=== PATIENT | male | born 1985 | race Caucasian/White ===

== ENCOUNTER 2019-01-04 14:30 | Inpatient (IN) | payer SELFPAY ==
[2019-01-04 14:39] VITALS: BMI 25.9
--- NOTE | 2019-01-04 14:43 | PDOC ---
History of Present Illness - General Chief Complaint: Lightheaded Stated Complaint: DIZZINESS Time Seen by Provider: 01/04/19 14:42 History Source: Patient Exam Limitations: No Limitations - History of Present Illness Initial Comments: 01/04/19 15:01 33 year old male with PMH ETOH abuse, ETOH withdrawal seizure (x4 years ago) presented to ED for tremors and left sided numbness starting last night. Pt stated he stopped drinking x20 days ago, started again x3 days ago drinking 11 beers a day, then yesterday only drank 1 beer and today has been tremulous with left sided numbness/tingling and dizziness. Pt denied chest pain, shortness of breath, nausea, vomiting, diarrhea, abdominal pain, visual changes, weakness, changes with articulation of speech. ETOH use: 11 beers daily, last used yesterday Drug use: cocaine, last used x20 days ago NIH Stroke Scale - Last Known Well Date/Time & Onset Date Last Known Well: 01/04/19 - Initial Evaluation Level of consciousness: Alert Ask patient the month and their age: Answers both correctly Ask patient to open & close eyes; make fist and let go: Obeys both correctly Best gaze (horizontal eye movement): Normal Visual field testing: No visual field loss Facial paresis (Show teeth/raise eyebrows/close eyes tight): Normal symmetrical movement Motor Function: Left Arm: Normal Motor Function: Right Arm: Normal (extends arm 90 (or 45) degrees for 10 seconds without drift Motor Function: Left Leg: Normal (extends leg 30 degrees for 5 seconds without drift) Motor Function: Right Leg: Normal (extends leg 30 degrees for 5 seconds without drift) Limb Ataxia: No ataxia Sensory(Use pinprick test arms,legs,trunk,face/side to side): Normal Best language (Describe picture, name items, read sentences): No Aphasia Dysarthria (read several words): Normal articulation Extinction and Inattention: No abnormality - Total Score NIH Stroke Scale Score: 0 Past History - Past Medical History Allergies/Adverse Reactions: Allergies Allergy/AdvReac Type Severity Reaction Status Date / Time No Known Allergies Allergy Verified 01/04/19 14:35 Home Medications: Ambulatory Orders NK [No Known Home Medication] 01/04/19 COPD: No - Suicide/Smoking/Psychosocial Hx Smoking History: Never smoked Review of Systems - Review of Systems Able to Perform ROS?: Yes Comments:: 01/04/19 15:21 General: denied fever, chills, night sweats, generalized weakness. HEENT: denied sore throat, rhinorrhea, ear pain. Heart: denied chest pain, palpitations, syncope, diaphoresis. Respiratory: denied shortness of breath, cough, sputum production, hemoptysis. Abdomen: denied abdominal pain, nausea, vomiting, diarrhea, constipation, blood in stool. : denied dysuria, increased urinary frequency, hematuria, urinary incontinence , flank pain. Back: denied back pain. Musculoskeletal: denied joint pain, muscle pain, joint swelling. Neurological: admitted to dizziness, numbness, tingling, tremors. denied headache, weakness. Skin: denied rash, laceration, abrasion. *Physical Exam - Vital Signs Last Vital Signs Temp Pulse Resp BP Pulse Ox 98.2 F 87 18 142/94 97 01/04/19 14:32 01/04/19 14:32 01/04/19 14:32 01/04/19 14:32 01/04/19 14:32 - Physical Exam Comments: 01/04/19 15:21 Constitutional: Well-nourished, Well-developed, appearing stated age. HEENT: head is normocephalic, atraumatic. EOMI. PERRLA. Neck: supple. Full ROM. Heart: regular rhythm. no murmurs, rubs or gallops. Lungs: clear to auscultation bilaterally. no crackles, rhonchi or wheezing. no stridor. Abdomen: soft, nontender. normal bowel sounds. no rebound, guarding, masses. Extremities: Peripheral pulses intact. No lower extremity edema. Neurological: Alert. Oriented x3. CN2-12 intact. 5/5 strength all extremities. Full sensation all extremities and bilateral face, but less on left. Romberg negative. Finger to nose normal. Gait normal. tremulous. Psych: anxious. awake, alert, oriented x3. Follows commands. Answers questions appropriately. Moderate Sedation - Procedure Monitoring Vital Signs: Procedure Monitoring Vital Signs Temperature 98.2 F 01/04/19 14:32 Pulse Rate 87 01/04/19 14:32 Respiratory Rate 18 01/04/19 14:32 Blood Pressure 142/94 01/04/19 14:32 O2 Sat by Pulse Oximetry (%) 97 01/04/19 14:32 ED Treatment Course - LABORATORY CBC & Chemistry Diagram: 01/05/19 06:20 01/05/19 06:20 Medical Decision Making - Medical Decision Making 01/04/19 15:22 33 year old male with PMH etoh abuse, etoh withdrawal seizure presented to ED after stopping ETOH use abruptly. Pt c/o left sided numbness/tingling, tremulousness, dizziness. Initial Vital Signs Temp Pulse Resp BP Pulse Ox 98.2 F 87 18 142/94 97 01/04/19 14:32 01/04/19 14:32 01/04/19 14:32 01/04/19 14:32 01/04/19 14:32 Afebrile. No tachycardia. No tachypnea. Mild hypertension. No hypoxia on room air. Labs ordered: CBC, CMP, etoh level, salicyclate level, tylenol level Imaging ordered: none Medications ordered: normal saline bolus 1000 cc, librium 50 mg PO 01/04/19 15:38 EKG performed at 1451: rate 86, regular rhythm, normal axis, normal intervals, nonspecific ST changes. CBC WBC 4.4 K/mm3 (4.0-10.0) 01/04/19 14:58 RBC 4.43 M/mm3 (4.00-5.60) 01/04/19 14:58 Hgb 14.7 GM/dL (11.7-16.9) 01/04/19 14:58 Hct 42.2 % (35.4-49) 01/04/19 14:58 MCV 95.2 fl (80-96) 01/04/19 14:58 MCH 33.2 pg (25.7-33.7) 01/04/19 14:58 MCHC 34.8 g/dl (32.0-35.9) 01/04/19 14:58 RDW 12.8 % (11.9-15.9) 01/04/19 14:58 Plt Count 233 K/MM3 (134-434) 01/04/19 14:58 MPV 7.5 fl (7.5-11.1) 01/04/19 14:58 Absolute Neuts (auto) 2.0 K/mm3 (1.5-8.0) 01/04/19 14:58 Neutrophils % 45.0 % (42.8-82.8) 01/04/19 14:58 Lymphocytes % 49.3 % (8-40) H 01/04/19 14:58 Monocytes % 4.5 % (3.8-10.2) 01/04/19 14:58 Eosinophils % 0.7 % (0-4.5) 01/04/19 14:58 Basophils % 0.5 % (0-2.0) 01/04/19 14:58 Nucleated RBC % 0 % (0-0) 01/04/19 14:58 No leukocytosis. No anemia. 01/04/19 15:47 CMP Sodium 138 mmol/L (136-145) 01/04/19 14:58 Potassium 3.9 mmol/L (3.5-5.1) 01/04/19 14:58 Chloride 102 mmol/L (98-107) 01/04/19 14:58 Carbon Dioxide 30 mmol/L (21-32) 01/04/19 14:58 Anion Gap 7 MMOL/L (8-16) L 01/04/19 14:58 BUN 6 mg/dL (7-18) L 01/04/19 14:58 Creatinine 0.7 mg/dL (0.55-1.3) 01/04/19 14:58 Creat Clearance w eGFR > 60 (>60) 01/04/19 14:58 Random Glucose 157 mg/dL (74-106) H 01/04/19 14:58 Calcium 8.7 mg/dL (8.5-10.1) 01/04/19 14:58 Phosphorus 2.8 mg/dL (2.5-4.9) 01/04/19 14:58 Magnesium 2.1 mg/dL (1.8-2.4) 01/04/19 14:58 Total Bilirubin 0.2 mg/dL (0.2-1) 01/04/19 14:58 AST 47 U/L (15-37) H 01/04/19 14:58 ALT 76 U/L (13-61) H 01/04/19 14:58 Alkaline Phosphatase 106 U/L (45-117) 01/04/19 14:58 Total Protein 8.0 g/dl (6.4-8.2) 01/04/19 14:58 Albumin 4.0 g/dl (3.4-5.0) 01/04/19 14:58 No electrolyte abnormalities. No YAMILE. Mild transaminitis. 01/04/19 16:20 Alcohol level 144 Acetaminophen and salicyclate level negative. 01/04/19 16:24 Pt reassessed, still tremulous. Medications: Ativan [address] head report: no evidence of any intracerebral hemorrhage, mass lesion, or midline shift. There is no evidence of an acute subdural hematoma. No CT evidence of acute infarct. No fractures are identified. Pt has no PCP. To be admitted to hospitalist for alcohol withdrawal, left sided numbness/ tingling. 01/04/19 16:[address] Le about the case, who recommends admission for further workup of unilateral numbness/tingling. Pending admission. UDS positive for benzos. - Pt received ativan in ED prior to giving urine sample. *DC/Admit/Observation/Transfer Diagnosis at time of Disposition: Numbness and tingling of left arm and leg Alcohol withdrawal Qualifiers: Complication of substance-induced condition: uncomplicated Qualified Code(s): F10.230 - Alcohol dependence with withdrawal, uncomplicated - Discharge Dispostion Condition at time of disposition: Stable Decision to Admit order: Yes - Referrals - Patient Instructions - Post Discharge Activity
[2019-01-04] MEDS ORDERED: SODIUM CHLORIDE 1,000 ML IV STA (14:44)
[2019-01-04 15:28] LABS: BASO % 0.5 % (0-2.0); EOS % 0.7 % (0-4.5); HEMATOCRIT 42.2 % (35.4-49); HEMOGLOBIN 14.7 GM/dL (11.7-16.9); LYMPH % 49.3 % (8-40); MCH 33.2 pg (25.7-33.7); MCHC 34.8 g/dl (32.0-35.9); MEAN CELL VOLUME 95.2 fl (80-96); MEAN PLT VOLUME 7.5 fl (7.5-11.1); MONO % 4.5 % (3.8-10.2); PLATELET COUNT 233 K/MM3 (134-434); RBC 4.43 M/mm3 (4.00-5.60); RDW 12.8 % (11.9-15.9); WHITE BLOOD COUNT 4.4 K/mm3 (4.0-10.0)
[2019-01-04] MEDS ORDERED: chlordiazePOXIDE HCL 25 MG CAPSULE PO ONE (15:28)
[2019-01-04] MEDS ORDERED: chlordiazePOXIDE HCL 25 MG CAPSULE ONE ×2 (15:35→23:06)
[2019-01-04] MEDS ORDERED: FOLIC ACID INJECTION - 1 MG, THIAMINE HCL 100 MG, MULTIVIT INJECTION ADULT 10 ML in SOD... IVPB ONE (15:36)
[2019-01-04 15:42] LABS: ALK PHOS 106 U/L (45-117); ANION GAP 7 MMOL/L (8-16); BILIRUBIN,TOTAL 0.2 mg/dL (0.2-1); BLOOD UREA NITROGEN 6 mg/dL (7-18); CALCIUM 8.7 mg/dL (8.5-10.1); CHLORIDE 102 mmol/L (98-107); CO2 30 mmol/L (21-32); CREATININE 0.7 mg/dL (0.55-1.3); GLUCOSE,RANDOM 157 mg/dL (74-106); MAGNESIUM 2.1 mg/dL (1.8-2.4); PHOSPHOROUS 2.8 mg/dL (2.5-4.9); POTASSIUM 3.9 mmol/L (3.5-5.1); SGOT/AST 47 U/L (15-37); SGPT/ALT 76 U/L (13-61); SODIUM 138 mmol/L (136-145)
--- NOTE | 2019-01-04 15:45 | PDOC ---
Attending Attestation - Resident Resident Name: Olga Coffey - ED Attending Attestation I have performed the following: I have examined & evaluated the patient, The case was reviewed & discussed with the resident, I agree w/resident's findings & plan, Exceptions are as noted - HPI HPI: 01/04/19 16:55 The patient is a 33 year old male with a significant past medical history of etoh withdrawal seizure (about 4 years ago) who presents to the emergency department with some lightheadedness since last night. The patient reports some associated left sided numbness to his hands and legs, tingling, and tremors with his complaint. The patient reports that he had a beer yesterday. The patient reports that he recently began to drink 3 days ago after a period of not drinking for about 20 days. The patient reports that when he began to drink again he has had about 11 beers a day. He denies any recent drug use (in the past he has used cocaine). He denies any other symptoms. He denies any fever, chills, nausea, vomiting, diarrhea, constipation or urinary symptoms. He denies any chest pain, shortness or breath or headache. The patient denies any other complaints. - Physicial Exam PE: 01/04/19 17:02 agree with resident exam - Medical Decision Making 01/04/19 17:02 33yo M hx etoh abuse complicated by etoh withdrawal seizures in the past presents to the ED with lightheadedness, L side numbness, tremors. Initially, pt states decreased sensation to L side of body, but on my exam, sensation and strength equal b/l. Concern for etoh withdrawal. Pt status post librium, now ativan given lack of response. Pt admitted to Dr. Le for further mgmt. Case discussed in detail with admitting physician including history, physical exam and ancillary studies. Admitting physician has assumed care for the patient, will follow all pending diagnostics and will complete the evaluation and treatment.
[2019-01-04] MEDS ORDERED: LORazepam 2 MG/ML SDV VIAL ONE (16:24)
[2019-01-04] MEDS ORDERED: ACETAMINOPHEN 325 MG TABLET (FP) PO PRN (17:14)
[2019-01-04] MEDS ORDERED: ONDANSETRON 4 MG/2 ML VIAL IVPUSH PRN (17:14)
[2019-01-04] MEDS ORDERED: chlordiazePOXIDE HCL 25 MG CAPSULE PO PRN (17:17)
--- NOTE | 2019-01-04 17:24 | HP ---
Admitting History and Physical - Primary Care Physician PCP: none - Admission Chief Complaint: I feel drunk History of Present Illness: Mr Iqbal is a 33 year old male who comes in with feelings of dizziness and tremulousness. He says that he stopped drinking 20 days ago, however 3 days ago he began drinking again. He says he was drinking about 11 beers a day but wanted to cut back so his last drink was yesterday at 2pm. He says he did not drink after that but he began to feel like the room was spinning around him. He also says he was unable to sleep and this morning he felt dizzy. He also says he felt tingling on his right side. He says he still feels like he is drunk. He denies fevers, chills, chest pain, shortness of breath, nausea, vomiting, diarrhea, constipation, difficulty or pain on urination, or swelling. Of note he told the ER doctors that he had decreased sensation on his left side and that he was not feeling drunk but was shaking all over. He did receive librium and ativan in the ED for tremors which could account for his current "drunk" feeling. History Source: Patient Limitations to Obtaining History: No Limitations - Past Medical History Endocrine: Yes: Diabetes Mellitus - Past Surgical History Past Surgical History: Yes: None - Smoking History Smoking history: Never smoked - Alcohol/Substance Use Hx Alcohol Use: Yes History of Substance Use: reports: Cocaine (states last smoked 20 days ago) - Social History ADL: Independent History of Recent Travel: No Home Medications - Allergies Allergies/Adverse Reactions: Allergies Allergy/AdvReac Type Severity Reaction Status Date / Time No Known Allergies Allergy Verified 01/04/19 14:35 Family Disease History - Family Disease History Other Family History: 5 uncles with diabetes Review of Systems Findings/Remarks: Full review of systems obtained, as per HPI and otherwise negative. Physical Examination Vital Signs: Vital Signs Temperature 36.6 C 01/04/19 16:30 Pulse Rate 85 01/04/19 16:30 Respiratory Rate 18 01/04/19 16:30 Blood Pressure 130/76 01/04/19 16:30 O2 Sat by Pulse Oximetry (%) 96 01/04/19 16:30 Constitutional: Yes: Well Nourished, No Distress, Calm Eyes: Yes: Conjunctiva Clear, EOM Intact, PERRL HENT: Yes: Atraumatic, Normocephalic Cardiovascular: Yes: Regular Rate and Rhythm. No: Gallop, Murmur, Rub Respiratory: Yes: Regular, CTA Bilaterally. No: Rales, Rhonchi, Wheezes Gastrointestinal: Yes: Normal Bowel Sounds, Soft. No: Distention, Tenderness Extremities: Yes: WNL Edema: No Neurological: Yes: Other (normal sensation throughout) Labs: CBC, BMP 01/04/19 14:58 01/04/19 14:58 Imaging - Results Cat Scan: Report Reviewed Problem List - Problems (1) Alcohol withdrawal Assessment/Plan: -patient presents with elevated alcohol level and recent alcohol use -suspect patient was drinking more than stated considering his level is still 155 -if only had 1 drink yesterday at 2pm, it would be much lower -admit to telemetry observation -aggressive hydration -thiamine/folate -librium withdrawal protocol Code(s): F10.239 - ALCOHOL DEPENDENCE WITH WITHDRAWAL, UNSPECIFIED Qualifiers: Complication of substance-induced condition: uncomplicated Qualified Code(s ): F10.230 - Alcohol dependence with withdrawal, uncomplicated (2) Cocaine use Assessment/Plan: -patient states last use 20 days ago -will check urine tox screen as well as may be contributing Code(s): F14.90 - COCAINE USE, UNSPECIFIED, UNCOMPLICATED (3) Diabetes Assessment/Plan: -patient says he was diagnosed by a doctor with diabetes -diabetic diet -FSBS -will check Hgb A1c Code(s): E11.9 - TYPE 2 DIABETES MELLITUS WITHOUT COMPLICATIONS
[2019-01-04] MEDS: SODIUM CHLORIDE 1,000 ML IV SCH (17:27)
[2019-01-04 18:22] LABS: URINE APPEARANCE CLEAR; URINE BILIRUBIN NEGATIVE (<2.0 mg/dL); URINE COLOR LTYELLOW; URINE GLUCOSE (UA) NEGATIVE (NEGATIVE); URINE KETONE NEGATIVE (NEGATIVE); URINE LEUK ESTERASE NEGATIVE (NEGATIVE); URINE NITRITE NEGATIVE (NEGATIVE); URINE PROTEIN 1+ (NEGATIVE); URINE UROBILINOGEN NEGATIVE mg/dL (0.2-1.0)
[2019-01-04 19:00] LABS: COCAINE, UR NEGATIVE ng/ml (CUTOFF=300); METHADONE, UR NEGATIVE ng/ml (CUTOFF=300); OPIATES, URI NEGATIVE ng/ml (CUTOFF=300); PHENCYCLIDINE,URINE NEGATIVE ng/ml (CUTOFF=25); URINE AMPHETAMINES NEGATIVE ng/ml (CUTOFF=500); URINE BARBITURATES NEGATIVE ng/ml (CUTOFF=200)
[2019-01-04 19:03] LABS: URINE BENZODIAZEPINES POSITIVE ng/ml (CUTOFF=200)
[2019-01-04] MEDS ORDERED: ACETAMINOPHEN 325 MG TABLET (FP) ONE (20:26)
--- NOTE | 2019-01-04 21:57 | EKG ---
Test Reason : Blood Pressure : / mmHG Vent. Rate : 086 BPM Atrial Rate : 086 BPM P-R Int : 148 ms QRS Dur : 078 ms QT Int : 376 ms P-R-T Axes : 046 041 020 degrees QTc Int : 449 ms NORMAL SINUS RHYTHM NORMAL ECG NO PREVIOUS ECGS AVAILABLE Confirmed by PANKAJ YOU MD ([id number]) on 01/04/2019 9:57:08 PM Referred By: Confirmed By:PANKAJ YOU MD
[2019-01-04] MEDS: chlordiazePOXIDE HCL 25 MG CAPSULE PO SCH (23:19)
[2019-01-05] MEDS ORDERED: chlordiazePOXIDE HCL 25 MG CAPSULE ONE ×4 (06:07→22:25)
[2019-01-05] MEDS: chlordiazePOXIDE HCL 25 MG CAPSULE PO SCH ×4 (06:09→22:26)
[2019-01-05 06:56] LABS: BASO % 0.5 % (0-2.0); EOS % 2.1 % (0-4.5); HEMATOCRIT 40.1 % (35.4-49); HEMOGLOBIN 14.2 GM/dL (11.7-16.9); LYMPH % 38.4 % (8-40); MCH 33.6 pg (25.7-33.7); MCHC 35.4 g/dl (32.0-35.9); MEAN PLT VOLUME 7.5 fl (7.5-11.1); MONO % 6.6 % (3.8-10.2); NEUT % 52.4 % (42.8-82.8); PLATELET COUNT 194 K/MM3 (134-434); RBC 4.22 M/mm3 (4.00-5.60); RDW 12.8 % (11.9-15.9)
[2019-01-05 07:23] LABS: ANION GAP 5 MMOL/L (8-16); BLOOD UREA NITROGEN 9 mg/dL (7-18); CALCIUM 8.2 mg/dL (8.5-10.1); CHLORIDE 104 mmol/L (98-107); CO2 29 mmol/L (21-32); CREATININE 0.6 mg/dL (0.55-1.3); GLUCOSE,RANDOM 112 mg/dL (74-106); MAGNESIUM 1.9 mg/dL (1.8-2.4); PHOSPHOROUS 3.1 mg/dL (2.5-4.9); POTASSIUM 3.6 mmol/L (3.5-5.1); SODIUM 139 mmol/L (136-145)
--- NOTE | 2019-01-05 08:59 | PN ---
Progress Note, Physician Chief Complaint: Mr Iqbal says he is still feeling tremulous and having a headache. No cp, sob , n/v. - Current Medication List Current Medications: Active Medications Acetaminophen (Tylenol -) 650 mg PO Q4H PRN PRN Reason: HEADACHE Last Admin: 01/04/19 20:28 Dose: 650 mg Chlordiazepoxide HCl (Librium -) 50 mg PO [id number] DAHLIA Stop: 01/05/19 17:01 Last Admin: 01/05/19 06:09 Dose: 50 mg Chlordiazepoxide HCl (Librium -) 25 mg PO [id number] DAHLIA Stop: 01/06/19 17:01 Chlordiazepoxide HCl (Librium -) 15 mg PO [id number] DAHLIA Stop: 01/07/19 17:01 Chlordiazepoxide HCl (Librium -) 25 mg PO Q4H PRN PRN Reason: WITHDRAWAL(CONT SUBST) Stop: 01/07/19 17:16 Chlordiazepoxide HCl (Librium -) 10 mg PO [id number] [facility] Stop: 01/08/19 17:01 Folic Acid (Folic Acid -) 1 mg PO DAILY [facility] Sodium Chloride (Normal Saline -) 1,000 mls @ 125 mls/hr IV ASDIR DAHLIA Last Admin: 01/04/19 17:27 Dose: Not Given Ondansetron HCl (Zofran Injection) 4 mg IVPUSH Q6H PRN PRN Reason: NAUSEA Thiamine HCl (Vitamin B1 -) 100 mg PO DAILY [facility] - Objective Vital Signs: Vital Signs Temperature 36.7 C 01/05/19 08:13 Pulse Rate 69 01/05/19 08:13 Respiratory Rate 17 01/05/19 08:13 Blood Pressure 123/83 01/05/19 08:13 O2 Sat by Pulse Oximetry (%) 99 01/05/19 08:14 Constitutional: Yes: Well Nourished, No Distress, Calm Cardiovascular: Yes: Regular Rate and Rhythm. No: Gallop, Murmur, Rub Respiratory: Yes: Regular, CTA Bilaterally. No: Rales, Rhonchi, Wheezes Gastrointestinal: Yes: Normal Bowel Sounds, Soft. No: Distention, Tenderness Extremities: Yes: WNL Edema: No Labs: CBC, BMP 01/05/19 06:20 02/24/19 06:20 Problem List - Problems (1) Alcohol withdrawal Code(s): F10.239 - ALCOHOL DEPENDENCE WITH WITHDRAWAL, UNSPECIFIED Qualifiers: Complication of substance-induced condition: uncomplicated Qualified Code(s ): F10.230 - Alcohol dependence with withdrawal, uncomplicated (2) Cocaine use Code(s): F14.90 - COCAINE USE, UNSPECIFIED, UNCOMPLICATED (3) Diabetes Code(s): E11.9 - TYPE 2 DIABETES MELLITUS WITHOUT COMPLICATIONS Assessment/Plan (1) Alcohol withdrawal Assessment/Plan: -patient improving but still with tremors -continue librium protocol -can transfer to med/surg -possible discharge tomorrow Code(s): F10.239 - ALCOHOL DEPENDENCE WITH WITHDRAWAL, UNSPECIFIED Qualifiers: Complication of substance-induced condition: uncomplicated Qualified Code(s ): F10.230 - Alcohol dependence with withdrawal, uncomplicated (2) Cocaine use Assessment/Plan: -urine tox negative Code(s): F14.90 - COCAINE USE, UNSPECIFIED, UNCOMPLICATED (3) Diabetes Assessment/Plan: -can cancel FSBS, controlled -follow up Hgb A1c Code(s): E11.9 - TYPE 2 DIABETES MELLITUS WITHOUT COMPLICATIONS
[2019-01-05] MEDS: FOLIC ACID 1 MG TABLET (FP) PO SCH (09:14)
[2019-01-05] MEDS: THIAMINE HCL 100 MG TABLET (FP) PO SCH (09:14)
[2019-01-05] MEDS: SODIUM CHLORIDE 1,000 ML IV SCH ×3 (11:12→17:16)
[2019-01-06] MEDS ORDERED: chlordiazePOXIDE HCL 25 MG CAPSULE ONE ×2 (04:57→11:16)
[2019-01-06] MEDS: chlordiazePOXIDE HCL 25 MG CAPSULE PO SCH ×2 (05:01→11:15)
[2019-01-06] MEDS ORDERED: FOLIC ACID 1 MG TABLET (FP) ONE (09:36)
[2019-01-06] MEDS ORDERED: THIAMINE HCL 100 MG TABLET (FP) ONE (09:36)
[2019-01-06] MEDS: FOLIC ACID 1 MG TABLET (FP) PO SCH (09:40)
[2019-01-06] MEDS: THIAMINE HCL 100 MG TABLET (FP) PO SCH (09:40)
--- NOTE | 2019-01-06 10:11 | DS ---
Physical Examination Vital Signs: Vital Signs Temperature 36.7 C 01/05/19 21:30 Pulse Rate 58 L 01/05/19 21:30 Respiratory Rate 17 01/05/19 21:30 Blood Pressure 149/95 01/05/19 21:30 O2 Sat by Pulse Oximetry (%) 99 01/05/19 21:30 Constitutional: Yes: Well Nourished, No Distress, Calm Cardiovascular: Yes: Regular Rate and Rhythm. No: Gallop, Murmur, Rub Respiratory: Yes: Regular, CTA Bilaterally. No: Rales, Rhonchi, Wheezes Gastrointestinal: Yes: Normal Bowel Sounds, Soft. No: Distention, Tenderness Extremities: Yes: WNL Edema: No Labs: CBC, BMP 01/05/19 06:20 01/05/19 06:20 Discharge Summary Reason For Visit: ALCOHOL WITHDRAWAL SYNDROME NUMBNESS AND TINGLING Current Active Problems Alcohol withdrawal (Acute) Cocaine use (Acute) Diabetes (Acute) Numbness and tingling of left arm and leg (Acute) Hospital Course: Mr Iqbal is a 33 year old gentleman who presented to the ER with tremulousness and was found to be in uncomplicated alcohol withdrawal. He was given librium and IV ativan in the ED, he was started on the librium protocol and admitted to telemetry under observation. He improved, however expressed interest in rehabilitation. He is currently tolerating the librium taper without complications, he is hemodynamically stable and tolerating oral intake. He should be on a diabetic diet and establish primary care to follow and manage his diabetes. I will start metformin 500mg qam and this can be adjusted as needed. He is safe for discharge to rehab today. 32 minutes spent in preparation of this discharge Condition: Stable - Instructions Diet, Activity, Other Instructions: Diabetic diet. No restriction on activity. Patient being transferred to [facility] to finish detox and undergo rehab for alcohol abuse. Continue librium taper , currently receiving 25mg q6h, on dose /. Disposition: TRANSFER ACUTE CARE/OTHER HOSP - Home Medications Comprehensive Discharge Medication List: Ambulatory Orders Chlordiazepoxide [Librium -] 10 mg PO [id number] capsule MDD 200mg 01/06/19 Chlordiazepoxide [Librium -] 15 mg PO [id number] capsule MDD 200mg 01/06/19 Chlordiazepoxide [Librium -] 25 mg PO Q4H PRN capsule MDD 200mg 01/06/19 Chlordiazepoxide [Librium -] 25 mg PO [id number] capsule MDD 200mg 01/06/19 Folic Acid - 1 mg PO DAILY tablet 01/06/19 Thiamine HCl [Vitamin B1 -] 100 mg PO DAILY tablet 01/06/19
[2019-01-06 11:24] VITALS: BP 124/73; PULSE 68; TEMP 97.7
[2019-01-06] MEDS ORDERED: chlordiazePOXIDE 5 MG CAPSULE PO SCH (23:00)
[2019-01-07] MEDS ORDERED: chlordiazePOXIDE HCL 10 MG CAPSULE PO SCH (23:00)
== END 2019-01-06 11:45 | disposition other institution (70) | DRG 774 ==
LOC: JER 14:30 → JERBED 16:25
PROVIDERS: ADMIT Internal Medicine; ATTEND Internal Medicine
PROC: HZ2ZZZZ Detoxification Services for Substance Abuse Treatment (ICD-10-PCS; principal; 2019-01-04)
DX: F10.230 Alcohol dependence with withdrawal, uncomplicated (principal); F14.90 Cocaine use, unspecified, uncomplicated; E11.9 Type 2 diabetes mellitus without complications; R20.0 Anesthesia of skin
CPT/HCPCS: 36415; 70450-TC; 71046-TC-FY; 80048; 80053; 80307; 81003; 81015; 82962; 83036; 83735; 84100; 85025; 93005; 93010; 99285-25; J7030

== ENCOUNTER 2019-05-20 14:19 | Inpatient (IN) | payer SELFPAY ==
[2019-05-20] MEDS ORDERED: FOLIC ACID INJECTION - 1 MG, THIAMINE HCL 100 MG, MULTIVIT INJECTION ADULT 10 ML in SOD... IVPB ONE (15:21)
--- NOTE | 2019-05-20 15:21 | PDOC ---
History of Present Illness - General Chief Complaint: Alcohol intoxication Stated Complaint: revisit Time Seen by Provider: 05/20/19 15:07 History Source: Patient Exam Limitations: Language Barrier ([facility] used) Past History - Travel Traveled outside of the country in the last 30 days: No Close contact w/someone who was outside of country & ill: No - Past Medical History Allergies/Adverse Reactions: Allergies Allergy/AdvReac Type Severity Reaction Status Date / Time No Known Allergies Allergy Verified 05/20/19 14:38 Home Medications: Ambulatory Orders Chlordiazepoxide [Librium -] 10 mg PO [id number] capsule MDD 200mg 01/06/19 Chlordiazepoxide [Librium -] 15 mg PO [id number] capsule MDD 200mg 01/06/19 Chlordiazepoxide [Librium -] 25 mg PO Q4H PRN capsule MDD 200mg 01/06/19 Chlordiazepoxide [Librium -] 25 mg PO [id number] capsule MDD 200mg 01/06/19 Folic Acid - 1 mg PO DAILY tablet 01/06/19 Metformin HCl [Glucophage] 500 mg PO AM #1 tablet 01/06/19 Thiamine HCl [Vitamin B1 -] 100 mg PO DAILY tablet 01/06/19 COPD: No - Immunization History Immunization Up to Date: Yes - Suicide/Smoking/Psychosocial Hx Smoking History: Never smoked Information on smoking cessation initiated: No Hx Alcohol Use: No Drug/Substance Use Hx: No Review of Systems - Review of Systems Able to Perform ROS?: Yes Comments:: 05/20/19 19:19 CONSTITUTIONAL: Present: chills Absent: fever, diaphoresis, generalized weakness, malaise, loss of appetite HEENT: Absent: rhinorrhea, nasal congestion, throat pain, throat swelling, difficulty swallowing, mouth swelling, ear pain, eye pain, visual Changes CARDIOVASCULAR: Absent: chest pain, loss of consciousness, palpitations, irregular heart rate, peripheral edema RESPIRATORY: Absent: cough, shortness of breath, dyspnea with exertion, orthopnea, wheezing, stridor, hemoptysis GASTROINTESTINAL: Present: abdominal pain Absent: abdominal distension, nausea, vomiting, diarrhea , constipation, melena, hematochezia GENITOURINARY: Absent: dysuria, frequency, urgency, hesitancy, hematuria, flank pain, genital pain MUSCULOSKELETAL: Absent: myalgia, arthralgia, joint swelling SKIN: Absent: rash, itching, pallor HEMATOLOGIC/IMMUNOLOGIC: Absent: easy bleeding, easy bruising, lymphadenopathy, frequent infections ENDOCRINE: Absent: unexplained weight gain, unexplained weight loss, heat intolerance, cold intolerance NEUROLOGIC: Present: "shaking" Absent: headache, focal weakness or paresthesias, dizziness, unsteady gait, seizure, mental status changes, bladder or bowel incontinence PSYCHIATRIC: Absent: anxiety, depression, suicidal or homicidal ideation, hallucinations. Is the patient limited [place] proficient: No *Physical Exam - Vital Signs Last Vital Signs Temp Pulse Resp BP Pulse Ox 98.5 F 92 H 16 153/72 99 05/20/19 14:39 05/20/19 14:39 05/20/19 14:39 05/20/19 14:39 05/20/19 14:39 - Physical Exam Comments: 05/20/19 19:20 GENERAL: Well developed, well nourished. Awake and alert. No acute distress. HEENT: Normocephalic, atraumatic. PERRLA, EOMI. No conjunctival pallor. Sclera are non- icteric. Moist mucous membranes. Oropharynx is clear. NECK: Supple. Full ROM. No JVD. Carotid pulses 2+ and symmetric, without bruits. No thyromegaly. No lymphadenopathy. CARDIOVASCULAR: Regular rate and rhythm. No murmurs, rubs, or gallops. Distal pulses are 2+ and symmetric. PULMONARY: No evidence of respiratory distress. Lungs clear to auscultation bilaterally. No wheezing, rales or rhonchi. ABDOMINAL: TTP of the epigastic region. Soft. Non-distended. No rebound or guarding. No organomegaly. Normoactive bowel sounds. MUSCULOSKELETAL Normal range of motion at all joints. No bony deformities or tenderness. No CVA tenderness. EXTREMITIES: No cyanosis. No clubbing. No edema. No calf tenderness. SKIN: Warm and dry. Normal capillary refill. No rashes. No jaundice. NEUROLOGICAL: Facial fasiculations noted. Alert, awake, appropriate. Cranial nerves 2-12 intact. No deficits to light touch and temperature in face, upper extremities and lower extremities. No motor deficits in the in face, upper extremities and lower extremities. Normoreflexic in the upper and lower extremities. Normal speech. Toes are down-going bilaterally. Gait is normal without ataxia. PSYCHIATRIC: Cooperative. Good eye contact. Appropriate mood and affect. ED Treatment Course - LABORATORY CBC & Chemistry Diagram: 05/20/19 17:56 05/20/19 17:56 Medical Decision Making - Medical Decision Making 05/20/19 19:21 The patient is a 33-year-old male past medical history of alcohol dependence, who presents to the ER today for withdrawal symptoms. He states his last drink was Sunday. He had 6 beers at that time. He states that currently he is very anxious and shaking. He states that he feels cold. Admits to mild nausea. He also states his abdominal pain and he feels like it is moving up his chest. He is open to rehabilitation. Denies fevers, short of breath, difficulty breathing , chest pain, constipation, diarrhea, , urgency hematuria. A/P: Alcohol withdrawal On exam patient with facial fasciculations including the tongue, cheeks. Reports history of alcoholic withdrawal seizures. Epigastric pain noted on exam. No right upper quadrant pain. Basic labs, urine, EKG ordered Librium, banana bag and GI cocktail ordered Sign out given to FRENCH Jade, pending lab results and reevaluation. *DC/Admit/Observation/Transfer Diagnosis at time of Disposition: Alcohol withdrawal Qualifiers: Complication of substance-induced condition: uncomplicated Qualified Code(s): F10.230 - Alcohol dependence with withdrawal, uncomplicated - Referrals - Patient Instructions - Post Discharge Activity CIWA Score Nausea/Vomitin-Mild Nausea/No Vomiting Muscle Tremors: 6 Anxiety: 5 Agitation: 6 Paroxysmal Sweats: 3 Orientation: 0-Oriented Tacttile Disturbances: 1-Very Mild Itch/Numbness Auditory Disturbances: 0-None Visual Disturbances: 0-None Headache: 0-None Present CIWA-Ar Total Score: 22 - Admission Criteria [facility] Guidelines: Admission for Medically Managed Detox: Requires at least one of the followin. CIWA greater than 12 2. Seizures within the past 24 hours 3. Delirium tremens within the past 24 hours 4. Hallucinations within the past 24 hours 5. Acute intervention needed for co occurring medical disorder 6. Acute intervention needed for co occurring psychiatric disorder 7. Severe withdrawal that cannot be handled at a lower level of care (continued vomiting, continued diarrhea, abnormal vital signs) requiring intravenous medication and/or fluids 8. Patient presents the following: Seizures, delirium tremens or hallucinations in the past 12 hours (per patient via translation line) Admission Criteria Met: Admission criteria met
[2019-05-20] MEDS ORDERED: MAG HYDROX/AL HYDROX/SIMETH -MYLANTA- ORAL SUSPENSION PO ONE (15:39)
[2019-05-20] MEDS ORDERED: FAMOTIDINE 20 MG/50 ML IVPB 20 MG/50 ML MG IVPB ONE ×2 (15:39→18:03)
[2019-05-20] MEDS ORDERED: LIDOCAINE VISCOUS 2% ORAL/TOP 20 ML UNIT-DOSE CUP MM ONE (15:39)
[2019-05-20] MEDS ORDERED: chlordiazePOXIDE HCL 25 MG CAPSULE PO ONE (15:39)
[2019-05-20] MEDS ORDERED: ONDANSETRON 4 MG/2 ML VIAL IVPUSH ONE (15:40)
[2019-05-20] MEDS ORDERED: chlordiazePOXIDE HCL 25 MG CAPSULE ONE ×2 (18:02→21:32)
[2019-05-20] MEDS ORDERED: LIDOCAINE VISCOUS 2% ORAL/TOP 20 ML UNIT-DOSE CUP ONE (18:02)
[2019-05-20] MEDS ORDERED: ONDANSETRON 4 MG/2 ML VIAL ONE (18:03)
[2019-05-20] MEDS ORDERED: MAG HYDROX/AL HYDROX/SIMETH 30 ML UNIT-DOSE CUP ONE (18:03)
[2019-05-20 18:27] LABS: BASO % 0.2 % (0-2.0); HEMATOCRIT 41.9 % (35.4-49); HEMOGLOBIN 14.4 GM/dL (11.7-16.9); LYMPH % 14.1 % (8-40); MCH 32.5 pg (25.7-33.7); MCHC 34.5 g/dl (32.0-35.9); MEAN CELL VOLUME 94.4 fl (80-96); MEAN PLT VOLUME 7.8 fl (7.5-11.1); NEUT % 81.7 % (42.8-82.8); PLATELET COUNT 150 K/MM3 (134-434); RBC 4.44 M/mm3 (4.00-5.60); RDW 14.2 % (11.9-15.9); WHITE BLOOD COUNT 7.3 K/mm3 (4.0-10.0)
[2019-05-20 18:39] LABS: ALBUMIN 4.2 g/dl (3.4-5.0); BILIRUBIN,TOTAL 0.4 mg/dL (0.2-1); BLOOD UREA NITROGEN 10.3 mg/dL (7-18); CALCIUM 9.7 mg/dL (8.5-10.1); CREATININE 0.8 mg/dL (0.55-1.3); POTASSIUM 3.2 mmol/L (3.5-5.1); PROTHROMBIN TIME (PATIENT) 11.8 SEC (9.7-13.0); TOT PROT 8.3 g/dl (6.4-8.2)
[2019-05-20] MEDS ORDERED: LORazepam 2 MG/ML SDV VIAL ONE (19:34)
--- NOTE | 2019-05-20 19:38 | PDOC ---
*Physical Exam - Vital Signs Last Vital Signs Temp Pulse Resp BP Pulse Ox 98.5 F 92 H 16 153/72 99 05/20/19 14:39 05/20/19 14:39 05/20/19 14:39 05/20/19 14:39 05/20/19 14:39 - Physical Exam General Appearance: Yes: Appropriately Dressed Respiratory/Chest: positive: Lungs Clear, Normal Breath Sounds Cardiovascular: positive: Tachycardia Gastrointestinal/Abdominal: positive: Normal Bowel Sounds, Soft. negative: Tender Extremity: positive: Normal Capillary Refill Integumentary: positive: Normal Color, Dry, Warm Neurologic: positive: Fully Oriented, Alert, Normal Mood/Affect ED Treatment Course - LABORATORY CBC & Chemistry Diagram: 05/20/19 17:56 05/20/19 17:56 - ADDITIONAL ORDERS Additional order review: Laboratory Results 05/20/19 05/20/19 17:56 17:56 PT with INR 11.80 INR 1.00 Sodium 140 Potassium 3.2 L Chloride 100 Carbon Dioxide 27 Anion Gap 13 BUN 10.3 Creatinine 0.8 Est GFR (CKD-EPI)AfAm 136.99 Est GFR (CKD-EPI)NonAf 118.20 Random Glucose 126 H Calcium 9.7 Total Bilirubin 0.4 AST 31 ALT 30 Alkaline Phosphatase 81 Total Protein 8.3 H Albumin 4.2 Lipase 508 H 05/20/19 17:56 RBC 4.44 MCV 94.4 MCHC 34.5 RDW 14.2 D MPV 7.8 Neutrophils % 81.7 D Lymphocytes % 14.1 D Monocytes % 4.0 Eosinophils % 0.0 D Basophils % 0.2 - Medications Given in the ED: ED Medications Discontinued Medications Generic Name Dose Route Start Last Admin Trade Name Freq PRN Reason Stop Dose Admin Al Hydroxide/Mg Hydroxide 30 ml 05/20/19 15:39 05/20/19 18:17 Mylanta Suspension - PO 05/20/19 15:40 30 ml ONCE ONE Administration Chlordiazepoxide HCl 100 mg 05/20/19 15:39 05/20/19 18:17 Librium - PO 05/20/19 15:40 100 mg ONCE ONE Administration Famotidine/Sodium Chloride 20 mg in 50 mls @ 100 mls/hr 05/20/19 15:39 18:17 Pepcid 20 Mg Premixed Ivpb - IVPB 05/20/19 16:08 100 mls/hr ONCE ONE Administration Lidocaine HCl 20 ml 05/20/19 15:39 05/20/19 18:17 Xylocaine 2% Viscous Oral - MM 05/20/19 15:40 20 ml ONCE ONE Administration Ondansetron HCl 4 mg 05/20/19 15:40 05/20/19 18:17 Zofran Injection IVPUSH 05/20/19 15:41 4 mg ONCE ONE Administration Medical Decision Making - Medical Decision Making 05/20/19 19:37 patient severely shaky. Ativan ordered. patient received Librium earlier in the day. 05/20/19 20:23 patient is to be admitted to hospitalist service. pending sign out 05/21/19 05:12 *DC/Admit/Observation/Transfer Diagnosis at time of Disposition: Alcohol withdrawal Qualifiers: Complication of substance-induced condition: uncomplicated Qualified Code(s): F10.230 - Alcohol dependence with withdrawal, uncomplicated - Referrals - Patient Instructions - Post Discharge Activity
[2019-05-20] MEDS ORDERED: SODIUM CHLORIDE 1,000 ML IV STA (19:41)
--- NOTE | 2019-05-20 19:56 | PN ---
Teaching Attending Note Name of Resident: Mihai Bowman ATTENDING PHYSICIAN STATEMENT I saw and evaluated the patient. I reviewed the resident's note and discussed the case with the resident. I agree with the resident's findings and plan as documented. SUBJECTIVE: Patient is a 33-year-old man with a PMH of Alcohol abuse, Cocaine use, NIDDM and Alcohol withdrawal seizures who presents to the ER today for withdrawal symptoms. He states his last drink was Sunday when he had 6 beers. He states that currently he is very anxious and shaking. He states that he feels cold. Admits to mild nausea. He also states he has epigastric abdominal pain and he feels like it is moving up his chest. He is open to rehabilitation. Denies fevers, short of breath, difficulty breathing, chest pain, constipation, diarrhea, , urgency or hematuria. On arrival in the ER he had facial fasciculations including the tongue and cheeks. OBJECTIVE: Alert Vital Signs Period Temp Pulse Resp BP Sys/Acevedo Pulse Ox Last 24 Hr 98.5 F 92 16 153/72 99 HEENT: No Jaundice, eye redness or discharge, PERRLA, EOMI. Normocephalic, atraumatic. External ears are normal and hearing is grossly intact. No nasal discharge. Neck: Supple, nontender. No palpable adenopathy or thyromegaly. No JVD Chest: Good effort. Clear to auscultation and percussion. Heart: Regular. No S3, rub or murmur Abdomen: Not distended, soft, upper abdominal tenderness and no HSM. No rebound or guarding. Normal bowel sounds. Ext: Peripheral pulses intact. No leg edema. Skin: Warm and dry. No petechiae, rash or ecchymosis. Neuro: Alert. Oriented x3. CN 2-12 grossly intact. Fine tremors. Sensation grossly intact in all four extremities and DTR are symmetric. Psych: Appropriate mood and affect. Good insight. Current Medications Generic Name Dose Route Start Last Admin Trade Name Freq PRN Reason Stop Dose Admin Folic Acid 1 mg/ Thiamine HCl 1,000 mls @ 125 mls/hr 05/20/19 15:21 05/20/19 18:17 100 mg/ Multivitamins/Minerals IVPB 05/20/19 23:20 125 mls/hr 10 ml/ Sodium Chloride ONCE ONE Administration Sodium Chloride 1,000 mls @ 1,000 mls/hr 05/20/19 19:41 05/20/19 19:46 Normal Saline - IV 05/20/19 20:40 1,000 mls/hr ASDIR STA Administration Home Medications Medication Instructions Recorded Chlordiazepoxide [Librium -] 10 mg PO [id number] capsule MDD 200mg 01/06/19 Chlordiazepoxide [Librium -] 15 mg PO [id number] capsule MDD 200mg 01/06/19 Chlordiazepoxide [Librium -] 25 mg PO Q4H PRN capsule MDD 200mg 01/06/19 Chlordiazepoxide [Librium -] 25 mg PO [id number] capsule MDD 200mg 01/06/19 Folic Acid - 1 mg PO DAILY tablet 01/06/19 Metformin HCl [Glucophage] 500 mg PO AM #1 tablet 01/06/19 Thiamine HCl [Vitamin B1 -] 100 mg PO DAILY tablet 01/06/19 Abnormal Lab Results 05/20/19 17:56 Potassium 3.2 L Random Glucose 126 H Total Protein 8.3 H Lipase 508 H ASSESSMENT AND PLAN: 1. Alcohol withdrawal syndrome - Will implement [facility] librium alcohol withdrawal protocol and do neurochecks. Implement seizure, fall and aspiration precautions. Treat with thiamine and folic acid and monitor electrolytes (Ca,Mg, K,P). Counseled patient about abstaining from alcohol. Will consult learning technologies specialist and refer to alcohol detox upon discharge. Will get a sonogram of his abdomen and treat with protonix for now. Hypokalemia likely due to renal wasting associated with alcoholism as well as poor intake. Will give IV KCL and check Mg level. Consult manager social responsibility to help with his health insurance problem. Says he is not taking any medication for DM and HTN because he does not have health insurance. Will start him on Lisinopril 10 mg bid and HCTZ 12.5 mg qd. Nonpharmacologic measures for BP control discussed. 2. DM For now, we will implement sliding scale insulin regimen. Provide comprehensive diabetes care with patient teaching and counseling about the importance of adherence to prescribed diabetes regimen, euglycemia, eye care and foot care. 3. DVT prophylaxis - Lovenox 40 mg SQ q 24 hours. 4. Advance directives - Full code
[2019-05-20] MEDS ORDERED: ONDANSETRON 4 MG/2 ML VIAL IVPUSH PRN (20:43)
[2019-05-20] MEDS ORDERED: chlordiazePOXIDE HCL 10 MG CAPSULE PO PRN (20:45)
[2019-05-20] MEDS ORDERED: KCL 10 MEQ IVPB 20 MEQ/200 ML INFUS.BAG IVPB ONE (21:32)
[2019-05-20] MEDS: chlordiazePOXIDE HCL 25 MG CAPSULE PO SCH (21:40)
[2019-05-20] MEDS: KCL 10 MEQ IVPB 10 MEQ/100 ML INFUS.BAG IVPB SCH (22:42)
--- NOTE | 2019-05-20 22:54 | HP ---
CHIEF COMPLAINT: generalized tremors PCP: HISTORY OF PRESENT ILLNESS: 33M with pmh of HTN, DM, chronic EtOH usage presents to [facility]ED with complaint of severe constant generalized tremors x2d, has associated diffuse burning abdominal pain x1wk; bilious emesis x3 episodes, melenotic diarrhea x1. Denies history of hematemesis, BRBPR. Endorses drinking 20 beers/daily; last drink was Sunday. Has tried quitting in the past but would relapse. Has had one prior hospital visit for alcohol withdrawal in Dec 2018. Has been drinking for 11years. States that he drinks with friends on weekends which progressed to near -daily drinking. Endorses occasionally feeling the presence of , denies visual/audio/tactile hallucinations. Feels somewhat nervous. ER course was notable for: (1) ativan x1, librium x1 (2) famotidine, viscous lidocaine, zofran (3) lipase 508 Recent Travel: PAST MEDICAL HISTORY: HTN, DM, chronic EtOH PAST SURGICAL HISTORY: none Social History: Smoking: none Alcohol: chronic EtOH(11ys) Drugs: occasional cocaine Family History: diabetes Allergies No Known Allergies Allergy (Verified 05/20/19 14:38) HOME MEDICATIONS: Home Medications Medication Instructions Recorded Chlordiazepoxide [Librium -] 10 mg PO [id number] capsule MDD 200mg 01/06/19 Chlordiazepoxide [Librium -] 15 mg PO [id number] capsule MDD 200mg 01/06/19 Chlordiazepoxide [Librium -] 25 mg PO Q4H PRN capsule MDD 200mg 01/06/19 Chlordiazepoxide [Librium -] 25 mg PO [id number] capsule MDD 200mg 01/06/19 Folic Acid - 1 mg PO DAILY tablet 01/06/19 Metformin HCl [Glucophage] 500 mg PO AM #1 tablet 01/06/19 Thiamine HCl [Vitamin B1 -] 100 mg PO DAILY tablet 01/06/19 REVIEW OF SYSTEMS CONSTITUTIONAL: Absent: fever, chills, diaphoresis, generalized weakness, malaise, loss of appetite, weight change HEENT: Absent: rhinorrhea, nasal congestion, throat pain, throat swelling, visual changes CARDIOVASCULAR: Absent: chest pain, syncope, palpitations, irregular heart rate, lightheadedness , peripheral edema RESPIRATORY: Absent: cough, shortness of breath, dyspnea with exertion, wheezing, stridor, hemoptysis GASTROINTESTINAL: NV, burning diffuse abdominal pain, loose black stool Absent: constipation, hematochezia GENITOURINARY: Absent: dysuria, frequency, urgency, hesitancy, hematuria, flank pain, genital pain MUSCULOSKELETAL: Absent: myalgia, arthralgia, joint swelling, back pain, neck pain SKIN: Absent: rash, itching, pallor HEMATOLOGIC/IMMUNOLOGIC: Absent: easy bleeding, easy bruising, lymphadenopathy, frequent infections ENDOCRINE: Absent: unexplained weight gain, unexplained weight loss NEUROLOGIC: Absent: headache, focal weakness or paresthesias, dizziness, unsteady gait, seizure, mental status changes, bladder or bowel incontinence PSYCHIATRIC: anxiety Absent: depression PHYSICAL EXAMINATION Vital Signs - 24 hr 05/20/19 14:39 Temperature 98.5 F Pulse Rate 92 H Respiratory 16 Rate Blood Pressure 153/72 O2 Sat by Pulse 99 Oximetry (%) GENERAL: Awake, alert, and fully oriented, in no acute distress. Mild generalized tremors HEAD: Normal with no signs of trauma. EYES: Pupils equal, round and reactive to light, extraocular movements intact, sclera anicteric, conjunctiva clear. EARS, NOSE, THROAT: Ears normal, nares patent, oropharynx clear without exudates. Moist mucous membranes. NECK: Normal range of motion, supple without lymphadenopathy, JVD, or masses. LUNGS: Breath sounds equal, clear to auscultation bilaterally. No wheezes, and no crackles. No accessory muscle use. HEART: Regular rate and rhythm, normal S1 and S2 without murmur, rub or gallop. ABDOMEN: Soft, not distended, no guarding, no rebound, no masses. Mild diffuse tenderness to Left hemiabdomen MUSCULOSKELETAL: Normal range of motion at all joints. No bony deformities or tenderness. No CVA tenderness. UPPER EXTREMITIES: 2+ pulses, warm, well-perfused. No cyanosis. No peripheral edema. LOWER EXTREMITIES: 2+ pulses, warm, well-perfused. No calf tenderness. No peripheral edema. NEUROLOGICAL: Normal speech. Mild asterixis PSYCHIATRIC: Cooperative. Good eye contact. Appropriate mood and affect. SKIN: Warm, dry, normal turgor, no rashes or lesions noted, normal capillary refill. Laboratory Results - last 24 hr 05/20/19 05/20/19 05/20/19 17:56 17:56 17:56 WBC 7.3 RBC 4.44 Hgb 14.4 Hct 41.9 MCV 94.4 MCH 32.5 MCHC 34.5 RDW 14.2 D Plt Count 150 D MPV 7.8 Absolute Neuts (auto) 5.9 Neutrophils % 81.7 D Lymphocytes % 14.1 D Monocytes % 4.0 Eosinophils % 0.0 D Basophils % 0.2 Nucleated RBC % 0 PT with INR 11.80 INR 1.00 Sodium 140 Potassium 3.2 L Chloride 100 Carbon Dioxide 27 Anion Gap 13 BUN 10.3 Creatinine 0.8 Est GFR (CKD-EPI)AfAm 136.99 Est GFR (CKD-EPI)NonAf 118.20 Random Glucose 126 H Calcium 9.7 Total Bilirubin 0.4 AST 31 ALT 30 Alkaline Phosphatase 81 Total Protein 8.3 H Albumin 4.2 Lipase 508 H ASSESSMENT/PLAN: 33M with pmh of HTN, DM, chronic EtOH usage presenting to [facility]ED with generalized tremors likely 2/2 alcohol withdrawal; abdominal pain possibly 2/2 alcohol-induced gastritis. # Tremors 2/2 alcohol withdrawal - initiate CIWA w/ librium - fall precautions - banana bag # abdominal pain > lipase 508 -- unlikely, pancreatits - U/S RUQ to r/o GB pathologies NEURO # at-risk for seizures - CIWA RESPIR # no active issues - monitor for altered sensorium as pt at-risk for aspiration PNA CARDIO # chronic HTN -- no home meds - consider home meds dose - keep SBPs 140-160s GI - symptomatic treatment with famotidine, viscous lido RENAL - I/Os FEN - thiamine bag - possible NPO to reduce aspiration risk DISPO - SW: insurance, chronic EtOH usage Mihailinda Bowman, DO PGY-1 Medicine, PM-Float [id number] 05/20/19 Visit type - Emergency Visit Emergency Visit: Yes ED Registration Date: 05/20/19 Care time: The patient presented to the Emergency Department on the above date and was hospitalized for further evaluation of their emergent condition. - New Patient This patient is new to me today: Yes Date on this admission: 05/20/19 - Critical Care Critical Care patient: No ATTENDING PHYSICIAN STATEMENT I saw and evaluated the patient. I reviewed the resident's note and discussed the case with the resident. I agree with the resident's findings and plan as documented. SUBJECTIVE: OBJECTIVE: ASSESSMENT AND PLAN:
[2019-05-20] MEDS ORDERED: LIDOCAINE VISCOUS 2% ORAL/TOP 20 ML UNIT-DOSE CUP MM PRN (23:03)
[2019-05-20] MEDS: INSULIN SLIDING SCALE (NOVOLOG) 1 VIAL SQ SCH (23:13)
[2019-05-21] MEDS: KCL 10 MEQ IVPB 10 MEQ/100 ML INFUS.BAG IVPB SCH (00:04)
[2019-05-21 01:15] VITALS: BMI 25.4
[2019-05-21 02:07] LABS: PH,URINE 8.5 (5.0-8.0); URINE APPEARANCE CLEAR; URINE BILIRUBIN NEGATIVE (NEGATIVE); URINE COLOR YELLOW; URINE GLUCOSE (UA) NEGATIVE (NEGATIVE); URINE KETONE 2+ (NEGATIVE); URINE LEUK ESTERASE NEGATIVE (NEGATIVE); URINE NITRITE NEGATIVE (NEGATIVE); URINE PROTEIN NEGATIVE (NEGATIVE); URINE UROBILINOGEN 0.2 mg/dL (0.2-1.0)
[2019-05-21] MEDS: chlordiazePOXIDE HCL 25 MG CAPSULE PO SCH ×3 (05:33→22:01)
[2019-05-21] MEDS ORDERED: PNEUMOC 13-VAL CONJ-DIP CRM/PF 0.5 ML DISP.SYRIN IM ONE (05:48)
[2019-05-21] MEDS: INSULIN SLIDING SCALE (NOVOLOG) 1 VIAL SQ SCH ×4 (06:30→22:06)
--- NOTE | 2019-05-21 07:41 | PN ---
Physical Exam: SUBJECTIVE: Patient seen and examined at the bedside OBJECTIVE: Vital Signs Period Temp Pulse Resp BP Sys/Acevedo Pulse Ox Last 24 Hr 98.5 F-99.3 F 75-92 16-20 146-153/72-93 99-99 GENERAL: The patient is awake, alert, and fully oriented, in no acute distress, aware of the date, his location, and was able to identify examiner HEAD: Normal with no signs of trauma. EYES: PERRL No ptosis, no nystagmus ENT: Ears normal, nares patent, oropharynx clear without exudates, moist mucous , no tongue fasiculations observed NECK: Trachea midline, full range of motion, supple. LUNGS: Breath sounds equal, clear to auscultation bilaterally, no wheezes, no crackles, no accessory muscle use HEART: Regular rate and rhythm, S1, S2 without murmur, rub or gallop. ABDOMEN: Soft, non distended, mildly tender to palpation in epigastrium, normoactive bowel sounds, no guarding, no rebound, no hepatosplenomegaly, no masses. EXTREMITIES: well-perfused, no edema, tremors observed NEUROLOGICAL: Normal speech, gait not observed. PSYCH: Normal mood, normal affect. SKIN: Warm, mild sweating, normal turgor, no rashes or lesions noted CIWA score 3 Laboratory Results - last 24 hr 05/20/19 05/20/19 05/20/19 17:56 17:56 17:56 WBC 7.3 RBC 4.44 Hgb 14.4 Hct 41.9 MCV 94.4 MCH 32.5 MCHC 34.5 RDW 14.2 D Plt Count 150 D MPV 7.8 Absolute Neuts (auto) 5.9 Neutrophils % 81.7 D Lymphocytes % 14.1 D Monocytes % 4.0 Eosinophils % 0.0 D Basophils % 0.2 Nucleated RBC % 0 PT with INR 11.80 INR 1.00 Sodium 140 Potassium 3.2 L Chloride 100 Carbon Dioxide 27 Anion Gap 13 BUN 10.3 Creatinine 0.8 Est GFR (CKD-EPI)AfAm 136.99 Est GFR (CKD-EPI)NonAf 118.20 POC Glucometer Random Glucose 126 H Calcium 9.7 Total Bilirubin 0.4 AST 31 ALT 30 Alkaline Phosphatase 81 Total Protein 8.3 H Albumin 4.2 Lipase 508 H Urine Color Urine Appearance Urine pH Ur Specific [place] Urine Protein Urine Glucose (UA) Urine Ketones Urine Blood Urine Nitrite Urine Bilirubin Urine Urobilinogen Ur Leukocyte Esterase 05/20/19 05/21/19 05/21/19 23:12 01:30 05:31 WBC RBC Hgb Hct MCV MCH MCHC RDW Plt Count MPV Absolute Neuts (auto) Neutrophils % Lymphocytes % Monocytes % Eosinophils % Basophils % Nucleated RBC % PT with INR INR Sodium Potassium Chloride Carbon Dioxide Anion Gap BUN Creatinine Est GFR (CKD-EPI)AfAm Est GFR (CKD-EPI)NonAf POC Glucometer 71 74 Random Glucose Calcium Total Bilirubin AST ALT Alkaline Phosphatase Total Protein Albumin Lipase Urine Color Yellow Urine Appearance Clear Urine pH 8.5 H Ur Specific [place] 1.016 Urine Protein Negative Urine Glucose (UA) Negative Urine Ketones 2+ H Urine Blood Negative Urine Nitrite Negative Urine Bilirubin Negative Urine Urobilinogen 0.2 Ur Leukocyte Esterase Negative Active Medications Generic Name Dose Route Start Last Admin Trade Name Freq PRN Reason Stop Dose Admin Chlordiazepoxide HCl 10 mg 05/23/19 00:00 Librium - PO 05/23/19 23:59 Q12H PRN Signs/symptoms of Withdrawal Chlordiazepoxide HCl 10 mg 05/20/19 20:45 Librium - PO 05/22/19 23:59 Q8H PRN Signs/symptoms of Withdrawal Chlordiazepoxide HCl 25 mg 05/20/19 21:00 05/21/19 05:33 Librium - PO 05/21/19 21:01 25 mg Q8H DAHLIA Administration Chlordiazepoxide HCl 15 mg 05/22/19 05:00 Librium - PO 05/22/19 21:01 Q8H DAHLIA Chlordiazepoxide HCl 10 mg 05/23/19 05:00 Librium - PO 05/23/19 21:01 Q8H DAHLIA Chlordiazepoxide HCl 10 mg 05/24/19 05:00 Librium - PO 05/24/19 05:01 ONCE ONE Hydrochlorothiazide 12.5 mg 05/21/19 10:00 Hctz - PO DAILY [facility] Famotidine/Sodium Chloride 20 mg in 50 mls @ 100 mls/hr 05/21/19 10:00 Pepcid 20 Mg Premixed Ivpb - IVPB BID [facility] Insulin Aspart 1 vial 05/20/19 22:00 05/21/19 06:30 Novolog Vial Sliding Scale - SQ Not Given ACHS DAHLIA Protocol Lidocaine HCl 20 ml 05/20/19 23:03 Xylocaine 2% Viscous Oral - MM Q6HPO PRN ORAL PAIN/MOUTH SORES Lisinopril 10 mg 05/21/19 10:00 Prinivil PO BID [facility] Ondansetron HCl 4 mg 05/20/19 20:43 Zofran Injection IVPUSH Q6H PRN NAUSEA Pneumococcal 13-Valent Conj Vacc 0.5 ml 05/21/19 05:48 Prevnar 13 Syringe - IM 05/21/19 05:49 .ONCE ONE /[facility] The patient is a 33-year-old male with PMH of alcohol dependence and associated withdrawal seizures, cocaine abuse, and NIDDM. He presented to the ER yesterday with withdrawal symptoms (anxiety and shaking) , with his last drink on Sunday, when he had 6 beers. Symptoms included anxiety, shaking, nausea, feeling cold, and epigastric pain radiating to chest. Patient is a 33-year-old man with a PMH of Alcohol abuse, Cocaine use, NIDDM and Alcohol withdrawal seizures who presents to the ER today for withdrawal symptoms. He states his last drink was Sunday when he had 6 beers. He states that currently he is very anxious and shaking. He states that he feels cold. Admits to mild nausea. He also states he has epigastric abdominal pain and he feels like it is moving up his chest. He is open to rehabilitation. Denies fevers, short of breath, difficulty breathing, chest pain, constipation, diarrhea, , urgency or hematuria. On arrival in the ER he had facial fasciculations including the tongue and cheek CIWA in ER 22 ASSESSMENT/PLAN: Current Medications Chlordiazepoxide HCl (Librium -) 10 mg PO Q12H PRN PRN Reason: Signs/symptoms of Withdrawal Stop: 05/23/19 23:59 Chlordiazepoxide HCl (Librium -) 10 mg PO Q8H PRN PRN Reason: Signs/symptoms of Withdrawal Stop: 05/22/19 23:59 Chlordiazepoxide HCl (Librium -) 25 mg PO Q8H [facility] Stop: 05/21/19 21:01 Last Admin: 05/21/19 05:33 Dose: 25 mg Chlordiazepoxide HCl (Librium -) 15 mg PO Q8H [facility] Stop: 05/22/19 21:01 Chlordiazepoxide HCl (Librium -) 10 mg PO Q8H DAHLIA Stop: 05/23/19 21:01 Chlordiazepoxide HCl (Librium -) 10 mg PO ONCE ONE Stop: 05/24/19 05:01 Hydrochlorothiazide (Hctz -) 12.5 mg PO DAILY [facility] Famotidine/Sodium Chloride (Pepcid 20 Mg Premixed Ivpb -) 20 mg in 50 mls @ 100 mls/hr IVPB BID [facility] Insulin Aspart (Novolog Vial Sliding Scale -) 1 vial SQ ACHS [facility]; Protocol Last Admin: 05/21/19 06:30 Dose: Not Given Lidocaine HCl (Xylocaine 2% Viscous Oral -) 20 ml MM Q6HPO PRN PRN Reason: ORAL PAIN/MOUTH SORES Lisinopril (Prinivil) 10 mg PO BID [facility] Ondansetron HCl (Zofran Injection) 4 mg IVPUSH Q6H PRN PRN Reason: NAUSEA Pneumococcal 13-Valent Conj Vacc (Prevnar 13 Syringe -) 0.5 ml IM .ONCE ONE Stop: 05/21/19 05:49 Assessment/Plan: #Alcohol Withdrawal Syndrome: -CIWA score 22, 3 -Librium withdrawal protocol started 05/21 -Thiamine, Folic Acid -Abdominal USG: mild fatty infiltration, no gallstones, no visualization of pancreas -Monitor electrolytes 05/21 normal (Ca 8.5, Mg 2.3, Phophate 4.2) -Lipase raised 508, K low 3.2, 3.3 ; Protein raised 8.3, normal 6.8 Ca 9.7, 8.5 normal -Urine RA pH raised 8.5, Ketones 2+ #DM -Monitor BG 05/21 (2AM 74, 12PM 111, 4PM 109) -HbA1c 5.8 -Sliding scale -not on home meds due to insurance issues, connect with social media senior associate -Will start on metformin on D/C #HTN -Start Lisinopril 10mg PO BID #DVT -Lovenox 40mg Visit type - Emergency Visit Emergency Visit: Yes ED Registration Date: 05/20/19 Care time: The patient presented to the Emergency Department on the above date and was hospitalized for further evaluation of their emergent condition. - New Patient This patient is new to me today: Yes Date on this admission: 05/21/19 - Critical Care Critical Care patient: No - Discharge Referral Referred to [facility] Med [facility].C[facility] No ATTENDING PHYSICIAN STATEMENT I saw and evaluated the patient. I reviewed the resident's note and discussed the case with the resident. I agree with the resident's findings and plan as documented. SUBJECTIVE: OBJECTIVE: ASSESSMENT AND PLAN:
[2019-05-21 08:02] LABS: ALBUMIN 3.5 g/dl (3.4-5.0); BILIRUBIN,TOTAL 0.7 mg/dL (0.2-1); BLOOD UREA NITROGEN 11.8 mg/dL (7-18); CALCIUM 8.5 mg/dL (8.5-10.1); CREATININE 0.7 mg/dL (0.55-1.3); MAGNESIUM 2.3 mg/dL (1.8-2.4); PHOSPHOROUS 4.2 mg/dL (2.5-4.9); POTASSIUM 3.3 mmol/L (3.5-5.1); TOT PROT 6.8 g/dl (6.4-8.2)
[2019-05-21 08:05] LABS: BASO % 0.3 % (0-2.0); EOS % 0.8 % (0-4.5); HEMATOCRIT 38.9 % (35.4-49); HEMOGLOBIN 13.3 GM/dL (11.7-16.9); LYMPH % 36.8 % (8-40); MCH 32.9 pg (25.7-33.7); MCHC 34.1 g/dl (32.0-35.9); MEAN CELL VOLUME 96.5 fl (80-96); MEAN PLT VOLUME 8.1 fl (7.5-11.1); MONO % 6.7 % (3.8-10.2); NEUT % 55.4 % (42.8-82.8); PLATELET COUNT 102 K/MM3 (134-434); RBC 4.03 M/mm3 (4.00-5.60); RDW 14.2 % (11.9-15.9); WHITE BLOOD COUNT 5.3 K/mm3 (4.0-10.0)
--- NOTE | 2019-05-21 08:32 | EKG ---
Test Reason : Blood Pressure : / mmHG Vent. Rate : 092 BPM Atrial Rate : 092 BPM P-R Int : 150 ms QRS Dur : 088 ms QT Int : 384 ms P-R-T Axes : 056 055 034 degrees QTc Int : 474 ms NORMAL SINUS RHYTHM NORMAL ECG WHEN COMPARED WITH ECG OF 04-JAN-2019 14:51, NO SIGNIFICANT CHANGE WAS FOUND Confirmed by CARLEEN CONTI MD ([id number]) on 05/21/2019 8:32:25 AM Referred By: Confirmed By:CARLEEN CONTI MD
[2019-05-21] MEDS ORDERED: POTASSIUM CHLORIDE TABS 20 MEQ TABLET.ER (FP) PO ONE ×2 (09:21→09:45)
[2019-05-21] MEDS: FOLIC ACID 1 MG TABLET (FP) PO SCH (09:46)
[2019-05-21] MEDS: LISINOPRIL 10 MG TABLET (FP) PO SCH ×2 (09:46→22:01)
[2019-05-21] MEDS: HYDROCHLOROTHIAZIDE 12.5 MG CAPSULE (FP) PO SCH (09:46)
[2019-05-21] MEDS: THIAMINE HCL 100 MG TABLET (FP) PO SCH (09:46)
[2019-05-21] MEDS ORDERED: PNEUMOCOCCAL 23 VACCINE 0.5 ML VIAL IM ONE (10:00)
[2019-05-21] MEDS ORDERED: FAMOTIDINE 20 MG/50 ML IVPB 20 MG/50 ML MG IVPB SCH (10:00)
--- NOTE | 2019-05-21 18:21 | PN ---
Teaching Attending Note Name of Resident: Matt Ott ATTENDING PHYSICIAN STATEMENT I saw and evaluated the patient. I reviewed the resident's note and discussed the case with the resident. I agree with the resident's findings and plan as documented. SUBJECTIVE:seen around 11 am No fever or chills. No pain at time of encounter but had abd pain earlier OBJECTIVE: NAd , mildly dry MM, no nystagmus Cv : RRR Lungs: CTAB Ext : no edema , has tremor . Abd: soft, NT, ND , NL BS. ASSESSMENT AND PLAN: 33 y/o man with h/o cocaine, alcohol abuse, DM, HTN, and withdrawal seizures [facility] 1- Alcohol withdrawal: no signs of Wernicke's - cont librium - cont thiamine and folic - start IVF 2- HTN: cont lisinopril which was started here 3- h/o Dm : - cont SSI - start metformin at dc. A1c 5.8 4- Abd pain, no tenderness. no sins of acute pancreatitis , despite slightly elevated lipase. cont diet and monitor mighthave some degree of gastritis form alcohol . start PPI Dispo: HLOC. [facility] was contacted but no beds are available dVT ox
[2019-05-21] MEDS ORDERED: SODIUM CHLORIDE 1,000 ML IV SCH (18:30)
[2019-05-22] MEDS: chlordiazePOXIDE 5 MG CAPSULE PO SCH ×2 (05:49→13:11)
--- NOTE | 2019-05-22 07:13 | PN ---
Physical Exam: SUBJECTIVE: Patient seen and examined by the bedside. OBJECTIVE: Vital Signs Period Temp Pulse Resp BP Sys/Acevedo Pulse Ox Last 24 Hr 98.2 F-98.9 F 64-74 18-20 131-142/79-90 99-99 GENERAL: The patient is awake, alert, and fully oriented, in no acute distress, aware of the date, his location, and was able to identify examiner HEAD: Normal with no signs of trauma. EYES: PERRL No ptosis, no nystagmus ENT: Ears normal, nares patent, oropharynx clear without exudates, moist mucous , no tongue fasiculations observed NECK: Trachea midline, full range of motion, supple. LUNGS: Breath sounds equal, clear to auscultation bilaterally, no wheezes, no crackles, no accessory muscle use HEART: Regular rate and rhythm, S1, S2 without murmur, rub or gallop. ABDOMEN: Soft, non distended, normoactive bowel sounds, no guarding, no rebound , no hepatosplenomegaly, no masses. EXTREMITIES: well-perfused, no edema, no tremors NEUROLOGICAL: Normal speech, gait normal no staggering PSYCH: Normal mood, normal affect. SKIN: Warm, mild sweating, normal turgor, no rashes or lesions noted CIWA score 1 Wernicke: No evidence of encephalopathy, no nystagmus, gait does not seem ataxic (no staggering) Laboratory Results - last 24 hr 05/21/19 05/21/19 05/21/19 06:34 06:34 06:34 WBC 5.3 RBC 4.03 Hgb 13.3 Hct 38.9 MCV 96.5 H MCH 32.9 MCHC 34.1 RDW 14.2 Plt Count 102 L D MPV 8.1 Absolute Neuts (auto) 3.0 Neutrophils % 55.4 D Lymphocytes % 36.8 D Monocytes % 6.7 Eosinophils % 0.8 D Basophils % 0.3 Nucleated RBC % 0 Sodium 139 Potassium 3.3 L Chloride 102 Carbon Dioxide 30 Anion Gap 7 L BUN 11.8 Creatinine 0.7 Est GFR (CKD-EPI)AfAm 144.72 Est GFR (CKD-EPI)NonAf 124.87 POC Glucometer Random Glucose 123 H Hemoglobin A1c % 5.8 Calcium 8.5 Phosphorus 4.2 Magnesium 2.3 Total Bilirubin 0.7 AST 26 ALT 24 Alkaline Phosphatase 65 Total Protein 6.8 Albumin 3.5 05/21/19 05/21/19 05/21/19 12:09 17:17 22:04 WBC RBC Hgb Hct MCV MCH MCHC RDW Plt Count MPV Absolute Neuts (auto) Neutrophils % Lymphocytes % Monocytes % Eosinophils % Basophils % Nucleated RBC % Sodium Potassium Chloride Carbon Dioxide Anion Gap BUN Creatinine Est GFR (CKD-EPI)AfAm Est GFR (CKD-EPI)NonAf POC Glucometer 111 109 96 Random Glucose Hemoglobin A1c % Calcium Phosphorus Magnesium Total Bilirubin AST ALT Alkaline Phosphatase Total Protein Albumin Active Medications Generic Name Dose Route Start Last Admin Trade Name Freq PRN Reason Stop Dose Admin Chlordiazepoxide HCl 10 mg 05/23/19 00:00 Librium - PO 05/23/19 23:59 Q12H PRN Signs/symptoms of Withdrawal Chlordiazepoxide HCl 10 mg 05/20/19 20:45 Librium - PO 05/22/19 23:59 Q8H PRN Signs/symptoms of Withdrawal Chlordiazepoxide HCl 15 mg 05/22/19 05:00 05/22/19 05:49 Librium - PO 05/22/19 21:01 15 mg Q8H DAHLIA Administration Chlordiazepoxide HCl 10 mg 05/23/19 05:00 Librium - PO 05/23/19 21:01 Q8H DAHLIA Chlordiazepoxide HCl 10 mg 05/24/19 05:00 Librium - PO 05/24/19 05:01 ONCE ONE Folic Acid 1 mg 05/21/19 10:00 05/21/19 09:46 Folic Acid - PO 1 mg DAILY DAHLIA Administration Hydrochlorothiazide 12.5 mg 05/21/19 10:00 05/21/19 09:46 Hctz - PO 12.5 mg DAILY DAHLIA Administration Sodium Chloride 1,000 mls @ 75 mls/hr 05/21/19 18:30 Normal Saline - IV ASDIR DAHLIA Insulin Aspart 1 vial 05/20/19 22:00 05/21/19 22:06 Novolog Vial Sliding Scale - SQ Not Given ACHS DAHLIA Protocol Lidocaine HCl 20 ml 05/20/19 23:03 Xylocaine 2% Viscous Oral - MM Q6HPO PRN ORAL PAIN/MOUTH SORES Lisinopril 10 mg 05/21/19 10:00 05/21/19 22:01 Prinivil PO 10 mg BID DAHLIA Administration Ondansetron HCl 4 mg 05/20/19 20:43 Zofran Injection IVPUSH Q6H PRN NAUSEA Pantoprazole Sodium 20 mg 05/22/19 10:00 Protonix - PO DAILY DAHLIA Thiamine HCl 100 mg 05/21/19 10:00 05/21/19 09:46 Vitamin B1 - PO 100 mg DAILY DAHLIA Administration /[facility] The patient is a 33-year-old male with PMH of alcohol dependence and associated withdrawal seizures, cocaine abuse, and NIDDM. He presented to the ER yesterday with withdrawal symptoms (anxiety and shaking) , with his last drink on Sunday, when he had 6 beers. Symptoms included anxiety, shaking, nausea, feeling cold, and epigastric pain radiating to chest. LESLIE in ER 22 CBC, BMP 05/22/19 06:45 05/22/19 06:45 Current Medications Chlordiazepoxide HCl (Librium -) 10 mg PO Q12H PRN PRN Reason: Signs/symptoms of Withdrawal Stop: 05/23/19 23:59 Chlordiazepoxide HCl (Librium -) 10 mg PO Q8H PRN PRN Reason: Signs/symptoms of Withdrawal Stop: 05/22/19 23:59 Chlordiazepoxide HCl (Librium -) 15 mg PO Q8H [facility] Stop: 05/22/19 21:01 Last Admin: 05/22/19 13:11 Dose: 15 mg Chlordiazepoxide HCl (Librium -) 10 mg PO Q8H DAHLIA Stop: 05/23/19 21:01 Chlordiazepoxide HCl (Librium -) 10 mg PO ONCE ONE Stop: 05/24/19 05:01 Folic Acid (Folic Acid -) 1 mg PO DAILY [facility] Last Admin: 05/22/19 09:15 Dose: 1 mg Hydrochlorothiazide (Hctz -) 12.5 mg PO DAILY [facility] Last Admin: 05/22/19 09:15 Dose: 12.5 mg Sodium Chloride (Normal Saline -) 1,000 mls @ 75 mls/hr IV ASDIR [facility] Last Admin: 05/22/19 09:15 Dose: 75 mls/hr Insulin Aspart (Novolog Vial Sliding Scale -) 1 vial SQ ACHS [facility]; Protocol Last Admin: 05/22/19 11:30 Dose: Not Given Lidocaine HCl (Xylocaine 2% Viscous Oral -) 20 ml MM Q6HPO PRN PRN Reason: ORAL PAIN/MOUTH SORES Lisinopril (Prinivil) 10 mg PO BID [facility] Last Admin: 05/22/19 09:15 Dose: 10 mg Ondansetron HCl (Zofran Injection) 4 mg IVPUSH Q6H PRN PRN Reason: NAUSEA Pantoprazole Sodium (Protonix -) 40 mg PO DAILY [facility] Potassium Chloride (K-Dur -) 40 meq PO ONCE ONE Stop: 05/22/19 15:01 Thiamine HCl (Vitamin B1 -) 100 mg PO DAILY [facility] Last Admin: 05/22/19 09:15 Dose: 100 mg ASSESSMENT/PLAN: #Alcohol Withdrawal Syndrome: -CIWA score 22, 3, 1 -Librium withdrawal protocol started 05/21 -Thiamine, Folic Acid -Abdominal USG: mild fatty infiltration, no gallstones, no visualization of pancreas -Monitor electrolytes 05/21 normal (Ca 8.5, Mg 2.3, Phophate 4.2) -Lipase raised 508, K low 3.2, 3.3 ; Protein raised 8.3, normal 6.8 Ca 9.7, 8.5 normal -Urine RA pH raised 8.5, Ketones 2+ #Abdominal pain: -Complaining of acidity, points towards sternum, GERD likely -Protonix upped to 40mg from 20mg PO BID(05/22) #DM -Monitor BG 05/21 (2AM 74, 12PM 111, 5PM 109 10PM 96) 05/22( 7AM 94) -HbA1c 5.8 -Sliding scale -not on home meds due to insurance issues, connect with healthcare social worker -Will start on metformin on D/C #HTN -Started Lisinopril 10mg PO BID (05/21) #FEN -K 3.2 (05/22), 40meq administered #DVT -Lovenox 40mg ATTENDING PHYSICIAN STATEMENT I saw and evaluated the patient. I reviewed the resident's note and discussed the case with the resident. I agree with the resident's findings and plan as documented. SUBJECTIVE: OBJECTIVE: ASSESSMENT AND PLAN:
[2019-05-22 07:29] LABS: HEMATOCRIT 42.2 % (35.4-49); HEMOGLOBIN 14.2 GM/dL (11.7-16.9); MCH 32.5 pg (25.7-33.7); MCHC 33.6 g/dl (32.0-35.9); MEAN CELL VOLUME 96.7 fl (80-96); MEAN PLT VOLUME 8.5 fl (7.5-11.1); PLATELET COUNT 104 K/MM3 (134-434); RBC 4.36 M/mm3 (4.00-5.60); RDW 14.2 % (11.9-15.9)
[2019-05-22 08:27] LABS: ALBUMIN 3.8 g/dl (3.4-5.0); BILIRUBIN,TOTAL 0.6 mg/dL (0.2-1); CALCIUM 8.9 mg/dL (8.5-10.1); CREATININE 0.8 mg/dL (0.55-1.3); POTASSIUM 3.2 mmol/L (3.5-5.1); TOT PROT 7.5 g/dl (6.4-8.2)
[2019-05-22] MEDS: LISINOPRIL 10 MG TABLET (FP) PO SCH (09:15)
[2019-05-22] MEDS: HYDROCHLOROTHIAZIDE 12.5 MG CAPSULE (FP) PO SCH (09:15)
[2019-05-22] MEDS: THIAMINE HCL 100 MG TABLET (FP) PO SCH (09:15)
[2019-05-22] MEDS: FOLIC ACID 1 MG TABLET (FP) PO SCH (09:15)
[2019-05-22] MEDS ORDERED: PANTOPRAZOLE 20 MG TABLET (FP) PO SCH (10:00)
[2019-05-22] MEDS: INSULIN SLIDING SCALE (NOVOLOG) 1 VIAL SQ SCH ×2 (11:30→16:46)
--- NOTE | 2019-05-22 14:18 | PN ---
Teaching Attending Note Name of Resident: Matt Ott ATTENDING PHYSICIAN STATEMENT I saw and evaluated the patient. I reviewed the resident's note and discussed the case with the resident. I agree with the resident's findings and plan as documented. SUBJECTIVE: No fever or chills. No MARTI , no abd pain, but has reflux with burning sensation going up form epigastrum to throat. OBJECTIVE: NAd , MMM Cv : RRR Lungs: CTAB Ext : no edema , no tremor Abd: soft, NT, ND, NL BS. ASSESSMENT AND PLAN: 33 y/o man with h/o cocaine, alcohol abuse, DM, HTN, and withdrawal seizures [facility] 1- Alcohol withdrawal: improved - cont librium - cont thiamine and folic - can stop IVF 2- HTN: cont lisinopril which was started here 3- h/o DM: - cont SSI here. hypoglycemia resolved. need repeat Ac in2-3 months to decide if metformin is needed . will not start due to hypoglycemia on admission 4- GERD: increase PPI Dispo: transfer to [facility] to complete detox if a bed is available. santos Perry
[2019-05-22] MEDS ORDERED: POTASSIUM CHLORIDE TABS 20 MEQ TABLET.ER (FP) PO ONE (15:00)
[2019-05-22 16:02] VITALS: BP 119/80; PULSE 68; TEMP 98.2
--- NOTE | 2019-05-22 16:28 | DS ---
Physical Exam: SUBJECTIVE: Patient seen and examined by the bedside. OBJECTIVE: Vital Signs Period Temp Pulse Resp BP Sys/Acevedo Pulse Ox Last 24 Hr 97.7 F-98.9 F 63-70 18-18 119-133/65-90 96-99 PHYSICAL EXAM GENERAL: The patient is awake, alert, and fully oriented, in no acute distress, aware of the date, his location, and was able to identify examiner HEAD: Normal with no signs of trauma. EYES: PERRL No ptosis, no nystagmus ENT: Ears normal, nares patent, oropharynx clear without exudates, moist mucous , no tongue fasiculations observed NECK: Trachea midline, full range of motion, supple. LUNGS: Breath sounds equal, clear to auscultation bilaterally, no wheezes, no crackles, no accessory muscle use HEART: Regular rate and rhythm, S1, S2 without murmur, rub or gallop. ABDOMEN: Soft, non distended, normoactive bowel sounds, no guarding, no rebound , no hepatosplenomegaly, no masses. EXTREMITIES: well-perfused, no edema, no tremors NEUROLOGICAL: Normal speech, gait normal no staggering PSYCH: Normal mood, normal affect. SKIN: Warm, mild sweating, normal turgor, no rashes or lesions noted LABS Laboratory Results - last 24 hr 05/21/19 05/21/19 05/22/19 17:17 22:04 06:45 WBC 6.0 RBC 4.36 Hgb 14.2 Hct 42.2 MCV 96.7 H MCH 32.5 MCHC 33.6 RDW 14.2 Plt Count 104 L MPV 8.5 Sodium Potassium Chloride Carbon Dioxide Anion Gap BUN Creatinine Est GFR (CKD-EPI)AfAm Est GFR (CKD-EPI)NonAf POC Glucometer 109 96 Random Glucose Calcium Total Bilirubin AST ALT Alkaline Phosphatase Total Protein Albumin 05/22/19 05/22/19 05/22/19 06:45 07:06 11:02 WBC RBC Hgb Hct MCV MCH MCHC RDW Plt Count MPV Sodium 140 Potassium 3.2 L Chloride 102 Carbon Dioxide 30 Anion Gap 8 BUN 12.0 Creatinine 0.8 Est GFR (CKD-EPI)AfAm 136.99 Est GFR (CKD-EPI)NonAf 118.20 POC Glucometer 102 97 Random Glucose 94 Calcium 8.9 Total Bilirubin 0.6 AST 33 ALT 32 Alkaline Phosphatase 72 Total Protein 7.5 Albumin 3.8 CBC, BMP 05/22/19 06:45 05/22/19 06:45 HOSPITAL COURSE: Date of Admission:05/20/19 The patient is a 33-year-old male with PMH of alcohol dependence and associated withdrawal seizures, cocaine abuse, and NIDDM. He presented to the ER yesterday with withdrawal symptoms (anxiety and shaking) , with his last drink on Sunday, when he had 6 beers. Symptoms included anxiety, shaking, nausea, feeling cold, and epigastric pain radiating to chest. Date of Discharge: 05/22/19 The patient was admitted for alcohol withdrawal, CIWA was measured at 22 in the ER. He was started on Librium protocol, Thiamine, and Folate. Abdominal USG showed mild fatty infiltration, no gallstones, no visualization of pancreas. CIWA went down to prior to discharge. Acute abdomen was ruled out due to lack of severity of symptoms, normal WBC, no fever, and and lack of evidence on radiology. On secondday of admission, the patient complained of acidity and symptoms that resembled GERD. Patient was placed on 20mg Pantoprazole, later upped to 40mg Pantoprazole. Patient was found to have a random blood glucose level of 126 on admission, and was started on sliding scale due to history of DM. Patient presented with BP of 153/72. For his history of HTN, patient was started on Lisinopril. Patient discharged to [facility] for completion of detox. Minutes to complete discharge: 30 Discharge Summary Reason For Visit: ALCOHOL WITHDRAWAL SYNDROME Current Active Problems Alcohol withdrawal (Acute) Condition: Improved - Instructions Diet, Activity, Other Instructions: You were admitted to the hospital because you had pain in your abdomen and were feeling nauseated. These symptoms are associated with your over consumption of alcohol. While you were here, we gave you medicine to help with the shaking, nausea, and pain. You will now be transferred to [facility], a detox facility, to finish the rest of your treatment for alcohol detoxification. While you were here, we also found out that you have high blood pressure ( hypertension) . This disease that can be managed by regular medications, but it is very important that you take the medicine. If you do not take medication for these illnesses, you may suffer from stroke, heart attack. blindness, kidney failure, infections requiring amputation, and much more. These drugs are not very expensive, and you should make an effort to purchase them even if you do not have insurance. for your diabetes. your sugar was low here initially. please follow with your doctor , we will prescribe you a glucometer to check your sugar daily before breakfast. take log to your doctor to decide on treatment . also , blood level for A1c need to be repeated . Please take the following medication for your high blood pressure: Lisinopril 10 mg by mouth twice a day Please take the following medication for your acidity: Pantoprazole 40mg by mouth once a day fro 2 weks . if symptoms persist , then you might want to see a GI doctor , your primary doctor can refer you Please make the following appointments within the one week after leaving [facility]: 1. With your PCP. if you don't have one , you can follow up with Dr. Costa Please return to the Emergency Department if you have any of the following: Nausea, vomiting, diarrhea, hallucinations, difficulty breathing, bleeding that will not stop, or persistent headache Referrals: [facility] [place] [Provider Group] Disposition: SNF FACILITY - Home Medications Comprehensive Discharge Medication List: Ambulatory Orders Folic Acid - 1 mg PO DAILY #30 tablet 05/22/19 Lisinopril [Prinivil] 10 mg PO BID #60 tablet 05/22/19 Miscellaneous Medical Supply [Glucometer Device] 1 each SQ ASDIR #1 kit [employer] [Glucometer Test Strips #100] 1 each SQ ASDIR #1 box 05/22/19 Pantoprazole Sodium [Protonix -] 40 mg PO DAILY #14 tablet.ec 05/22/19 Pen Needle, Diabetic [[place]] 1 each MC DAILY #60 dis.needle 05/22/19 Thiamine HCl [Vitamin B1 -] 100 mg PO DAILY #30 tablet 05/22/19 This patient is new to me today: No Emergency Visit: Yes ED Registration Date: 05/20/19 Care time: The patient presented to the Emergency Department on the above date and was hospitalized for further evaluation of their emergent condition. Critical Care patient: No - Discharge Referral Referred to [facility] No ATTENDING PHYSICIAN STATEMENT I saw and evaluated the patient. I reviewed the resident's note and discussed the case with the resident. I agree with the resident's findings and plan as documented. SUBJECTIVE: OBJECTIVE: ASSESSMENT AND PLAN:
[2019-05-23] MEDS ORDERED: chlordiazePOXIDE HCL 10 MG CAPSULE PO PRN
[2019-05-23] MEDS ORDERED: chlordiazePOXIDE HCL 10 MG CAPSULE PO SCH (05:00)
[2019-05-23] MEDS ORDERED: PANTOPRAZOLE 40 MG TABLET (FP) PO SCH (10:00)
[2019-05-24] MEDS ORDERED: chlordiazePOXIDE HCL 10 MG CAPSULE PO ONE (05:00)
== END 2019-05-22 06:15 | disposition other institution (70) | DRG 774 ==
LOC: JER 14:19 → JERBED 20:18 → J5S 05-21 01:51
PROVIDERS: ADMIT Internal Medicine; ATTEND Internal Medicine
PROC: HZ2ZZZZ Detoxification Services for Substance Abuse Treatment (ICD-10-PCS; principal; 2019-05-20)
DX: F10.230 Alcohol dependence with withdrawal, uncomplicated (principal); F14.10 Cocaine abuse, uncomplicated; E11.649 Type 2 diabetes mellitus with hypoglycemia without coma; K76.0 Fatty (change of) liver, not elsewhere classified; E87.6 Hypokalemia; K21.9 Gastro-esophageal reflux disease without esophagitis
CPT/HCPCS: 36415; 76700-TC; 80053; 81003; 82962; 83036; 83690; 83735; 84100; 85025; 85027; 85610; 90732; 93005; 93010; 99284-25; G0009; J7030

== ENCOUNTER 2019-05-22 18:37 | Inpatient (IN) | payer SELFPAY ==
[2019-05-22 19:34] VITALS: BMI 27.3
--- NOTE | 2019-05-22 20:22 | HP ---
CIWA Score Nausea/Vomitin-Mild Nausea/No Vomiting Muscle Tremors: 3 Anxiety: 3 Agitation: 0-Normal Activity Paroxysmal Sweats: 2 Orientation: 0-Oriented Tacttile Disturbances: 0-None Auditory Disturbances: 0-None Visual Disturbances: 0-None Headache: 0-None Present CIWA-Ar Total Score: 9 - Admission Criteria OASAS Guidelines: Admission for Medically Managed Detox: Requires at least one of the followin. CIWA greater than 12 2. Seizures within the past 24 hours 3. Delirium tremens within the past 24 hours 4. Hallucinations within the past 24 hours 5. Acute intervention needed for co occurring medical disorder 6. Acute intervention needed for co occurring psychiatric disorder 7. Severe withdrawal that cannot be handled at a lower level of care (continued vomiting, continued diarrhea, abnormal vital signs) requiring intravenous medication and/or fluids 8. Admission ROS [facility] Chief Complaint: Alcohol withdrawal symptoms Allergies/Adverse Reactions: Allergies Allergy/AdvReac Type Severity Reaction Status Date / Time No Known Allergies Allergy Verified 05/22/19 19:21 History of Present Illness: 33 years old male with eleven years of alcohol dependence was transferred from [facility] to complete detox. This is his first admission to [facility]. Patient has medical history of GERD, hypertension and DM Type 2. He denies suicidal ideation at this time. Exam Limitations: No Limitations - Ebola screening Have you traveled outside of the country in the last 21 days: No Have you had contact with anyone from an Ebola affected area: No Do you have a fever: No - Review of Systems Constitutional: Loss of Appetite, Malaise, Night Sweats EENT: reports: No Symptoms Reported Respiratory: reports: No Symptoms reported Cardiac: reports: No Symptoms Reported GI: reports: Poor Appetite, Poor Fluid Intake, Abdominal cramping : reports: No Symptoms Reported Musculoskeletal: reports: No Symptoms Reported Integumentary: reports: Dryness, Flushing Endocrine: reports: No Symptoms Reported Hematology: reports: No Symptoms Reported Psychiatric: reports: Mood/Affect Appropiate, Orientated x3 Other Systems: Reviewed and Negative Patient History - Patient Medical History Hx Anemia: No Hx Asthma: No Hx Chronic Obstructive Pulmonary Disease (COPD): No Hx Cancer: No Hx Cardiac Disorders: No Hx Congestive Heart Failure: No Hx Hypertension: Yes (LISINOPRIL) Hx Hypercholesterolemia: No Hx Pacemaker: No HX Cerebrovascular Accident: No Hx Seizures: No Hx Dementia: No Hx Diabetes: Yes (METFORMIN) Hx Gastrointestinal Disorders: Yes (GERD - PANTOPRAZOLE) Hx Liver Disease: No Hx Genitourinary Disorders: No Hx Sexually Transmitted Disorders: No Hx Renal Disease (ESRD): No Hx Thyroid Disease: No Hx Human Immunodeficiency Virus (HIV): No (NEGATIVE 2016) Hx Hepatitis C: No Hx Depression: No Hx Suicide Attempt: No (DENIES SUICIDAL IDEATION AT THIS TIME) Hx Bipolar Disorder: No Hx Schizophrenia: No - Patient Surgical History Past Surgical History: No Hx Neurologic Surgery: No Hx Cataract Extraction: No Hx Cardiac Surgery: No Hx Lung Surgery: No Hx Abdominal Surgery: No Hx Appendectomy: No Hx Cholecystectomy: No Hx Genitourinary Surgery: No Hx Orthopedic Surgery: No Anesthesia Reaction: No - PPD History Previous Implant?: Yes Documented Results: Negative w/o proof Implanted On Prior [facility] Admission?: No PPD to be Administered?: Yes - Reproductive History Patient is a Female of Child Bearing Age (11 -55 yrs old): No (MALE) - Smoking Cessation Smoking history: Never smoked Have you smoked in the past 12 months: No Hx Chewing Tobacco Use: No - Substance & Tx. History Hx Alcohol Use: Yes Hx Substance Use: No Substance Use Type: Alcohol Hx Substance Use Treatment: Yes ([facility]) - Substances abused Alcohol Substance route: Oral Frequency: Daily Amount used: 24 beers/ cerveza Age of first use: 21 Date of last use: 05/19/19 Family Disease History - Family Disease History Family History: Denies Admission Physical Exam [facility] - Vital Signs Vital Signs: Vital Signs - 24 hr 05/22/19 19:20 Temperature 97.9 F Pulse Rate 67 Respiratory 16 Rate Blood Pressure 142/99 - Physical General Appearance: Yes: Mild Distress, Anxious HEENTM: Yes: Within Normal Limits Respiratory: Yes: Lungs Clear, Normal Breath Sounds, No Respiratory Distress Neck: Yes: Supple Breast: Yes: Breast Exam Deferred Cardiology: Yes: Regular Rhythm, Tachycardia Abdominal: Yes: Normal Bowel Sounds Genitourinary: Yes: Within Normal Limits Back: Yes: Normal Inspection Musculoskeletal: Yes: Within Normal Limits Neurological: Yes: Alert, Motor Strength 5/5, Normal Mood/Affect Integumentary: Yes: Warm Lymphatic: Yes: Within Normal Limits - Diagnostic (1) Alcohol dependence with uncomplicated withdrawal Current Visit: Yes Status: Acute (2) HTN (hypertension) Current Visit: Yes Status: Acute (3) GERD (gastroesophageal reflux disease) Current Visit: Yes Status: Acute (4) DM type 2 (diabetes mellitus, type 2) Current Visit: Yes Status: Acute Cleared for Admission [facility] - Detox or Rehab [facility] Level of Care: Medically Supervised 2Day Detox Regimen/Protocol: Librium Breathalyzer - Breathalyzer Breathalyzer: 0 Urine Drug Screen - Test Device Lot number: [id number] Expiration date: 03/11/21 - Control Is test valid?: Yes - Results Drug screen NEGATIVE: No Urine drug screen results: BAR-Barbiturates, BZO-Benzodiazepines Inpatient Rehab Admission - Rehab Decision to Admit Inpatient rehab admission?: No
[2019-05-22] MEDS ORDERED: MENTHOL/PHENOL 1 EACH UD MM PRN (20:33)
[2019-05-22] MEDS ORDERED: MAGNESIUM CITRATE 300 ML BOTTLE PO PRN (20:33)
[2019-05-22] MEDS ORDERED: MAGNESIUM HYDROX 2400MG/30ML ORAL SUSPENSION 30 ML CUP PO PRN (20:33)
[2019-05-22] MEDS ORDERED: BISMUTH SUBSALICYLATE 524 MG/30 ML UD PO PRN (20:33)
[2019-05-22] MEDS ORDERED: ACETAMINOPHEN 325 MG TABLET (FP) PO PRN ×2 (20:33)
[2019-05-22] MEDS ORDERED: MAG HYDROX/AL HYDROX/SIMETH 30 ML UNIT-DOSE CUP PO PRN (20:33)
[2019-05-22] MEDS ORDERED: IBUPROFEN 400 MG TABLET (FP) PO PRN (20:33)
[2019-05-22] MEDS ORDERED: hydrOXYzine PAMOATE 25 MG CAPSULE (FP) PO PRN (20:33)
[2019-05-22] MEDS ORDERED: chlordiazePOXIDE HCL 10 MG CAPSULE PO PRN (20:39)
[2019-05-22] MEDS ORDERED: TUBERCULIN PPD 5 TU/0.1ML VIAL ID ONE (22:52)
[2019-05-22] MEDS: chlordiazePOXIDE HCL 10 MG CAPSULE PO PRN (22:53)
[2019-05-22] MEDS: LISINOPRIL 10 MG TABLET (FP) PO SCH (22:53)
[2019-05-22] MEDS: THIAMINE HCL 100 MG TABLET (FP) PO SCH (22:54)
[2019-05-22] MEDS: MELATONIN 5 MG TABLETS PO PRN (22:55)
[2019-05-23] MEDS ORDERED: chlordiazePOXIDE 5 MG CAPSULE PO SCH (05:00)
[2019-05-23] MEDS: chlordiazePOXIDE 5 MG CAPSULE PO SCH ×3 (05:37→22:27)
[2019-05-23] MEDS: metFORMIN HCL 500 MG TABLET (FP) PO SCH ×2 (07:08→17:23)
[2019-05-23] MEDS: PANTOPRAZOLE 40 MG TABLET (FP) PO SCH (10:12)
[2019-05-23] MEDS: PRENATAL VITAMINS W/ FOLIC ACID TABLET (FP) PO SCH (10:12)
[2019-05-23] MEDS: LISINOPRIL 10 MG TABLET (FP) PO SCH ×2 (10:13→22:28)
[2019-05-23] MEDS: METHOCARBAMOL 500 MG TABLET PO PRN (10:13)
[2019-05-23] MEDS: FOLIC ACID 1 MG TABLET (FP) PO SCH (10:13)
[2019-05-23] MEDS: chlordiazePOXIDE HCL 10 MG CAPSULE PO PRN (10:16)
[2019-05-23 10:30] LABS: WHITE BLOOD COUNT 5.7 K/mm3 (4.0-10.0)
--- NOTE | 2019-05-23 10:30 | PN ---
[facility] CIWA - CIWA Score Nausea/Vomitin Muscle Tremors: 2 Anxiety: 2 Agitation: 2 Paroxysmal Sweats: 1-Minimal Palms Moist Orientation: 0-Oriented Tacttile Disturbances: 1-Very Mild Itch/Numbness Auditory Disturbances: 1-Very Mild Visual Disturbances: 0-None Headache: 1-Very Mild CIWA-Ar Total Score: 12 BHS Progress Note (SOAP) Subjective: alert,irritable,anxious,interrupted sleep,tremor Objective: 05/23/19 10:28 Vital Signs Temperature 97.7 F 05/23/19 09:38 Pulse Rate 80 05/23/19 09:38 Respiratory Rate 18 05/23/19 09:38 Blood Pressure 125/74 05/23/19 09:38 O2 Sat by Pulse Oximetry (%) 05/23/19 10:28 Laboratory Last Values POC Glucometer 129 UNITS (80-120) 05/23/19 06:45 labs pending Assessment: 05/23/19 10:29 withdrawal symptom Plan: continue detox librium regime,bgm monitoring
[2019-05-23 10:45] LABS: ALBUMIN 3.7 g/dl (3.4-5.0); BILIRUBIN,TOTAL 0.4 mg/dL (0.2-1); BLOOD UREA NITROGEN 13.9 mg/dL (7-18); CALCIUM 8.8 mg/dL (8.5-10.1); CREATININE 0.7 mg/dL (0.55-1.3); POTASSIUM 3.5 mmol/L (3.5-5.1); TOT PROT 7.1 g/dl (6.4-8.2)
[2019-05-23 10:46] LABS: MCH 32.9 pg (25.7-33.7); MCHC 34.1 g/dl (32.0-35.9); MEAN CELL VOLUME 96.4 fl (80-96); MEAN PLT VOLUME 8.7 fl (7.5-11.1); PLATELET COUNT 100 K/MM3 (134-434); RBC 4.25 M/mm3 (4.00-5.60)
[2019-05-23] MEDS: THIAMINE HCL 100 MG TABLET (FP) PO SCH (22:28)
[2019-05-23] MEDS: MELATONIN 5 MG TABLETS PO PRN (22:28)
[2019-05-24] MEDS ORDERED: chlordiazePOXIDE HCL 10 MG CAPSULE PO SCH (05:00)
[2019-05-24] MEDS: chlordiazePOXIDE HCL 10 MG CAPSULE PO SCH ×3 (05:54→23:32)
[2019-05-24] MEDS: metFORMIN HCL 500 MG TABLET (FP) PO SCH ×2 (07:11→23:31)
--- NOTE | 2019-05-24 10:27 | PN ---
S CIWA - CIWA Score Nausea/Vomitin-No Nausea/No Vomiting Muscle Tremors: 2 Anxiety: 2 Agitation: 2 Paroxysmal Sweats: 3 Orientation: 0-Oriented Tacttile Disturbances: 0-None Auditory Disturbances: 0-None Visual Disturbances: 0-None Headache: 1-Very Mild CIWA-Ar Total Score: 10 S Progress Note (SOAP) Subjective: c/o sweats, anxiety, shakes, and headache. Objective: 05/24/19 10:26 Vital Signs 05/24/19 05/24/19 05/24/19 03:30 06:00 09:14 Temperature 97.7 F 97.2 F L Pulse Rate 70 72 Respiratory 18 18 18 Rate Blood Pressure 120/70 124/78 Lab Results WBC 5.7 K/mm3 (4.0-10.0) 05/23/19 07:00 RBC 4.25 M/mm3 (4.00-5.60) 05/23/19 07:00 Hgb 14.0 GM/dL (11.7-16.9) 05/23/19 07:00 Hct 41.0 % (35.4-49) 05/23/19 07:00 MCV 96.4 fl (80-96) H 05/23/19 07:00 MCHC 34.1 g/dl (32.0-35.9) 05/23/19 07:00 RDW 14.0 % (11.9-15.9) 05/23/19 07:00 Plt Count 100 K/MM3 (134-434) L 05/23/19 07:00 Sodium 140 mmol/L (136-145) 05/23/19 07:00 Potassium 3.5 mmol/L (3.5-5.1) 05/23/19 07:00 Chloride 107 mmol/L (98-107) 05/23/19 07:00 Carbon Dioxide 27 mmol/L (21-32) 05/23/19 07:00 Anion Gap 7 MMOL/L (8-16) L 05/23/19 07:00 BUN 13.9 mg/dL (7-18) 05/23/19 07:00 Creatinine 0.7 mg/dL (0.55-1.3) 05/23/19 07:00 Random Glucose 101 mg/dL (74-106) 05/23/19 07:00 Calcium 8.8 mg/dL (8.5-10.1) 05/23/19 07:00 Labs noted. Assessment: 05/24/19 10:26 AOX3, in no acute respiratory distress. Full ROM, ambulating in the unit. Withdrawal symptoms. Plan: continue detox.
[2019-05-24] MEDS: PANTOPRAZOLE 40 MG TABLET (FP) PO SCH (10:29)
[2019-05-24] MEDS: PRENATAL VITAMINS W/ FOLIC ACID TABLET (FP) PO SCH (10:29)
[2019-05-24] MEDS: FOLIC ACID 1 MG TABLET (FP) PO SCH (10:30)
[2019-05-24] MEDS: LISINOPRIL 10 MG TABLET (FP) PO SCH ×2 (10:30→23:33)
[2019-05-24 21:02] VITALS: TEMP 97.7
[2019-05-24] MEDS: MELATONIN 5 MG TABLETS PO PRN (23:32)
[2019-05-24] MEDS: THIAMINE HCL 100 MG TABLET (FP) PO SCH (23:32)
[2019-05-24] MEDS: METHOCARBAMOL 500 MG TABLET PO PRN (23:33)
[2019-05-25] MEDS ORDERED: chlordiazePOXIDE HCL 10 MG CAPSULE PO PRN ×2
[2019-05-25] MEDS ORDERED: chlordiazePOXIDE HCL 10 MG CAPSULE PO ONE ×2 (05:00)
[2019-05-25] MEDS: chlordiazePOXIDE HCL 10 MG CAPSULE PO ONE ×2 (05:58→06:01)
[2019-05-25 06:36] VITALS: BP 120/68; PULSE 62
[2019-05-25] MEDS: metFORMIN HCL 500 MG TABLET (FP) PO SCH (07:20)
[2019-05-25] MEDS: PRENATAL VITAMINS W/ FOLIC ACID TABLET (FP) PO SCH (09:38)
[2019-05-25] MEDS: LISINOPRIL 10 MG TABLET (FP) PO SCH (09:38)
[2019-05-25] MEDS: PANTOPRAZOLE 40 MG TABLET (FP) PO SCH (09:38)
--- NOTE | 2019-05-25 18:28 | DS ---
[facility] Detox Discharge Summary Admission Date: 05/22/19 Discharge Date: 05/25/19 - History Present History: Alcohol Dependence Additional Comments: Patient requested to be discharged today. Patient completed detox successfully and discharged safely. Instructed to follow up with PCP within 1 week for management of all medical problems. Pertinent Past History: Alcohol dependence DMT2 GERD HTN - Physical Exam Results Vital Signs: Vital Signs Temperature 97.7 F 05/25/19 06:00 Pulse Rate 62 05/25/19 06:00 Respiratory Rate 18 05/25/19 06:00 Blood Pressure 120/68 05/25/19 06:00 O2 Sat by Pulse Oximetry (%) Pertinent Admission Physical Exam Findings: Withdrawal symptoms Laboratory Tests 05/23/19 05/23/19 05/23/19 06:45 07:00 07:00 WBC 5.7 RBC 4.25 Hgb 14.0 Hct 41.0 MCV 96.4 H MCH 32.9 MCHC 34.1 RDW 14.0 Plt Count 100 L MPV 8.7 Sodium 140 Potassium 3.5 Chloride 107 Carbon Dioxide 27 Anion Gap 7 L BUN 13.9 Creatinine 0.7 Est GFR (CKD-EPI)AfAm 144.72 Est GFR (CKD-EPI)NonAf 124.87 POC Glucometer 129 Random Glucose 101 Calcium 8.8 Total Bilirubin 0.4 AST 31 ALT 40 Alkaline Phosphatase 73 Total Protein 7.1 Albumin 3.7 RPR Titer 05/23/19 07:00 WBC RBC Hgb Hct MCV MCH MCHC RDW Plt Count MPV Sodium Potassium Chloride Carbon Dioxide Anion Gap BUN Creatinine Est GFR (CKD-EPI)AfAm Est GFR (CKD-EPI)NonAf POC Glucometer Random Glucose Calcium Total Bilirubin AST ALT Alkaline Phosphatase Total Protein Albumin RPR Titer Nonreactive Labs reviewed: hyperglycemia due to DM (on medication) - Treatment Hospital Course: Detox Protocol Followed, Detoxed Safely, Responded well, Discharged Condition Good - Medication Discharge Medications: Ambulatory Orders Folic Acid - 1 mg PO DAILY #30 tablet 05/22/19 Lisinopril [Prinivil] 10 mg PO BID #60 tablet 05/22/19 Miscellaneous Medical Supply [Glucometer Device] 1 each SQ ASDIR #1 kit Miscellaneous Medical Supply [Glucometer Test Strips #100] 1 each SQ ASDIR #1 box 05/22/19 Pantoprazole Sodium [Protonix -] 40 mg PO DAILY #14 tablet.ec 07/11/19 Pen Needle, Diabetic [[place]] 1 each MC DAILY #60 dis.needle 05/22/19 Thiamine HCl [Vitamin B1 -] 100 mg PO DAILY #30 tablet 05/22/19 - Diagnosis (1) Alcohol dependence with uncomplicated withdrawal Status: Acute (2) DM type 2 (diabetes mellitus, type 2) Status: Chronic (3) GERD (gastroesophageal reflux disease) Status: Chronic (4) HTN (hypertension) Status: Chronic - AMA Did Patient Leave Against Medical Advice: No (F/U with PCP within 1 week)
== END 2019-05-25 09:42 | disposition home or self-care (01) | DRG 775 ==
LOC: YASAS 18:37 → Y6N 20:28
PROVIDERS: ADMIT Surgery; ATTEND Surgery
PROC: HZ2ZZZZ Detoxification Services for Substance Abuse Treatment (ICD-10-PCS; principal; 2019-05-22)
DX: F10.230 Alcohol dependence with withdrawal, uncomplicated (principal); I10 Essential (primary) hypertension; E11.9 Type 2 diabetes mellitus without complications; K21.9 Gastro-esophageal reflux disease without esophagitis; Z79.84 Long term (current) use of oral hypoglycemic drugs
CPT/HCPCS: 36415; 80053; 82962; 85027; 86593

== ENCOUNTER 2019-07-09 13:44 | Inpatient (IN) | payer MEDICARE ==
--- NOTE | 2019-07-09 13:50 | PDOC ---
Rapid Medical Evaluation Time Seen by Provider: 07/09/19 13:47 Medical Evaluation: Allergies Allergy/AdvReac Type Severity Reaction Status Date / Time No Known Allergies Allergy Verified 05/22/19 19:21 07/09/19 13:48 I have performed a brief in-person evaluation of this patient. The patient presents with a chief complaint of:tremors, last ETOH use was yesterday. H/o ETOH abuse, s/p detox at [facility] 05/30, GERD, NIDDM, HTN Pertinent physical exam findings: HR 130 and tremulous in triage I have ordered the following:nothing and pt taken into main ED immediately The patient will proceed to the ED for further evaluation. Discharge Disposition - Diagnosis Alcohol withdrawal Qualifiers: Complication of substance-induced condition: uncomplicated Qualified Code(s): F10.230 - Alcohol dependence with withdrawal, uncomplicated - Referrals - Patient Instructions - Post Discharge Activity
[2019-07-09] MEDS ORDERED: FOLIC ACID INJECTION - 1 MG, THIAMINE HCL 200 MG, MULTIVIT INJECTION ADULT 10 ML in SOD... IVPB ONE (14:24)
[2019-07-09 14:30] LABS: BASO % 0.4 % (0-2.0); EOS % 0.2 % (0-4.5); LYMPH % 38.4 % (8-40); MCHC 34.2 g/dl (32.0-35.9); MEAN CELL VOLUME 93.7 fl (80-96); MEAN PLT VOLUME 8.2 fl (7.5-11.1); MONO % 6.6 % (3.8-10.2); NEUT % 54.4 % (42.8-82.8); PLATELET COUNT 107 K/MM3 (134-434); RDW 14.2 % (11.9-15.9); WHITE BLOOD COUNT 6.8 K/mm3 (4.0-10.0)
[2019-07-09] MEDS ORDERED: LORazepam 2 MG/ML SDV VIAL ONE ×3 (14:31→17:50)
--- NOTE | 2019-07-09 14:42 | PDOC ---
History of Present Illness - General Chief Complaint: Alcohol intoxication Stated Complaint: ALCOHOL WITHDRAWAL Time Seen by Provider: 07/09/19 13:47 - History of Present Illness Initial Comments: 07/09/19 15:23 HPI: 33 y/o M with hx of alcohol abuse (recently DCd from [facility] 05/25/19 following successful detox), HTN, NIDDM presenting after a weeklong alcohol binge now with chest pain and tremulousness. He reports drinking 10-15cans of beer/day for the past 1 week. Last night he started feeling epigastric and chest pain associated with headache. He also reports increased shortness of breath. This morning he woke with severe tremors of BL upper and lower extremities prompting ED arrival. He also reports 4-5 episodes of emesis this morning and continues to have nausea; denies hematemesis. His last meal was early yesterday. Patient denies fever, cough, urinary complaints, hematuria, sensory changes, auditory/visual hallucinations. PMHx: as noted above ROS: as noted SHx: Denies tobacco use; hx of alcohol abuse; reports cocaine nasal use 15 days ago Allergies: NKDA Past History - Past Medical History Allergies/Adverse Reactions: Allergies Allergy/AdvReac Type Severity Reaction Status Date / Time No Known Allergies Allergy Verified 07/09/19 13:49 Home Medications: Ambulatory Orders Folic Acid - 1 mg PO DAILY #30 tablet 05/22/19 Lisinopril [Prinivil] 10 mg PO BID #60 tablet 05/22/19 Miscellaneous Medical Supply [Glucometer Device] 1 each SQ ASDIR #1 kit Miscellaneous Medical Supply [Glucometer Test Strips #100] 1 each SQ ASDIR #1 box 05/22/19 Pantoprazole Sodium [Protonix -] 40 mg PO DAILY #14 tablet.ec 05/22/19 Pen Needle, Diabetic [[place]] 1 each MC DAILY #60 dis.needle 05/22/19 Thiamine HCl [Vitamin B1 -] 100 mg PO DAILY #30 tablet 05/22/19 Anemia: No Asthma: No Cancer: No Cardiac Disorders: No CVA: No COPD: No CHF: No Dementia: No Diabetes: Yes (METFORMIN) GI Disorders: Yes (GERD - PANTOPRAZOLE) Disorders: No HTN: Yes (LISINOPRIL) Hypercholesterolemia: No Kidney Stones: No Liver Disease: No Seizures: No Thyroid Disease: No - Surgical History Abdominal Surgery: No Appendectomy: No Cardiac Surgery: No Cholecystectomy: No Lung Surgery: No Neurologic Surgery: No Orthopedic Surgery: No - Reproductive History Testicular Surgery: No - Immunization History Immunization Up to Date: Yes - Suicide/Smoking/Psychosocial Hx Smoking History: Never smoked Have you smoked in the past 12 months: No Hx Alcohol Use: Yes Drug/Substance Use Hx: No Substance Use Type: Alcohol Hx Substance Use Treatment: Yes ([facility] [place]) Review of Systems - Review of Systems Comments:: 07/09/19 15:31 GENERAL/CONSTITUTIONAL: No weakness. HEAD, EYES, EARS, NOSE AND THROAT: No change in vision. No ear pain or discharge. No sore throat. CARDIOVASCULAR: +cp and SOB RESPIRATORY: No cough, wheezing, or hemoptysis. GASTROINTESTINAL: +nausea, vomiting GENITOURINARY: No dysuria, frequency, or change in urination. MUSCULOSKELETAL: No neck or back pain. SKIN: No rash NEUROLOGIC: No headache, vertigo, loss of consciousness, or change in strength/ sensation. ENDOCRINE: No increased thirst. No abnormal weight change HEMATOLOGIC/LYMPHATIC: No anemia, easy bleeding, or history of blood clots. ALLERGIC/IMMUNOLOGIC: No hives or skin allergy. *Physical Exam - Vital Signs Last Vital Signs Temp Pulse Resp BP Pulse Ox 98 F 131 H 24 H 147/99 96 07/09/19 13:49 07/09/19 13:49 07/09/19 13:49 07/09/19 13:49 07/09/19 13:49 - Physical Exam Comments: 07/09/19 15:35 GENERAL: Awake, alert, and fully oriented, in moderate acute distress HEAD: No signs of trauma, normocephalic, atraumatic EYES: PERRLA, EOMI, no nystagmus, sclera anicteric, conjunctiva clear ENT: Auricles normal inspection, hearing grossly normal, nares patent, oropharynx clear without exudates. dry mucosa NECK: Normal ROM, supple, no lymphadenopathy, JVD, or masses LUNGS: Clear to auscultation bilaterally HEART: tachycardic and regular rhythm, normal S1 and S2, no murmurs, rubs or gallops, peripheral pulses normal and equal bilaterally. ABDOMEN: Soft, diffuse mild tenderness, normoactive bowel sounds. No guarding, no rebound. No masses EXTREMITIES : Normal inspection, Normal range of motion, no edema. No clubbing or cyanosis. NEUROLOGICAL: Cranial nerves II through XII grossly intact. Ataxic FTN, tremulous extremities, no focal sensorimotor deficits SKIN: Warm, Dry, normal turgor, no rashes or lesions noted ED Treatment Course - LABORATORY CBC & Chemistry Diagram: 07/09/19 14:20 07/09/19 14:20 - ADDITIONAL ORDERS Additional order review: 07/09/19 14:20 RBC 4.70 MCV 93.7 MCHC 34.2 RDW 14.2 MPV 8.2 Neutrophils % 54.4 Lymphocytes % 38.4 Monocytes % 6.6 Eosinophils % 0.2 Basophils % 0.4 - RADIOLOGY Radiology Studies Ordered: Category Date Time Status CXRPORT [CHEST X-RAY PORTABLE*] [RAD] Stat Radiology 07/09/19 14:24 Ordered - Medications Given in the ED: ED Medications Discontinued Medications Generic Name Dose Route Start Last Admin Trade Name Freq PRN Reason Stop Dose Admin Lorazepam 2 mg 07/09/19 14:24 07/09/19 14:35 Ativan Injection - IVPUSH 07/09/19 14:25 2 mg ONCE ONE Administration Medical Decision Making - Medical Decision Making 07/09/19 15:55 33 y/o M with hx of alcohol abuse (recently DCd from [facility] 05/25/19 following successful detox), HTN, NIDDM presenting after a weeklong alcohol binge now with chest pain and tremulousness, abdominal pain and emesis. Vitals on arrival were BP 147/99, HR 147, RR 24, temp 100.4. PE notable for abd tenderness and ataxia -CBC, cMP, lipase, lactic acid, BCx x2, UA, UCx, Utox, EKG, CXR, Mg, -banana bag, 2mg ativan x2, pepcid, zofran, D50 amp x2 07/09/19 17:15 HR improved to hih 90s low 100s; patient tremor improved; chest pain and abdominal pain improved 07/09/19 18:16 patient woke up retching and HR increased to 150-160s with diaphoresis; received additional 2mg ativan with improvement of symptoms and HR high 90s Symphony MBMD; awaiting reply *DC/Admit/Observation/Transfer Diagnosis at time of Disposition: Alcohol withdrawal Qualifiers: Complication of substance-induced condition: uncomplicated Qualified Code(s): F10.230 - Alcohol dependence with withdrawal, uncomplicated - Discharge Dispostion Condition at time of disposition: Stable Decision to Admit order: Yes - Referrals - Patient Instructions - Post Discharge Activity
[2019-07-09] MEDS ORDERED: ONDANSETRON 4 MG/2 ML VIAL IVPUSH ONE (14:45)
[2019-07-09] MEDS ORDERED: FAMOTIDINE 20 MG/50 ML IVPB 20 MG/50 ML MG IVPB ONE ×2 (14:45→15:22)
--- NOTE | 2019-07-09 14:49 | EKG ---
Test Reason : Blood Pressure : / mmHG Vent. Rate : 115 BPM Atrial Rate : 115 BPM P-R Int : 126 ms QRS Dur : 070 ms QT Int : 328 ms P-R-T Axes : 059 047 032 degrees QTc Int : 453 ms SINUS TACHYCARDIA OTHERWISE NORMAL ECG WHEN COMPARED WITH ECG OF 20-MAY-2019 16:39, NO SIGNIFICANT CHANGE WAS FOUND Confirmed by CARLEEN CONTI MD ([id number]) on 07/09/2019 2:49:13 PM Referred By: Confirmed By:CARLEEN CONTI MD
[2019-07-09 15:00] LABS: ALBUMIN 4.6 g/dl (3.4-5.0); BILIRUBIN,TOTAL 0.7 mg/dL (0.2-1); CALCIUM 9.9 mg/dL (8.5-10.1); CREATININE 0.8 mg/dL (0.55-1.3); POTASSIUM 3.8 mmol/L (3.5-5.1); TOT PROT 8.8 g/dl (6.4-8.2)
[2019-07-09] MEDS ORDERED: ONDANSETRON 4 MG/2 ML VIAL ONE (15:22)
[2019-07-09 15:29] LABS: MAGNESIUM 2.1 mg/dL (1.8-2.4)
[2019-07-09 15:48] LABS: EPI CELLS 3.8 /HPF (0-5/HPF); HYALINE CASTS 26 /lpf (0-8); PH,URINE 7.5 (5.0-8.0); URINE APPEARANCE CLEAR; URINE BACTERIA 4.1 /hpf (NEGATIVE); URINE BILIRUBIN NEGATIVE (NEGATIVE); URINE COLOR DK YELLOW; URINE GLUCOSE (UA) NEGATIVE (NEGATIVE); URINE KETONE 3+ (NEGATIVE); URINE LEUK ESTERASE NEGATIVE (NEGATIVE); URINE NITRITE NEGATIVE (NEGATIVE); URINE PROTEIN 3+ (NEGATIVE); URINE RBC 3 /hpf (0-4); URINE WBC 1 /hpf (0-5)
[2019-07-09] MEDS ORDERED: DEXTROSE 50%-WATER - 25 GM/50 ML VIAL IVPUSH ONE (15:53)
--- NOTE | 2019-07-09 15:58 | PDOC ---
Documentation entered by Agata Osborn SCRIBE, acting as scribe for Salty Dodson MD. Salty Dodson MD: This documentation has been prepared by the Irena mcgraw Adrianna, SCRIBE, under my direction and personally reviewed by me in its entirety. I confirm that the documentation accurately reflects all work, treatment, procedures, and medical decision making performed by me. Attending Attestation - Resident Resident Name: Chad Renteria - HPI HPI: 33 Y M, with PMH of EtOH abuse, EtOh withdrawal seizure, GERD, HTN, and NIDDM, presents with two days of chest pain, and one day of tremors and vomit. Patient admits to a one week EtOH binge (~15 cans of beer a day). He notes chest pain that began last night, with associated epigastric pain, headache and SOB. Patient reports tremors of the bilateral upper and lower extremities this morning, with 5 episodes of NBNB vomit. Allergies: NKA, NKDA Surgical History: None reported Social History: EtOH abuse. Cocaine use (last was 15 days ago). - Physicial Exam PE: 07/09/19 15:54 Patient is awake and alert, tremulous and anxious appearing, Patient's tachycardic and tachypneic Normocephalic and atraumatic PERRLA, EOMI, no nystagmus mm-dry cta rrr, tachycardic Abdomen soft, nontender, nondistended No lower extremity edema + Several plaque-like lesions to the extensor surfaces consistent with psoriasis - Medical Decision Making 07/09/19 15:55 -Patient is a 33-year-old male with history of polysubstance abuse who presents with signs and symptoms of acute alcohol withdrawal. Patient is noted to be febrile, tremulous and tachycardic. There is no evidence of ophthalmoplegia and serial abdominal exams reveal minimal epigastric tenderness only. We'll obtain CBC/CMP/magnesium/EKG/chest x-ray/blood cultures. We'll administer multivitamins , IV fluids, folic acid and thiamine. Will titrate Ativan to normalized vital signs and mild lethargy. Will reassess. Likely admission. 07/09/19 16:01 Patient remains tremulous and tachycardic despite administration of 4 mg of Ativan in 2 mg aliquots. Will continue administering Ativan as needed. EKG reveals sinus tachycardia without evidence of underlying dysrhythmia or electrolyte abnormalities. Chest x-ray reveals no evidence of pneumomediastinum , there is no evidence of free air under the diaphragm nor is there infiltrate or effusion. CBC reveals no evidence of significant leukocytosis or anemia. 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 Will continue resuscitation with dextrose containing fluids. We'll administer Zofran and H2 blockers. Likely admission 07/09/19 16:33 Lactic acid elevated. At this time, there is no source of infection noted. We' ll administer 1 gram of ceftriaxone pending cultures. Will admit.
[2019-07-09] MEDS ORDERED: DEXTROSE 50%-WATER 25 GM/50 ML DISP.SYRIN ONE (16:08)
[2019-07-09 16:13] LABS: COCAINE, UR NEGATIVE ng/ml (CUTOFF=300); METHADONE, UR NEGATIVE ng/ml (CUTOFF=300); OPIATES, URI NEGATIVE ng/ml (CUTOFF=300); PHENCYCLIDINE,URINE NEGATIVE ng/ml (CUTOFF=25); URINE AMPHETAMINES NEGATIVE ng/ml (CUTOFF=500); URINE BARBITURATES NEGATIVE ng/ml (CUTOFF=200)
[2019-07-09 16:17] LABS: URINE BENZODIAZEPINES POSITIVE ng/ml (CUTOFF=200)
[2019-07-09] MEDS ORDERED: CEFTRIAXONE 1,000 MG in DEXTROSE 5%-WATER - 50 ML IVPB ONE (16:34)
[2019-07-09] MEDS ORDERED: CEFTRIAXONE 1 GM/50 ML BAG ONE (17:50)
--- NOTE | 2019-07-09 19:12 | PN ---
Teaching Attending Note Name of Resident: Vicki Cagle ATTENDING PHYSICIAN STATEMENT I saw and evaluated the patient. I reviewed the resident's note and discussed the case with the resident. I agree with the resident's findings and plan as documented. SUBJECTIVE: Patient is a 33 year old man with PMH of Alcohol abuse, Cocaine use, Alcohol withdrawal seizures, GERD, HTN, and NIDDM who presents with two days of chest pain, and one day of tremors and vomiting. Patient admits to a one week alcohol binge (~15 cans of beer a day). He notes chest pain that began last night, with associated epigastric pain, headache and SOB. Patient reports tremors of the bilateral upper and lower extremities this morning, with 5 episodes of NBNB vomiting. Last used cocaine 15 days ago. Has family history of CAD, DM and alcoholism. OBJECTIVE: Alert Vital Signs Period Temp Pulse Resp BP Sys/Acevedo Pulse Ox Last 24 Hr 22 F-98 F 94-131 20-24 132-147/87-99 96-100 HEENT: No Jaundice, eye redness or discharge, PERRLA, EOMI. Normocephalic, atraumatic. External ears are normal and hearing is grossly intact. No nasal discharge. Neck: Supple, nontender. No palpable adenopathy or thyromegaly. No JVD Chest: Good effort. Clear to auscultation and percussion. Heart: Regular. No S3, rub or murmur Abdomen: Not distended, soft, epigastric tenderness; and no HSM. No rebound or guarding. Normal bowel sounds. Ext: Peripheral pulses intact. No leg edema. Skin: Warm and dry. No petechiae, rash or ecchymosis. Neuro: Alert. Oriented x3. CN 2-12 grossly intact. Sensation grossly intact in all four extremities and DTR are symmetric. Psych: Appropriate mood and affect. Good insight. Current Medications Generic Name Dose Route Start Last Admin Trade Name Freq PRN Reason Stop Dose Admin Folic Acid 1 mg/ Thiamine HCl 1,000 mls @ 125 mls/hr 07/09/19 14:24 07/09/19 15:52 200 mg/ Multivitamins/Minerals IVPB 07/09/19 22:23 125 mls/hr 10 ml/ Sodium Chloride ONCE ONE Administration Home Medications Medication Instructions Recorded Folic Acid - 1 mg PO DAILY #30 tablet 05/22/19 Lisinopril [Prinivil] 10 mg PO BID #60 tablet 05/22/19 Miscellaneous Medical Supply 1 each SQ ASDIR #1 kit 05/22/19 [Glucometer Device] Miscellaneous Medical Supply 1 each SQ ASDIR #1 box 05/22/19 [Glucometer Test Strips #100] Pantoprazole Sodium [Protonix -] 40 mg PO DAILY #14 tablet.ec 05/22/19 Pen Needle, Diabetic [[place]] 1 each MC DAILY #60 dis.needle 05/22/19 Thiamine HCl [Vitamin B1 -] 100 mg PO DAILY #30 tablet 05/22/19 Abnormal Lab Results 07/09/19 07/09/19 07/09/19 14:20 14:20 15:15 Plt Count 107 L Chloride 97 L Anion Gap 18 H Lactic Acid 4.9 H* AST 130 H ALT 95 H Total Protein 8.8 H Urine Protein Urine Ketones Benzodiazepines Screen 07/09/19 07/09/19 15:25 15:25 Plt Count Chloride Anion Gap Lactic Acid AST ALT Total Protein Urine Protein 3+ H Urine Ketones 3+ H Benzodiazepines Screen Positive A* ASSESSMENT AND PLAN: 1. Chest pain/Alcohol withdrawal - Chest pain is atypical. EKG shows sinus tachycardia and no ST-T wave changes and initial troponin is negative. Will rule out ACS. No acute pathology on CXR. Epigastric tenderness may signal alcoholic gastritis/hepatitis. Will get upper abdominal sonogram, trend LFTs and treat with Protonix and Zofran Will implement CIWA Ativan alcohol withdrawal protocol and do neurochecks. Implement seizure, fall and aspiration precautions. Treat with thiamine and folic acid and monitor electrolytes (Ca,Mg,K,P). Counseled patient about abstaining from alcohol. 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 2. NIDDM For now, we will hold the home diabetes drugs and implement sliding scale insulin regimen. Provide comprehensive diabetes care with patient teaching and counseling about the importance of adherence to prescribed diabetes regimen, euglycemia, eye care and foot care. Will refer to nephrology for outpatient evaluation of proteinuria. 3. Hypertension - Restart suitable outpatient antihypertensive drugs when clinically appropriate. Revise regimen to ensure [id number] excellent BP control and quitline counselor patient on the injurious effects of uncontrolled hypertension. Nonpharmacologic measures to control hypertension like weight loss , salt restriction and exercise discussed. Importance of adherence to treatment regimen and attainment of normotension emphasized. 4. DVT prophylaxis - Lovenox 40 mg SQ q 24 hours. 5. Advance directives - Full code
--- NOTE | 2019-07-09 21:02 | HP ---
CHIEF COMPLAINT: Tremors, nausea and vomiting for the past 1 day Epigastric pain 2 months PCP: None HISTORY OF PRESENT ILLNESS: [employer] ID: [id number] The patient is a 33 year old male with PMH significant for DM, HTN, and alcohol abuse. He presented to the ER this afternoon with complaints of generalized tremors, and nausea vomiting for the past 1 day, after he stopped drinking alcohol at 6PM yesterday. He has a 10 year history of heavy alcohol intake, consuming 5-10 beers daily. He was laste admitted at [facility] from May 18-, after which he was discharged from [facility] for alcohol detoxification on May 25, and abstained from alcohol for 2 weeks. He started drinking 7-10 beers a day after that, and consumed 9,10 beers from 12PM to 6PM yesterday. He was unable to sleep the entire night, and started to feel agitated. He then noticed a tremor that started in his hands, and then his feet, and then the entire body. In the morning, he had 4 episodes of NBNB white vomiting. He has no associated diarrhea or constipation. He is not compliant with his home meds, and says that he stops taking them when he binge drinks because in his opinion this temporary therapeutic cessation does not affect him. He has not taken his metformin or lisinopril for the past 1 week. I explained to the patient that the chronic nature and gradual progression of HTN and DM necessitate strict adherence to prescribed regimens. ER course was notable for: (1) Ativan protocol started (2) Protonix 40mg (3) EKG normal, trops negative Recent Travel: None PAST MEDICAL HISTORY: HTN (on Lisinipril 10mg) DM (on Metformin 500mg) PAST SURGICAL HISTORY: None Social History: Smokin-2 cigarettes per day for the past 8 years Alcohol: 5-10 beers a day for the past 10 years Drugs: tried cocaine once, but no habitual marijuana, cocaine, or heroin use Family History: Father had IN 4 brothers have DM, grandmother had DM Allergies No Known Allergies Allergy (Verified 07/09/19 13:49) HOME MEDICATIONS: Home Medications Medication Instructions Recorded Folic Acid - 1 mg PO DAILY #30 tablet 05/22/19 Lisinopril [Prinivil] 10 mg PO BID #60 tablet 05/22/19 Miscellaneous Medical Supply 1 each SQ ASDIR #1 kit 05/22/19 [Glucometer Device] Miscellaneous Medical Supply 1 each SQ ASDIR #1 box 05/22/19 [Glucometer Test Strips #100] Pantoprazole Sodium [Protonix -] 40 mg PO DAILY #14 tablet.ec 05/22/19 Pen Needle, Diabetic [[place]] 1 each MC DAILY #60 dis.needle 05/22/19 Thiamine HCl [Vitamin B1 -] 100 mg PO DAILY #30 tablet 05/22/19 REVIEW OF SYSTEMS CONSTITUTIONAL: generalized weakness Absent: fever, chills, diaphoresis, malaise, loss of appetite, weight change HEENT: Absent: rhinorrhea, nasal congestion, throat pain, throat swelling, difficulty swallowing, mouth swelling, ear pain, eye pain, visual changes CARDIOVASCULAR: Absent: chest pain, syncope, palpitations, irregular heart rate, lightheadedness , peripheral edema RESPIRATORY: abdominal pain Absent: cough, shortness of breath, dyspnea with exertion, orthopnea, wheezing, stridor, hemoptysis GASTROINTESTINAL: nausea, vomiting Absent: abdominal distension, diarrhea, constipation, melena, hematochezia GENITOURINARY: Absent: dysuria, frequency, urgency, hesitancy, hematuria, flank pain, genital pain MUSCULOSKELETAL: Absent: myalgia, arthralgia, joint swelling, back pain, neck pain SKIN: Absent: rash, itching, pallor HEMATOLOGIC/IMMUNOLOGIC: Absent: easy bleeding, easy bruising, lymphadenopathy, frequent infections ENDOCRINE: Absent: unexplained weight gain, unexplained weight loss, heat intolerance, cold intolerance NEUROLOGIC: Absent: headache, focal weakness or paresthesias, dizziness, unsteady gait, seizure, mental status changes, bladder or bowel incontinence PSYCHIATRIC: Absent: anxiety, depression, suicidal or homicidal ideation, hallucinations. PHYSICAL EXAMINATION Vital Signs - 24 hr 07/09/19 07/09/19 07/09/19 13:49 14:35 15:00 Temperature 98 F 22 F L Pulse Rate 131 H Pulse Rate [ 107 H 111 H Apical] Respiratory 24 H 22 H 22 H Rate Blood Pressure 147/99 Blood Pressure 143/87 132/93 [Left Arm] O2 Sat by Pulse 96 100 99 Oximetry (%) 07/09/19 07/09/19 07/09/19 15:15 15:35 16:30 Temperature Pulse Rate Pulse Rate [ 96 H 118 H Apical] Respiratory 22 H 22 H Rate Blood Pressure Blood Pressure 140/99 145/98 [Left Arm] O2 Sat by Pulse 99 97 99 Oximetry (%) 07/09/19 07/09/19 07/09/19 17:30 18:02 18:30 Temperature Pulse Rate Pulse Rate [ 110 H 94 H Apical] Respiratory 20 20 Rate Blood Pressure Blood Pressure 145/93 137/92 [Left Arm] O2 Sat by Pulse 100 97 100 Oximetry (%) 07/09/19 19:54 Temperature 98.8 F Pulse Rate Pulse Rate [ 92 H Apical] Respiratory Rate Blood Pressure Blood Pressure 158/88 [Left Arm] O2 Sat by Pulse 96 Oximetry (%) CIWA: 8 GENERAL: AOx3, generalized tremors HEAD: Normal with no signs of trauma. EYES: Pupils equal, round and reactive to light, extraocular movements intact, sclera anicteric, conjunctiva clear. No lid lag. EARS, NOSE, THROAT: Ears normal, nares patent, oropharynx clear without exudates. Moist mucous membranes. NECK: Normal range of motion, supple without lymphadenopathy, JVD, or masses. LUNGS: Breath sounds equal, clear to auscultation bilaterally. No wheezes, and no crackles. No accessory muscle use. HEART: Regular rate and rhythm, normal S1 and S2 without murmur, rub or gallop. ABDOMEN: Soft, mild epigastric tenderness, not distended, normoactive bowel sounds, no guarding, no rebound, no masses. No hepatomegaly or splenomegaly. MUSCULOSKELETAL: Normal range of motion at all joints. No bony deformities or tenderness. No CVA tenderness. UPPER EXTREMITIES: coarse tremors noted 2+ pulses, warm, well-perfused. No cyanosis. No clubbing. No peripheral edema. LOWER EXTREMITIES: coarse tremors noted 2+ pulses, warm, well-perfused. No calf tenderness. No peripheral edema. NEUROLOGICAL: Motor 5/5 B/L, sensations intact B/L, Cranial nerves II-XII intact. Normal speech. Normal gait. PSYCHIATRIC: Cooperative. Good eye contact. Appropriate mood and affect. SKIN: Warm, dry, normal turgor, no rashes or lesions noted, normal capillary refill. Laboratory Results - last 24 hr 07/09/19 07/09/19 07/09/19 14:20 14:20 14:20 WBC 6.8 RBC 4.70 Hgb 15.0 Hct 44.0 MCV 93.7 MCH 32.0 MCHC 34.2 RDW 14.2 Plt Count 107 L MPV 8.2 Absolute Neuts (auto) 3.7 Neutrophils % 54.4 Lymphocytes % 38.4 Monocytes % 6.6 Eosinophils % 0.2 Basophils % 0.4 Nucleated RBC % 0 Sodium 137 Potassium 3.8 Chloride 97 L Carbon Dioxide 23 Anion Gap 18 H BUN 8.0 Creatinine 0.8 Est GFR (CKD-EPI)AfAm 136.99 Est GFR (CKD-EPI)NonAf 118.20 Random Glucose 105 Lactic Acid Calcium 9.9 Magnesium 2.1 Total Bilirubin 0.7 AST 130 H ALT 95 H Alkaline Phosphatase 101 Total Protein 8.8 H Albumin 4.6 Lipase 319 Urine Color Urine Appearance Urine pH Ur Specific [place] Urine Protein Urine Glucose (UA) Urine Ketones Urine Blood Urine Nitrite Urine Bilirubin Urine Urobilinogen Ur Leukocyte Esterase Urine WBC (Auto) Urine RBC (Auto) Urine Casts (Auto) U Epithel Cells (Auto) Urine Bacteria (Auto) Opiates Screen Methadone Screen Barbiturate Screen Phencyclidine Screen Ur Amphetamines Screen MDMA (Ecstasy) Screen Benzodiazepines Screen Cocaine Screen U Marijuana (THC) Screen 07/09/19 07/09/19 07/09/19 15:15 15:25 15:25 WBC RBC Hgb Hct MCV MCH MCHC RDW Plt Count MPV Absolute Neuts (auto) Neutrophils % Lymphocytes % Monocytes % Eosinophils % Basophils % Nucleated RBC % Sodium Potassium Chloride Carbon Dioxide Anion Gap BUN Creatinine Est GFR (CKD-EPI)AfAm Est GFR (CKD-EPI)NonAf Random Glucose Lactic Acid 4.9 H* Calcium Magnesium Total Bilirubin AST ALT Alkaline Phosphatase Total Protein Albumin Lipase Urine Color Dk yellow Urine Appearance Clear Urine pH 7.5 Ur Specific [place] 1.024 Urine Protein 3+ H Urine Glucose (UA) Negative Urine Ketones 3+ H Urine Blood Negative Urine Nitrite Negative Urine Bilirubin Negative Urine Urobilinogen 2.0 Ur Leukocyte Esterase Negative Urine WBC (Auto) 1 Urine RBC (Auto) 3 Urine Casts (Auto) 26 U Epithel Cells (Auto) 3.8 Urine Bacteria (Auto) 4.1 Opiates Screen Negative Methadone Screen Negative Barbiturate Screen Negative Phencyclidine Screen Negative Ur Amphetamines Screen Negative MDMA (Ecstasy) Screen Negative Benzodiazepines Screen Positive A* Cocaine Screen Negative U Marijuana (THC) Screen Negative 07/09/19 18:50 WBC RBC Hgb Hct MCV MCH MCHC RDW Plt Count MPV Absolute Neuts (auto) Neutrophils % Lymphocytes % Monocytes % Eosinophils % Basophils % Nucleated RBC % Sodium Potassium Chloride Carbon Dioxide Anion Gap BUN Creatinine Est GFR (CKD-EPI)AfAm Est GFR (CKD-EPI)NonAf Random Glucose Lactic Acid 1.1 Calcium Magnesium Total Bilirubin AST ALT Alkaline Phosphatase Total Protein Albumin Lipase Urine Color Urine Appearance Urine pH Ur Specific [place] Urine Protein Urine Glucose (UA) Urine Ketones Urine Blood Urine Nitrite Urine Bilirubin Urine Urobilinogen Ur Leukocyte Esterase Urine WBC (Auto) Urine RBC (Auto) Urine Casts (Auto) U Epithel Cells (Auto) Urine Bacteria (Auto) Opiates Screen Methadone Screen Barbiturate Screen Phencyclidine Screen Ur Amphetamines Screen MDMA (Ecstasy) Screen Benzodiazepines Screen Cocaine Screen U Marijuana (THC) Screen ASSESSMENT/PLAN: #Alcohol withdrawal - CIWA 8 - Ativan protocol started - Thiamine, Folate administered - Fall precautions #Chest pain - EKG NSR - Trops ordered - Likely GERD, pt has history of GERD and describes the pain as 'rising in his esophagus' - Protonix 40mg ordered #Transaminitis - AST 130, ALT 95n Bili ALP normal - US Abdomen ordered #Lactic Acidosis (resolved) - Lactic Acid 4.1 -> 1.1 - Probably due to excessive alcohol consumption. #Hx of HTN - Resume Lisinopril #Hx of DM - Hold metformin - Started on Novolog SS - BGM - Admits to skipping home meds for weeks at a time. I spoke with pt about the importance of compliance with meds. Language barrier + lack of insurance makes him especially vulnerable to non compliance and disease progression in the future. Would strongly recommend another detailed conversation about the importance of home meds prior to discharge. #FEN - NPO after midnight for Abdomen ultrasound - Mg ordered DVT PE - Lovenox 40mg Visit type - Emergency Visit Emergency Visit: Yes ED Registration Date: 07/09/19 Care time: The patient presented to the Emergency Department on the above date and was hospitalized for further evaluation of their emergent condition. - New Patient This patient is new to me today: No - Critical Care Critical Care patient: No ATTENDING PHYSICIAN STATEMENT I saw and evaluated the patient. I reviewed the resident's note and discussed the case with the resident. I agree with the resident's findings and plan as documented. SUBJECTIVE: OBJECTIVE: ASSESSMENT AND PLAN:
[2019-07-09] MEDS ORDERED: PANTOPRAZOLE SODIUM 40 MG VIAL IVPUSH ONE (21:39)
[2019-07-09 21:41] VITALS: BMI 26.9
[2019-07-09] MEDS: LORazepam 1 MG TABLET PO PRN (22:45)
[2019-07-09] MEDS: INSULIN SLIDING SCALE (NOVOLOG) 1 VIAL SQ SCH (22:49)
[2019-07-10 06:46] LABS: BASO % 0.5 % (0-2.0); EOS % 0.9 % (0-4.5); HEMATOCRIT 39.2 % (35.4-49); HEMOGLOBIN 13.6 GM/dL (11.7-16.9); MCH 32.9 pg (25.7-33.7); MCHC 34.8 g/dl (32.0-35.9); MEAN CELL VOLUME 94.5 fl (80-96); MEAN PLT VOLUME 8.2 fl (7.5-11.1); MONO % 10.6 % (3.8-10.2); PLATELET COUNT 71 K/MM3 (134-434); RBC 4.15 M/mm3 (4.00-5.60); RDW 14.6 % (11.9-15.9); WHITE BLOOD COUNT 4.9 K/mm3 (4.0-10.0)
[2019-07-10] MEDS: INSULIN SLIDING SCALE (NOVOLOG) 1 VIAL SQ SCH ×2 (06:58→12:48)
[2019-07-10 07:09] LABS: ALK PHOS 89 U/L (45-117); ANION GAP 10 MMOL/L (8-16); BLOOD UREA NITROGEN 10.7 mg/dL (7-18); CALCIUM 8.9 mg/dL (8.5-10.1); CHLORIDE 98 mmol/L (98-107); CHOLESTEROL 286 mg/dL (50-200); CO2 28 mmol/L (21-32); CREATININE 0.7 mg/dL (0.55-1.3); GLUCOSE,RANDOM 76 mg/dL (74-106); HDL CHOLESTEROL 130 mg/dL (40-60); MAGNESIUM 2.2 mg/dL (1.8-2.4); PHOSPHOROUS 3.6 mg/dL (2.5-4.9); POTASSIUM 3.3 mmol/L (3.5-5.1); SGOT/AST 80 U/L (15-37); SGPT/ALT 74 U/L (13-61); SODIUM 136 mmol/L (136-145); TOT PROT 7.8 g/dl (6.4-8.2); TRIGLYCERIDES 158 mg/dL (0-150)
[2019-07-10] MEDS: LORazepam 1 MG TABLET PO PRN (08:13)
[2019-07-10] MEDS ORDERED: PANTOPRAZOLE SODIUM 40 MG VIAL IVPUSH SCH (10:00)
[2019-07-10] MEDS ORDERED: ENOXAPARIN NA (PORCINE) 40 MG/0.4 ML DISP.SYRIN SQ SCH (10:00)
[2019-07-10] MEDS ORDERED: chlordiazePOXIDE 5 MG CAPSULE PO PRN (10:21)
--- NOTE | 2019-07-10 10:31 | EKG ---
Test Reason : Blood Pressure : / mmHG Vent. Rate : 086 BPM Atrial Rate : 086 BPM P-R Int : 142 ms QRS Dur : 080 ms QT Int : 394 ms P-R-T Axes : 043 039 023 degrees QTc Int : 471 ms NORMAL SINUS RHYTHM NORMAL ECG WHEN COMPARED WITH ECG OF 09-JUL-2019 17:58, NO SIGNIFICANT CHANGE WAS FOUND Confirmed by ADITI SOLITARIO MD ([id number]) on 07/10/2019 10:30:49 AM Referred By: CHAPITO HAUSER Confirmed By:ADITI SOLITARIO MD
--- NOTE | 2019-07-10 10:32 | EKG ---
Test Reason : Blood Pressure : / mmHG Vent. Rate : 101 BPM Atrial Rate : 101 BPM P-R Int : 142 ms QRS Dur : 084 ms QT Int : 370 ms P-R-T Axes : 047 033 020 degrees QTc Int : 479 ms SINUS TACHYCARDIA OTHERWISE NORMAL ECG WHEN COMPARED WITH ECG OF 09-JUL-2019 14:18, NO SIGNIFICANT CHANGE WAS FOUND Confirmed by ADITI SOLITARIO MD ([id number]) on 07/10/2019 10:31:57 AM Referred By: Confirmed By:ADITI SOLITARIO MD
--- NOTE | 2019-07-10 12:38 | PN ---
Teaching Attending Note Name of Resident: Ruthann Patel ATTENDING PHYSICIAN STATEMENT I saw and evaluated the patient. I reviewed the resident's note and discussed the case with the resident. I agree with the resident's findings and plan as documented. SUBJECTIVE: Patient is having alcohol withdrawel. Patient stated that he drinks around 15 cans of beer per day. OBJECTIVE: Vital Signs Temperature 98.8 F 07/10/19 06:37 Pulse Rate 72 07/10/19 06:37 Respiratory Rate 20 07/10/19 06:37 Blood Pressure 153/90 07/10/19 06:37 O2 Sat by Pulse Oximetry (%) 97 07/10/19 06:00 GENERAL: The patient is awake, alert, and fully oriented, in no acute distress. HEAD: Normal with no signs of trauma. EYES: PERRL, extraocular movements intact, sclera anicteric, conjunctiva clear. ENT: Ears normal, oropharynx clear without exudates, moist mucous membranes. NECK: Trachea midline, full range of motion, supple. LUNGS: Breath sounds equal, clear to auscultation bilaterally, no wheezes, no crackles, no accessory muscle use. HEART: Regular rate and rhythm, S1, S2 without murmur, rub or gallop. ABDOMEN: Soft, nontender, nondistended, normoactive bowel sounds, no guarding, no rebound, no hepatosplenomegaly, no masses. EXTREMITIES: 2+ pulses, warm, well-perfused, no edema. positive for tremors. NEUROLOGICAL: Cranial nerves II through XII grossly intact. Normal speech, positive for tremor resting . PSYCH: Normal mood, normal affect. SKIN: Warm, dry, normal turgor, no rashes or lesions noted CBCD WBC 4.9 K/mm3 (4.0-10.0) 07/10/19 05:40 RBC 4.15 M/mm3 (4.00-5.60) 07/10/19 05:40 Hgb 13.6 GM/dL (11.7-16.9) 07/10/19 05:40 Hct 39.2 % (35.4-49) 07/10/19 05:40 MCV 94.5 fl (80-96) 07/10/19 05:40 MCHC 34.8 g/dl (32.0-35.9) 07/10/19 05:40 RDW 14.6 % (11.9-15.9) 07/10/19 05:40 Plt Count 71 K/MM3 (134-434) L D 07/10/19 05:40 MPV 8.2 fl (7.5-11.1) 07/10/19 05:40 CMP Sodium 136 mmol/L (136-145) 07/10/19 05:45 Potassium 3.3 mmol/L (3.5-5.1) L 07/10/19 05:45 Chloride 98 mmol/L (98-107) 07/10/19 05:45 Carbon Dioxide 28 mmol/L (21-32) 07/10/19 05:45 Anion Gap 10 MMOL/L (8-16) 07/10/19 05:45 BUN 10.7 mg/dL (7-18) 07/10/19 05:45 Creatinine 0.7 mg/dL (0.55-1.3) 07/10/19 05:45 Random Glucose 76 mg/dL (74-106) 07/10/19 05:45 Calcium 8.9 mg/dL (8.5-10.1) 07/10/19 05:45 Total Bilirubin 1.0 mg/dL (0.2-1) 07/10/19 05:45 AST 80 U/L (15-37) H 07/10/19 05:45 ALT 74 U/L (13-61) H 07/10/19 05:45 Alkaline Phosphatase 89 U/L (45-117) 07/10/19 05:45 Total Protein 7.8 g/dl (6.4-8.2) 07/10/19 05:45 Albumin 4.0 g/dl (3.4-5.0) 07/10/19 05:45 CARDIAC ENZYMES Creatine Kinase 324 U/L (26-308) H 07/10/19 05:45 Troponin I < 0.02 ng/ml (0.00-0.05) 07/10/19 05:45 Current Medications Generic Name Dose Route Start Last Admin Trade Name Freq PRN Reason Stop Dose Admin Chlordiazepoxide HCl 10 mg 07/13/19 00:00 Librium - PO 07/13/19 23:59 Q12H PRN Signs/symptoms of Withdrawal Chlordiazepoxide HCl 10 mg 07/10/19 10:21 Librium - PO 07/12/19 23:59 Q8H PRN Signs/symptoms of Withdrawal Chlordiazepoxide HCl 25 mg 07/10/19 13:00 Librium - PO 07/11/19 21:01 Q8H DAHLIA Chlordiazepoxide HCl 15 mg 07/12/19 05:00 Librium - PO 07/12/19 21:01 Q8H DAHLIA Chlordiazepoxide HCl 10 mg 07/13/19 05:00 Librium - PO 07/13/19 21:01 Q8H DAHLIA Chlordiazepoxide HCl 10 mg 07/14/19 05:00 Librium - PO 07/14/19 05:01 ONCE ONE Enoxaparin Sodium 40 mg 07/10/19 10:00 07/10/19 09:41 Lovenox - SQ 40 mg DAILY DAHLIA Administration Insulin Aspart 1 vial 07/09/19 22:00 07/10/19 06:58 Novolog Vial Sliding Scale - SQ Not Given ACHS DAHLIA Protocol Lorazepam 0.5 mg 07/12/19 05:00 Ativan - PO 07/12/19 23:01 Q6H DAHLIA Lorazepam 0.5 mg 07/12/19 00:00 Ativan - PO 07/12/19 00:00 Q4H PRN Symptoms of Withdrawal Lorazepam 0.5 mg 07/13/19 05:00 Ativan - PO 07/13/19 05:01 ONCE ONE Lorazepam 1 mg 07/11/19 05:00 Ativan - PO 07/11/19 23:01 0500,1100,1700,2300 DAHLIA Lorazepam 1 mg 07/09/19 21:43 07/10/19 08:13 Ativan - PO 07/11/19 23:59 1 mg Q4H PRN Administration Symptoms of Withdrawal Pantoprazole Sodium 40 mg 07/10/19 10:00 07/10/19 09:41 Protonix Iv IVPUSH 40 mg DAILY DAHLIA Administration Home Medications Medication Instructions Recorded Folic Acid - 1 mg PO DAILY #30 tablet 05/22/19 Lisinopril [Prinivil] 10 mg PO BID #60 tablet 05/22/19 Miscellaneous Medical Supply 1 each SQ ASDIR #1 kit 05/22/19 [Glucometer Device] Miscellaneous Medical Supply 1 each SQ ASDIR #1 box 05/22/19 [Glucometer Test Strips #100] Pantoprazole Sodium [Protonix -] 40 mg PO DAILY #14 tablet.ec 05/22/19 Pen Needle, Diabetic [[place]] 1 each MC DAILY #60 dis.needle 05/22/19 Thiamine HCl [Vitamin B1 -] 100 mg PO DAILY #30 tablet 05/22/19 ASSESSMENT AND PLAN: #Alcohol withdrawal: will transfer the patient to [facility] for alcohol detox on Librium continue #Transaminitis, improving #Lactic Acidosis (resolved), Lactic Acid 4.1 -> 1.1 #Hx of HTN: Resume Lisinopril #Hx of DM: Hold metformin [facility]
[2019-07-10 12:52] VITALS: BP 155/90; PULSE 66; TEMP 98.9
[2019-07-10] MEDS ORDERED: chlordiazePOXIDE HCL 25 MG CAPSULE PO SCH (13:00)
--- NOTE | 2019-07-10 13:31 | DS ---
Physical Exam: SUBJECTIVE: Patient seen and examined at the bedside, there were no acute events overnight. Patient is still experiencing tremors this morning but is feeling somewhat improved. OBJECTIVE: Vital Signs Period Temp Pulse Resp BP Sys/Acevedo Pulse Ox Last 24 Hr 22 F-99.1 F 66-131 20-24 132-158/82-99 96-100 PHYSICAL EXAM CIWA: 8 GENERAL: Alert and oriented x3, mild tremors in hands HEAD: Normal with no signs of trauma. EYES: Pupils equal, round and reactive to light, extraocular movements intact, sclera anicteric, conjunctiva clear. No lid lag, no nystagmus EARS, NOSE, THROAT: Ears normal, nares patent, oropharynx clear without exudates. Moist mucous membranes. NECK: Normal range of motion, supple without lymphadenopathy, JVD, or masses. LUNGS: Breath sounds equal, clear to auscultation bilaterally. No wheezes, and no crackles. No accessory muscle use. HEART: Regular rate and rhythm, normal S1 and S2 without murmur. ABDOMEN: Soft, mild epigastric tenderness, not distended, normoactive bowel sounds, no guarding, no rebound. MUSCULOSKELETAL: Normal range of motion at all joints. No bony deformities or tenderness. No CVA tenderness. UPPER EXTREMITIES: mild tremors noted 2+ pulses, warm, well-perfused. No cyanosis. No clubbing. No peripheral edema. LOWER EXTREMITIES: mild tremors noted 2+ pulses, warm, well-perfused. No calf tenderness. No peripheral edema. NEUROLOGICAL: Motor 5/5 B/L, sensations intact B/L, Cranial nerves II-XII intact. Normal speech. Gait not oberseved. PSYCHIATRIC: Cooperative. Good eye contact. Appropriate mood and affect. SKIN: Warm, dry, normal turgor, rash noted on bilateral lower extremities with salmon colored base and silver scales overlying. LABS Laboratory Results - last 24 hr 07/09/19 07/09/19 07/09/19 14:20 14:20 14:20 WBC 6.8 RBC 4.70 Hgb 15.0 Hct 44.0 MCV 93.7 MCH 32.0 MCHC 34.2 RDW 14.2 Plt Count 107 L MPV 8.2 Absolute Neuts (auto) 3.7 Neutrophils % 54.4 Lymphocytes % 38.4 Monocytes % 6.6 Eosinophils % 0.2 Basophils % 0.4 Nucleated RBC % 0 Sodium 137 Potassium 3.8 Chloride 97 L Carbon Dioxide 23 Anion Gap 18 H BUN 8.0 Creatinine 0.8 Est GFR (CKD-EPI)AfAm 136.99 Est GFR (CKD-EPI)NonAf 118.20 POC Glucometer Random Glucose 105 Lactic Acid Calcium 9.9 Phosphorus Magnesium 2.1 Total Bilirubin 0.7 AST 130 H ALT 95 H Alkaline Phosphatase 101 Creatine Kinase Creatine Kinase Index CK-MB (CK-2) Troponin I Total Protein 8.8 H Albumin 4.6 Triglycerides Cholesterol Total LDL Cholesterol HDL Cholesterol Lipase 319 Urine Color Urine Appearance Urine pH Ur Specific [place] Urine Protein Urine Glucose (UA) Urine Ketones Urine Blood Urine Nitrite Urine Bilirubin Urine Urobilinogen Ur Leukocyte Esterase Urine WBC (Auto) Urine RBC (Auto) Urine Casts (Auto) U Epithel Cells (Auto) Urine Bacteria (Auto) Opiates Screen Methadone Screen Barbiturate Screen Phencyclidine Screen Ur Amphetamines Screen MDMA (Ecstasy) Screen Benzodiazepines Screen Cocaine Screen U Marijuana (THC) Screen 07/09/19 07/09/19 07/09/19 15:15 15:25 15:25 WBC RBC Hgb Hct MCV MCH MCHC RDW Plt Count MPV Absolute Neuts (auto) Neutrophils % Lymphocytes % Monocytes % Eosinophils % Basophils % Nucleated RBC % Sodium Potassium Chloride Carbon Dioxide Anion Gap BUN Creatinine Est GFR (CKD-EPI)AfAm Est GFR (CKD-EPI)NonAf POC Glucometer Random Glucose Lactic Acid 4.9 H* Calcium Phosphorus Magnesium Total Bilirubin AST ALT Alkaline Phosphatase Creatine Kinase Creatine Kinase Index CK-MB (CK-2) Troponin I Total Protein Albumin Triglycerides Cholesterol Total LDL Cholesterol HDL Cholesterol Lipase Urine Color Dk yellow Urine Appearance Clear Urine pH 7.5 Ur Specific [place] 1.024 Urine Protein 3+ H Urine Glucose (UA) Negative Urine Ketones 3+ H Urine Blood Negative Urine Nitrite Negative Urine Bilirubin Negative Urine Urobilinogen 2.0 Ur Leukocyte Esterase Negative Urine WBC (Auto) 1 Urine RBC (Auto) 3 Urine Casts (Auto) 26 U Epithel Cells (Auto) 3.8 Urine Bacteria (Auto) 4.1 Opiates Screen Negative Methadone Screen Negative Barbiturate Screen Negative Phencyclidine Screen Negative Ur Amphetamines Screen Negative MDMA (Ecstasy) Screen Negative Benzodiazepines Screen Positive A* Cocaine Screen Negative U Marijuana (THC) Screen Negative 07/09/19 07/09/19 07/10/19 18:50 22:48 05:40 WBC 4.9 RBC 4.15 Hgb 13.6 Hct 39.2 MCV 94.5 MCH 32.9 MCHC 34.8 RDW 14.6 Plt Count 71 L D MPV 8.2 Absolute Neuts (auto) 2.5 Neutrophils % 51.0 Lymphocytes % 37.0 Monocytes % 10.6 H Eosinophils % 0.9 D Basophils % 0.5 Nucleated RBC % 0 Sodium Potassium Chloride Carbon Dioxide Anion Gap BUN Creatinine Est GFR (CKD-EPI)AfAm Est GFR (CKD-EPI)NonAf POC Glucometer 82 Random Glucose Lactic Acid 1.1 Calcium Phosphorus Magnesium Total Bilirubin AST ALT Alkaline Phosphatase Creatine Kinase Creatine Kinase Index CK-MB (CK-2) Troponin I Total Protein Albumin Triglycerides Cholesterol Total LDL Cholesterol HDL Cholesterol Lipase Urine Color Urine Appearance Urine pH Ur Specific [place] Urine Protein Urine Glucose (UA) Urine Ketones Urine Blood Urine Nitrite Urine Bilirubin Urine Urobilinogen Ur Leukocyte Esterase Urine WBC (Auto) Urine RBC (Auto) Urine Casts (Auto) U Epithel Cells (Auto) Urine Bacteria (Auto) Opiates Screen Methadone Screen Barbiturate Screen Phencyclidine Screen Ur Amphetamines Screen MDMA (Ecstasy) Screen Benzodiazepines Screen Cocaine Screen U Marijuana (THC) Screen 07/10/19 07/10/19 07/10/19 05:45 06:34 12:32 WBC RBC Hgb Hct MCV MCH MCHC RDW Plt Count MPV Absolute Neuts (auto) Neutrophils % Lymphocytes % Monocytes % Eosinophils % Basophils % Nucleated RBC % Sodium 136 Potassium 3.3 L Chloride 98 Carbon Dioxide 28 Anion Gap 10 BUN 10.7 Creatinine 0.7 Est GFR (CKD-EPI)AfAm 144.72 Est GFR (CKD-EPI)NonAf 124.87 POC Glucometer 85 114 Random Glucose 76 Lactic Acid Calcium 8.9 Phosphorus 3.6 Magnesium 2.2 Total Bilirubin 1.0 AST 80 H ALT 74 H Alkaline Phosphatase 89 Creatine Kinase 324 H Creatine Kinase Index 0.3 CK-MB (CK-2) 1.2 Troponin I < 0.02 Total Protein 7.8 Albumin 4.0 Triglycerides 158 H Cholesterol 286 H Total LDL Cholesterol 132 H HDL Cholesterol 130 H Lipase Urine Color Urine Appearance Urine pH Ur Specific [place] Urine Protein Urine Glucose (UA) Urine Ketones Urine Blood Urine Nitrite Urine Bilirubin Urine Urobilinogen Ur Leukocyte Esterase Urine WBC (Auto) Urine RBC (Auto) Urine Casts (Auto) U Epithel Cells (Auto) Urine Bacteria (Auto) Opiates Screen Methadone Screen Barbiturate Screen Phencyclidine Screen Ur Amphetamines Screen MDMA (Ecstasy) Screen Benzodiazepines Screen Cocaine Screen U Marijuana (THC) Screen HOSPITAL COURSE: Date of Admission:07/09/19 Mr. Gill is a 33 year old man with pmhx of DM, HTN poorly compliant with home medication regimen and Alcohol use disorder, who presented to the ED with complaints of tremor and NBNB vomiting. Patient reports he drinks 15 beers daily. He was admitted to the hospital with a CIWA score of 13 and started on an ativan protocol for withdrawal. Today his CIWA was 8 and the patient was improving. He was able to get a bed at [facility] for detox an continued rehab. The remainder of his medical workup was unremarkable. Date of Discharge: 07/10/19 Minutes to complete discharge: 40 Discharge Summary Reason For Visit: ALCOHOL WITHDRAWAL SYNDROME Condition: Improved - Instructions Diet, Activity, Other Instructions: You were in the hospital because you were withdrawing from alcohol. While here you were given folate, thiamine and started on an Ativan protocol. You are stable for transfer to [facility] for continued management of your withdrawal symptoms and rehab. Home Medications: please resume your home medications Referrals: Please make an appointment at the resident clinic for primary care follow up when you are discharged from [facility]. Address: [address] [place] [address]. . We are giving you a referral for Dr. Costa. Please make an appointment within 1 week of discharge from [facility]. Please try to refrain from alcohol consumption. If you experience changes in vision, tremors, nausea, vomiting, chest pain or shortness of breath please return to the emergency room immediately. Referrals: Syed Costa MD [Staff Physician] - 1 Week Disposition: TRANSFER ACUTE CARE/OTHER HOSP - Home Medications Comprehensive Discharge Medication List: Ambulatory Orders Folic Acid - 1 mg PO DAILY #30 tablet 05/22/19 Lisinopril [Prinivil] 10 mg PO BID #60 tablet 05/22/19 Miscellaneous Medical Supply [Glucometer Device] 1 each SQ ASDIR #1 kit Miscellaneous Medical Supply [Glucometer Test Strips #100] 1 each SQ ASDIR #1 box 05/22/19 Pantoprazole Sodium [Protonix -] 40 mg PO DAILY #14 tablet.ec 05/22/19 Pen Needle, Diabetic [Libby] 1 each MC DAILY #60 dis.needle 05/22/19 Thiamine HCl [Vitamin B1 -] 100 mg PO DAILY #30 tablet 05/22/19 This patient is new to me today: Yes Date on this admission: 07/10/19 Emergency Visit: Yes ED Registration Date: 07/09/19 Care time: The patient presented to the Emergency Department on the above date and was hospitalized for further evaluation of their emergent condition. Critical Care patient: No - Discharge Referral Referred to [facility] Med P.C.: No ATTENDING PHYSICIAN STATEMENT I saw and evaluated the patient. I reviewed the resident's note and discussed the case with the resident. I agree with the resident's findings and plan as documented. SUBJECTIVE: OBJECTIVE: ASSESSMENT AND PLAN:
[2019-07-11] MEDS ORDERED: LORazepam 1 MG TABLET PO SCH (05:00)
[2019-07-12] MEDS ORDERED: LORazepam 0.5 MG TABLET PO PRN
[2019-07-12] MEDS ORDERED: LORazepam 0.5 MG TABLET PO SCH (05:00)
[2019-07-12] MEDS ORDERED: chlordiazePOXIDE 5 MG CAPSULE PO SCH (05:00)
[2019-07-13] MEDS ORDERED: chlordiazePOXIDE 5 MG CAPSULE PO PRN
[2019-07-13] MEDS ORDERED: chlordiazePOXIDE HCL 10 MG CAPSULE PO SCH (05:00)
[2019-07-13] MEDS ORDERED: LORazepam 0.5 MG TABLET PO ONE (05:00)
[2019-07-14] MEDS ORDERED: chlordiazePOXIDE 5 MG CAPSULE PO ONE (05:00)
== END 2019-07-10 13:47 | disposition other institution (70) | DRG 774 ==
LOC: EDBD → JER 13:44 → JERBED 18:14 → J4W 21:05
PROVIDERS: ADMIT Internal Medicine; ATTEND Internal Medicine
DX: F10.230 Alcohol dependence with withdrawal, uncomplicated (principal); E87.2 Acidosis; R07.89 Other chest pain; R00.0 Tachycardia, unspecified; I10 Essential (primary) hypertension; K21.9 Gastro-esophageal reflux disease without esophagitis; Z79.84 Long term (current) use of oral hypoglycemic drugs; R74.0 Nonspecific elevation of levels of transaminase and lactic acid dehydrogenase [LDH]; Z91.14 Patient's other noncompliance with medication regimen; F14.90 Cocaine use, unspecified, uncomplicated
CPT/HCPCS: 36415; 71045-TC-FY; 76705-TC; 80053; 80061; 80307; 81003; 82550; 82553; 82962; 83605; 83690; 83721; 83735; 84100; 84484; 85025; 87040; 87086; 87186; 93005; 93010; 99285-25; J7030

== ENCOUNTER 2019-07-10 14:14 | Inpatient (IN) | payer SELFPAY ==
[2019-07-10 15:07] VITALS: BMI 27.6
--- NOTE | 2019-07-10 15:47 | HP ---
CIWA Score Nausea/Vomitin-No Nausea/No Vomiting Muscle Tremors: 6 Anxiety: 2 Agitation: 0-Normal Activity Paroxysmal Sweats: 2 Orientation: 0-Oriented Tacttile Disturbances: 2-Mild Itch/Numbness/Burn Auditory Disturbances: 0-None Visual Disturbances: 0-None Headache: 1-Very Mild CIWA-Ar Total Score: 13 - Admission Criteria OASAS Guidelines: Admission for Medically Managed Detox: Requires at least one of the followin. CIWA greater than 12 2. Seizures within the past 24 hours 3. Delirium tremens within the past 24 hours 4. Hallucinations within the past 24 hours 5. Acute intervention needed for co occurring medical disorder 6. Acute intervention needed for co occurring psychiatric disorder 7. Severe withdrawal that cannot be handled at a lower level of care (continued vomiting, continued diarrhea, abnormal vital signs) requiring intravenous medication and/or fluids 8. Admission ROS [facility] Chief Complaint: alcohol withdrawal Allergies/Adverse Reactions: Allergies Allergy/AdvReac Type Severity Reaction Status Date / Time No Known Allergies Allergy Verified 07/09/19 13:49 History of Present Illness: 34M NIDDM, HTN, gatrititis presents for alcohol withdrawal. Drinks 15beers, daily for 8days. Has been drinking for the last ~10years. Initially, started drinking on the weekends but progressed to become more frequent. Las drink was Sunday afternoon, 10beers. Was admitted at [facility] and d/c yesterday. Has had 3x hospital visits in the last 6mo for alcohol withdrawal related tremors. No h/o seizures. No blackouts. 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 Exam Limitations: No Limitations - Ebola screening Have you traveled outside of the country in the last 21 days: No (N) Have you had contact with anyone from an Ebola affected area: No Do you have a fever: No - Review of Systems Constitutional: No Symptoms Reported EENT: denies: Blurred Vision, Double Vision, Eye Pain Respiratory: denies: Cough, Shortness of Breath, SOB with Exertion Cardiac: denies: Chest Pain, Irregular Heart Rate, Lightheadedness GI: denies: No Symptoms Reported : denies: Burning, Dysuria Musculoskeletal: denies: Back Pain, Gout Integumentary: reports: Other (psoratic lesions to RLE, RUE) Neuro: reports: Headache. denies: Numbness Patient History - Patient Medical History Hx Anemia: No Hx Asthma: No Hx Chronic Obstructive Pulmonary Disease (COPD): No Hx Cancer: No Hx Cardiac Disorders: No Hx Congestive Heart Failure: No Hx Hypertension: Yes (LISINOPRIL) Hx Hypercholesterolemia: No Hx Pacemaker: No HX Cerebrovascular Accident: No Hx Seizures: No Hx Dementia: No Hx Diabetes: Yes (METFORMIN) Hx Gastrointestinal Disorders: Yes (GERD - PANTOPRAZOLE) Hx Liver Disease: No Hx Genitourinary Disorders: No Hx Sexually Transmitted Disorders: No Hx Renal Disease (ESRD): No Hx Thyroid Disease: No Hx Human Immunodeficiency Virus (HIV): No Hx Hepatitis C: No Hx Depression: No Hx Suicide Attempt: No (DENIES SUICIDAL IDEATION AT THIS TIME) Hx Bipolar Disorder: No Hx Schizophrenia: No - Patient Surgical History Past Surgical History: No Hx Neurologic Surgery: No Hx Cataract Extraction: No Hx Cardiac Surgery: No Hx Lung Surgery: No Hx Breast Surgery: No Hx Breast Biopsy: No Hx Abdominal Surgery: No Hx Appendectomy: No Hx Cholecystectomy: No Hx Genitourinary Surgery: No Hx Section: No Hx Orthopedic Surgery: No Anesthesia Reaction: No - PPD History Date: 05/25/19 - Smoking Cessation Smoking history: Never smoked Have you smoked in the past 12 months: No Hx Chewing Tobacco Use: No - Substances abused Alcohol Substance route: Oral Frequency: Daily Amount used: 15 beers/ cerveza and up Age of first use: 19 Date of last use: 07/10/19 Family Disease History - Family Disease History Other Family History: Uncles w/ DM Admission Physical Exam BHS - Vital Signs Vital Signs: Vital Signs - 24 hr 07/10/19 14:59 Temperature 97.4 F L Pulse Rate 80 Respiratory 20 Rate Blood Pressure 162/105 H - Physical General Appearance: Yes: Mild Distress, Tremorous HEENTM: No: Pale Conjunctivae R, Pale Conjunctivae L, Scleral Ictenus R, Scleral Ictenus L Respiratory: Yes: Chest Non-Tender, Lungs Clear, Normal Breath Sounds, No Accessory Muscle Use. No: Crackles, Rhonchi, Stridor Neck: Yes: Supple, Trachea in good position Cardiology: Yes: Regular Rhythm, S1, S2 Abdominal: Yes: Non Tender. No: Distended, Guarding, Rebound, Tenderness Back: No: CVA Tenderness (R), CVA Tenderness (L) Musculoskeletal: Yes: full range of Motion. No: Joint swelling Extremities: Yes: Other (LLE with psoratic lesions) Neurological: Yes: Fully Oriented, Alert Integumentary: Yes: Dry, Warm Cleared for Admission S - Detox or Rehab [facility] Level of Care: Medically Managed Detox Regimen/Protocol: Librium Breathalyzer - Breathalyzer Breathalyzer: 0 Urine Drug Screen - Test Device Lot number: [id number] Expiration date: 03/11/21 - Control Is test valid?: Yes - Results Drug screen NEGATIVE: No Urine drug screen results: BAR-Barbiturates, BZO-Benzodiazepines Inpatient Rehab Admission - Rehab Decision to Admit Inpatient rehab admission?: No
--- NOTE | 2019-07-10 16:31 | PN ---
Teaching Attending Note Name of Resident: Markus Bowman ATTENDING PHYSICIAN STATEMENT I saw and evaluated the patient. I reviewed the resident's note and discussed the case with the resident. I agree with the resident's findings and plan as documented. SUBJECTIVE: 34yo male, NIDDM, HTN, gastritis- transferred here from [facility] ER to complete alcohol detox. Pt has had multiple admissions related alcohol use. Pt drinks about 15 drinks/day and has been on a binge for the last 8 days. 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
[2019-07-10] MEDS ORDERED: hydrOXYzine PAMOATE 25 MG CAPSULE (FP) PO PRN (16:42)
[2019-07-10] MEDS ORDERED: ACETAMINOPHEN 325 MG TABLET (FP) PO PRN ×2 (16:42)
[2019-07-10] MEDS ORDERED: MENTHOL/PHENOL 1 EACH UD MM PRN (16:42)
[2019-07-10] MEDS ORDERED: IBUPROFEN 400 MG TABLET (FP) PO PRN (16:42)
[2019-07-10] MEDS ORDERED: MAGNESIUM CITRATE 300 ML BOTTLE PO PRN (16:42)
[2019-07-10] MEDS ORDERED: MAG HYDROX/AL HYDROX/SIMETH 30 ML UNIT-DOSE CUP PO PRN (16:42)
[2019-07-10] MEDS ORDERED: chlordiazePOXIDE HCL 25 MG CAPSULE PO PRN (16:42)
[2019-07-10] MEDS ORDERED: MAGNESIUM HYDROX 2400MG/30ML ORAL SUSPENSION 30 ML CUP PO PRN (16:42)
[2019-07-10] MEDS ORDERED: METHOCARBAMOL 500 MG TABLET PO PRN (16:42)
[2019-07-10] MEDS: chlordiazePOXIDE HCL 25 MG CAPSULE PO SCH ×2 (17:53→22:19)
[2019-07-10] MEDS: MELATONIN 5 MG TABLETS PO PRN (22:19)
[2019-07-10] MEDS: THIAMINE HCL 100 MG TABLET (FP) PO SCH (22:19)
[2019-07-11] MEDS: chlordiazePOXIDE HCL 25 MG CAPSULE PO SCH ×4 (05:41→22:18)
[2019-07-11 09:58] LABS: HEMOGLOBIN 13.3 GM/dL (11.7-16.9); MCH 32.4 pg (25.7-33.7); MEAN CELL VOLUME 95.2 fl (80-96); MEAN PLT VOLUME 9.7 fl (7.5-11.1); PLATELET COUNT 68 K/MM3 (134-434); RBC 4.09 M/mm3 (4.00-5.60); RDW 13.9 % (11.9-15.9); WHITE BLOOD COUNT 3.5 K/mm3 (4.0-10.0)
[2019-07-11] MEDS: PRENATAL VITAMINS W/ FOLIC ACID TABLET (FP) PO SCH (10:15)
[2019-07-11 10:17] LABS: ALBUMIN 3.7 g/dl (3.4-5.0); BILIRUBIN,TOTAL 0.7 mg/dL (0.2-1); BLOOD UREA NITROGEN 9.8 mg/dL (7-18); CALCIUM 9.2 mg/dL (8.5-10.1); CREATININE 0.7 mg/dL (0.55-1.3); POTASSIUM 3.4 mmol/L (3.5-5.1); TOT PROT 7.4 g/dl (6.4-8.2)
[2019-07-11] MEDS ORDERED: POTASSIUM CHLORIDE TABS 20 MEQ TABLET.ER (FP) PO ONE ×2 (12:28→17:00)
--- NOTE | 2019-07-11 12:40 | PN ---
[facility] CIWA - CIWA Score Nausea/Vomitin-No Nausea/No Vomiting Muscle Tremors: 3 Anxiety: 2 Agitation: 2 Paroxysmal Sweats: 2 Orientation: 0-Oriented Tacttile Disturbances: 0-None Auditory Disturbances: 0-None Visual Disturbances: 0-None Headache: 0-None Present CIWA-Ar Total Score: 9 [facility] Progress Note (SOAP) Subjective: sweats shakes interrupted sleep body aches anxiety Objective: 07/11/19 12:40 Vital Signs Temperature 98.1 F 07/11/19 12:37 Pulse Rate 66 07/11/19 12:37 Respiratory Rate 17 07/11/19 12:37 Blood Pressure 131/73 07/11/19 12:37 O2 Sat by Pulse Oximetry (%) Laboratory Tests 07/11/19 07/11/19 07/11/19 06:08 07:30 07:30 WBC 3.5 L RBC 4.09 Hgb 13.3 Hct 39.0 MCV 95.2 MCH 32.4 MCHC 34.0 RDW 13.9 Plt Count 68 L MPV 9.7 D Sodium 138 Potassium 3.4 L Chloride 102 Carbon Dioxide 29 Anion Gap 7 L BUN 9.8 Creatinine 0.7 Est GFR (CKD-EPI)AfAm 143.71 Est GFR (CKD-EPI)NonAf 123.99 POC Glucometer 115 Random Glucose 93 Calcium 9.2 Total Bilirubin 0.7 AST 61 H ALT 68 H Alkaline Phosphatase 86 Total Protein 7.4 Albumin 3.7 RPR Titer 07/11/19 07:30 WBC RBC Hgb Hct MCV MCH MCHC RDW Plt Count MPV Sodium Potassium Chloride Carbon Dioxide Anion Gap BUN Creatinine Est GFR (CKD-EPI)AfAm Est GFR (CKD-EPI)NonAf POC Glucometer Random Glucose Calcium Total Bilirubin AST ALT Alkaline Phosphatase Total Protein Albumin RPR Titer Nonreactive labs noted mild hypokalemia aaox3 ambulating no acute distress Assessment: 07/11/19 12:40 withdrawal sx Plan: continue detox increase fluids kdur 20mcq x one
[2019-07-11] MEDS: PANTOPRAZOLE 40 MG TABLET (FP) PO SCH (17:54)
[2019-07-11] MEDS: LISINOPRIL 10 MG TABLET (FP) PO SCH (22:18)
[2019-07-11] MEDS: MELATONIN 5 MG TABLETS PO PRN (22:18)
[2019-07-11] MEDS: THIAMINE HCL 100 MG TABLET (FP) PO SCH (22:18)
[2019-07-12] MEDS: chlordiazePOXIDE HCL 25 MG CAPSULE PO SCH ×4 (06:04→22:04)
[2019-07-12] MEDS: PRENATAL VITAMINS W/ FOLIC ACID TABLET (FP) PO SCH (10:32)
[2019-07-12] MEDS: LISINOPRIL 10 MG TABLET (FP) PO SCH ×2 (10:33→22:04)
[2019-07-12] MEDS: PANTOPRAZOLE 40 MG TABLET (FP) PO SCH (10:33)
--- NOTE | 2019-07-12 10:49 | PN ---
S CIWA - CIWA Score Nausea/Vomitin-No Nausea/No Vomiting Muscle Tremors: None Anxiety: 2 Agitation: 1-Slight > Activity Paroxysmal Sweats: 3 Orientation: 0-Oriented Tacttile Disturbances: 0-None Auditory Disturbances: 0-None Visual Disturbances: 0-None Headache: 2-Mild CIWA-Ar Total Score: 8 S Progress Note (SOAP) Subjective: c/o interrupted sleep, anxiety, headache, and sweats. Objective: 07/12/19 10:50 Vital Signs 07/12/19 07/12/19 07/12/19 03:30 07:09 09:39 Temperature 97.7 F 97.5 F L Pulse Rate 72 71 Respiratory 18 18 18 Rate Blood Pressure 128/62 122/72 Lab Results WBC 3.5 K/mm3 (4.0-10.0) L 07/11/19 07:30 RBC 4.09 M/mm3 (4.00-5.60) 07/11/19 07:30 Hgb 13.3 GM/dL (11.7-16.9) 07/11/19 07:30 Hct 39.0 % (35.4-49) 07/11/19 07:30 MCV 95.2 fl (80-96) 07/11/19 07:30 MCHC 34.0 g/dl (32.0-35.9) 07/11/19 07:30 RDW 13.9 % (11.9-15.9) 07/11/19 07:30 Plt Count 68 K/MM3 (134-434) L 07/11/19 07:30 Sodium 138 mmol/L (136-145) 07/11/19 07:30 Potassium 3.4 mmol/L (3.5-5.1) L 07/11/19 07:30 Chloride 102 mmol/L (98-107) 07/11/19 07:30 Carbon Dioxide 29 mmol/L (21-32) 07/11/19 07:30 Anion Gap 7 MMOL/L (8-16) L 07/11/19 07:30 BUN 9.8 mg/dL (7-18) 07/11/19 07:30 Creatinine 0.7 mg/dL (0.55-1.3) 07/11/19 07:30 Random Glucose 93 mg/dL (74-106) 07/11/19 07:30 Calcium 9.2 mg/dL (8.5-10.1) 07/11/19 07:30 Labs noted. Assessment: 07/12/19 10:50 AOX3, in no acute respiratory distress. Full ROM, ambulating in the unit. Mild withdrawal symptoms. Plan: continue detox.
--- NOTE | 2019-07-12 16:57 | PN ---
[facility] Progress Note Note: history of type 2 dm,bgm 111 this am,on no concentrated sweet,seem to be controlled without metformin,close monitoring bgm
[2019-07-12] MEDS: BISMUTH SUBSALICYLATE 524 MG/30 ML UD PO PRN (19:38)
[2019-07-12] MEDS: MELATONIN 5 MG TABLETS PO PRN (22:04)
[2019-07-12] MEDS: THIAMINE HCL 100 MG TABLET (FP) PO SCH (22:05)
[2019-07-13] MEDS ORDERED: chlordiazePOXIDE HCL 10 MG CAPSULE PO PRN
[2019-07-13] MEDS: chlordiazePOXIDE HCL 10 MG CAPSULE PO SCH ×4 (05:32→22:03)
[2019-07-13] MEDS: PANTOPRAZOLE 40 MG TABLET (FP) PO SCH (10:12)
[2019-07-13] MEDS: PRENATAL VITAMINS W/ FOLIC ACID TABLET (FP) PO SCH (10:13)
[2019-07-13] MEDS: LISINOPRIL 10 MG TABLET (FP) PO SCH ×2 (10:13→22:03)
--- NOTE | 2019-07-13 15:44 | PN ---
[facility] CIWA - CIWA Score Nausea/Vomitin-No Nausea/No Vomiting Muscle Tremors: None Anxiety: 3 Agitation: 3 Paroxysmal Sweats: 2 Orientation: 0-Oriented Tacttile Disturbances: 0-None Auditory Disturbances: 0-None Visual Disturbances: 0-None Headache: 0-None Present CIWA-Ar Total Score: 8 S COWS - Scale Resting Pulse: 0= NC 80 or Below Sweatin= Chills/Flushing Restless Observation: 3= Extraneous Movement Pupil Size: 0= Normal to Room Light Bone or Joint Aches: 1= Mild Discomfort Runny Nose/ Eye Tearin= None GI Upset > 30mins: 2= Nausea/Diarrhea Tremor Observation of Outstretched Hands: 0= None Yawning Observation: 0= None Anxiety or Irritability: 1=Feels Anxious/Irritable Goose Flesh Skin: 0=Smooth Skin COWS Score: 8 [facility] Progress Note (SOAP) Subjective: Tremor, interrupted sleep Objective: 07/13/19 15:41 Last Vital Signs Temp Pulse Resp BP Pulse Ox 98.1 F 64 16 121/75 07/13/19 13:46 07/13/19 13:46 07/13/19 13:46 07/13/19 13:46 Laboratory Tests 07/11/19 07/11/19 07/11/19 06:08 07:30 07:30 WBC 3.5 L RBC 4.09 Hgb 13.3 Hct 39.0 MCV 95.2 MCH 32.4 MCHC 34.0 RDW 13.9 Plt Count 68 L MPV 9.7 D Sodium 138 Potassium 3.4 L Chloride 102 Carbon Dioxide 29 Anion Gap 7 L BUN 9.8 Creatinine 0.7 Est GFR (CKD-EPI)AfAm 143.71 Est GFR (CKD-EPI)NonAf 123.99 POC Glucometer 115 Random Glucose 93 Calcium 9.2 Total Bilirubin 0.7 AST 61 H ALT 68 H Alkaline Phosphatase 86 Total Protein 7.4 Albumin 3.7 RPR Titer 07/11/19 07/12/19 07/13/19 07:30 06:05 05:32 WBC RBC Hgb Hct MCV MCH MCHC RDW Plt Count MPV Sodium Potassium Chloride Carbon Dioxide Anion Gap BUN Creatinine Est GFR (CKD-EPI)AfAm Est GFR (CKD-EPI)NonAf POC Glucometer 111 152 Random Glucose Calcium Total Bilirubin AST ALT Alkaline Phosphatase Total Protein Albumin RPR Titer Nonreactive Labs reviewed: elevated glucose due to DM, K 3.4 Assessment: 07/13/19 15:43 Withdrawal sxs Noted with mild hypokalemia Plan: Continue detox Encouraged PO water intake Hypokalemia: supplemented, repeat serum K level in AM
[2019-07-13] MEDS: BISMUTH SUBSALICYLATE 524 MG/30 ML UD PO PRN (16:25)
[2019-07-13 21:34] VITALS: TEMP 98.1
[2019-07-13] MEDS: MELATONIN 5 MG TABLETS PO PRN (22:03)
[2019-07-13] MEDS: THIAMINE HCL 100 MG TABLET (FP) PO SCH (22:03)
[2019-07-14] MEDS ORDERED: chlordiazePOXIDE HCL 10 MG CAPSULE PO SCH (05:00)
[2019-07-14 07:58] VITALS: BP 128/69; PULSE 64
--- NOTE | 2019-07-14 09:47 | DS ---
[facility] Detox Discharge Summary Admission Date: 07/10/19 Discharge Date: 07/14/19 - History Present History: Alcohol Dependence, Cocaine Dependence - Physical Exam Results Vital Signs: Vital Signs Temperature 98.1 F 07/14/19 07:57 Pulse Rate 64 07/14/19 07:57 Respiratory Rate 17 07/14/19 07:57 Blood Pressure 128/69 07/14/19 07:57 O2 Sat by Pulse Oximetry (%) Pertinent Admission Physical Exam Findings: pt arrived in withdrawals Laboratory Tests 07/11/19 07/11/19 07/11/19 06:08 07:30 07:30 WBC 3.5 L RBC 4.09 Hgb 13.3 Hct 39.0 MCV 95.2 MCH 32.4 MCHC 34.0 RDW 13.9 Plt Count 68 L MPV 9.7 D Sodium 138 Potassium 3.4 L Chloride 102 Carbon Dioxide 29 Anion Gap 7 L BUN 9.8 Creatinine 0.7 Est GFR (CKD-EPI)AfAm 143.71 Est GFR (CKD-EPI)NonAf 123.99 POC Glucometer 115 Random Glucose 93 Calcium 9.2 Total Bilirubin 0.7 AST 61 H ALT 68 H Alkaline Phosphatase 86 Total Protein 7.4 Albumin 3.7 RPR Titer 07/11/19 07/12/19 07/13/19 07:30 06:05 05:32 WBC RBC Hgb Hct MCV MCH MCHC RDW Plt Count MPV Sodium Potassium Chloride Carbon Dioxide Anion Gap BUN Creatinine Est GFR (CKD-EPI)AfAm Est GFR (CKD-EPI)NonAf POC Glucometer 111 152 Random Glucose Calcium Total Bilirubin AST ALT Alkaline Phosphatase Total Protein Albumin RPR Titer Nonreactive 07/14/19 07/14/19 06:22 07:30 WBC RBC Hgb Hct MCV MCH MCHC RDW Plt Count MPV Sodium Potassium 3.7 Chloride Carbon Dioxide Anion Gap BUN Creatinine Est GFR (CKD-EPI)AfAm Est GFR (CKD-EPI)NonAf POC Glucometer 162 Random Glucose Calcium Total Bilirubin AST ALT Alkaline Phosphatase Total Protein Albumin RPR Titer today he is aaox3 ambulating no acute distress no s/s of withdrawal sx - Treatment Hospital Course: Detox Protocol Followed, Detoxed Safely, Responded well, Discharged Condition Good, Rehab Referral Accepted Patient has Accepted a Rehab Referral to: pt declined rehab; referral provided - Medication Discharge Medications: Ambulatory Orders Lisinopril 10 mg PO BID 07/10/19 Pantoprazole Sodium [Protonix] 40 mg PO DAILY 07/10/19 Thiamine HCl [B-1] 100 mg PO DAILY 07/10/19 metFORMIN HCL [Metformin HCl] 500 mg PO DAILY 07/10/19 - Diagnosis (1) DM type 2 (diabetes mellitus, type 2) Current Visit: Yes Status: Chronic Qualifiers: Diabetes mellitus residential insulin use: unspecified watermaster insulin use status Diabetes mellitus complication status: without complication Qualified Code(s): E11.9 - Type 2 diabetes mellitus without complications (2) GERD (gastroesophageal reflux disease) Current Visit: No Status: Chronic (3) HTN (hypertension) Current Visit: Yes Status: Chronic Qualifiers: Hypertension type: essential hypertension Qualified Code(s): I10 - Essential (primary) hypertension (4) Alcohol dependence with uncomplicated withdrawal Current Visit: Yes Status: Chronic (5) Cocaine use Current Visit: Yes Status: Chronic - AMA Did Patient Leave Against Medical Advice: No
[2019-07-14] MEDS: LISINOPRIL 10 MG TABLET (FP) PO SCH (09:55)
[2019-07-14] MEDS: PRENATAL VITAMINS W/ FOLIC ACID TABLET (FP) PO SCH (09:55)
[2019-07-14] MEDS: PANTOPRAZOLE 40 MG TABLET (FP) PO SCH (09:55)
[2019-07-15] MEDS ORDERED: chlordiazePOXIDE HCL 10 MG CAPSULE PO ONE (05:00)
== END 2019-07-14 09:58 | disposition home or self-care (01) | DRG 774 ==
LOC: YASAS 14:14 → Y6N 16:56
PROVIDERS: ADMIT Surgery; ATTEND Surgery
PROC: HZ2ZZZZ Detoxification Services for Substance Abuse Treatment (ICD-10-PCS; principal; 2019-07-10)
DX: F10.230 Alcohol dependence with withdrawal, uncomplicated (principal); F14.20 Cocaine dependence, uncomplicated; I10 Essential (primary) hypertension; E11.9 Type 2 diabetes mellitus without complications; E87.6 Hypokalemia; K21.9 Gastro-esophageal reflux disease without esophagitis; Z79.84 Long term (current) use of oral hypoglycemic drugs
CPT/HCPCS: 36415; 80053; 82962; 84132; 85027; 86480; 86593

== ENCOUNTER 2019-09-09 03:16 | Inpatient (IN) | payer OTHER ==
[2019-09-09] MEDS ORDERED: LACTATED RINGERS SOLUTION 1000 ML INFUS.BAG IV ONE (03:49)
--- NOTE | 2019-09-09 03:49 | PDOC ---
Attending Attestation - Resident Resident Name: Robin Brown - ED Attending Attestation I have performed the following: I have examined & evaluated the patient, The case was reviewed & discussed with the resident, I agree w/resident's findings & plan - HPI HPI: 09/09/19 03:48 see resident hpi - Physicial Exam PE: 09/09/19 03:48 agree with resident exam - Medical Decision Making 09/09/19 03:48 34-year-old male with a history of alcohol abuse complaining of right chest and upper abdominal burning with vomiting all day Last drink was yesterday Patient is clinically in alcohol withdrawal Plan for CT of the chest abdomen and pelvis Ativan as needed EKG shows a sinus tachycardia Plan for admission to medical service pending CT scan results
--- NOTE | 2019-09-09 03:53 | PDOC ---
History of Present Illness - General Stated Complaint: ABD PAIN,DM Time Seen by Provider: 09/09/19 03:45 History Source: Patient, Old Records Exam Limitations: Language Barrier (Member of staff provided translation) - History of Present Illness Initial Comments: HPI: 34 y/o male presenting to [facility] ER complaining of chest and abdomen burning sensation. Pt endorses several episodes of vomiting over the course of today. Endorses history of EtOH abuse. Last drink was yesterday. Of note, pt was admitted to this facility on 09 Jul 2019 for similar symptoms after a week long period of heavy drinking. Medical Hx: - Diabetes, managed with Metformin, noncompliant Review of Systems: Unable to obtain secondary to pts clinic condition Physical Examination: Constitutional- Adult male in no acute distress but obvious discomfort. Found semi-fowlers on hospital bed. Answered some questions but would quickly return to burning sensation in chest and abdomen. Head- Normocephalic. No obvious external signs of trauma. Eyes- Sclerae white. Cardiovascular / Chest- Tachycardic rate with regular rhythm. No murmur, rubs, clicks, or gallops. Peripheral pulses- radial pulses full. No pretibial edema. Respiratory- Breathing unlabored but rapid. Equal chest rise and fall. Clear to auscultation bilaterally. No stridor, no wheezing, no rhonchi. Gastrointestinal- abdomen is soft, non-tender, non-distended. No hepatosplenomegaly. No pulsatile masses. No overlying skin lesions or obvious signs of trauma. Neuro- Alert and oriented x4. Moving all four extremities spontaneously. Tongue fascinations. Hands tremulous when outstretched. Skin- Warm, dry, and intact. Psych- Affect- anxious. Mood- unable to assess. MDM: *Reviewed vital signs, nursing notes, and prior visit documentation (if available). 34 y/o male presenting with chest and abdomen burning and suspect acute EtOH withdrawal. Afebrile. Vitals remarkable for tachycardia without hypotension. Physical exam as described above. EKG revealed sinus tachycardia without ischemic changes. Troponin not elevated. Given 2x2mg of Ativan for CIWA score 24 with improvement of symptoms. LFTs elevated with AST:ALT ratio suggestive for alcoholic hepatitis. ABG revealed alkalosis, suspect secondary to tachypnea. Anticipate improvement as breathing is slowed. Head CT unremarkable for acute findings. CTAB revealed fatty liver. 09 Sep 2019 07:26 AM Telephone discussion with resident Dr. Barnett. Verbally appraised of the pts HPI, ED course, and current plan of management. Will admit pt to telemetry for attending Dr. Benites. Ordered Librium and Banana bag. Robin Brown M.D., PGY2 Emergency Medicine Resident Past History - Past Medical History Allergies/Adverse Reactions: Allergies Allergy/AdvReac Type Severity Reaction Status Date / Time No Known Allergies Allergy Verified 07/09/19 13:49 Home Medications: Ambulatory Orders Lisinopril 10 mg PO BID 07/10/19 Pantoprazole Sodium [Protonix] 40 mg PO DAILY 07/10/19 Thiamine HCl [B-1] 100 mg PO DAILY 07/10/19 metFORMIN HCL [Metformin HCl] 500 mg PO DAILY 07/10/19 Anemia: No Asthma: No Cancer: No Cardiac Disorders: No CVA: No COPD: No CHF: No Dementia: No Diabetes: Yes (METFORMIN) GI Disorders: Yes (GERD - PANTOPRAZOLE) Disorders: No HTN: Yes (LISINOPRIL) Hypercholesterolemia: No Kidney Stones: No Liver Disease: No Seizures: No Thyroid Disease: No - Surgical History Abdominal Surgery: No Appendectomy: No Cardiac Surgery: No Cholecystectomy: No Lung Surgery: No Neurologic Surgery: No Orthopedic Surgery: No - Reproductive History Testicular Surgery: No - Immunization History Immunization Up to Date: Yes - Psycho Social/Smoking Cessation Hx Smoking History: Never smoked Have you smoked in the past 12 months: No Hx Alcohol Use: Yes Drug/Substance Use Hx: No Substance Use Type: Alcohol Hx Substance Use Treatment: No ED Treatment Course - LABORATORY CBC & Chemistry Diagram: 09/09/19 04:08 09/09/19 04:08 - RADIOLOGY Radiology Studies Ordered: Category Date Time Status ABDOMEN & PELVIS CT WITH CONTR [CT] Stat CT Scan 09/09/19 03:[address] WITH CONTRAST [CT] Stat CT Scan 09/09/19 03:47 Ordered Radiograph Interpretation: HCT: THIS IS A PRELIMINARY REPORT 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 FINDINGS: No acute intracranial abnormality is identified. No hemorrhage. No visible infarct or mass. Osseous structures are intact One or more of the following dose reduction techniques were used: automated exposure control, adjustment of the mA and/or kV according to patient size, use of iterative reconstructive technique. THIS DOCUMENT HAS BEEN ELECTRONICALLY SIGNED Wilbert Roy MD 09/09/2019 06:39 EST CTAB: THIS IS A PRELIMINARY REPORT FROM [employer] SC[employer] SUPERVISOR DATE OF SERVICE: 2019-09-09 06:11:06 IMAGES: [id number] EXAM: CT of the chest abdomen and pelvis with contrast HISTORY: EtOH withdrawal COMPARISON: None. FINDINGS: Chest: No pulmonary infiltrates. No pleural effusions. No pneumothorax or pneumomediastinum. No gross abnormalities of the mediastinal soft tissues/vessels. Thoracic cage is unremarkable. Abdomen and pelvis: No bowel obstruction or inflammation. Negative for diverticulitis or colitis. Normal appendix. Normal kidneys urinary tract and urinary bladder. Enlarged fatty liver. Normal spleen. Normal pancreas. No obvious gallbladder abnormalities. Normal adrenal glands. No free intraperitoneal air or free fluid. Osseous structures are intact. One or more of the following dose reduction techniques were used: automated exposure control, adjustment of the mA and/or kV according to patient size, use of iterative reconstructive technique. THIS DOCUMENT HAS BEEN ELECTRONICALLY SIGNED Wilbert Roy MD 09/09/2019 07:02 EST Discharge - Discharge Information Problems reviewed: Yes Clinical Impression/Diagnosis: Alcohol withdrawal delirium, acute, hyperactive Chest pain Qualifiers: Chest pain type: unspecified Qualified Code(s): R07.9 - Chest pain, unspecified Condition: Stable - Admission Yes - Follow up/Referral - Patient Discharge Instructions - Post Discharge Activity S CIWA - CIWA Score Nausea/Vomitin Muscle Tremors: 7-Severe,w/o Arm Extended Anxiety: 4-Mod. Anxious/Guarded Agitation: 4-Moderately Restless Paroxysmal Sweats: No Perspiration Orientation: 0-Oriented Tacttile Disturbances: 3-Moderate Itch/Numb/Burn Auditory Disturbances: 0-None Visual Disturbances: 0-None Headache: 2-Mild CIWA-Ar Total Score: 26
[2019-09-09] MEDS ORDERED: LORazepam 2 MG/ML SDV VIAL ONE ×2 (03:54→04:30)
[2019-09-09 04:16] LABS: VENOUS PC02 22.5 mmHg (38-52)
[2019-09-09 04:17] LABS: VENOUS PO2 < 49 mmHg (28-48)
[2019-09-09 04:19] LABS: VENOUS PH 7.61 (7.31-7.41)
[2019-09-09 04:29] LABS: BASO % 0.7 % (0-2.0); EOS % 0.4 % (0-4.5); HEMATOCRIT 40.8 % (35.4-49); HEMOGLOBIN 13.8 GM/dL (11.7-16.9); LYMPH % 40.5 % (8-40); MCH 32.8 pg (25.7-33.7); MCHC 33.9 g/dl (32.0-35.9); MEAN CELL VOLUME 96.7 fl (80-96); MEAN PLT VOLUME 8.7 fl (7.5-11.1); MONO % 9.8 % (3.8-10.2); NEUT % 48.6 % (42.8-82.8); PLATELET COUNT 121 K/MM3 (134-434); RBC 4.22 M/mm3 (4.00-5.60); RDW 15.2 % (11.9-15.9); WHITE BLOOD COUNT 7.3 K/mm3 (4.0-10.0)
[2019-09-09 04:44] LABS: INR 0.95 (0.83-1.09); PROTHROMBIN TIME (PATIENT) 11.2 SEC (9.7-13.0)
[2019-09-09 04:58] LABS: ALBUMIN 4.3 g/dl (3.4-5.0); BILIRUBIN,TOTAL 0.6 mg/dL (0.2-1); BLOOD UREA NITROGEN 7.7 mg/dL (7-18); CALCIUM 9.4 mg/dL (8.5-10.1); CREATININE 0.7 mg/dL (0.55-1.3); MAGNESIUM 1.9 mg/dL (1.8-2.4); PHOSPHOROUS 1.9 mg/dL (2.5-4.9); POTASSIUM 3.9 mmol/L (3.5-5.1); TOT PROT 8.2 g/dl (6.4-8.2)
[2019-09-09] MEDS ORDERED: chlordiazePOXIDE HCL 25 MG CAPSULE PO ONE (07:25)
[2019-09-09] MEDS ORDERED: FOLIC ACID INJECTION - 1 MG, THIAMINE HCL 100 MG, MULTIVIT INJECTION ADULT 10 ML in SOD... IVPB ONE (07:26)
[2019-09-09] MEDS ORDERED: PANTOPRAZOLE SODIUM 40 MG VIAL IVPUSH ONE (07:44)
[2019-09-09] MEDS ORDERED: LORazepam 1 MG TABLET PO PRN ×2 (08:32→19:20)
[2019-09-09] MEDS ORDERED: PANTOPRAZOLE SODIUM 40 MG VIAL ONE (08:40)
[2019-09-09] MEDS ORDERED: chlordiazePOXIDE HCL 25 MG CAPSULE ONE (08:40)
--- NOTE | 2019-09-09 09:30 | HP ---
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 34 Gabonese-speaking male w/ pmhx of EtOH abuse, DM, HTN presents in the ED for complaints of burning chest pain that started ~1 week ago. States he usually gets this pain after a night of binge-drinking. Denies taking anything for the pain. Chest pain is non-radiating and localized to epigastric area. Denies personal hx or family hx of heart disease. Denies ever having an echo or stress test done in the past. Of note, pt has a significant alcohol use history and admits to drinking about 10 beers daily; last drink was yesterday. Pt also admits to some fever, chills, tremors. Per ED, initial CIWA was 24. Of note, pt was seen in [facility] for similar symptoms and treated for alcohol detox, subsequently transferred to [facility]. He denies taking his home meds as prescribed. ER course was notable for: (1) Librium given x1, Banana bag x1 given (2) Lac 2.9 --> 0.8, Phos 1.9, A/A 102/75 (3) EKG showed sinus tach, HR 116 bpm, QTc 492 ms Imaging studies showed: * CTAP- hepatomegaly with fatty infiltration * CT chest- unremarkable. * Head CT- neg. Recent Travel: Denies PAST MEDICAL HISTORY: EtOH abuse DM HTN PAST SURGICAL HISTORY: Denies Social History: Smokin-2 cigarettes/day Alcohol: 10 beers daily Drugs: Denies Allergies No Known Allergies Allergy (Verified 07/09/19 13:49) HOME MEDICATIONS: Home Medications Medication Instructions Recorded Lisinopril 10 mg PO BID 07/10/19 Pantoprazole Sodium [Protonix] 40 mg PO DAILY 07/10/19 Thiamine HCl [B-1] 100 mg PO DAILY 07/10/19 metFORMIN HCL [Metformin HCl] 500 mg PO DAILY 07/10/19 REVIEW OF SYSTEMS CONSTITUTIONAL: +chills Absent: fever, diaphoresis, generalized weakness, malaise, loss of appetite, weight change HEENT: Absent: rhinorrhea, nasal congestion, throat pain, throat swelling, difficulty swallowing, mouth swelling, ear pain, eye pain, visual changes CARDIOVASCULAR: +chest pain Absent: , syncope, palpitations, irregular heart rate, lightheadedness, peripheral edema RESPIRATORY: Absent: cough, shortness of breath, dyspnea with exertion, orthopnea, wheezing, stridor, hemoptysis GASTROINTESTINAL: R lower abdominal pain, vomiting Absent: abdominal distension, nausea, diarrhea, constipation, melena, hematochezia GENITOURINARY: Absent: dysuria, frequency, urgency, hesitancy, hematuria, flank pain, genital pain MUSCULOSKELETAL: Absent: myalgia, arthralgia, joint swelling, back pain, neck pain SKIN: Absent: rash, itching, pallor HEMATOLOGIC/IMMUNOLOGIC: Absent: easy bleeding, easy bruising, lymphadenopathy, frequent infections ENDOCRINE: Absent: unexplained weight gain, unexplained weight loss, heat intolerance, cold intolerance NEUROLOGIC: Absent: headache, focal weakness or paresthesias, dizziness, unsteady gait, seizure, mental status changes, bladder or bowel incontinence PSYCHIATRIC: Absent: anxiety, depression, suicidal or homicidal ideation, hallucinations. PHYSICAL EXAMINATION Vital Signs - 24 hr 09/09/19 09/09/19 04:00 08:38 Temperature 98.9 F 98.8 F Pulse Rate 122 H Pulse Rate [ 82 Left] Respiratory 20 Rate Blood Pressure 145/97 Blood Pressure 139/92 [Left] O2 Sat by Pulse 100 95 Oximetry (%) GENERAL: Gabonese-speaking, tremulous, but cooperative. Answer questions. HEENT: AT/NC. EOMI. MMM. Facial symmetry noted. NECK: Normal range of motion, supple without lymphadenopathy, JVD, or masses. LUNGS: CTA B/L. No wheezes, rhonchi, rales noted. Symmetric chest rise. HEART: Tachycardic. Normal S1, S2. No murmurs noted. ABDOMEN: Soft, nontender, not distended, normoactive bowel sounds, no guarding, no rebound, no masses. No hepatomegaly or splenomegaly. MUSCULOSKELETAL: Normal range of motion at all joints. No bony deformities or tenderness. No CVA tenderness. EXTREMITIES: No peripheral edema noted. NEUROLOGICAL: Cranial nerves II-XII intact. Normal speech. PSYCHIATRIC: Cooperative. Good eye contact. Appropriate mood and affect. SKIN: Warm, dry, normal turgor, no rashes or lesions noted, normal capillary refill. Laboratory Results - last 24 hr 09/09/19 09/09/19 09/09/19 04:00 04:08 04:08 WBC 7.3 RBC 4.22 Hgb 13.8 Hct 40.8 MCV 96.7 H MCH 32.8 MCHC 33.9 RDW 15.2 Plt Count 121 L D MPV 8.7 D Absolute Neuts (auto) 3.5 Neutrophils % 48.6 Lymphocytes % 40.5 H Monocytes % 9.8 Eosinophils % 0.4 Basophils % 0.7 Nucleated RBC % 0 PT with INR INR PTT (Actin FS) 33.9 VBG pH 7.61 H* POC VBG pCO2 22.5 L POC VBG pO2 < 49 H VBG HCO3 22.9 L VBG O2 Sat (Nicole) 86.0 H VBG Base Excess 2.9 H Sodium Potassium Chloride Carbon Dioxide Anion Gap BUN Creatinine Est GFR (CKD-EPI)AfAm Est GFR (CKD-EPI)NonAf Random Glucose Lactic Acid Calcium Phosphorus Magnesium Total Bilirubin AST ALT Alkaline Phosphatase Troponin I Total Protein Albumin Lipase Alcohol, Quantitative 09/09/19 09/09/19 09/09/19 04:08 04:08 04:08 WBC RBC Hgb Hct MCV MCH MCHC RDW Plt Count MPV Absolute Neuts (auto) Neutrophils % Lymphocytes % Monocytes % Eosinophils % Basophils % Nucleated RBC % PT with INR INR PTT (Actin FS) VBG pH POC VBG pCO2 POC VBG pO2 VBG HCO3 VBG O2 Sat (Nicole) VBG Base Excess Sodium 136 Potassium 3.9 Chloride 100 Carbon Dioxide 22 Anion Gap 14 BUN 7.7 Creatinine 0.7 Est GFR (CKD-EPI)AfAm 143.71 Est GFR (CKD-EPI)NonAf 123.99 Random Glucose 92 Lactic Acid 2.9 H* Calcium 9.4 Phosphorus 1.9 L Magnesium 1.9 Total Bilirubin 0.6 AST 102 H ALT 75 H Alkaline Phosphatase 97 Troponin I Total Protein 8.2 Albumin 4.3 Lipase 390 Alcohol, Quantitative 21.7 H 09/09/19 09/09/19 09/09/19 04:08 04:08 08:27 WBC RBC Hgb Hct MCV MCH MCHC RDW Plt Count MPV Absolute Neuts (auto) Neutrophils % Lymphocytes % Monocytes % Eosinophils % Basophils % Nucleated RBC % PT with INR 11.20 INR 0.95 PTT (Actin FS) VBG pH POC VBG pCO2 POC VBG pO2 VBG HCO3 VBG O2 Sat (Nicole) VBG Base Excess Sodium Potassium Chloride Carbon Dioxide Anion Gap BUN Creatinine Est GFR (CKD-EPI)AfAm Est GFR (CKD-EPI)NonAf Random Glucose Lactic Acid 0.8 Calcium Phosphorus Magnesium Total Bilirubin AST ALT Alkaline Phosphatase Troponin I < 0.02 Total Protein Albumin Lipase Alcohol, Quantitative ASSESSMENT/PLAN: 34 Gabonese-speaking male w/ pmhx of EtOH abuse, DM, HTN presents in the ED for complaints of burning chest pain that started ~1 week ago. #Alcohol Withdrawal; initial CIWA 24 -Librium and banana bag given x1 in ED -Ativan protocol started; given transaminitis found on labs (likely 2/2 alcohol abuse) -Seizure precautions -Alcohol cessation counseling -CTAP showed hepatomegaly with fatty infiltration Cont home meds: Folate and Thamine PO #Chest pain, likely 2/2 gastritis given significant hx of alcohol abuse but will r/o cardiac etiology -Trops neg x1; serial trops ordered -EKG showed sinus tach, HR 116, QTc 492 ms, avoid QTc prolonging meds -Echo ordered -Protonix 40 mg PO QD #Transaminitis; likely 2/2 significant hx of alcohol abuse -CTAP remarkable for hepatomegaly w/ fatty infiltration -No acute abd symptoms at this time -cont to trend #Hypophosphatemia -PhosNaK packet given -recheck Phos #NIDDM -ISS/BGMs ACHS #HTN; Cont home med: Lisinopril 10 BID Dispo -transfer to med-surg Family Medical History Other Family History: Mother- HTN. Father- HTN Visit type - Emergency Visit Emergency Visit: Yes ED Registration Date: 09/09/19 Care time: The patient presented to the Emergency Department on the above date and was hospitalized for further evaluation of their emergent condition. - New Patient This patient is new to me today: Yes Date on this admission: 09/09/19 - Critical Care Critical Care patient: No ATTENDING PHYSICIAN STATEMENT I saw and evaluated the patient. I reviewed the resident's note and discussed the case with the resident. I agree with the resident's findings and plan as documented. SUBJECTIVE: OBJECTIVE: ASSESSMENT AND PLAN:
[2019-09-09] MEDS ORDERED: PANTOPRAZOLE 40 MG TABLET (FP) PO SCH (10:00)
[2019-09-09] MEDS ORDERED: ENOXAPARIN NA (PORCINE) 40 MG/0.4 ML DISP.SYRIN SQ SCH (10:00)
[2019-09-09] MEDS ORDERED: PANTOPRAZOLE 40 MG TABLET (FP) ONE (10:39)
[2019-09-09] MEDS ORDERED: ENOXAPARIN NA (PORCINE) 40 MG/0.4 ML DISP.SYRIN SQ ONE (10:39)
[2019-09-09] MEDS ORDERED: LORazepam 0.5 MG TABLET ONE (10:39)
[2019-09-09] MEDS: LORazepam 1 MG TABLET PO SCH ×3 (10:45→23:19)
--- NOTE | 2019-09-09 11:04 | EKG ---
Test Reason : Blood Pressure : / mmHG Vent. Rate : 116 BPM Atrial Rate : 116 BPM P-R Int : 130 ms QRS Dur : 076 ms QT Int : 354 ms P-R-T Axes : 057 044 015 degrees QTc Int : 492 ms POOR DATA QUALITY, INTERPRETATION MAY BE ADVERSELY AFFECTED SINUS TACHYCARDIA OTHERWISE NORMAL ECG WHEN COMPARED WITH ECG OF 09-JUL-2019 22:00, NO SIGNIFICANT CHANGE WAS FOUND Confirmed by Aguilar Yap MD ([id number]) on 09/09/2019 11:04:19 AM Referred By: Confirmed By:Aguilar Yap MD
--- NOTE | 2019-09-09 11:40 | ECHO ---
Version: 1 Name: GRUPO PLATA Exam: Adult Echocardiogram Study Date: 09/09/2019, 9:19 AM Age: 34 Years MMode/2D Measurements & Calculations IVSd: 0.89 cm LVIDs: 2.9 cm LVIDd: 4.1 cm LVPWd: 0.98 cm LAV (MOD-bp): 29.5 ml LVOT diam: 2.04 cm Ao root diam: 2.47 cm LA dimension: 2.26 cm Doppler Measurements & Calculations MV E max nicolás: 97.5 cm/sec Med E/e': 11.6 MV A max nicolás: 45.6 cm/sec Med Peak E' Nicolás: 8.4 cm/sec MV E/A: 2.14 Lat E/e': 7.6 Lat Peak E' Nicolás: 12.8 cm/sec Ao max P.3 mmHg Ao V2 max: 143.9 cm/sec TR max nicolás: 160.8 cm/sec TR max P.4 mmHg Left Ventricle The left ventricular size, thickness and function are normal. Ejection Fraction = 65%. Left Ventricu lar Filling pattern is normal for age. Right Ventricle The right ventricle is normal in size and function. Atria Normal left and right atrial size and function. Mitral Valve The mitral valve is normal in structure and function. Tricuspid Valve The tricuspid valve is normal in structure and function. There is trace tricuspid regurgitation. Aortic Valve The aortic valve is normal in structure and function. Pulmonic Valve The pulmonic valve is not well seen, but is grossly normal. Great Vessels The aortic root is normal size. Normal aortic arch, descending and ascending aorta. Pericardium/Pleura There is no pericardial effusion. Summary Statements The left ventricular size, thickness and function are normal Ejection Fraction = 65%. Left Ventricular Filling pattern is normal for age. The right ventricle is normal in size and function. Normal left and right atrial size and function. The mitral valve is normal in structure and function. The tricuspid valve is normal in structure and function. There is trace tricuspid regurgitation. The aortic valve is normal in structure and function. The pulmonic valve is not well seen, but is grossly normal. The aortic root is normal size. Normal aortic arch, descending and ascending aorta There is no pericardial effusion. Candelario De Souza 09/09/2019, 10:40 AM Ordering Physician: OLIVIA FOOTE Performed By: Mary Steinberg
[2019-09-09] MEDS ORDERED: NAPH,MB-DB/K PH,MBDB POWDER PACKET PO ONE (12:45)
[2019-09-09] MEDS ORDERED: LISINOPRIL 5 MG TABLET (FP) ONE (12:59)
[2019-09-09] MEDS: LISINOPRIL 10 MG TABLET (FP) PO SCH ×2 (13:02→21:41)
[2019-09-09 14:23] VITALS: BMI 28.0
--- NOTE | 2019-09-09 14:33 | PN ---
Teaching Attending Note Name of Resident: Kareen Barnett ATTENDING PHYSICIAN STATEMENT I saw and evaluated the patient. I reviewed the resident's note and discussed the case with the resident. I agree with the resident's findings and plan as documented. SUBJECTIVE: Patient is a 34yo Tongan-speaking male w/ pmhx of EtOH abuse, DM, HTN presents in the ED for complaints of burning sensation post drinking heavy drinking. No fever or chills, no shortness of breath. OBJECTIVE: Vital Signs Temperature 98.0 F 09/09/19 14:09 Pulse Rate 76 09/09/19 14:09 Respiratory Rate 20 09/09/19 14:09 Blood Pressure 142/83 09/09/19 14:09 O2 Sat by Pulse Oximetry (%) 96 09/09/19 14:09 GENERAL: Tongan-speaking, tremulous, but cooperative. Answer questions. HEENT: AT/NC. EOMI. MMM. Facial symmetry noted. NECK: Normal range of motion, supple without lymphadenopathy, JVD, or masses. LUNGS: CTA B/L. No wheezes, rhonchi, rales noted. Symmetric chest rise. HEART: Tachycardic. Normal S1, S2. No murmurs noted. ABDOMEN: Soft, NT, ND, normoactive bowel sounds, no guarding, no rebound, no masses. MUSCULOSKELETAL: Normal range of motion at all joints. No CVA tenderness. EXTREMITIES: No peripheral edema noted. NEUROLOGICAL: Cranial nerves II-XII intact. Normal speech. positive for tremor , no astrexis PSYCHIATRIC: Cooperative. Good eye contact. Appropriate mood and affect. SKIN: Warm, dry, normal turgor, no rashes or lesions noted, normal capillary refill. CBCD WBC 7.3 K/mm3 (4.0-10.0) 09/09/19 04:08 RBC 4.22 M/mm3 (4.00-5.60) 09/09/19 04:08 Hgb 13.8 GM/dL (11.7-16.9) 09/09/19 04:08 Hct 40.8 % (35.4-49) 09/09/19 04:08 MCV 96.7 fl (80-96) H 09/09/19 04:08 MCHC 33.9 g/dl (32.0-35.9) 09/09/19 04:08 RDW 15.2 % (11.9-15.9) 09/09/19 04:08 Plt Count 121 K/MM3 (134-434) L D 09/09/19 04:08 MPV 8.7 fl (7.5-11.1) D 09/09/19 04:08 CMP Sodium 136 mmol/L (136-145) 09/09/19 04:08 Potassium 3.9 mmol/L (3.5-5.1) 09/09/19 04:08 Chloride 100 mmol/L (98-107) 09/09/19 04:08 Carbon Dioxide 22 mmol/L (21-32) 09/09/19 04:08 Anion Gap 14 MMOL/L (8-16) 09/09/19 04:08 BUN 7.7 mg/dL (7-18) 09/09/19 04:08 Creatinine 0.7 mg/dL (0.55-1.3) 09/09/19 04:08 Random Glucose 92 mg/dL (74-106) 09/09/19 04:08 Calcium 9.4 mg/dL (8.5-10.1) 09/09/19 04:08 Total Bilirubin 0.6 mg/dL (0.2-1) 09/09/19 04:08 AST 102 U/L (15-37) H 09/09/19 04:08 ALT 75 U/L (13-61) H 09/09/19 04:08 Alkaline Phosphatase 97 U/L (45-117) 09/09/19 04:08 Total Protein 8.2 g/dl (6.4-8.2) 09/09/19 04:08 Albumin 4.3 g/dl (3.4-5.0) 09/09/19 04:08 CARDIAC ENZYMES Troponin I < 0.02 ng/ml (0.00-0.05) 09/09/19 04:08 Current Medications Generic Name Dose Route Start Last Admin Trade Name Deshawn PRN Reason Stop Dose Admin Folic Acid 1 mg 09/10/19 10:00 Folic Acid - PO DAILY DAHLIA Folic Acid 1 mg/ Thiamine HCl 1,000 mls @ 125 mls/hr 09/09/19 07:26 09/09/19 09:41 100 mg/ Multivitamins/Minerals IVPB 09/09/19 15:25 125 mls/hr 10 ml/ Sodium Chloride ONCE ONE Administration Insulin Aspart 1 vial 09/09/19 16:30 Novolog Vial Sliding Scale - SQ ACHS [facility] Protocol Lisinopril 10 mg 09/09/19 11:45 09/09/19 13:02 Prinivil PO 10 mg BID DAHLIA Administration Lorazepam 2 mg 09/09/19 11:00 09/09/19 10:45 Ativan - PO 09/10/19 23:01 2 mg 0500,1100,1700,2300 DAHLIA Administration Lorazepam 0.5 mg 09/12/19 05:00 Ativan - PO 09/12/19 23:01 Q6H DAHLIA Lorazepam 0.5 mg 09/12/19 00:00 Ativan - PO 09/13/19 00:00 Q4H PRN Symptoms of Withdrawal Lorazepam 0.5 mg 09/13/19 05:00 Ativan - PO 09/13/19 05:01 ONCE ONE Lorazepam 1 mg 09/11/19 05:00 Ativan - PO 09/11/19 23:01 0500,1100,1700,2300 DAHLIA Lorazepam 1 mg 09/09/19 08:32 09/09/19 13:41 Ativan - PO 09/11/19 23:59 1 mg Q4H PRN Administration Symptoms of Withdrawal Pantoprazole Sodium 40 mg 09/09/19 10:00 09/09/19 10:45 Protonix - PO 40 mg DAILY DAHLIA Administration Thiamine HCl 100 mg 09/10/19 10:00 Vitamin B1 - PO DAILY [facility] Home Medications Medication Instructions Recorded Lisinopril 10 mg PO BID 07/10/19 Pantoprazole Sodium [Protonix] 40 mg PO DAILY 07/10/19 Thiamine HCl [B-1] 100 mg PO DAILY 07/10/19 metFORMIN HCL [Metformin HCl] 500 mg PO DAILY 07/10/19 Folic Acid 1 mg PO DAILY 09/09/19 CTAP showed hepatomegaly with fatty infiltration ASSESSMENT AND PLAN: Patient is a 34 Tongan-speaking male w/ pmhx of EtOH abuse, DM, HTN presents in the ED alcohol withdrawel with burning sensation of his chest post drinking alcohol. Started around a week ago. #Alcohol Withdrawal; initial CIWA 24: Lorazepam protocol ,banana bag, check mag , phos, cmp , and cbc with diff in am Seizure precautions, Alcohol cessation counseling, continue Folate and Thamine PO #Chest pain most likely due to alcohol abuse, ekg, echo ordered follow up. #Hypophosphatemia: IV sodium phos, s/p one PhosNaK packet given #NIDDM: ISS/BGMs ACHS #HTN; Cont home med: Lisinopril 10 BID transfer patient to detox
[2019-09-09] MEDS: INSULIN SLIDING SCALE (NOVOLOG) 1 VIAL SQ SCH ×2 (16:37→21:40)
[2019-09-09] MEDS ORDERED: SODIUM PHOSPHATE - 30 MM in DEXTROSE 5%-WATER - 500 ML IVPB ONE (20:00)
[2019-09-10] MEDS: LORazepam 1 MG TABLET PO SCH ×2 (05:15→10:21)
[2019-09-10] MEDS: INSULIN SLIDING SCALE (NOVOLOG) 1 VIAL SQ SCH ×4 (06:14→21:46)
[2019-09-10 08:32] LABS: BASO % 0.7 % (0-2.0); EOS % 3.7 % (0-4.5); HEMATOCRIT 37.8 % (35.4-49); LYMPH % 34.3 % (8-40); MCH 33.5 pg (25.7-33.7); MCHC 34.3 g/dl (32.0-35.9); MEAN CELL VOLUME 97.9 fl (80-96); MEAN PLT VOLUME 8.3 fl (7.5-11.1); NEUT % 52.3 % (42.8-82.8); PLATELET COUNT 102 K/MM3 (134-434); RBC 3.86 M/mm3 (4.00-5.60); WHITE BLOOD COUNT 3.9 K/mm3 (4.0-10.0)
[2019-09-10 09:03] LABS: ALBUMIN 3.6 g/dl (3.4-5.0); ALK PHOS 70 U/L (45-117); ANION GAP 7 MMOL/L (8-16); BILIRUBIN,TOTAL 0.7 mg/dL (0.2-1); BLOOD UREA NITROGEN 8.7 mg/dL (7-18); CALCIUM 8.4 mg/dL (8.5-10.1); CHLORIDE 101 mmol/L (98-107); CO2 28 mmol/L (21-32); CREATININE 0.6 mg/dL (0.55-1.3); GLUCOSE,RANDOM 96 mg/dL (74-106); MAGNESIUM 2.3 mg/dL (1.8-2.4); PHOSPHOROUS 4.1 mg/dL (2.5-4.9); POTASSIUM 3.4 mmol/L (3.5-5.1); SGOT/AST 87 U/L (15-37); SGPT/ALT 80 U/L (13-61); SODIUM 137 mmol/L (136-145)
[2019-09-10] MEDS ORDERED: POTASSIUM CHLORIDE TABS 20 MEQ TABLET.ER (FP) PO ONE (09:30)
[2019-09-10] MEDS: THIAMINE HCL 100 MG TABLET (FP) PO SCH (10:20)
[2019-09-10] MEDS: LISINOPRIL 10 MG TABLET (FP) PO SCH ×2 (10:21→21:46)
[2019-09-10] MEDS: PANTOPRAZOLE 40 MG TABLET (FP) PO SCH (10:21)
[2019-09-10] MEDS: FOLIC ACID 1 MG TABLET (FP) PO SCH (10:21)
--- NOTE | 2019-09-10 19:03 | PN ---
Physical Exam: SUBJECTIVE: Patient seen and examined in the morning. No acute events overnight. Patient had complaints of abdominal pain. had no complaints of chest pain, shortness of breath, nausea, vomiting, fevers, diarrhea. OBJECTIVE: Vital Signs Period Temp Pulse Resp BP Sys/Acevedo Pulse Ox Last 24 Hr 97.9 F-98.8 F 68-82 16-20 116-140/68-78 96-96 GENERAL: The patient is awake, alert, and fully oriented, in no acute distress. CIWA 7 HEAD: Normal with no signs of trauma. EYES: PERRL, extraocular movements intact, sclera anicteric, conjunctiva clear. No ptosis. ENT: Ears normal, nares patent, oropharynx clear without exudates, moist mucous membranes. NECK: Trachea midline, full range of motion, supple. LUNGS: Breath sounds equal, clear to auscultation bilaterally, no wheezes, no crackles. HEART: Regular rate and rhythm, S1, S2 without murmur, rub or gallop. ABDOMEN: Soft, tender to deep palpation, no rebound, no hepatomegaly, normoactive bowel sounds EXTREMITIES: 2+ pulses, warm, well-perfused, no edema. NEUROLOGICAL: Cranial nerves II through XII grossly intact. Normal speech. bilateral tremor when arms outstretched. SKIN: Warm, dry, normal turgor, no rashes or lesions noted Laboratory Results - last 24 hr 09/09/19 09/10/19 09/10/19 21:38 06:13 07:35 WBC 3.9 L RBC 3.86 L Hgb 13.0 Hct 37.8 MCV 97.9 H MCH 33.5 MCHC 34.3 RDW 15.0 Plt Count 102 L MPV 8.3 Absolute Neuts (auto) 2.1 Neutrophils % 52.3 Lymphocytes % 34.3 Monocytes % 9.0 Eosinophils % 3.7 D Basophils % 0.7 Nucleated RBC % 0 Sodium Potassium Chloride Carbon Dioxide Anion Gap BUN Creatinine Est GFR (CKD-EPI)AfAm Est GFR (CKD-EPI)NonAf POC Glucometer 103 98 Random Glucose Calcium Phosphorus Magnesium Total Bilirubin AST ALT Alkaline Phosphatase Troponin I Total Protein Albumin 09/10/19 09/10/19 09/10/19 07:35 10:26 17:12 WBC RBC Hgb Hct MCV MCH MCHC RDW Plt Count MPV Absolute Neuts (auto) Neutrophils % Lymphocytes % Monocytes % Eosinophils % Basophils % Nucleated RBC % Sodium 137 Potassium 3.4 L Chloride 101 Carbon Dioxide 28 Anion Gap 7 L BUN 8.7 Creatinine 0.6 Est GFR (CKD-EPI)AfAm 153.11 Est GFR (CKD-EPI)NonAf 132.10 POC Glucometer 130 105 Random Glucose 96 Calcium 8.4 L Phosphorus 4.1 Magnesium 2.3 Total Bilirubin 0.7 AST 87 H ALT 80 H Alkaline Phosphatase 70 Troponin I < 0.02 Total Protein 7.0 Albumin 3.6 Active Medications Generic Name Dose Route Start Last Admin Trade Name Freq PRN Reason Stop Dose Admin Folic Acid 1 mg 09/10/19 10:00 09/10/19 10:21 Folic Acid - PO 1 mg DAILY DAHLIA Administration Insulin Aspart 1 vial 09/09/19 16:30 09/10/19 17:15 Novolog Vial Sliding Scale - SQ Not Given ACHS [facility] Protocol Lisinopril 10 mg 09/09/19 11:45 09/10/19 10:21 Prinivil PO 10 mg BID DAHLIA Administration Lorazepam 0.5 mg 09/13/19 05:00 Ativan - PO 09/13/19 05:01 ONCE ONE Lorazepam 0.5 mg 09/12/19 00:00 Ativan - PO 09/13/19 00:00 Q4H PRN Symptoms of Withdrawal Lorazepam 1 mg 09/09/19 19:20 Ativan - PO 09/11/19 23:59 Q4H PRN Symptoms of Withdrawal Lorazepam 0.5 mg 09/12/19 05:00 Ativan - PO 09/12/19 23:01 Q6H DAHLIA Lorazepam 1 mg 09/11/19 05:00 Ativan - PO 09/11/19 23:01 0500,1100,1700,2300 DAHLIA Pantoprazole Sodium 40 mg 09/10/19 10:00 09/10/19 10:21 Protonix - PO 40 mg DAILY DAHLIA Administration Thiamine HCl 100 mg 09/10/19 10:00 09/10/19 10:20 Vitamin B1 - PO 100 mg DAILY DAHLIA Administration ASSESSMENT/PLAN: 34 M with PMH of EtoH abuse, DM II, and HTN who presents with epigastric pain likely secondary to his alcoholic binge drinking. 1)Epigastric pain Non cardiac cause, likely secondary to alcoholism. Echo completed- EF of 65%, normal LV, normal valvular flow except trace TR Troponin negative 2)Alcohol withdrawal -Ativan protocol -Seizure precautions -Alcohol cessation counseling -Folate 1 mg PO -Thiamine 100 mg PO -Refer to [facility] for rehab 3)HTN Lisinopril 10 mg PO Daily 4)DM Sliding Scale Insulin Hold Metformin 5)Thrombocytopenia Likely secondary to alcoholism F:NS @ 75 ml/hr E:monitor electrolytes N:Normal diabetic diet DVT: SCD Dispo:Admitted to medicine Visit type - Emergency Visit Emergency Visit: Yes ED Registration Date: 09/09/19 Care time: The patient presented to the Emergency Department on the above date and was hospitalized for further evaluation of their emergent condition. - New Patient This patient is new to me today: Yes Date on this admission: 09/10/19 - Critical Care Critical Care patient: No ATTENDING PHYSICIAN STATEMENT I saw and evaluated the patient. I reviewed the resident's note and discussed the case with the resident. I agree with the resident's findings and plan as documented. SUBJECTIVE: OBJECTIVE: ASSESSMENT AND PLAN:
--- NOTE | 2019-09-10 19:48 | PN ---
Teaching Attending Note Name of Resident: Beatrice Swift ATTENDING PHYSICIAN STATEMENT I saw and evaluated the patient. I reviewed the resident's note and discussed the case with the resident. I agree with the resident's findings and plan as documented. SUBJECTIVE: cont to have burning sensationin epigastric area with radiation to chest OBJECTIVE: NAD, sweaty , tremor in hands Cv : RRR Lungs:CTAB Ext :tremor inhands Abd: soft, ND, NT, nl BS ASSESSMENT AND PLAN: 34 y/o man with h/o EtOH abuse, DM, HTN who presented intoxicated with CP 1- Atypical cp , due to gastritis vs GERD . - cont PPI 2- ETOH withdrawal : cont Ativan protocol cont thiamine start gentle hydration 3- Alchol hepatitis : LFTS trended down 4- HTn . cont lisinopril No beds available at [facility]. will try in am
[2019-09-10] MEDS ORDERED: SODIUM CHLORIDE 1,000 ML IV SCH (20:00)
[2019-09-11] MEDS: LORazepam 1 MG TABLET PO SCH ×2 (04:40→11:44)
[2019-09-11] MEDS ORDERED: LORazepam 1 MG TABLET PO SCH (05:00)
[2019-09-11] MEDS: INSULIN SLIDING SCALE (NOVOLOG) 1 VIAL SQ SCH ×2 (06:02→11:52)
[2019-09-11 09:12] LABS: ALBUMIN 3.8 g/dl (3.4-5.0); BILIRUBIN,TOTAL 0.5 mg/dL (0.2-1); BLOOD UREA NITROGEN 10.5 mg/dL (7-18); CALCIUM 8.8 mg/dL (8.5-10.1); CREATININE 0.7 mg/dL (0.55-1.3); POTASSIUM 3.7 mmol/L (3.5-5.1); TOT PROT 7.5 g/dl (6.4-8.2)
[2019-09-11 09:13] LABS: BASO % 0.5 % (0-2.0); HEMATOCRIT 40.7 % (35.4-49); HEMOGLOBIN 13.8 GM/dL (11.7-16.9); LYMPH % 36.2 % (8-40); MCH 33.7 pg (25.7-33.7); MEAN PLT VOLUME 8.8 fl (7.5-11.1); MONO % 8.4 % (3.8-10.2); NEUT % 50.9 % (42.8-82.8); PLATELET COUNT 128 K/MM3 (134-434); RBC 4.11 M/mm3 (4.00-5.60); RDW 15.2 % (11.9-15.9); WHITE BLOOD COUNT 5.4 K/mm3 (4.0-10.0)
[2019-09-11] MEDS: LISINOPRIL 10 MG TABLET (FP) PO SCH (09:23)
[2019-09-11] MEDS: FOLIC ACID 1 MG TABLET (FP) PO SCH (09:23)
[2019-09-11] MEDS: PANTOPRAZOLE 40 MG TABLET (FP) PO SCH (09:23)
[2019-09-11] MEDS: THIAMINE HCL 100 MG TABLET (FP) PO SCH (09:23)
[2019-09-11 09:37] VITALS: BP 137/76; PULSE 75; TEMP 97.3
[2019-09-11 10:19] LABS: MAGNESIUM 2.4 mg/dL (1.8-2.4)
--- NOTE | 2019-09-11 17:31 | PN ---
Teaching Attending Note Name of Resident: Beatrice Swift ATTENDING PHYSICIAN STATEMENT I saw and evaluated the patient. I reviewed the resident's note and discussed the case with the resident. I agree with the resident's findings and plan as documented. SUBJECTIVE: No fever or chills. No MARTI . He feels better . tremor is better OBJECTIVE: NAD Cv : RRR Lungs:CTAB Ext :tremor in hands Abd: soft, ND, NT, nl BS ASSESSMENT AND PLAN: 34 y/o man with h/o EtOH abuse, DM, HTN who presented intoxicated with CP 1- Atypical cp , due to gastritis vs GERD . - cont PPI 2- ETOH withdrawal : cont Ativan protocol cont thiamine cont detox at [facility] 3- Alcohol hepatitis : repeat LFTS as out pt 4- HTN . cont lisinopril Dispo : accepted at [facility]. transfer
--- NOTE | 2019-09-11 18:24 | DS ---
Physical Exam: SUBJECTIVE: Patient seen and examined in the morning. No acute events overnight. Patient had complaints of burning sensation in chest, but no other chest pain, shortness of breath, nausea, vomiting, or diarrhea. 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 OBJECTIVE: Vital Signs Period Temp Pulse Resp BP Sys/Acevedo Pulse Ox Last 24 Hr 97.3 F-98.6 F 64-80 18-80 120-137/69-80 96 PHYSICAL EXAM GENERAL: The patient is awake, alert, and fully oriented, in no acute distress. HEAD: Normal with no signs of trauma. No visible signs of sweat. EYES: PERRL, extraocular movements intact, sclera anicteric, conjunctiva clear. ENT: Ears normal, nares patent, oropharynx clear without exudates, moist mucous membranes. LUNGS: Breath sounds equal, clear to auscultation bilaterally, no wheezes, no crackles, no accessory muscle use. HEART: Regular rate and rhythm, S1, S2 without murmur, rub or gallop. ABDOMEN: Soft, nontender, nondistended, normoactive bowel sounds, no guarding, no rebound, no hepatomegaly. EXTREMITIES: 2+ pulses, warm, well-perfused, no edema. NEUROLOGICAL: Cranial nerves II through XII grossly intact. Normal speech, gait not observed. Tremor when hands are outstretched. CIWA of 7 LABS Laboratory Results - last 24 hr CBC, BMP 09/11/19 07:45 09/11/19 07:45 HOSPITAL COURSE: Date of Admission:09/09/19 Date of Discharge: 09/11/19 34M with PMH significant for EtOH abuse, HTN, HLD who was admitted for chest pain. Troponins were negativex2, EKG and echo showed normal heart function. Chest CT showed no acute changes, and abdomen pelvis CT showed hepatomegaly with fatty infiltration. Head CT was done which showed no evidence of hemorrhage , midline shift, or acute infarct. Patient was started on ativan protocol for withdrawal symptoms as patient's last drink was 1 day prior to admission. Patient was transferred to [facility] for continued treatment in the detox unit as patient was medically stable and started on all home meds and protonix. Relevant Imaging done this visit: Abdomen Pelvis CT: Hepatomegaly with fatty infiltration. Correlate with liver enzymes Minutes to complete discharge: 35 Discharge Summary Problems reviewed: Yes Reason For Visit: ALCOHOL WITHDRAWAL DELIRIUM,ACUTE HYPERACTIVE Condition: Improved - Instructions Diet, Activity, Other Instructions: You were admitted to the hospital because you had chest pain. We evaluated your heart with an EKG and an ultrasound and it is functioning appropriately. While you were here you were also started on medication to help prevent withdrawals from alcohol. You are going to continue and complete this treatment at [facility]. Please continue to take your other home medications as directed. Follow up with your Primary Care Physician within 1 week. Return to the ED if you have headaches, nausea, tremors and shaking, shortness of breath, chest pain, or worsening of your symptoms. Need blood work in 3-4 days ( CMP) [place]: [facility] [facility] [place] [Provider Group] - 1 Week Disposition: TRANSFER ACUTE CARE/OTHER HOSP - Home Medications Comprehensive Discharge Medication List: Ambulatory Orders Lisinopril 10 mg PO BID 07/10/19 Pantoprazole Sodium [Protonix] 40 mg PO DAILY 07/10/19 Thiamine HCl [B-1] 100 mg PO DAILY 07/10/19 metFORMIN HCL [Metformin HCl] 500 mg PO DAILY 07/10/19 Folic Acid 1 mg PO DAILY 09/09/19 LORazepam [Ativan] 0.5 mg PO Q4H PRN tablet MDD 6 09/11/19 LORazepam [Ativan] 0.5 mg PO Q6H tablet MDD 6 09/11/19 LORazepam [Ativan] 1 mg PO 0500,1100,1700,2300 tablet MDD 6 09/11/19 This patient is new to me today: No Emergency Visit: Yes ED Registration Date: 09/09/19 Care time: The patient presented to the Emergency Department on the above date and was hospitalized for further evaluation of their emergent condition. Critical Care patient: No - Discharge Referral Referred to [facility] Med P.C.: No ATTENDING PHYSICIAN STATEMENT I saw and evaluated the patient. I reviewed the resident's note and discussed the case with the resident. I agree with the resident's findings and plan as documented. SUBJECTIVE: OBJECTIVE: ASSESSMENT AND PLAN:
[2019-09-12] MEDS ORDERED: LORazepam 0.5 MG TABLET PO PRN ×2
[2019-09-12] MEDS ORDERED: LORazepam 0.5 MG TABLET PO SCH ×2 (05:00)
[2019-09-13] MEDS ORDERED: LORazepam 0.5 MG TABLET PO ONE ×2 (05:00)
== END 2019-09-11 12:57 | disposition short-term general hospital (02) | DRG 775 ==
LOC: JER 03:16 → JERBED 07:06 → J6S 13:19
PROVIDERS: ADMIT Internal Medicine; ATTEND Internal Medicine
PROC: HZ2ZZZZ Detoxification Services for Substance Abuse Treatment (ICD-10-PCS; principal; 2019-09-09)
DX: F10.230 Alcohol dependence with withdrawal, uncomplicated (principal); R07.89 Other chest pain; I10 Essential (primary) hypertension; E11.9 Type 2 diabetes mellitus without complications; E83.39 Other disorders of phosphorus metabolism; D69.6 Thrombocytopenia, unspecified; K70.10 Alcoholic hepatitis without ascites; Y90.1 Blood alcohol level of 20-39 mg/100 ml; R16.0 Hepatomegaly, not elsewhere classified; K29.70 Gastritis, unspecified, without bleeding; K21.9 Gastro-esophageal reflux disease without esophagitis; R74.0 Nonspecific elevation of levels of transaminase and lactic acid dehydrogenase [LDH]; R00.0 Tachycardia, unspecified
CPT/HCPCS: 36415; 70450-TC; 71260-TC; 74177-TC; 80053; 80307; 82803; 82962; 83605; 83690; 83735; 84100; 84484; 85025; 85610; 85730; 93005; 93010; 93306-TC; 99283-25; J7030

== ENCOUNTER 2019-09-11 14:07 | Inpatient (IN) | payer OTHER ==
[2019-09-11 16:19] VITALS: BMI 29.9
--- NOTE | 2019-09-11 17:56 | HP ---
CIWA Score Nausea/Vomitin-No Nausea/No Vomiting Muscle Tremors: 2 Anxiety: 0-No Anxiety, at Ease Agitation: 1-Slight > Activity Paroxysmal Sweats: 2 Orientation: 0-Oriented Tacttile Disturbances: 0-None Auditory Disturbances: 0-None Visual Disturbances: 0-None Headache: 0-None Present CIWA-Ar Total Score: 5 - Admission Criteria OASAS Guidelines: Admission for Medically Managed Detox: Requires at least one of the followin. CIWA greater than 12 2. Seizures within the past 24 hours 3. Delirium tremens within the past 24 hours 4. Hallucinations within the past 24 hours 5. Acute intervention needed for co occurring medical disorder 6. Acute intervention needed for co occurring psychiatric disorder 7. Severe withdrawal that cannot be handled at a lower level of care (continued vomiting, continued diarrhea, abnormal vital signs) requiring intravenous medication and/or fluids 8. Admitting History and Physical - Admission History Source: Patient Limitations to Obtaining History: No Limitations - Past Medical History Cardiovascular: Yes: HTN Gastrointestinal: Yes: Gastritis Endocrine: Yes: Diabetes Mellitus Dermatology: Yes: Psoriasis - Past Surgical History Past Surgical History: Yes: None - Smoking History Smoking history: Never smoked Have you smoked in the past 12 months: No - Alcohol/Substance Use Hx Alcohol Use: Yes - Social History Usual Living Arrangement: Yes: Other (with friend) ADL: Independent History of Recent Travel: No Admission [facility] Chief Complaint: alcohol withdrawal Allergies/Adverse Reactions: Allergies Allergy/AdvReac Type Severity Reaction Status Date / Time No Known Allergies Allergy Verified 09/11/19 16:07 History of Present Illness: 34 y.o. PMH gastritis, DM, HTN , psoriasis presenting for rehab. Recently admitted to [facility] for tremors & etoh intoxication, was discharged today at 1pm. EtOH: last drink on sunday, 15 beers. Does not drink liquor. Has been drinking since age 26. Has never passed out/ fallen down from drinking. Never had a seizure from not drinking. PSH:none Social hx: lives with friends in an apartment. does not feel he has a good support system. 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 All: none Meds: (noncompliant x 3 months): metformin No legal issues Translated using Jinn #[id number] Exam Limitations: No Limitations - Ebola screening Have you traveled outside of the country in the last 21 days: No Have you had contact with anyone from an Ebola affected area: No Do you have a fever: No - Review of Systems Constitutional: No Symptoms Reported EENT: reports: No Symptoms Reported Respiratory: reports: No Symptoms reported Cardiac: reports: No Symptoms Reported GI: reports: No Symptoms Reported : reports: No Symptoms Reported Musculoskeletal: reports: No Symptoms Reported Integumentary: reports: Pruritus (psoriasis, chronic) Neuro: reports: Tremors Endocrine: reports: No Symptoms Reported Hematology: reports: No Symptoms Reported Psychiatric: reports: Mood/Affect Appropiate, Orientated x3 Patient History - Patient Medical History Hx Anemia: No Hx Asthma: No Hx Chronic Obstructive Pulmonary Disease (COPD): No Hx Cancer: No Hx Cardiac Disorders: No Hx Congestive Heart Failure: No Hx Hypertension: Yes (LISINOPRIL) Hx Hypercholesterolemia: No Hx Pacemaker: No HX Cerebrovascular Accident: No Hx Seizures: No Hx Dementia: No Hx Diabetes: Yes (METFORMIN) Hx Gastrointestinal Disorders: Yes (GERD - PANTOPRAZOLE) Hx Liver Disease: No Hx Genitourinary Disorders: No Hx Sexually Transmitted Disorders: No Hx Renal Disease (ESRD): No Hx Thyroid Disease: No Hx Human Immunodeficiency Virus (HIV): No Hx Hepatitis C: No Hx Depression: No Hx Suicide Attempt: No (DENIES SUICIDAL IDEATION AT THIS TIME) Hx Bipolar Disorder: No Hx Schizophrenia: No - Patient Surgical History Past Surgical History: No Hx Neurologic Surgery: No Hx Cataract Extraction: No Hx Cardiac Surgery: No Hx Lung Surgery: No Hx Breast Surgery: No Hx Breast Biopsy: No Hx Abdominal Surgery: No Hx Appendectomy: No Hx Cholecystectomy: No Hx Genitourinary Surgery: No Hx Section: No Hx Orthopedic Surgery: No Anesthesia Reaction: No - PPD History Date: 05/25/19 - Smoking Cessation Smoking history: Never smoked Have you smoked in the past 12 months: No Hx Chewing Tobacco Use: No - Substances abused Alcohol Substance route: Oral Frequency: Daily Amount used: 3 6 pk beer Age of first use: 22 Date of last use: 09/08/19 Admission Physical Exam BHS - Vital Signs Vital Signs: Vital Signs - 24 hr 09/11/19 09/11/19 16:07 17:33 Temperature 98.1 F 98.1 F Pulse Rate 83 83 Respiratory 16 16 Rate Blood Pressure 135/64 135/64 - Physical General Appearance: Yes: Within Normal Limits HEENTM: Yes: Within Normal Limits, Hearing grossly Normal, Normocephalic, Normal Voice, JENNA Respiratory: Yes: Within Normal Limits, Lungs Clear, Normal Breath Sounds Neck: Yes: Within Normal Limits Cardiology: Yes: Regular Rhythm, Regular Rate, S1, S2 Abdominal: Yes: Normal Bowel Sounds, Soft Back: Yes: Normal Inspection Musculoskeletal: Yes: full range of Motion Extremities: Yes: Within Normal Limits Neurological: Yes: 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 NML intact, Fully Oriented, Alert Integumentary: Yes: Rash (psoriatic rash) Lymphatic: Yes: Within Normal Limits - Diagnostic (1) Alcohol dependence with uncomplicated withdrawal Current Visit: No Status: Chronic Cleared for Admission S - Detox or Rehab [facility] Level of Care: Medically Supervised Breathalyzer - Breathalyzer Breathalyzer: 0 Urine Drug Screen - Test Device Lot number: [id number] Expiration date: 05/11/21 - Control Is test valid?: Yes - Results Drug screen NEGATIVE: No Urine drug screen results: BZO-Benzodiazepines Inpatient Rehab Admission - Rehab Decision to Admit Inpatient rehab admission?: No
--- NOTE | 2019-09-11 18:08 | PN ---
Teaching Attending Note Name of Resident: Tomasa Thakkar ATTENDING PHYSICIAN STATEMENT I saw and evaluated the patient. I reviewed the resident's note and discussed the case with the resident. I agree with the resident's findings and plan as documented. SUBJECTIVE: 34 y.o. PMH gastritis, DM, HTN , psoriasis presenting for rehab. Recently admitted to [facility] for tremors & etoh intoxication, was discharged today , given Ativan while hospitalized . EtOH: last drink on sunday, 15 beers, first age of use age 26 ,denies blackouts , seizures or falls while intoxicated, + tremors OBJECTIVE: wnwd , + UE tremors Vital Signs - 24 hr 09/11/19 09/11/19 16:07 17:33 Temperature 98.1 F 98.1 F Pulse Rate 83 83 Respiratory 16 16 Rate Blood Pressure 135/64 135/64 ASSESSMENT AND PLAN: Alcohol use disorder - Valium detox
[2019-09-11] MEDS ORDERED: MENTHOL/PHENOL 1 EACH UD MM PRN (18:12)
[2019-09-11] MEDS ORDERED: MAGNESIUM HYDROX 2400MG/30ML ORAL SUSPENSION 30 ML CUP PO PRN (18:12)
[2019-09-11] MEDS ORDERED: MAGNESIUM CITRATE 300 ML BOTTLE PO PRN (18:12)
[2019-09-11] MEDS ORDERED: hydrOXYzine PAMOATE 25 MG CAPSULE (FP) PO PRN (18:12)
[2019-09-11] MEDS ORDERED: METHOCARBAMOL 500 MG TABLET PO PRN (18:12)
[2019-09-11] MEDS ORDERED: LORazepam 1 MG TABLET PO PRN (18:12)
[2019-09-11] MEDS ORDERED: MAG HYDROX/AL HYDROX/SIMETH 30 ML UNIT-DOSE CUP PO PRN (18:12)
[2019-09-11] MEDS ORDERED: BISMUTH SUBSALICYLATE 524 MG/30 ML UD PO PRN (18:12)
[2019-09-11] MEDS ORDERED: ACETAMINOPHEN 325 MG TABLET (FP) PO PRN ×2 (18:12)
[2019-09-11] MEDS ORDERED: IBUPROFEN 400 MG TABLET (FP) PO PRN (18:12)
[2019-09-11] MEDS ORDERED: LORazepam 2 MG TABLET PO SCH ×2 (18:30→23:00)
[2019-09-11] MEDS ORDERED: diazePAM 5 MG TABLET PO PRN (18:58)
[2019-09-11] MEDS: diazePAM 5 MG TABLET PO SCH (22:21)
[2019-09-11] MEDS: THIAMINE HCL 100 MG TABLET (FP) PO SCH (22:21)
[2019-09-11] MEDS: MELATONIN 5 MG TABLETS PO PRN (22:22)
[2019-09-12] MEDS: diazePAM 5 MG TABLET PO SCH ×3 (05:44→21:56)
[2019-09-12] MEDS: PRENATAL VITAMINS W/ FOLIC ACID TABLET (FP) PO SCH (09:28)
--- NOTE | 2019-09-12 11:44 | PN ---
S CIWA - CIWA Score Nausea/Vomitin-No Nausea/No Vomiting Muscle Tremors: 2 Anxiety: 1-Mildly Anxious Agitation: 1-Slight > Activity Paroxysmal Sweats: 1-Minimal Palms Moist Orientation: 0-Oriented Tacttile Disturbances: 0-None Auditory Disturbances: 0-None Visual Disturbances: 0-None Headache: 0-None Present CIWA-Ar Total Score: 5 BHS Progress Note (SOAP) Subjective: restless anxiety sweats mild shakes Objective: 09/12/19 11:43 Vital Signs Temperature 97.3 F L 09/12/19 09:39 Pulse Rate 74 09/12/19 09:39 Respiratory Rate 20 09/12/19 09:39 Blood Pressure 114/66 09/12/19 09:39 O2 Sat by Pulse Oximetry (%) Laboratory Tests 09/12/19 05:42 POC Glucometer 114 rest of labs pending aaox3 ambulating no acute distress Assessment: 09/12/19 11:44 mild withdrawals Plan: continue detox increase fluids
[2019-09-12] MEDS: PANTOPRAZOLE 40 MG TABLET (FP) PO SCH (13:48)
[2019-09-12] MEDS: metFORMIN HCL 500 MG TABLET (FP) PO SCH (18:09)
[2019-09-12] MEDS: THIAMINE HCL 100 MG TABLET (FP) PO SCH (21:56)
[2019-09-12] MEDS: MELATONIN 5 MG TABLETS PO PRN (21:57)
[2019-09-12] MEDS ORDERED: LISINOPRIL 10 MG TABLET (FP) PO SCH (22:00)
[2019-09-13] MEDS ORDERED: LORazepam 1 MG TABLET PO SCH ×2 (05:00)
[2019-09-13] MEDS: diazePAM 5 MG TABLET PO SCH ×2 (06:01→17:20)
[2019-09-13] MEDS: metFORMIN HCL 500 MG TABLET (FP) PO SCH (06:01)
[2019-09-13] MEDS: PANTOPRAZOLE 40 MG TABLET (FP) PO SCH (10:22)
[2019-09-13] MEDS: PRENATAL VITAMINS W/ FOLIC ACID TABLET (FP) PO SCH (10:22)
--- NOTE | 2019-09-13 11:33 | PN ---
S CIWA - CIWA Score Nausea/Vomitin-No Nausea/No Vomiting Muscle Tremors: 1-None Visible, but [place] Anxiety: 1-Mildly Anxious Agitation: 1-Slight > Activity Paroxysmal Sweats: No Perspiration Orientation: 0-Oriented Tacttile Disturbances: 0-None Auditory Disturbances: 0-None Visual Disturbances: 0-None Headache: 0-None Present CIWA-Ar Total Score: 3 BHS Progress Note (SOAP) Subjective: feeling better little anxiety Objective: 09/13/19 11:32 Vital Signs Temperature 96.1 F L 09/13/19 09:27 Pulse Rate 73 09/13/19 09:27 Respiratory Rate 16 09/13/19 09:27 Blood Pressure 129/83 09/13/19 09:27 O2 Sat by Pulse Oximetry (%) aaox3 ambulating no acute distress Assessment: 09/13/19 11:32 mild withdrawals Plan: continue detox d/c in am
[2019-09-13] MEDS: THIAMINE HCL 100 MG TABLET (FP) PO SCH (22:25)
[2019-09-13] MEDS: MELATONIN 5 MG TABLETS PO PRN (22:30)
[2019-09-14] MEDS ORDERED: LORazepam 0.5 MG TABLET PO PRN
[2019-09-14] MEDS ORDERED: LORazepam 0.5 MG TABLET PO SCH (05:00)
[2019-09-14] MEDS ORDERED: diazePAM 5 MG TABLET PO ONE (06:00)
[2019-09-14] MEDS: metFORMIN HCL 500 MG TABLET (FP) PO SCH (07:35)
[2019-09-14 09:42] VITALS: BP 132/76; PULSE 72; TEMP 98.2
--- NOTE | 2019-09-14 14:39 | DS ---
[facility] Detox Discharge Summary Admission Date: 09/11/19 Discharge Date: 09/14/19 - History Present History: Alcohol Dependence Additional Comments: Patient completed detox successfully and discharged safely. Patient denies rehab stating he doesn't need it. Patient instructed to follow up with his PCP within 1-2 weeks or sooner if warranted. Pertinent Past History: HTN GERD DM Psoriasis - Physical Exam Results Vital Signs: Vital Signs Temperature 98.2 F 09/14/19 09:41 Pulse Rate 72 09/14/19 09:41 Respiratory Rate 18 09/14/19 09:41 Blood Pressure 132/76 09/14/19 09:41 O2 Sat by Pulse Oximetry (%) Pertinent Admission Physical Exam Findings: Withdrawal sxs Laboratory Tests 09/12/19 09/12/19 09/13/19 05:42 18:05 05:46 POC Glucometer 114 158 108 09/13/19 09/13/19 09/14/19 17:02 20:47 05:34 POC Glucometer 149 121 133 Lab results from 09/11/19 reviewed: plt 128, elevated LFTs: AST 115, ALT 130 ( most likely due to chronic alcoholism), instructed to follow up with PCP for management. - Treatment Hospital Course: Detox Protocol Followed, Detoxed Safely, Responded well, Discharged Condition Good - Medication Discharge Medications: Ambulatory Orders Lisinopril 10 mg PO BID 07/10/19 Pantoprazole Sodium [Protonix] 40 mg PO DAILY 07/10/19 Thiamine HCl [B-1] 100 mg PO DAILY 07/10/19 metFORMIN HCL [Metformin HCl] 500 mg PO DAILY 07/10/19 Folic Acid 1 mg PO DAILY 09/09/19 - Diagnosis (1) Alcohol dependence with uncomplicated withdrawal Status: Acute (2) DM type 2 (diabetes mellitus, type 2) Status: Chronic Qualifiers: Diabetes mellitus lobsterman insulin use: unspecified half-way insulin use status Diabetes mellitus complication status: without complication Qualified Code(s): E11.9 - Type 2 diabetes mellitus without complications (3) GERD (gastroesophageal reflux disease) Status: Chronic (4) HTN (hypertension) Status: Chronic Qualifiers: Hypertension type: essential hypertension Qualified Code(s): I10 - Essential (primary) hypertension (5) Thrombocytopenia Status: Acute (6) Elevated LFTs Status: Acute - AMA Did Patient Leave Against Medical Advice: No (Instructed to follow up with PCP within 1-2 weeks or sooner)
== END 2019-09-14 09:00 | disposition home or self-care (01) | DRG 775 ==
LOC: YASAS 14:07 → Y6N 18:38
PROVIDERS: ADMIT Allergy & Immunology; ATTEND Allergy & Immunology
PROC: HZ2ZZZZ Detoxification Services for Substance Abuse Treatment (ICD-10-PCS; principal; 2019-09-11)
DX: F10.230 Alcohol dependence with withdrawal, uncomplicated (principal); I10 Essential (primary) hypertension; E11.9 Type 2 diabetes mellitus without complications; K21.9 Gastro-esophageal reflux disease without esophagitis; D69.6 Thrombocytopenia, unspecified; R94.5 Abnormal results of liver function studies; Z91.14 Patient's other noncompliance with medication regimen; Z79.84 Long term (current) use of oral hypoglycemic drugs
CPT/HCPCS: 82962

== ENCOUNTER 2019-10-15 15:53 | Emergency (ER) | payer MEDICARE, OTHER ==
[2019-10-15 15:59] VITALS: BMI 27.3
--- NOTE | 2019-10-15 15:59 | PDOC ---
Rapid Medical Evaluation Time Seen by Provider: 10/15/19 15:56 Medical Evaluation: Allergies Allergy/AdvReac Type Severity Reaction Status Date / Time No Known Allergies Allergy Verified 09/11/19 16:07 10/15/19 15:57 Patient c/o: tremors since yesterday, daily beer drinking, + nausea/vomiting / abd pain Patient on brief exam: noted tremors, no abd tenderness Patient ordered for: alcohol level, labs, iv ativan,, iv, urine, banana bag, zofran Patient to proceed to the ED Discharge Disposition - Diagnosis Alcohol dependence with uncomplicated withdrawal - Discharge Dispostion Disposition: HOME Condition at time of disposition: Fair - Referrals - Patient Instructions Printed Discharge Instructions: DI for Alcohol Abuse Additional Instructions: You may go to 2 [facility] should you desire alcohol detox and rehabilitation. Eat a well-balanced diet. Drink plenty of nonalcoholic beverages Return to emergency department for any new or worsening symptoms. Thank you very much for choosing us to provide your emergent health care needs. Puede ir a [facility] si desea desintoxicacin de alcohol y rehabilitacin. Coma last dieta codie balanceada. Carmelina muchas bebidas sin alcohol Regrese al departamento de emergencias por cualquier sntoma nuevo o que empeore. Muchas leonora por elegirnos para satisfacer rae necesidades de atencin mdica de emergencia. - Post Discharge Activity
[2019-10-15] MEDS ORDERED: FOLIC ACID INJECTION - 1 MG, THIAMINE HCL 100 MG, MULTIVIT INJECTION ADULT 10 ML in SOD... IVPB ONE (16:00)
[2019-10-15] MEDS ORDERED: ONDANSETRON 4 MG/2 ML VIAL IVPUSH ONE (16:00)
[2019-10-15 16:49] LABS: BASO % 0.5 % (0-2.0); EOS % 0.4 % (0-4.5); HEMATOCRIT 44.7 % (35.4-49); HEMOGLOBIN 15.7 GM/dL (11.7-16.9); MCH 32.9 pg (25.7-33.7); MCHC 35.2 g/dl (32.0-35.9); MEAN CELL VOLUME 93.4 fl (80-96); MEAN PLT VOLUME 7.9 fl (7.5-11.1); MONO % 6.9 % (3.8-10.2); NEUT % 64.2 % (42.8-82.8); PH,URINE 7.5 (5.0-8.0); PLATELET COUNT 196 K/MM3 (134-434); RBC 4.78 M/mm3 (4.00-5.60); RDW 13.4 % (11.9-15.9); URINE APPEARANCE CLEAR; URINE BILIRUBIN NEGATIVE (NEGATIVE); URINE COLOR YELLOW; URINE GLUCOSE (UA) NEGATIVE (NEGATIVE); URINE KETONE NEGATIVE (NEGATIVE); URINE LEUK ESTERASE TRACE (NEGATIVE); URINE NITRITE NEGATIVE (NEGATIVE); URINE PROTEIN NEGATIVE (NEGATIVE); WHITE BLOOD COUNT 8.2 K/mm3 (4.0-10.0)
[2019-10-15 16:58] LABS: COCAINE, UR NEGATIVE ng/ml (CUTOFF=300); METHADONE, UR NEGATIVE ng/ml (CUTOFF=300); OPIATES, URI NEGATIVE ng/ml (CUTOFF=300); PHENCYCLIDINE,URINE NEGATIVE ng/ml (CUTOFF=25); URINE AMPHETAMINES NEGATIVE ng/ml (CUTOFF=500); URINE BARBITURATES NEGATIVE ng/ml (CUTOFF=200); URINE BENZODIAZEPINES NEGATIVE ng/ml (CUTOFF=200)
[2019-10-15 17:15] LABS: ALBUMIN 4.1 g/dl (3.4-5.0); BILIRUBIN,TOTAL 0.9 mg/dL (0.2-1); BLOOD UREA NITROGEN 13.7 mg/dL (7-18); CALCIUM 9.2 mg/dL (8.5-10.1); CREATININE 0.9 mg/dL (0.55-1.3); POTASSIUM 4.2 mmol/L (3.5-5.1); TOT PROT 8.1 g/dl (6.4-8.2)
[2019-10-15 17:35] LABS: LIPASE 159 U/L (73-393); MAGNESIUM 2.2 mg/dL (1.8-2.4)
[2019-10-15 17:36] LABS: EPI CELLS 0.2 /HPF (0-5/HPF); URINE RBC 0.2 /hpf (0-4); URINE WBC 0.6 /hpf (0-5)
[2019-10-15] MEDS ORDERED: LORazepam 2 MG/ML SDV VIAL ONE (18:06)
[2019-10-15] MEDS ORDERED: ONDANSETRON 4 MG/2 ML VIAL ONE (18:07)
--- NOTE | 2019-10-15 19:29 | PDOC ---
History of Present Illness - General Chief Complaint: Tremors Stated Complaint: ALCOHOL WITHDRAWAL Time Seen by Provider: 10/15/19 15:56 History Source: Patient Exam Limitations: No Limitations - History of Present Illness Initial Comments: 10/15/19 19:34 HISTORY OF PRESENT ILLNESS: 34-year-old male denies medical history presents to the emergency department for evaluation of nausea, vomiting and tremors for 1 day per patient reports daily alcohol use was unable to identify a number of drinks daily. Patient reports his last drink was yesterday. He denies fevers, chills, dizziness, tactile auditory hallucinations. HISTORY OF PRESENT ILLNESS: No recent travel or sick contacts. PAST MEDICAL HISTORY: Denies past medical history SURGICAL HISTORY: Denies ALLERGIES: No known drug allergies REVIEW OF SYSTEMS General/Constitutional: Denies fever or chills. Denies weakness, weight change. HEENT: Denies change in vision. Denies ear pain or discharge. Denies sore throat. Cardiovascular: Denies chest pain or shortness of breath. Respiratory: Denies cough, wheezing, or hemoptysis. Gastrointestinal: See HPI Genitourinary: Denies dysuria, frequency, or change in urination. Musculoskeletal: Denies joint or muscle swelling or pain. Denies neck or back pain. Skin and breasts: Denies rash or easy bruising. Neurologic: See HPI Psychiatric: Denies depression or anxiety. Endocrine: Denies increased thirst. Denies abnormal weight change. Hematologic/Lymphatic: Denies anemia, easy bleeding, or history of blood clots. Allergic/Immunologic: Denies hives or skin allergy. Denies latex allergy. PHYSICAL EXAM General Appearance: Well-appearing, appropriately dressed. No intoxication. Appears anxious. HEENT: EOMI, PERRLA, normal ENT inspection, normal voice, TMs normal, pharynx normal. No conjunctival pallor. No photophobia, scleral icterus. Mucous membranes moist. No tongue fasciculations present. Neck: Supple. Trachea midline. No tenderness, rigidity, carotid bruit, stridor , lymphadenopathy, or thyromegaly. Respiratory/Chest: Lungs CTAB. No shortness of breath, chest tenderness, respiratory distress, accessory muscle use. No crackles, rales, rhonchi, stridor , wheezing, dullness Cardiovascular: RRR. S1, S2. No JVD, murmur, bradycardia, tachycardia. Vascular Pulses: Dorsalis-Pedis (R): 2+, Dorsalis-Pedis (L): 2+ Gastrointestinal/Abdominal: Normal bowel sounds. Abdomen soft, non-distended. No tenderness or rebound tenderness. No organomegaly, pulsatile mass, guarding, hernia, hepatomegaly, splenomegaly. Lymphatic: No adenopathy, tenderness. Musculoskeletal/Extremities: Normal inspection. FROM of all extremities, normal capillary refill. Pelvis Stable. No CVA tenderness. No tenderness to extremities, pedal edema, swelling, erythema or deformity. Integumentary: Appropriate color, dry, warm. No cyanosis, erythema, jaundice or rash. No gooseflesh skin noted. Neurologic: thermodynamicist II-XII intact. Fully oriented, alert. Appropriate mood/affect. Motor strength 5/5. No appreciable EOM palsy, facial droop or sensory deficit. Tremors noted with outstretched hands. Past History - Past Medical History Allergies/Adverse Reactions: Allergies Allergy/AdvReac Type Severity Reaction Status Date / Time No Known Allergies Allergy Verified 10/15/19 15:59 Home Medications: Ambulatory Orders Lisinopril 10 mg PO BID 07/10/19 Pantoprazole Sodium [Protonix] 40 mg PO DAILY 07/10/19 Thiamine HCl [B-1] 100 mg PO DAILY 07/10/19 metFORMIN HCL [Metformin HCl] 500 mg PO DAILY 07/10/19 Folic Acid 1 mg PO DAILY 09/09/19 Anemia: No Asthma: No Cancer: No Cardiac Disorders: No CVA: No COPD: No CHF: No Dementia: No Diabetes: Yes (METFORMIN) GI Disorders: Yes (GERD - PANTOPRAZOLE) Disorders: No HTN: Yes (LISINOPRIL) Hypercholesterolemia: No Kidney Stones: No Liver Disease: No Seizures: No Thyroid Disease: No - Surgical History Abdominal Surgery: No Appendectomy: No Cardiac Surgery: No Cholecystectomy: No Lung Surgery: No Neurologic Surgery: No Orthopedic Surgery: No - Reproductive History Testicular Surgery: No - Immunization History Immunization Up to Date: Yes - Psycho Social/Smoking Cessation Hx Smoking History: Never smoked Have you smoked in the past 12 months: No Hx Alcohol Use: Yes Drug/Substance Use Hx: No Substance Use Type: Alcohol Hx Substance Use Treatment: Yes *Physical Exam - Vital Signs Last Vital Signs Temp Pulse Resp BP Pulse Ox 98 F 98 H 18 135/98 98 10/15/19 15:56 10/15/19 15:56 10/15/19 15:56 10/15/19 15:56 10/15/19 15:56 ED Treatment Course - LABORATORY CBC & Chemistry Diagram: 10/15/19 16:35 10/15/19 16:35 - ADDITIONAL ORDERS Additional order review: Laboratory Results 10/15/19 10/15/19 10/15/19 16:35 16:35 16:35 Sodium Potassium Chloride Carbon Dioxide Anion Gap BUN Creatinine Est GFR (CKD-EPI)AfAm Est GFR (CKD-EPI)NonAf Random Glucose Calcium Magnesium 2.2 Total Bilirubin AST ALT Alkaline Phosphatase Total Protein Albumin Lipase 159 Urine Color Yellow Urine Appearance Clear Urine pH 7.5 Ur Specific [place] 1.005 L Urine Protein Negative Urine Glucose (UA) Negative Urine Ketones Negative Urine Blood Negative Urine Nitrite Negative Urine Bilirubin Negative Urine Urobilinogen 1.0 Ur Leukocyte Esterase Trace Urine WBC (Auto) 0.6 Urine RBC (Auto) 0.2 U Epithel Cells (Auto) 0.2 Urine Bacteria (Auto) 05 Opiates Screen Negative Methadone Screen Negative Barbiturate Screen Negative Phencyclidine Screen Negative Ur Amphetamines Screen Negative MDMA (Ecstasy) Screen Negative Benzodiazepines Screen Negative Cocaine Screen Negative U Marijuana (THC) Screen Negative Alcohol, Quantitative < 3 10/15/19 16:35 Sodium 133 L Potassium 4.2 Chloride 97 L Carbon Dioxide 25 Anion Gap 11 BUN 13.7 Creatinine 0.9 Est GFR (CKD-EPI)AfAm 129.61 Est GFR (CKD-EPI)NonAf 111.83 Random Glucose 117 H Calcium 9.2 Magnesium Total Bilirubin 0.9 AST 190 H ALT 192 H Alkaline Phosphatase 100 Total Protein 8.1 Albumin 4.1 Lipase Urine Color Urine Appearance Urine pH Ur Specific [place] Urine Protein Urine Glucose (UA) Urine Ketones Urine Blood Urine Nitrite Urine Bilirubin Urine Urobilinogen Ur Leukocyte Esterase Urine WBC (Auto) Urine RBC (Auto) U Epithel Cells (Auto) Urine Bacteria (Auto) Opiates Screen Methadone Screen Barbiturate Screen Phencyclidine Screen Ur Amphetamines Screen MDMA (Ecstasy) Screen Benzodiazepines Screen Cocaine Screen U Marijuana (THC) Screen Alcohol, Quantitative 10/15/19 16:35 RBC 4.78 MCV 93.4 MCHC 35.2 RDW 13.4 D MPV 7.9 D Neutrophils % 64.2 D Lymphocytes % 28.0 D Monocytes % 6.9 Eosinophils % 0.4 D Basophils % 0.5 - Medications Given in the ED: ED Medications Discontinued Medications Generic Name Dose Route Start Last Admin Trade Name Deshawn PRN Reason Stop Dose Admin Lorazepam 2 mg 10/15/19 16:00 10/15/19 18:00 Ativan Injection - IVPUSH 10/15/19 16:01 2 mg ONCE ONE Administration Ondansetron HCl 4 mg 10/15/19 16:00 10/15/19 18:15 Zofran Injection IVPUSH 10/15/19 16:01 4 mg ONCE ONE Administration Medical Decision Making - Medical Decision Making 10/15/19 19:44 A/P: 34-year-old male for alcohol withdrawal moderate nausea Appears anxious Tremor present with extended arm Ciwa-Ar-10 Orders per RME Reassess 10/15/19 21:51 Patient is amatory in the emergency department with steady gait. Currently with the CIWA-7. Librium 50 mg orally now P.o. trial Reassess 10/15/19 21:52 10/16/19 01:26 Patient tolerated p.o.'s without difficulty and received a second bag of IV fluids. Patient's gait is steady there is no longer tremulous. I will discharge patient home with instructions to follow-up with [facility] as needed. Discharge - Discharge Information Problems reviewed: Yes Clinical Impression/Diagnosis: Alcohol dependence with uncomplicated withdrawal Condition: Fair Disposition: HOME - Admission No - Follow up/Referral - Patient Discharge Instructions Patient Printed Discharge Instructions: DI for Alcohol Abuse Additional Instructions: You may go to [address] should you desire alcohol detox and rehabilitation. Eat a well-balanced diet. Drink plenty of nonalcoholic beverages Return to emergency department for any new or worsening symptoms. Thank you very much for choosing us to provide your emergent health care needs. Puede ir a [address] si desea desintoxicacin de alcohol y rehabilitacin. Coma last dieta codie balanceada. Carmelina muchas bebidas sin alcohol Regrese al departamento de emergencias por cualquier sntoma nuevo o que empeore. Muchas leonora por elegirnos para satisfacer rae necesidades de atencin mdica de emergencia. - Post Discharge Activity
[2019-10-15] MEDS ORDERED: ACETAMINOPHEN INJECTION 100 ML IVPB ONE (19:54)
[2019-10-15] MEDS ORDERED: ACETAMINOPHEN 1000 MG/100 ML VIAL (NON FORMULARY) IVPB ONE (20:17)
[2019-10-15] MEDS ORDERED: chlordiazePOXIDE HCL 25 MG CAPSULE PO ONE (21:51)
[2019-10-15] MEDS ORDERED: chlordiazePOXIDE HCL 10 MG CAPSULE ONE (23:27)
[2019-10-16 04:21] VITALS: BP 132/79; PULSE 84; TEMP 97.9
== END 2019-10-16 04:21 | disposition home or self-care (01) ==
LOC: JER 15:53
PROC: 3E033NZ Introduction of Analgesics, Hypnotics, Sedatives into Peripheral Vein, Percutaneous Approach (ICD-10-PCS; principal; 2019-10-15)
PROC: 3E033GC Introduction of Other Therapeutic Substance into Peripheral Vein, Percutaneous Approach (ICD-10-PCS; 2019-10-15)
DX: F10.239 Alcohol dependence with withdrawal, unspecified (principal); K21.9 Gastro-esophageal reflux disease without esophagitis; I10 Essential (primary) hypertension; Z79.84 Long term (current) use of oral hypoglycemic drugs
CPT/HCPCS: 36415; 80053; 80307; 81003; 83690; 83735; 85025; 99283-25; J0131; J7030

== ENCOUNTER 2020-05-12 03:55 | Inpatient (IN) | payer OTHER ==
--- NOTE | 2020-05-12 04:18 | PDOC ---
Attending Attestation - Resident Resident Name: Ochoa Moore - ED Attending Attestation I have performed the following: I have examined & evaluated the patient, The case was reviewed & discussed with the resident, I agree w/resident's findings & plan - HPI HPI: 05/12/20 04:15 see resident hpi - Physicial Exam PE: 05/12/20 04:15 see resident exam - Medical Decision Making 05/12/20 04:15 34-year-old male with a history of alcohol abuse stating he feels unwell, last drink approximately 24 hours ago Plan for labs including alcohol level as well as CT scan of the brain Benzodiazepine protocol for impending alcohol withdrawal We will admit to medical service for further observation as patient has had significant withdrawal symptoms in the past including seizures Discharge - Discharge Information Problems reviewed: Yes Clinical Impression/Diagnosis: Alcohol dependence with uncomplicated withdrawal - Follow up/Referral - Patient Discharge Instructions - Post Discharge Activity
[2020-05-12] MEDS ORDERED: LORazepam 2 MG/ML SDV VIAL ONE (04:26)
--- NOTE | 2020-05-12 04:32 | PDOC ---
History of Present Illness - General Chief Complaint: Alcohol intoxication Stated Complaint: INTOX Time Seen by Provider: 05/12/20 03:59 History Source: Patient - History of Present Illness Initial Comments: 05/12/20 04:32 34M w/hx EtOH use disorder, withdrawal seizures p/w nausea, vomiting, tremors. He reports typical EtOH intake of 15 drinks daily. He reports that his last drink was yesterday at 1000 (2 drinks total). He denies prior ICU admissions or intubations due to EtOH withdrawal management. He reports tremors, anxiety, paresthesias on upper extremities, as well as multiple episodes of nbnb vomiting "all day" (he is unable to quantify). He denies any auditory or visual hallucinations. He denies any drug use. Past History - Medical History Allergies/Adverse Reactions: Allergies Allergy/AdvReac Type Severity Reaction Status Date / Time No Known Allergies Allergy Verified 05/12/20 03:58 Home Medications: Ambulatory Orders Lisinopril 10 mg PO BID 07/10/19 Pantoprazole Sodium [Protonix] 40 mg PO DAILY 07/10/19 Thiamine HCl [B-1] 100 mg PO DAILY 07/10/19 metFORMIN HCL [Metformin HCl] 500 mg PO DAILY 07/10/19 Folic Acid 1 mg PO DAILY 09/09/19 Pantoprazole Sodium [Protonix -] 40 mg PO DAILY #0 tablet.ec 05/17/20 Anemia: No Asthma: No Cancer: No Cardiac Disorders: No CVA: No COPD: No CHF: No Dementia: No Diabetes: Yes (METFORMIN) GI Disorders: Yes (GERD - PANTOPRAZOLE) Disorders: No HTN: Yes (LISINOPRIL) Hypercholesterolemia: No Kidney Stones: No Liver Disease: No Seizures: No Thyroid Disease: No - Surgical History Abdominal Surgery: No Appendectomy: No Cardiac Surgery: No Cholecystectomy: No Lung Surgery: No Neurologic Surgery: No Orthopedic Surgery: No - Reproductive History Testicular Surgery: No - Immunization History Immunization Up to Date: Yes - Psycho-Social/Smoking History Smoking History: Current some day smoker Have you smoked in the past 12 months: No Number of Cigarettes Smoked Daily: 3 Information on smoking cessation initiated: No - Substance Abuse Hx (Audit-C & DAST Scrn) How often the patient has a drink containing alcohol: 2-3 times / week Number of drinks the patient has on a typical day: 5 or 6 Score: In Men: 4 or > Positive; In Women: 3 or > Positive: 5 Screen Result (Pos requires Nsg. Audit-10AR): Positive In the last yr the pt used illegal drug/Rx for NonMed reason: No Score: Yes response is considered Positive: 0 Screen Result (Positive result requires Nsg. DAST-10): Negative Review of Systems - Review of Systems Able to Perform ROS?: Yes Comments:: GENERAL/CONSTITUTIONAL: No fever or chills. No weakness. HEAD, EYES, EARS, NOSE AND THROAT: No change in vision. No ear pain or discharge. No sore throat. CARDIOVASCULAR: No chest pain or shortness of breath RESPIRATORY: No cough, wheezing, or hemoptysis. GASTROINTESTINAL: Nausea, vomiting. No diarrhea or constipation. GENITOURINARY: No dysuria, frequency, or change in urination. MUSCULOSKELETAL: No joint or muscle swelling or pain. No neck or back pain. SKIN: No rash NEUROLOGIC: No headache, vertigo, loss of consciousness, or change in strength/sensation. ENDOCRINE: No increased thirst. No abnormal weight change HEMATOLOGIC/LYMPHATIC: No anemia, easy bleeding, or history of blood clots. ALLERGIC/IMMUNOLOGIC: No hives or skin allergy. *Physical Exam - Vital Signs Last Vital Signs Temp Pulse Resp BP Pulse Ox 98.6 F 72 17 128/90 98 05/12/20 03:57 05/12/20 03:57 05/12/20 03:57 05/12/20 03:57 05/12/20 03:57 - Physical Exam GENERAL: Awake, alert, and fully oriented, in no acute distress HEAD: No signs of trauma, normocephalic, atraumatic EYES: PERRLA, EOMI, sclera anicteric, conjunctiva clear ENT: Auricles normal inspection, hearing grossly normal, nares patent, oropharynx clear without exudates. Moist mucosa NECK: Normal ROM, supple, no lymphadenopathy, JVD, or masses LUNGS: No distress, speaks full sentences, clear to auscultation bilaterally HEART: Regular rate and rhythm, normal S1 and S2, no murmurs, rubs or gallops, peripheral pulses normal and equal bilaterally. ABDOMEN: Soft, nontender, normoactive bowel sounds. No guarding, no rebound. No masses EXTREMITIES : Normal inspection, Normal range of motion, no edema. No clubbing or cyanosis NEUROLOGICAL: Cranial nerves II through XII grossly intact. Normal speech, normal gait SKIN: Warm, Dry, normal turgor, no rashes or lesions noted CIWA: 13 (Nausea/Vomiting +5, Tremor +5, no diaphoresis, anxiety +2, no agitation, mild upper extremity numbness +1, no auditory or visual hallucinations, no headache, fully oriented) ED Treatment Course - LABORATORY CBC & Chemistry Diagram: 05/17/20 09:15 05/17/20 09:15 - RADIOLOGY Radiology Studies Ordered: Category Date Time Status CERVICAL SPINE CT W/O CONTR [CT] Stat CT Scan 05/12/20 04:[address] WITHOUT CONTRAST [CT] Stat CT Scan 05/12/20 04:06 Ordered CHEST X-RAY PORTABLE* [RAD] Stat Radiology 05/12/20 04:06 Ordered Medical Decision Making - Medical Decision Making 05/12/20 04:34 34M w/hx EtOH use disorder p/w tremors, tongue fasciculation (CIWA 13), abdominal pain, nausea, nbnb vomiting after reducing EtOH intake from daily 15 drinks to 2 drinks yesterday (last drink 1000 yesterday), concerning for EtOH withdrawal. Ddx pancreatitis, gastritis, uncomplicated EtOH withdrawal. Plan: Valium 5mg Ativan per [facility] protocol CBC CMP EKG CXR Lipase Lactate 1L LR PT/INR, APTT Dispo: Admit 05/12/20 05:36 Lipase 2400 (prior 500) Additional fluid bolus ordered. Plan for admission. Discharge - Discharge Information Problems reviewed: Yes Clinical Impression/Diagnosis: Alcohol dependence with uncomplicated withdrawal, Alcoholic pancreatitis Condition: Guarded - Admission Yes - Follow up/Referral - Patient Discharge Instructions - Post Discharge Activity
[2020-05-12 04:46] LABS: BASO % 0.5 % (0-2.0); EOS % 0.3 % (0-4.5); HEMATOCRIT 40.7 % (35.4-49); HEMOGLOBIN 14.2 GM/dL (11.7-16.9); LYMPH % 41.6 % (8-40); MCH 32.1 pg (25.7-33.7); MCHC 34.8 g/dl (32.0-35.9); MEAN CELL VOLUME 92.4 fl (80-96); MONO % 6.7 % (3.8-10.2); NEUT % 50.9 % (42.8-82.8); PLATELET COUNT 73 K/MM3 (134-434); RBC 4.41 M/mm3 (4.00-5.60); RDW 14.8 % (11.9-15.9); WHITE BLOOD COUNT 3.4 K/mm3 (4.0-10.0)
[2020-05-12] MEDS ORDERED: LORazepam 2 MG TABLET PO SCH (05:00)
[2020-05-12 05:03] LABS: INR 1.02 (0.83-1.09)
[2020-05-12 05:06] LABS: ACTIVATED PTT 30.1 SECONDS (25.2-36.5)
[2020-05-12 05:15] LABS: ALBUMIN 3.8 g/dl (3.4-5.0); ALK PHOS 201 U/L (45-117); ANION GAP 14 MMOL/L (8-16); BILIRUBIN,TOTAL 1.4 mg/dL (0.2-1); CALCIUM 9.2 mg/dL (8.5-10.1); CHLORIDE 96 mmol/L (98-107); CO2 24 mmol/L (21-32); GLUCOSE,RANDOM 92 mg/dL (74-106); SGOT/AST 509 U/L (15-37); SGPT/ALT 188 U/L (13-61); SODIUM 134 mmol/L (136-145); TOT PROT 8.1 g/dl (6.4-8.2)
[2020-05-12] MEDS ORDERED: LACTATED RINGERS SOLUTION 1000 ML INFUS.BAG IV ONE (05:21)
[2020-05-12 05:22] LABS: CREATININE 0.8 mg/dL (0.55-1.3)
[2020-05-12] MEDS ORDERED: LACTATED RINGERS SOLUTION 1,000 ML/1,000 ML INFUS.BAG IV SCH (05:30)
[2020-05-12] MEDS ORDERED: diazePAM CARPU-JECT 10 MG/2 ML DISP.SYRIN IVPUSH ONE (05:31)
[2020-05-12] MEDS ORDERED: diazePAM CARPU-JECT 10 MG/2 ML DISP.SYRIN ONE (05:50)
--- NOTE | 2020-05-12 06:25 | PN ---
Teaching Attending Note Name of Resident: Wilbert Alarcon ATTENDING PHYSICIAN STATEMENT I saw and evaluated the patient. I reviewed the resident's note and discussed the case with the resident. I agree with the resident's findings and plan as documented. SUBJECTIVE: 34M w/PMHx EtOH use disorder, withdrawal seizures p/w nausea, vomiting, tremors. He reports EtOH intake of 15 drinks daily. OBJECTIVE: VSS Gen well appearing Chinese speaking male Card-s1 s2 no m/r/g Lungs CTA B/L Abd soft tender epigastric>other quadrants Ext no edema or rashes Neuro non focal neuro exam Lymphopenia 3.4 Thrombocytopenia 73 Elevated LFT AST/ALT ALP 599/108 201 Lipase 2444 ASSESSMENT AND PLAN: Alcoholic Liver disease Pancreatitis 2/2 Excessive EtOH use Thrombocytopenia in setting of EtOH abuse and Alcoholic Liver Disease Ativan protocol for Etoh Withdrawls NPO for now advance diet as tolerated Obtain US Liver and Gallbladder CT Abd if pain does not improve Monitor platelets no sign symptom of active bleed now Zofran 4 mg q 4 PRN N/V IV LR @ 125 cc/hr x 24 hr and reassess Monitor LFTs Serial abdominal exams DVT Px: hold for now Diet NPO GI Px Protonix 40 mg IVP Daily
[2020-05-12] MEDS ORDERED: MORPHINE SULFATE 2 MG/ML VIAL IVPUSH PRN (06:46)
[2020-05-12] MEDS ORDERED: LORazepam 1 MG TABLET PO PRN (06:54)
--- NOTE | 2020-05-12 06:58 | HP ---
CHIEF COMPLAINT: alcohol withdrawal PCP: None, Has not followed up with Dr. Norman HISTORY OF PRESENT ILLNESS: Pt. is a 34 y.o. Cymro-speaking M w/ PMHx. of HTN, GERD, DM2, and Psorias presents for tremors and abdominal pain. Pt. states that the pain is diffuse and is 8/10. Pt. states that he took Tylenol, 1 pill, every day for a week for pain to mild effect. Pt. states that he drinks ~20 beers a day and tried 1 week ago to stop resu;ting in lots fof tremors one night where his bit his tongue/ Pt. denies any post-ictal state, urinating or defecating on himself. Pt. endorses current diarrhea 2x/ day that is watery and non-bloody. Pt. endorses NBNB vomiting, headache, anxiety, tremors, numbness and tingling in extremities (worse when he stops drinking) and sweating. Pt. endorses decreased PO intake for weeks because he was consuming alcohol. Pt. denies any chest pain, history of intubations, hallucinations (auditory or visual). Pt. states that he has not checked his sugars in many months. He has not taken his medications in over 2 months because he has not picked up his medications. Pt. unable to state why he has not picked up his medications. 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 Allergies No Known Allergies Allergy (Verified 05/12/20 03:58) HOME MEDICATIONS: Home Medications Medication Instructions Recorded Lisinopril 10 mg PO BID 07/10/19 Pantoprazole Sodium [Protonix] 40 mg PO DAILY 07/10/19 Thiamine HCl [B-1] 100 mg PO DAILY 07/10/19 metFORMIN HCL [Metformin HCl] 500 mg PO DAILY 07/10/19 Folic Acid 1 mg PO DAILY 09/09/19 REVIEW OF SYSTEMS As above PHYSICAL EXAMINATION Vital Signs - 24 hr 05/12/20 03:57 Temperature 98.6 F Pulse Rate 72 Respiratory 17 Rate Blood Pressure 128/90 O2 Sat by Pulse 98 Oximetry (%) GENERAL: Awake, alert, and fully oriented, in mild distress 2/2 pain. HEAD: Normal with no signs of trauma. EYES: Extraocular movements intact, sclera icteric?, conjunctiva clear. EARS, NOSE, THROAT: Ears normal, nares patent, oropharynx clear without exudates. Moist mucous membranes. LUNGS: Decreased breath hsounds in LLL, clear to auscultation bilaterally. No wheezes, and no crackles. No accessory muscle use. HEART: Regular rate and rhythm, normal S1 and S2 without murmur ABDOMEN: Soft, diffuse tenderness to palpation, not distended, normoactive bowel sounds MUSCULOSKELETAL: CVA tenderness?. UPPER EXTREMITIES: 2+ radial pulses, warm, well-perfused. No cyanosis. No clubbing. No peripheral edema. LOWER EXTREMITIES: warm, well-perfused. No calf tenderness. No peripheral edema. NEUROLOGICAL: Numbness and tingling in hands and feet, Gait not assessed PSYCHIATRIC: Cooperative. Good eye contact. Appropriate mood and affect. SKIN: Warm, dry, psoriasis plaques on lower extremities Laboratory Results - last 24 hr 05/12/20 05/12/20 05/12/20 04:35 04:35 04:35 WBC 3.4 L RBC 4.41 Hgb 14.2 Hct 40.7 MCV 92.4 MCH 32.1 MCHC 34.8 RDW 14.8 D Plt Count 73 L D MPV 8.0 Absolute Neuts (auto) 1.7 Neutrophils % 50.9 D Lymphocytes % 41.6 H D Monocytes % 6.7 Eosinophils % 0.3 Basophils % 0.5 Nucleated RBC % 0 PT with INR 12.00 INR 1.02 PTT (Actin FS) 30.1 Sodium 134 L Potassium 4.0 Chloride 96 L Carbon Dioxide 24 Anion Gap 14 BUN 9.0 Creatinine 0.8 Est GFR (CKD-EPI)AfAm 136.03 Est GFR (CKD-EPI)NonAf 117.37 Random Glucose 92 Calcium 9.2 Total Bilirubin 1.4 H AST 509 H ALT 188 H Alkaline Phosphatase 201 H Troponin I < 0.02 Total Protein 8.1 Albumin 3.8 Lipase Alcohol, Quantitative 234.7 H 05/12/20 04:35 WBC RBC Hgb Hct MCV MCH MCHC RDW Plt Count MPV Absolute Neuts (auto) Neutrophils % Lymphocytes % Monocytes % Eosinophils % Basophils % Nucleated RBC % PT with INR INR PTT (Actin FS) Sodium Potassium Chloride Carbon Dioxide Anion Gap BUN Creatinine Est GFR (CKD-EPI)AfAm Est GFR (CKD-EPI)NonAf Random Glucose Calcium Total Bilirubin AST ALT Alkaline Phosphatase Troponin I Total Protein Albumin Lipase 2444 H Alcohol, Quantitative ASSESSMENT/PLAN: Pt. is a 34 y.o. Cymro-speaking M w/ PMHx. of HTN, GERD, DM2, and Psorias presents for tremors and abdominal pain. #Abdominal Pain with transaminitis likely 2/2 acute pancreatitis, Pt. has Lipase 2400, and diffuse abdominal pain LFTs elevated ( AST: 509, ALT: 108) consistent with alcoholic hepatitis; MADDREY: 6 = good prognosis f/u Abd. US to r/o gall stones as Pt. had Abd. US last year with internal echoes noted in GB Aggressive IVF Morphine NPO frequent assessment for abdominal pain CXR unchanged from prior per my read f/u lipid panel for triglyceride assessment f/u Acetaminophen level #EtOH Withdrawal with Neuropathy and Thrombocytopenia CIWA: 18 Ativan IV 1mg Q2H; low threshold to increase Thiamin, Folic acid f/u B12 and Folic acid Seizure precautions fall precautions thrombocytopenia likely 2/2 alcohol abuse and bone marrow suppression, currently 73K was 193k in October refer to Detox on discharge Head CT and CSpine CT negative EKG: NSR, HR:79, QTc: 444, with J-poin elevation due early repolarization?, Trops negative x 1, f/u Rpt.; denies chest pain. #DM2 BGM ACHS, ISS f/u AIc #HTN currently normotensive, was on Lisinopril 10mg BID low threshold to resume f/u UA to assess for proteinuria #GERD Protonix 40mg IV #FEN LR @ 200 monitor electrolytes and replete as needed NPO #DVT Ppx. SCDs Visit type - Emergency Visit Emergency Visit: Yes ED Registration Date: 05/12/20 Care time: The patient presented to the Emergency Department on the above date and was hospitalized for further evaluation of their emergent condition. - New Patient This patient is new to me today: Yes Date on this admission: 05/12/20 - Critical Care Critical Care patient: No ATTENDING PHYSICIAN STATEMENT I saw and evaluated the patient. I reviewed the resident's note and discussed the case with the resident. I agree with the resident's findings and plan as documented. SUBJECTIVE: OBJECTIVE: ASSESSMENT AND PLAN:
[2020-05-12] MEDS: INSULIN SLIDING SCALE (NOVOLOG) 1 VIAL SQ SCH ×3 (07:00→16:58)
[2020-05-12] MEDS: LACTATED RINGERS SOLUTION 1,000 ML/1,000 ML INFUS.BAG IV SCH (07:00)
[2020-05-12] MEDS ORDERED: LORazepam 0.5 MG TABLET ONE ×3 (07:15→16:54)
[2020-05-12] MEDS ORDERED: LORazepam 2 MG/ML SDV VIAL IVPUSH PRN (07:34)
[2020-05-12] MEDS ORDERED: PANTOPRAZOLE 40 MG TABLET PO SCH (10:00)
[2020-05-12] MEDS ORDERED: LISINOPRIL 10 MG TABLET (FP) PO SCH (10:00)
--- NOTE | 2020-05-12 10:36 | EKG ---
Test Reason : Blood Pressure : / mmHG Vent. Rate : 079 BPM Atrial Rate : 079 BPM P-R Int : 160 ms QRS Dur : 076 ms QT Int : 388 ms P-R-T Axes : 088 041 029 degrees QTc Int : 444 ms POOR DATA QUALITY, INTERPRETATION MAY BE ADVERSELY AFFECTED NORMAL SINUS RHYTHM ST ELEVATION, CONSIDER EARLY REPOLARIZATION BORDERLINE ECG WHEN COMPARED WITH ECG OF 09-SEP-2019 03:30, NONSPECIFIC T WAVE ABNORMALITY HAS REPLACED INVERTED T WAVES IN INFERIOR LEADS Confirmed by Aguilar Yap MD ([id number]) on 05/12/2020 10:35:43 AM Referred By: Confirmed By:Aguilar Yap MD
[2020-05-12] MEDS: PANTOPRAZOLE SODIUM 40 MG VIAL IVPUSH SCH (11:35)
[2020-05-12] MEDS ORDERED: THIAMINE HCL 200 MG/2 ML VIAL ONE (11:37)
[2020-05-12 11:39] LABS: CHOLESTEROL 299 mg/dL (50-200); HDL CHOLESTEROL 75 mg/dL (40-60); LDL CHOLESTEROL (ONLY SJRH) 121 mg/dL (5-100); TRIGLYCERIDES 493 mg/dL (0-150)
[2020-05-12] MEDS: THIAMINE HCL 200 MG/2 ML VIAL IVPB SCH (11:39)
--- NOTE | 2020-05-12 11:54 | HOSP ---
Subjective - Review of Symptoms Events since last encounter: Seen and examined in ED on stretch. General: Yes: Malaise Gastrointestinal: Yes: Nausea, Vomiting, Abdominal Pain Neurological: Yes: Other (tremors) Physical Examination Vital Signs: Vital Signs Temperature 98.9 F 05/12/20 07:01 Pulse Rate 88 05/12/20 10:29 Respiratory Rate 17 05/12/20 10:29 Blood Pressure 124/82 05/12/20 10:29 O2 Sat by Pulse Oximetry (%) 99 05/12/20 10:29 Constitutional: Yes: Well Nourished, No Distress, Calm, Anxious, Mild Distress Eyes: Yes: WNL, Conjunctiva Clear, EOM Intact HENT: Yes: WNL, Atraumatic, Normocephalic Neck: Yes: WNL, Supple, Trachea Midline Cardiovascular: Yes: WNL, Regular Rate and Rhythm Respiratory: Yes: WNL, Regular, CTA Bilaterally Gastrointestinal: Yes: Normal Bowel Sounds, Soft, Tenderness (generalized), Vomiting (reported) ...Rectal Exam: Yes: Deferred Renal/: Yes: WNL Breast(s): Yes: WNL Musculoskeletal: Yes: WNL Extremities: Yes: WNL Edema: Yes Peripheral Pulses WNL: Yes Peripheral Pulses: Left Radial: 2+, Right Radial: 2+, Left Doralis Pedis: 2+, Right Dorsalis Pedis: 2+, Left Femoral: 2+, Right Femoral: 2+ Integumentary: Yes: WNL Neurological: Yes: Lethargy (arousable to verbal stumili), Tingling (to UE), Tremors (upper extremeties) ...Motor Strength: WNL Psychiatric: Yes: WNL, Alert Labs: CBC, BMP 05/12/20 04:35 05/12/20 04:35 Hospitalist Encounter Assessment: Seen and examined in ED on stretch 34 y.o. [place]an-speaking M w/ PMHx. of HTN, GERD, DM2, and Psorias presents for tremors and abdominal pain lethargic but arousable to verbal stimuli #Abdominal Pain with transaminitis likely 2/2 acute pancreatitis-Lipase 2400, and diffuse abdominal pain LFTs elevated c/w IVF at 200cc/hr US with not acute pathology GI consultation pending MRCP ordered and pending avoid hepatic toxic agents hepatatis panel pending #ETOH abuse long standing history or ETOH with mutiple admissions for detox CIWA 18 initiate ativan detox protocol Thiamine, Folic acid life enrichment specialist consultation requested #DM BGM AC/HS with novolog sliding scale diabetic diet HbgA1C 6.6 #Htn normotensive c/w lisinipril #GERD c/w Protonix 40mg #COVID r/o PCR pending airborne/droplet precautions #FEN LR @ 200 monitor electrolytes and replete as needed NPO #DVT no chemical AC given tranaminitis SCDs Full note to follow tomorrow CIWA Score Nausea/Vomitin Muscle Tremors: 3 Anxiety: 3 Agitation: 1-Slight > Activity Paroxysmal Sweats: 1-Minimal Palms Moist Orientation: 1-Uncertain about Date Tacttile Disturbances: 2-Mild Itch/Numbness/Burn Auditory Disturbances: 0-None Visual Disturbances: 0-None Headache: 2-Mild CIWA-Ar Total Score: 18 - Admission Criteria OASAS Guidelines: Admission for Medically Managed Detox: Requires at least one of the followin. CIWA greater than 12 2. Seizures within the past 24 hours 3. Delirium tremens within the past 24 hours 4. Hallucinations within the past 24 hours 5. Acute intervention needed for co occurring medical disorder 6. Acute intervention needed for co occurring psychiatric disorder 7. Severe withdrawal that cannot be handled at a lower level of care (continued vomiting, continued diarrhea, abnormal vital signs) requiring intravenous medication and/or fluids 8.
--- NOTE | 2020-05-12 13:59 | CON.GI ---
Consult - History of Present Illness History of Present Illness: 34 yo male with a history of alcohol abuse and presented to the ER with weakness, decrease in appetite. The patient states that he was nauseated and had bile tinged emesis last night. He denies any blood. His last drink was yesterday. The past 2 weeks he has been drinking 10-15 beers per day. He denies any fever/chills/CP or SOB. No history of gallstones/pancreatitis. The patient doesn't have a regular PMD/GI physician. - History Source History Provided By: Patient Limitations to Obtaining History: Other (history taken with [employer] phone intreperter #[id number]) - Past Medical History Cardio/Vascular: Yes: HTN Pulmonary: No: Asthma Gastrointestinal: Yes: Gastritis, GERD, GI Bleed (blood noted with wiping x1 with constipation), Other (never had EGD/colonscopy) Hepatobiliary: No: Cholelithiasis, Hepatitis A, Hepatitis B, Hepatitis C Renal/: No: Hematuria Heme/Onc: No: Bleeding Disorder Infectious Disease: No: HIV Musculoskeletal: Yes: Chronic low back pain Endocrine: Yes: Diabetes Mellitus Dermatology: Yes: Psoriasis - Past Surgical History Past Surgical History: Yes: None - Alcohol/Substance Use Hx Alcohol Use: Yes (Etoh use for past 5 years weekends with incease past two weeks) History of Substance Use: reports: Cocaine (states last smoked 20 days ago) - Smoking History Smoking history: Current some day smoker Have you smoked in the past 12 months: No Aproximately how many cigarettes per day: 3 - Social History ADL: Independent History of Recent Travel: No <Ijeoma Chew - Last Filed: 05/12/20 17:01> Home Medications <Ijeoma Chew - Last Filed: 05/12/20 17:01> <Beatrice Mckenzie - Last Filed: 05/12/20 21:46> - Allergies Allergies/Adverse Reactions: Allergies Allergy/AdvReac Type Severity Reaction Status Date / Time No Known Allergies Allergy Verified 05/12/20 03:58 - Home Medications Home Medications: Ambulatory Orders Lisinopril 10 mg PO BID 07/10/19 Pantoprazole Sodium [Protonix] 40 mg PO DAILY 07/10/19 Thiamine HCl [B-1] 100 mg PO DAILY 07/10/19 metFORMIN HCL [Metformin HCl] 500 mg PO DAILY 07/10/19 Folic Acid 1 mg PO DAILY 09/09/19 Review of Systems - Review of Systems Constitutional: denies: Chills, Fever Cardiovascular: denies: Chest Pain, Palpitations Respiratory: denies: Cough, SOB Gastrointestinal: reports: Abdominal Pain, Nausea. denies: Constipation Genitourinary: denies: Burning, Dysuria Musculoskeletal: reports: Back Pain Neurological: denies: Seizure Hematology/Lymphatic: reports: Easily Bruised <Metzen,Ijeoma - Last Filed: 05/12/20 17:01> Physical Exam-GI Vital Signs: Vital Signs Temperature 98.9 F 05/12/20 07:01 Pulse Rate 88 05/12/20 10:29 Respiratory Rate 17 05/12/20 10:29 Blood Pressure 124/82 05/12/20 10:29 O2 Sat by Pulse Oximetry (%) 99 05/12/20 10:29 HENT: No: Atraumatic, Normocephalic Cardiovascular: Yes: WNL, Regular Rate and Rhythm Respiratory: Yes: WNL, Regular, CTA Bilaterally ...Palpate: Yes: Tenderness (mild abd). No: Guarding, Mass Edema: No Neurological: Yes: Alert, Oriented. No: Asterixis ...Motor Strength: WNL Psychiatric: Yes: Alert, Oriented Labs: CBC, BMP 05/12/20 04:35 05/12/20 04:35 INR, PTT INR 1.02 (0.83-1.09) 05/12/20 04:35 Laboratory Tests 05/12/20 05/12/20 05/12/20 04:35 04:35 04:35 Plt Count 73 L D Hemoglobin A1c % Total Bilirubin 1.4 H AST 509 H ALT 188 H Alkaline Phosphatase 201 H Triglycerides Cholesterol Total LDL Cholesterol HDL Cholesterol Lipase 2444 H Vitamin B12 Acetaminophen Alcohol, Quantitative 234.7 H 05/12/20 05/12/20 05/12/20 07:13 10:35 10:35 Plt Count Hemoglobin A1c % 6.6 H Total Bilirubin AST ALT Alkaline Phosphatase Triglycerides Cholesterol Total LDL Cholesterol HDL Cholesterol Lipase Vitamin B12 Acetaminophen <2.0 Alcohol, Quantitative COVID-19 (ESE) Pending Hep A IgM Ab Confirm Hepatitis A Ab Total Hep Bs Antigen Hep Bs Antibody Hep B Core Total Ab Hep B Core IgM Ab Hepatitis Be Antibody Hepatitis Be Antigen Hep C Ab Diagnostic 05/12/20 05/12/20 05/12/20 10:35 10:35 10:35 Plt Count Hemoglobin A1c % Total Bilirubin AST ALT Alkaline Phosphatase Triglycerides 493 H Cholesterol 299 H Total LDL Cholesterol 121 H HDL Cholesterol 75 H Lipase Vitamin B12 Cancelled Acetaminophen Alcohol, Quantitative COVID-19 (ESE) Hep A IgM Ab Confirm Pending Hepatitis A Ab Total Pending Hep Bs Antigen Pending Hep Bs Antibody Pending Hep B Core Total Ab Pending Hep B Core IgM Ab Pending Hepatitis Be Antibody Pending Hepatitis Be Antigen Pending Hep C Ab Diagnostic Pending Laboratory Tests 10/15/19 16:35 Total Bilirubin 0.9 AST 190 H ALT 192 H Alkaline Phosphatase 100 Laboratory Tests 10/15/19 16:35 Plt Count 196 D <Ijeoma Chew - Last Filed: 05/12/20 17:01> Vital Signs: Vital Signs Temperature 98.9 F 05/12/20 07:01 Pulse Rate 82 05/12/20 20:35 Respiratory Rate 16 05/12/20 20:35 Blood Pressure 136/96 05/12/20 20:35 O2 Sat by Pulse Oximetry (%) 98 05/12/20 20:35 Labs: CBC, BMP 05/12/20 04:35 05/12/20 04:35 INR, PTT INR 1.02 (0.83-1.09) 05/12/20 04:35 <Beatrice Mckenzie - Last Filed: 05/12/20 21:46> Imaging - Results Ultrasound: Other (no evidendce of Gall stones, possible sludge. No biliary duct dilatation) <Ijeoma Chew - Last Filed: 05/12/20 17:01> Problem List - Problems (1) Elevated LFTs Assessment/Plan: pt with elevated LFTS, ultrasound without any evidence GS disease. Recommend further evaluation of biliary system with MRI imaging and trend LFTs daily He has a history of ETOH abuse, withdrawal measures needed, his Alcohol level is elevated and he feels weak and shaking. No confusion/aggitation. CIWA protocol Avoid hepatotoxic medicatios, hepatitis panel recommended-pending Aggressive IV hydration, pt to remain npo D/w Dr. Mckenzie and the medical team Problems reviewed: Yes Code(s): R94.5 - ABNORMAL RESULTS OF LIVER FUNCTION STUDIES <Ijeoma Chew - Last Filed: 07/01/20 17:01> Assessment/Plan PATIENT WAS SEEN AND EXAMINED VSS NAD AAO X3 BS EPIGASTRIC TENDERNESS WITHOUT REBOUND OR GUARDING NO EDEMA IMPRESSION: ETOH ASSOCIATED ACUTE PANCREATITIS / ETOH ABUSE WITH ASSOCIATED HEPATITIS. DF LESS THAN 32 REC: - NPO / IVF'S - CONTINUE AT 200 CC/ HR MONITOR WEIGHTS / I/O'S - TREND CMET , LFT, CBC , INR Q12 - LIVER SEROLOGY FOR CHRONIC DISEASE - MRCP TO FURTHER EVALUATE THE BILIARY TREE. - ETOH WITHDRAWAL PROTOCOL - ETOH ABSTINENCE COUNSELING - GI SERVICE WILL FOLLOW THIS PT . <Beatrice Mckenzie - Last Filed: 05/12/20 21:46>
[2020-05-12] MEDS ORDERED: HEPARIN NA (PORCINE) 5,000 UNITS/ML 1ML VIAL SQ SCH (14:00)
[2020-05-12] MEDS: LORazepam 2 MG TABLET PO SCH ×3 (14:02→23:00)
[2020-05-12] MEDS: LORazepam 1 MG TABLET PO PRN ×2 (14:48→22:12)
[2020-05-12] MEDS: FOLIC ACID 5 MG/1 ML SQ SCH (18:29)
[2020-05-12] MEDS: LORazepam 1 MG TABLET PO SCH (23:00)
[2020-05-13] MEDS: INSULIN SLIDING SCALE (NOVOLOG) 1 VIAL SQ SCH ×5 (01:47→21:15)
[2020-05-13] MEDS ORDERED: LORazepam 1 MG TABLET PO SCH ×2 (02:09→05:00)
[2020-05-13] MEDS: LORazepam 1 MG TABLET PO SCH ×4 (05:52→22:20)
[2020-05-13] MEDS: LACTATED RINGERS SOLUTION 1,000 ML/1,000 ML INFUS.BAG IV SCH ×4 (06:03→15:47)
[2020-05-13 06:47] LABS: EOS % 0.6 % (0-4.5); HEMATOCRIT 34.7 % (35.4-49); LYMPH % 32.5 % (8-40); MCH 32.1 pg (25.7-33.7); MCHC 34.6 g/dl (32.0-35.9); MEAN CELL VOLUME 92.9 fl (80-96); MEAN PLT VOLUME 8.9 fl (7.5-11.1); NEUT % 59.9 % (42.8-82.8); PLATELET COUNT 64 K/MM3 (134-434); RBC 3.74 M/mm3 (4.00-5.60); WHITE BLOOD COUNT 3.4 K/mm3 (4.0-10.0)
[2020-05-13 06:50] LABS: INR 0.99 (0.83-1.09); PROTHROMBIN TIME (PATIENT) 11.7 SEC (9.7-13.0)
[2020-05-13 07:07] LABS: ALBUMIN 3.3 g/dl (3.4-5.0); BILIRUBIN,TOTAL 1.7 mg/dL (0.2-1); BLOOD UREA NITROGEN 5.5 mg/dL (7-18); CREATININE 0.6 mg/dL (0.55-1.3); MAGNESIUM 2.1 mg/dL (1.8-2.4); PHOSPHOROUS 3.2 mg/dL (2.5-4.9); POTASSIUM 3.6 mmol/L (3.5-5.1)
--- NOTE | 2020-05-13 09:01 | PN ---
Progress Note, Physician Chief Complaint: Seen and examined in bed. Minimal diffuse lower abd pain. C/o being hungry. COVID PCR pending History of Present Illness: 34 y.o. Maltese-speaking M w/ PMHx. of HTN, GERD, DM2, and Psorias presents for tremors and abdominal pain - Current Medication List Current Medications: Active Medications Folic Acid (Folic Acid Injection -) 0.4 mg SQ DAILY [facility] Last Admin: 05/12/20 18:29 Dose: 0.4 mg Documented by: Lactated Ringer's (Lactated Ringers Solution) 1,000 ml in 1,000 mls @ 200 mls/hr IV ASDIR [facility] Last Admin: 05/13/20 06:03 Dose: 200 mls/hr Documented by: Insulin Aspart (Novolog Vial Sliding Scale -) 1 vial SQ ACHS [facility]; Protocol Last Admin: 05/13/20 06:06 Dose: Not Given Documented by: Lisinopril (Prinivil) 10 mg PO DAILY [facility] Lorazepam (Ativan -) 1 mg PO 0500,1100,1700,2300 [facility] Stop: 05/14/20 23:01 Lorazepam (Ativan -) 1 mg PO Q4H PRN PRN Reason: Symptoms of Withdrawal Stop: 05/14/20 23:59 Last Admin: 05/12/20 22:12 Dose: 1 mg Documented by: Lorazepam (Ativan -) 0.5 mg PO Q6H [facility] Stop: 05/15/20 23:01 Lorazepam (Ativan -) 0.5 mg PO Q4H PRN PRN Reason: Symptoms of Withdrawal Stop: 05/16/20 00:00 Lorazepam (Ativan -) 0.5 mg PO ONCE ONE Stop: 05/16/20 05:01 Lorazepam (Ativan -) 2 mg PO 0500,1100,1700,2300 [facility] Stop: 05/13/20 23:01 Last Admin: 05/13/20 05:52 Dose: 2 mg Documented by: Pantoprazole Sodium (Protonix Iv) 40 mg IVPUSH DAILY [facility] Last Admin: 05/12/20 11:35 Dose: 40 mg Documented by: Thiamine HCl (Vitamin B1 Injection -) 200 mg IVPB DAILY [facility] Last Admin: 05/12/20 11:39 Dose: 200 mg Documented by: - Objective Vital Signs: Vital Signs Temperature 99 F 05/13/20 06:00 Pulse Rate 83 05/13/20 06:00 Respiratory Rate 20 05/13/20 06:00 Blood Pressure 137/84 05/13/20 06:00 O2 Sat by Pulse Oximetry (%) 99 05/12/20 22:00 Additional Findings/Remarks: Constitutional: Yes: Well Nourished, No Distress, Calm, Anxious, Mild Distress Eyes: Yes: WNL, Conjunctiva Clear, EOM Intact HENT: Yes: WNL, Atraumatic, Normocephalic Neck: Yes: WNL, Supple, Trachea Midline Cardiovascular: Yes: WNL, Regular Rate and Rhythm Respiratory: Yes: WNL, Regular, CTA Bilaterally Gastrointestinal: Yes: Normal Bowel Sounds, Soft, Tenderness-lower quads ...Rectal Exam: Yes: Deferred Renal/: Yes: WNL Breast(s): Yes: WNL Musculoskeletal: Yes: WNL Extremities: Yes: WNL Edema: Yes Peripheral Pulses WNL: Yes Peripheral Pulses: Left Radial: 2+, Right Radial: 2+, Left Doralis Pedis: 2+, Right Dorsalis Pedis: 2+, Left Femoral: 2+, Right Femoral: 2+ Integumentary: Yes: WNL Neurological: Yes: awake and alert ...Motor Strength: WNL Psychiatric: Yes: WNL, Alert Labs: CBC, BMP 05/13/20 05:35 05/13/20 05:35 INR, PTT INR 0.99 (0.83-1.09) 05/13/20 05:35 - ....Imaging MRI: Report Reviewed (MRCP not suggestive of biliary tract obstruction) Problem List - Problems (1) Prophylactic measure Assessment/Plan: FEN Fluids: IVF @ 200cc/hr Can start clears Electrolytes: monitor & replete as needed Nutrition: NPO advance as tolerated DVT moderate risk sq heparin Dispo Maintain as inpatient full code discharge planning Code(s): Z29.9 - ENCOUNTER FOR PROPHYLACTIC MEASURES, UNSPECIFIED (2) Alcohol withdrawal delirium, acute, hyperactive Assessment/Plan: on ativan detox protocol psychological operations specialist consultation requested-plan to return back to [facility] for rehab CIWA 7 counsled on ETOH cessation Code(s): F10.231 - ALCOHOL DEPENDENCE WITH WITHDRAWAL DELIRIUM (3) Elevated LFTs Assessment/Plan: trending down c/t monitor avoid hepatotoxic agents ETOH cessation Code(s): R94.5 - ABNORMAL RESULTS OF LIVER FUNCTION STUDIES (4) Thrombocytopenia Assessment/Plan: moslt likely d/t longstading ETOH abuse c/t monitor Code(s): D69.6 - THROMBOCYTOPENIA, UNSPECIFIED (5) DM type 2 (diabetes mellitus, type 2) Assessment/Plan: BGM AC/HS with novolog sliding scale diabetic clear diet Code(s): E11.9 - TYPE 2 DIABETES MELLITUS WITHOUT COMPLICATIONS Qualifiers: Diabetes mellitus [employer] insulin use: unspecified senior living insulin use status Diabetes mellitus complication status: without complication Qualified Code(s): E11.9 - Type 2 diabetes mellitus without complications (6) GERD (gastroesophageal reflux disease) Code(s): K21.9 - GASTRO-ESOPHAGEAL REFLUX DISEASE WITHOUT ESOPHAGITIS (7) HTN (hypertension) Assessment/Plan: normotensive c/w lisinipril Code(s): I10 - ESSENTIAL (PRIMARY) HYPERTENSION Qualifiers: Hypertension type: essential hypertension Qualified Code(s): I10 - Essential (primary) hypertension (8) Person under investigation for COVID-19 Assessment/Plan: COVID Suspicion Moderate suspicion for COVID-19 based on clinical findings no infiltrates seen on CXR maintain SPO2 > 88% zinc bid, Vit C/D lovenox 40mg aq-will increase to treatment dose oif COVID + INH bronchodilators strict airborne/droplet precautions Code(s): Z20.828 - CONTACT W AND EXPOSURE TO OTH VIRAL COMMUNICABLE DISEASES (9) Alcoholic pancreatitis Assessment/Plan: most likely d/t alcoholic hepatitis c/t trend lipase MRCP not suggestive of biliary tract obstruction can start clear liquids c/w IV hydration Hepatitis serologies pending ETOH cessation appreciate GI consultation Code(s): K85.20 - ALCOHOL INDUCED ACUTE PANCREATITIS WITHOUT NECROSIS OR INFCT Visit type - Emergency Visit Emergency Visit: Yes ED Registration Date: 05/12/20 Care time: The patient presented to the Emergency Department on the above date and was hospitalized for further evaluation of their emergent condition. - New Patient This patient is new to me today: No - Critical Care Critical Care patient: No - Discharge Referral Referred to [facility] Med P.C.: No CIWA Score - CIWA Score Nausea/Vomitin-Mild Nausea/No Vomiting Muscle Tremors: 2 Anxiety: 0-No Anxiety, at Ease Agitation: 0-Normal Activity Paroxysmal Sweats: 1-Minimal Palms Moist Orientation: 0-Oriented Tacttile Disturbances: 2-Mild Itch/Numbness/Burn Auditory Disturbances: 0-None Visual Disturbances: 0-None Headache: 1-Very Mild CIWA-Ar Total Score: 7
[2020-05-13] MEDS ORDERED: INSULIN (NOVOLOG) ASPART 100 UNITS/ML 10ML VIAL ONE ×2 (09:33→21:07)
[2020-05-13] MEDS: ZINC SULFATE 220 MG CAPSULE (FP) PO SCH ×2 (09:37→21:15)
[2020-05-13] MEDS: FOLIC ACID 5 MG/1 ML SQ SCH (09:37)
[2020-05-13] MEDS: ENOXAPARIN NA (PORCINE) 40 MG/0.4 ML DISP.SYRIN SQ SCH (09:37)
[2020-05-13] MEDS: PANTOPRAZOLE SODIUM 40 MG VIAL IVPUSH SCH (09:39)
[2020-05-13] MEDS: CHOLECALCIFEROL (VIT D3) 1,000 UNIT (25 MCG) TABLET PO SCH (09:41)
[2020-05-13] MEDS: ASCORBIC ACID 500 MG TABLET (FP) PO SCH ×2 (09:41→21:15)
[2020-05-13] MEDS: LISINOPRIL 10 MG TABLET (FP) PO SCH (09:41)
[2020-05-13] MEDS: THIAMINE HCL 200 MG/2 ML VIAL IVPB SCH (09:42)
[2020-05-13] MEDS ORDERED: LISINOPRIL 10 MG TABLET (FP) PO SCH (10:00)
[2020-05-13 12:23] LABS: URINE APPEARANCE CLEAR; URINE BILIRUBIN NEGATIVE (NEGATIVE); URINE COLOR YELLOW; URINE GLUCOSE (UA) NEGATIVE (NEGATIVE); URINE KETONE 1+ (NEGATIVE); URINE LEUK ESTERASE NEGATIVE (NEGATIVE); URINE NITRITE NEGATIVE (NEGATIVE); URINE PROTEIN TRACE (NEGATIVE)
--- NOTE | 2020-05-13 13:46 | PN.GI ---
GI Progress Note Subjective: No acute events States being hungry MRCP: no gallstones, no ductal dilatation, changes c/w pancreatitis - Objective Vital Signs: Vital Signs Temperature 98.4 F 05/13/20 13:21 Pulse Rate 93 H 05/13/20 13:21 Respiratory Rate 20 05/13/20 13:21 Blood Pressure 144/93 05/13/20 13:21 O2 Sat by Pulse Oximetry (%) 98 05/13/20 09:00 Constitutional: Calm Eyes: No: Sclera Icterus Cardiovascular: Yes: Regular Rate and Rhythm Respiratory: Yes: CTA Bilaterally Gastrointestinal Inspection: No: Distention ...Auscultate: Yes: Normoactive Bowel Sounds ...Palpate: Yes: Soft, Tenderness (Mild TTP left mid abdomen and right mid abdomen). No: Guarding, Tenderness, Rebound ...Percussion: No: Tympanitic Edema: No (No LE edema) Neurological: Yes: Tremors Labs: CBC, BMP 05/13/20 05:35 05/13/20 05:35 INR, PTT INR 0.99 (0.83-1.09) 05/13/20 05:35 - ....Imaging MRI: Report Reviewed Problem List - Problems (1) Alcoholic pancreatitis Assessment/Plan: Likely with component of alcoholic hepatitis. MRCP not suggestive of biliary tract obstruction Abdominal pain improved Advise: Advanced Clear liquids IV hydration Hepatitis serologies pending Withdrawal precautions Counselled regarding the need for complete alcohol cessation Code(s): K85.20 - ALCOHOL INDUCED ACUTE PANCREATITIS WITHOUT NECROSIS OR INFCT
[2020-05-13 14:47] VITALS: BMI 27.1
[2020-05-13 22:06] LABS: HEP B CORE AB, TOT Negative (Negative)
[2020-05-14] MEDS ORDERED: LORazepam 0.5 MG TABLET PO PRN
[2020-05-14] MEDS: LACTATED RINGERS SOLUTION 1,000 ML/1,000 ML INFUS.BAG IV SCH ×3 (00:22→12:32)
[2020-05-14] MEDS ORDERED: INSULIN (NOVOLOG) ASPART 100 UNITS/ML 10ML VIAL ONE ×3 (04:40→17:21)
[2020-05-14] MEDS ORDERED: PT OWN MED DRAWER 7, Y5N ONE ×2 (04:41→10:06)
[2020-05-14] MEDS: LORazepam 1 MG TABLET PO SCH ×4 (04:44→23:40)
[2020-05-14] MEDS ORDERED: LORazepam 0.5 MG TABLET PO SCH (05:00)
[2020-05-14] MEDS ORDERED: INSULIN (LEVEMIR) 100 UNITS/ML UNITS SQ ONE (05:58)
[2020-05-14] MEDS: INSULIN SLIDING SCALE (NOVOLOG) 1 VIAL SQ SCH ×4 (06:12→21:16)
[2020-05-14 07:35] LABS: HEMATOCRIT 33.5 % (35.4-49); HEMOGLOBIN 11.3 GM/dL (11.7-16.9); MCH 31.6 pg (25.7-33.7); MCHC 33.7 g/dl (32.0-35.9); MEAN CELL VOLUME 93.8 fl (80-96); MEAN PLT VOLUME 8.7 fl (7.5-11.1); MONO % 8.6 % (3.8-10.2); NEUT % 70.4 % (42.8-82.8); PLATELET COUNT 79 K/MM3 (134-434); RBC 3.57 M/mm3 (4.00-5.60); RDW 14.8 % (11.9-15.9); WHITE BLOOD COUNT 4.2 K/mm3 (4.0-10.0)
[2020-05-14 07:40] LABS: ALBUMIN 3.2 g/dl (3.4-5.0); BILIRUBIN,TOTAL 1.3 mg/dL (0.2-1); CALCIUM 9.2 mg/dL (8.5-10.1); CREATININE 0.6 mg/dL (0.55-1.3); MAGNESIUM 2.1 mg/dL (1.8-2.4); POTASSIUM 3.2 mmol/L (3.5-5.1); TOT PROT 6.9 g/dl (6.4-8.2)
[2020-05-14 08:04] LABS: BLOOD UREA NITROGEN 2.6 mg/dL (7-18)
[2020-05-14] MEDS ORDERED: POTASSIUM CHLORIDE TABS 20 MEQ TABLET.ER (FP) PO ONE (08:19)
[2020-05-14] MEDS: ZINC SULFATE 220 MG CAPSULE (FP) PO SCH ×2 (09:32→21:16)
[2020-05-14] MEDS: CHOLECALCIFEROL (VIT D3) 1,000 UNIT (25 MCG) TABLET PO SCH (09:32)
[2020-05-14] MEDS: ASCORBIC ACID 500 MG TABLET (FP) PO SCH ×2 (09:32→21:15)
[2020-05-14] MEDS: THIAMINE HCL 200 MG/2 ML VIAL IVPB SCH (09:32)
[2020-05-14] MEDS: ENOXAPARIN NA (PORCINE) 40 MG/0.4 ML DISP.SYRIN SQ SCH (09:32)
[2020-05-14] MEDS: LISINOPRIL 10 MG TABLET (FP) PO SCH (09:32)
[2020-05-14] MEDS: FOLIC ACID 5 MG/1 ML SQ SCH (10:10)
--- NOTE | 2020-05-14 11:50 | PN ---
Progress Note (short form) - Note Progress Note: Gastroenterology note: Pt without any complaints of abd pain this am. Tolerating a clear liquid diet. No nausea or emesis. Vital Signs Period Temp Pulse Resp BP Sys/Acevedo Pulse Ox Last 24 Hr 97.9 F-98.7 F 93-105 18-20 137-144/88-102 98-98 GEN: A&O x3, NAD ABD: soft, non-disteded, non-tender CBC, BMP 05/14/20 06:45 05/14/20 06:00 Laboratory Tests 05/12/20 10:35 Hep A IgM Ab Confirm Negative Hepatitis A Ab Total Positive H Hep Bs Antigen Negative Hep Bs Antibody Non reactive Hep B Core Total Ab Negative Hep B Core IgM Ab Negative Hepatitis Be Antibody Negative Hepatitis Be Antigen Negative Hep C Ab Diagnostic 0.1 Laboratory Tests 05/14/20 06:00 Total Bilirubin 1.3 H AST 318 H ALT 161 H Alkaline Phosphatase 161 H LD Total 296 H US-no evidnece of stones. Fatty liver MRCP: no gallstones/CBD stones or duct dilatation. acute pancreatitis. No fluid collection or pseudocysts <Ijeoma Chew - Last Filed: 05/14/20 12:09> - Note Progress Note: AGREE WITH ASSESSMENT AND PLAN OUTLINED ABOVE <Beatrice Mckenzie - Last Filed: 05/14/20 17:00> Problem List - Problems (1) Alcoholic pancreatitis Assessment/Plan: Pt with improvement in abdominal exam and GI symptoms of pain and nausea. May advance diet today to diabetic full liquid. Biliary workup doesn't reveal any evidence of stone disease and LFT elevation appears to be related to his ETOH use. At this time no evidence of aggitation /withdrawl recommend to continue CIWA protocol. May decrease his IV fluids. Replete electrolytes as per the medical team. hypokalemic today on his labs 3.2 LFTs improving, hepatitis serology negative. Hep B-non immune, vaccination as oupt. D/w Dr. Mckenzie Problems reviewed: Yes Code(s): K85.20 - ALCOHOL INDUCED ACUTE PANCREATITIS WITHOUT NECROSIS OR INFCT <Ijeoma Chew - Last Filed: 05/14/20 12:09>
--- NOTE | 2020-05-14 15:07 | PN ---
Progress Note, Physician Chief Complaint: Seen and examined in bed. Minimal lower abd pain.Tolerating liquid diet COVID PCR negative. History of Present Illness: 34 y.o. Lao-speaking M w/ PMHx. of HTN, GERD, DM2, and Psorias presents for tremors and abdominal pain - Current Medication List Current Medications: Active Medications Ascorbic Acid (Vitamin C -) 500 mg PO BID [facility] Last Admin: 05/14/20 09:32 Dose: 500 mg Documented by: Cholecalciferol (Vitamin D3 -) 1,000 unit PO DAILY [facility] Last Admin: 05/14/20 09:32 Dose: 1,000 unit Documented by: Enoxaparin Sodium (Lovenox -) 40 mg SQ DAILY [facility] Last Admin: 05/14/20 09:32 Dose: 40 mg Documented by: Folic Acid (Folic Acid Injection -) 0.4 mg SQ DAILY [facility] Last Admin: 05/14/20 10:10 Dose: 0.4 mg Documented by: Lactated Ringer's (Lactated Ringers Solution) 1,000 ml in 1,000 mls @ 125 mls/hr IV ASDIR [facility] Last Admin: 05/14/20 12:32 Dose: 125 mls/hr Documented by: Insulin Aspart (Novolog Vial Sliding Scale -) 1 vial SQ ACHS [facility]; Protocol Last Admin: 05/14/20 11:38 Dose: Not Given Documented by: Lisinopril (Prinivil) 10 mg PO DAILY [facility] Last Admin: 05/14/20 09:32 Dose: 10 mg Documented by: Lorazepam (Ativan -) 1 mg PO 0500,1100,1700,2300 [facility] Stop: 05/14/20 23:01 Last Admin: 05/14/20 12:00 Dose: 1 mg Documented by: Lorazepam (Ativan -) 1 mg PO Q4H PRN PRN Reason: Symptoms of Withdrawal Stop: 05/14/20 23:59 Last Admin: 05/12/20 22:12 Dose: 1 mg Documented by: Lorazepam (Ativan -) 0.5 mg PO Q6H [facility] Stop: 05/15/20 23:01 Lorazepam (Ativan -) 0.5 mg PO Q4H PRN PRN Reason: Symptoms of Withdrawal Stop: 05/16/20 00:00 Lorazepam (Ativan -) 0.5 mg PO ONCE ONE Stop: 05/16/20 05:01 Thiamine HCl (Vitamin B1 Injection -) 200 mg IVPB DAILY [facility] Last Admin: 05/14/20 09:32 Dose: 200 mg Documented by: Zinc Sulfate (Orazinc -) 220 mg PO BID [facility] Last Admin: 05/14/20 09:32 Dose: 220 mg Documented by: - Objective Vital Signs: Vital Signs Temperature 98.3 F 05/14/20 14:30 Pulse Rate 88 05/14/20 14:30 Respiratory Rate 18 05/14/20 14:30 Blood Pressure 130/77 05/14/20 14:30 O2 Sat by Pulse Oximetry (%) 98 05/14/20 10:39 Additional Findings/Remarks: Constitutional: Yes: Well Nourished, No Distress, Calm, Anxious, Mild Distress Eyes: Yes: WNL, Conjunctiva Clear, EOM Intact HENT: Yes: WNL, Atraumatic, Normocephalic Neck: Yes: WNL, Supple, Trachea Midline Cardiovascular: Yes: WNL, Regular Rate and Rhythm Respiratory: Yes: WNL, Regular, CTA Bilaterally Gastrointestinal: Yes: Normal Bowel Sounds, Soft, Tenderness-lower quads ...Rectal Exam: Yes: Deferred Renal/: Yes: WNL Breast(s): Yes: WNL Musculoskeletal: Yes: WNL Extremities: Yes: WNL Edema: Yes Peripheral Pulses WNL: Yes Peripheral Pulses: Left Radial: 2+, Right Radial: 2+, Left Doralis Pedis: 2+, Right Dorsalis Pedis: 2+, Left Femoral: 2+, Right Femoral: 2+ Integumentary: Yes: WNL Neurological: Yes: awake and alert ...Motor Strength: WNL Psychiatric: Yes: WNL, Alert Labs: CBC, BMP 05/14/20 06:45 05/14/20 06:00 INR, PTT INR 0.99 (0.83-1.09) 05/13/20 05:35 Problem List - Problems (1) Prophylactic measure Assessment/Plan: FEN Fluids:decerasev IVF . Electrolytes: monitor & replete as needed Nutrition:tolerating liquids-can advance DVT moderate risk sq heparin Dispo Maintain as inpatient full code discharge planning Code(s): Z29.9 - ENCOUNTER FOR PROPHYLACTIC MEASURES, UNSPECIFIED (2) Alcohol withdrawal delirium, acute, hyperactive Assessment/Plan: on ativan detox protocol instructional specialist consultation requested-plan to return back to [facility] for rehab CIWA 3 counseled on compete ETOH cessation Code(s): F10.231 - ALCOHOL DEPENDENCE WITH WITHDRAWAL DELIRIUM (3) Elevated LFTs Assessment/Plan: trending down c/t monitor avoid hepatotoxic agents ETOH cessation Code(s): R94.5 - ABNORMAL RESULTS OF LIVER FUNCTION STUDIES (4) Thrombocytopenia Assessment/Plan: most likely d/t longstading ETOH abuse c/t monitor Code(s): D69.6 - THROMBOCYTOPENIA, UNSPECIFIED (5) DM type 2 (diabetes mellitus, type 2) Assessment/Plan: BGM AC/HS with novolog sliding scale diabetic diet Code(s): E11.9 - TYPE 2 DIABETES MELLITUS WITHOUT COMPLICATIONS Qualifiers: Diabetes mellitus intermediate manager insulin use: unspecified intermediate manager insulin use status Diabetes mellitus complication status: without complication Qualified Code(s): E11.9 - Type 2 diabetes mellitus without complications (6) GERD (gastroesophageal reflux disease) Code(s): K21.9 - GASTRO-ESOPHAGEAL REFLUX DISEASE WITHOUT ESOPHAGITIS (7) HTN (hypertension) Assessment/Plan: normotensive c/w lisinipril Code(s): I10 - ESSENTIAL (PRIMARY) HYPERTENSION Qualifiers: Hypertension type: essential hypertension Qualified Code(s): I10 - Essential (primary) hypertension (8) Alcoholic pancreatitis Assessment/Plan: most likely d/t alcoholic hepatitis c/t trend lipase MRCP not suggestive of biliary tract obstruction can advance diet c/w IV hydration Hepatitis serologies -HCV negative, HB negative-can vaccinate as out pt ETOH cessation appreciate GI consultation Code(s): K85.20 - ALCOHOL INDUCED ACUTE PANCREATITIS WITHOUT NECROSIS OR INFCT (9) COVID-19 ruled out Assessment/Plan: COVID PCR neg Code(s): Z03.818 - ENCNTR FOR OBS FOR SUSP EXPSR TO OTH BIOLG AGENTS RULED OUT Visit type - Emergency Visit Emergency Visit: Yes ED Registration Date: 05/12/20 Care time: The patient presented to the Emergency Department on the above date and was hospitalized for further evaluation of their emergent condition. - New Patient This patient is new to me today: No - Critical Care Critical Care patient: No - Discharge Referral Referred to [facility] No CIWA Score - CIWA Score Nausea/Vomitin-Mild Nausea/No Vomiting Muscle Tremors: 1-None Visible, but [place] Anxiety: 0-No Anxiety, at Ease Agitation: 0-Normal Activity Paroxysmal Sweats: No Perspiration Orientation: 0-Oriented Tacttile Disturbances: 1-Very Mild Itch/Numbness Auditory Disturbances: 0-None Visual Disturbances: 0-None Headache: 0-None Present CIWA-Ar Total Score: 3
[2020-05-14 18:07] LABS: HEP B CORE AB, TOT Negative (Negative)
[2020-05-14] MEDS ORDERED: PANTOPRAZOLE 40 MG TABLET PO ONE (20:37)
[2020-05-15] MEDS ORDERED: LORazepam 0.5 MG TABLET PO PRN
[2020-05-15] MEDS: LACTATED RINGERS SOLUTION 1,000 ML/1,000 ML INFUS.BAG IV SCH ×4 (03:39→20:14)
[2020-05-15] MEDS ORDERED: LORazepam 0.5 MG TABLET PO ONE (05:00)
[2020-05-15] MEDS: LORazepam 0.5 MG TABLET PO SCH ×4 (05:51→23:54)
[2020-05-15] MEDS: INSULIN SLIDING SCALE (NOVOLOG) 1 VIAL SQ SCH ×4 (06:14→21:20)
[2020-05-15] MEDS ORDERED: INSULIN (NOVOLOG) ASPART 100 UNITS/ML 10ML VIAL ONE (06:54)
--- NOTE | 2020-05-15 08:54 | PN ---
Progress Note, Physician Chief Complaint: Seen and examined in bed. Lower abd pain persists.Tolerating liquid diet. COVID PCR negative. History of Present Illness: 34 y.o. [place] Islander-speaking M w/ PMHx. of HTN, GERD, DM2, and Psorias presents for tremors and abdominal pain - Current Medication List Current Medications: Active Medications Ascorbic Acid (Vitamin C -) 500 mg PO BID [facility] Last Admin: 05/14/20 21:15 Dose: 500 mg Documented by: Cholecalciferol (Vitamin D3 -) 1,000 unit PO DAILY [facility] Last Admin: 05/14/20 09:32 Dose: 1,000 unit Documented by: Enoxaparin Sodium (Lovenox -) 40 mg SQ DAILY [facility] Last Admin: 05/14/20 09:32 Dose: 40 mg Documented by: Folic Acid (Folic Acid Injection -) 0.4 mg SQ DAILY [facility] Last Admin: 05/14/20 10:10 Dose: 0.4 mg Documented by: Lactated Ringer's (Lactated Ringers Solution) 1,000 ml in 1,000 mls @ 125 mls/hr IV ASDIR [facility] Last Admin: 05/15/20 03:39 Dose: 125 mls/hr Documented by: Insulin Aspart (Novolog Vial Sliding Scale -) 1 vial SQ ACHS [facility]; Protocol Last Admin: 05/15/20 06:14 Dose: Not Given Documented by: Lisinopril (Prinivil) 10 mg PO DAILY [facility] Last Admin: 05/14/20 09:32 Dose: 10 mg Documented by: Lorazepam (Ativan -) 0.5 mg PO Q6H [facility] Stop: 05/15/20 23:01 Last Admin: 05/15/20 05:51 Dose: 0.5 mg Documented by: Lorazepam (Ativan -) 0.5 mg PO Q4H PRN PRN Reason: Symptoms of Withdrawal Stop: 05/16/20 00:00 Lorazepam (Ativan -) 0.5 mg PO ONCE ONE Stop: 05/16/20 05:01 Thiamine HCl (Vitamin B1 Injection -) 200 mg IVPB DAILY [facility] Last Admin: 05/14/20 09:32 Dose: 200 mg Documented by: Zinc Sulfate (Orazinc -) 220 mg PO BID [facility] Last Admin: 05/14/20 21:16 Dose: 220 mg Documented by: - Objective Vital Signs: Vital Signs Temperature 98.6 F 05/15/20 06:04 Pulse Rate 79 05/15/20 06:04 Respiratory Rate 18 05/15/20 06:04 Blood Pressure 130/76 05/15/20 06:04 O2 Sat by Pulse Oximetry (%) 98 05/14/20 21:00 Additional Findings/Remarks: Constitutional: Yes: Well Nourished, No Distress, Calm, Anxious, Mild Distress Eyes: Yes: WNL, Conjunctiva Clear, EOM Intact HENT: Yes: WNL, Atraumatic, Normocephalic Neck: Yes: WNL, Supple, Trachea Midline Cardiovascular: Yes: WNL, Regular Rate and Rhythm Respiratory: Yes: WNL, Regular, CTA Bilaterally Gastrointestinal: Yes: Normal Bowel Sounds, Soft, Tenderness-lower quads ...Rectal Exam: Yes: Deferred Renal/: Yes: WNL Breast(s): Yes: WNL Musculoskeletal: Yes: WNL Extremities: Yes: WNL Edema: Yes Peripheral Pulses WNL: Yes Peripheral Pulses: Left Radial: 2+, Right Radial: 2+, Left Doralis Pedis: 2+, Right Dorsalis Pedis: 2+, Left Femoral: 2+, Right Femoral: 2+ Integumentary: Yes: WNL Neurological: Yes: awake and alert ...Motor Strength: WNL Psychiatric: Yes: WNL, Alert Labs: CBC, BMP 05/14/20 06:45 05/14/20 06:00 INR, PTT INR 0.99 (0.83-1.09) 05/13/20 05:35 Problem List - Problems (1) Prophylactic measure Assessment/Plan: FEN Fluids:decerased IVF . Electrolytes: monitor & replete as needed Nutrition:tolerating liquids-can advance to full DVT moderate risk sq heparin Dispo Maintain as inpatient full code discharge planning Code(s): Z29.9 - ENCOUNTER FOR PROPHYLACTIC MEASURES, UNSPECIFIED (2) Alcohol withdrawal delirium, acute, hyperactive Assessment/Plan: on ativan detox protocol optical instrument specialist consultation requested-plan to return back to [facility] for rehab CIAR 4 counseled on compete ETOH cessation Code(s): F10.231 - ALCOHOL DEPENDENCE WITH WITHDRAWAL DELIRIUM (3) Elevated LFTs Assessment/Plan: trending down c/t monitor avoid hepatotoxic agents ETOH cessation Code(s): R94.5 - ABNORMAL RESULTS OF LIVER FUNCTION STUDIES (4) Thrombocytopenia Assessment/Plan: improving most likely d/t longstading ETOH abuse c/t monitor Code(s): D69.6 - THROMBOCYTOPENIA, UNSPECIFIED (5) DM type 2 (diabetes mellitus, type 2) Assessment/Plan: BGM AC/HS with novolog sliding scale diabetic diet Code(s): E11.9 - TYPE 2 DIABETES MELLITUS WITHOUT COMPLICATIONS Qualifiers: Diabetes mellitus intermediate designer insulin use: unspecified fci insulin use status Diabetes mellitus complication status: without complication Qualified Code(s): E11.9 - Type 2 diabetes mellitus without complications (6) GERD (gastroesophageal reflux disease) Assessment/Plan: c/w protonix Code(s): K21.9 - GASTRO-ESOPHAGEAL REFLUX DISEASE WITHOUT ESOPHAGITIS (7) HTN (hypertension) Assessment/Plan: normotensive c/w lisinipril Code(s): I10 - ESSENTIAL (PRIMARY) HYPERTENSION Qualifiers: Hypertension type: essential hypertension Qualified Code(s): I10 - Essential (primary) hypertension (8) Alcoholic pancreatitis Assessment/Plan: most likely d/t alcoholic hepatitis c/t trend lipase MRCP not suggestive of biliary tract obstruction can advance diet c/w IV hydration Hepatitis serologies -HCV negative, HB negative-can vaccinate as out pt ETOH cessation appreciate GI consultation Code(s): K85.20 - ALCOHOL INDUCED ACUTE PANCREATITIS WITHOUT NECROSIS OR INFCT (9) COVID-19 ruled out Assessment/Plan: COVID PCR neg Code(s): Z03.818 - ENCNTR FOR OBS FOR SUSP EXPSR TO OTH BIOLG AGENTS RULED OUT Visit type - Emergency Visit Emergency Visit: Yes ED Registration Date: 05/12/20 Care time: The patient presented to the Emergency Department on the above date and was hospitalized for further evaluation of their emergent condition. - New Patient This patient is new to me today: No - Critical Care Critical Care patient: No - Discharge Referral Referred to [facility] No CIWA Score - CIWA Score Nausea/Vomitin-Mild Nausea/No Vomiting Muscle Tremors: 1-None Visible, but [place] Anxiety: 1-Mildly Anxious Agitation: 0-Normal Activity Paroxysmal Sweats: No Perspiration Orientation: 0-Oriented Tacttile Disturbances: 1-Very Mild Itch/Numbness Auditory Disturbances: 0-None Visual Disturbances: 0-None Headache: 0-None Present CIWA-Ar Total Score: 4
--- NOTE | 2020-05-15 09:09 | PN.GI ---
GI Progress Note Subjective: FEELING BETTER TODAY NO N/V/ - Objective Vital Signs: Vital Signs Temperature 98.6 F 05/15/20 06:04 Pulse Rate 79 05/15/20 06:04 Respiratory Rate 18 05/15/20 06:04 Blood Pressure 130/76 05/15/20 06:04 O2 Sat by Pulse Oximetry (%) 98 05/14/20 21:00 Constitutional: Well Nourished, No Distress Eyes: Yes: WNL HENT: Yes: WNL Neck: Yes: WNL Cardiovascular: Yes: WNL, Regular Rate and Rhythm Respiratory: Yes: WNL, Regular, CTA Bilaterally Gastrointestinal Inspection: Yes: WNL, Other (NONTENDER ; NML BS) Musculoskeletal: Yes: WNL Extremities: Yes: WNL Edema: No Labs: CBC, BMP 05/14/20 06:45 05/14/20 06:00 INR, PTT INR 0.99 (0.83-1.09) 05/13/20 05:35 Problem List - Problems (1) Alcoholic pancreatitis Assessment/Plan: GENTLE HYDRATION ADVANCE TO FULL LIQUID DIET TREND LFT DAILY WHILE HOSPITALIZED ETOH WITHDRAWAL PROTOCOL Code(s): K85.20 - ALCOHOL INDUCED ACUTE PANCREATITIS WITHOUT NECROSIS OR INFCT (2) Alcohol withdrawal delirium, acute, hyperactive Code(s): F10.231 - ALCOHOL DEPENDENCE WITH WITHDRAWAL DELIRIUM (3) Elevated LFTs Code(s): R94.5 - ABNORMAL RESULTS OF LIVER FUNCTION STUDIES
[2020-05-15 09:18] LABS: BASO % 0.2 % (0-2.0); EOS % 0.2 % (0-4.5); HEMATOCRIT 34.5 % (35.4-49); HEMOGLOBIN 11.7 GM/dL (11.7-16.9); LYMPH % 29.3 % (8-40); MCH 31.7 pg (25.7-33.7); MCHC 33.9 g/dl (32.0-35.9); MEAN CELL VOLUME 93.5 fl (80-96); MEAN PLT VOLUME 8.3 fl (7.5-11.1); MONO % 8.2 % (3.8-10.2); NEUT % 62.1 % (42.8-82.8); PLATELET COUNT 95 K/MM3 (134-434); RBC 3.69 M/mm3 (4.00-5.60); RDW 14.7 % (11.9-15.9); WHITE BLOOD COUNT 5.4 K/mm3 (4.0-10.0)
[2020-05-15 10:01] LABS: ALBUMIN 3.2 g/dl (3.4-5.0); CALCIUM 8.8 mg/dL (8.5-10.1); CREATININE 0.6 mg/dL (0.55-1.3); MAGNESIUM 1.8 mg/dL (1.8-2.4); POTASSIUM 3.4 mmol/L (3.5-5.1); TOT PROT 6.8 g/dl (6.4-8.2)
[2020-05-15] MEDS: ENOXAPARIN NA (PORCINE) 40 MG/0.4 ML DISP.SYRIN SQ SCH (10:37)
[2020-05-15] MEDS: THIAMINE HCL 200 MG/2 ML VIAL IVPB SCH (10:38)
[2020-05-15] MEDS: FOLIC ACID 5 MG/1 ML SQ SCH (10:41)
[2020-05-15] MEDS: LISINOPRIL 10 MG TABLET (FP) PO SCH (10:42)
[2020-05-15] MEDS: CHOLECALCIFEROL (VIT D3) 1,000 UNIT (25 MCG) TABLET PO SCH (10:42)
[2020-05-15] MEDS: ZINC SULFATE 220 MG CAPSULE (FP) PO SCH ×2 (10:43→21:20)
[2020-05-15] MEDS: ASCORBIC ACID 500 MG TABLET (FP) PO SCH ×2 (10:43→21:19)
[2020-05-15] MEDS: PANTOPRAZOLE 40 MG TABLET PO SCH (13:43)
[2020-05-15] MEDS ORDERED: POTASSIUM CHLORIDE TABS 20 MEQ TABLET.ER (FP) PO ONE (15:44)
[2020-05-16] MEDS ORDERED: LORazepam 0.5 MG TABLET PO ONE (05:00)
[2020-05-16] MEDS: LACTATED RINGERS SOLUTION 1,000 ML/1,000 ML INFUS.BAG IV SCH ×4 (05:43→17:13)
[2020-05-16] MEDS: INSULIN SLIDING SCALE (NOVOLOG) 1 VIAL SQ SCH ×4 (06:33→21:06)
--- NOTE | 2020-05-16 08:20 | PN.GI ---
GI Progress Note Subjective: no new complaints - feeling better tolerated low fat diet - Objective Vital Signs: Vital Signs Temperature 98.8 F 05/16/20 05:59 Pulse Rate 69 05/16/20 05:59 Respiratory Rate 18 05/16/20 05:59 Blood Pressure 109/67 05/16/20 05:59 O2 Sat by Pulse Oximetry (%) 97 05/15/20 21:00 Constitutional: Well Nourished, No Distress, Calm Eyes: Yes: WNL HENT: Yes: WNL, Tonsillar Exudate Neck: Yes: WNL Cardiovascular: Yes: WNL, Regular Rate and Rhythm Respiratory: Yes: WNL, Regular, CTA Bilaterally Gastrointestinal Inspection: Yes: WNL ...Auscultate: Yes: Normoactive Bowel Sounds Labs: CBC, BMP 05/15/20 08:15 05/15/20 08:15 INR, PTT INR 0.99 (0.83-1.09) 05/13/20 05:35 Problem List - Problems (1) Alcoholic pancreatitis Assessment/Plan: GENTLE HYDRATION c/w fat controlled diet TREND LFT DAILY WHILE HOSPITALIZED ETOH WITHDRAWAL PROTOCOL WILL NEED REPEAT CT SCAN WITH PANCREATIC PROTOCOL IN 4 WEEKS Code(s): K85.20 - ALCOHOL INDUCED ACUTE PANCREATITIS WITHOUT NECROSIS OR INFCT (2) Alcohol withdrawal delirium, acute, hyperactive Code(s): F10.231 - ALCOHOL DEPENDENCE WITH WITHDRAWAL DELIRIUM (3) Elevated LFTs Code(s): R94.5 - ABNORMAL RESULTS OF LIVER FUNCTION STUDIES
--- NOTE | 2020-05-16 08:53 | PN ---
Progress Note, Physician Chief Complaint: Seen and examined in bed. Lower abd pain resolved. Stated he's hungry.Tolerating full diet over night. Completed ativan detox protocol. COVID PCR negative. History of Present Illness: 34 y.o. Irish-speaking M w/ PMHx. of HTN, GERD, DM2, and Psorias presents for tremors and abdominal pain - Current Medication List Current Medications: Active Medications Ascorbic Acid (Vitamin C -) 500 mg PO BID [facility] Last Admin: 05/15/20 21:19 Dose: 500 mg Documented by: Cholecalciferol (Vitamin D3 -) 1,000 unit PO DAILY [facility] Last Admin: 05/15/20 10:42 Dose: 1,000 unit Documented by: Enoxaparin Sodium (Lovenox -) 40 mg SQ DAILY [facility] Last Admin: 05/15/20 10:37 Dose: 40 mg Documented by: Folic Acid (Folic Acid Injection -) 0.4 mg SQ DAILY [facility] Last Admin: 05/15/20 10:41 Dose: 0.4 mg Documented by: Lactated Ringer's (Lactated Ringers Solution) 1,000 ml in 1,000 mls @ 125 mls/hr IV ASDIR [facility] Last Admin: 05/16/20 05:43 Dose: 125 mls/hr Documented by: Insulin Aspart (Novolog Vial Sliding Scale -) 1 vial SQ ACHS [facility]; Protocol Last Admin: 05/16/20 06:33 Dose: Not Given Documented by: Lisinopril (Prinivil) 10 mg PO DAILY [facility] Last Admin: 05/15/20 10:42 Dose: 10 mg Documented by: Pantoprazole Sodium (Protonix -) 40 mg PO DAILY [facility] Last Admin: 05/15/20 13:43 Dose: 40 mg Documented by: Thiamine HCl (Vitamin B1 Injection -) 200 mg IVPB DAILY [facility] Last Admin: 05/15/20 10:38 Dose: 200 mg Documented by: Zinc Sulfate (Orazinc -) 220 mg PO BID [facility] Last Admin: 05/15/20 21:20 Dose: 220 mg Documented by: - Objective Vital Signs: Vital Signs Temperature 98.8 F 05/16/20 05:59 Pulse Rate 69 05/16/20 05:59 Respiratory Rate 18 05/16/20 05:59 Blood Pressure 109/67 05/16/20 05:59 O2 Sat by Pulse Oximetry (%) 97 05/15/20 21:00 Labs: CBC, BMP 05/15/20 08:15 05/15/20 08:15 INR, PTT INR 0.99 (0.83-1.09) 05/13/20 05:35 Problem List - Problems (1) Prophylactic measure Assessment/Plan: FEN Fluids:decreased IVF Electrolytes: monitor & replete as needed Nutrition:tolerating full liquids-can advance as tolerated DVT moderate risk sq heparin Dispo Maintain as inpatient full code discharge planning Code(s): Z29.9 - ENCOUNTER FOR PROPHYLACTIC MEASURES, UNSPECIFIED (2) Alcohol withdrawal delirium, acute, hyperactive Assessment/Plan: completed ativan detox protocol client services specialist consultation requested-plan to return back to [facility] for rehab [facility] 1 counseled on compete ETOH cessation Code(s): F10.231 - ALCOHOL DEPENDENCE WITH WITHDRAWAL DELIRIUM (3) Elevated LFTs Assessment/Plan: trending down c/t monitor avoid hepatotoxic agents ETOH cessation Code(s): R94.5 - ABNORMAL RESULTS OF LIVER FUNCTION STUDIES (4) Thrombocytopenia Assessment/Plan: improving 115 most likely d/t longstading ETOH abuse c/t monitor Code(s): D69.6 - THROMBOCYTOPENIA, UNSPECIFIED (5) DM type 2 (diabetes mellitus, type 2) Assessment/Plan: BGM AC/HS with novolog sliding scale diabetic diet Code(s): E11.9 - TYPE 2 DIABETES MELLITUS WITHOUT COMPLICATIONS Qualifiers: Diabetes mellitus bed bug exterminator insulin use: unspecified bed bug exterminator insulin use status Diabetes mellitus complication status: without complication Qualified Code(s): E11.9 - Type 2 diabetes mellitus without complications (6) GERD (gastroesophageal reflux disease) Assessment/Plan: c/w protonix Code(s): K21.9 - GASTRO-ESOPHAGEAL REFLUX DISEASE WITHOUT ESOPHAGITIS (7) HTN (hypertension) Assessment/Plan: normotensive c/w lisinipril Code(s): I10 - ESSENTIAL (PRIMARY) HYPERTENSION Qualifiers: Hypertension type: essential hypertension Qualified Code(s): I10 - Essential (primary) hypertension (8) Alcoholic pancreatitis Assessment/Plan: most likely d/t alcoholic hepatitis c/t trend lipase MRCP not suggestive of biliary tract obstruction can advance diet c/w gentle IV hydration-plan to stop tonmorrow Hepatitis serologies -HCV negative, HB negative-can vaccinate as out pt ETOH cessation appreciate GI consultation Code(s): K85.20 - ALCOHOL INDUCED ACUTE PANCREATITIS WITHOUT NECROSIS OR INFCT (9) COVID-19 ruled out Assessment/Plan: COVID PCR neg Code(s): Z03.818 - ENCNTR FOR OBS FOR SUSP EXPSR TO OTH BIOLG AGENTS RULED OUT Visit type - Emergency Visit Emergency Visit: Yes ED Registration Date: 05/12/20 Care time: The patient presented to the Emergency Department on the above date and was hospitalized for further evaluation of their emergent condition. - New Patient This patient is new to me today: No - Critical Care Critical Care patient: No - Discharge Referral Referred to [facility] No CIWA Score - CIWA Score Nausea/Vomitin-No Nausea/No Vomiting Muscle Tremors: 1-None Visible, but [place] Anxiety: 0-No Anxiety, at Ease Agitation: 0-Normal Activity Paroxysmal Sweats: No Perspiration Orientation: 0-Oriented Tacttile Disturbances: 0-None Auditory Disturbances: 0-None Visual Disturbances: 0-None Headache: 0-None Present CIWA-Ar Total Score: 1
[2020-05-16] MEDS ORDERED: PT OWN MED DRAWER 7, Y5N ONE ×2 (09:34→14:06)
[2020-05-16 09:37] LABS: BASO % 0.4 % (0-2.0); EOS % 0.3 % (0-4.5); HEMATOCRIT 36.1 % (35.4-49); HEMOGLOBIN 12.3 GM/dL (11.7-16.9); LYMPH % 37.1 % (8-40); MCH 32.6 pg (25.7-33.7); MEAN PLT VOLUME 8.5 fl (7.5-11.1); MONO % 10.8 % (3.8-10.2); NEUT % 51.4 % (42.8-82.8); PLATELET COUNT 115 K/MM3 (134-434); RBC 3.76 M/mm3 (4.00-5.60); WHITE BLOOD COUNT 5.8 K/mm3 (4.0-10.0)
[2020-05-16 09:54] LABS: ALBUMIN 3.2 g/dl (3.4-5.0); BLOOD UREA NITROGEN 5.1 mg/dL (7-18); CALCIUM 9.3 mg/dL (8.5-10.1); CREATININE 0.7 mg/dL (0.55-1.3); MAGNESIUM 1.8 mg/dL (1.8-2.4)
[2020-05-16] MEDS: LISINOPRIL 10 MG TABLET (FP) PO SCH (09:54)
[2020-05-16] MEDS: CHOLECALCIFEROL (VIT D3) 1,000 UNIT (25 MCG) TABLET PO SCH (09:54)
[2020-05-16] MEDS: THIAMINE HCL 200 MG/2 ML VIAL IVPB SCH (09:55)
[2020-05-16] MEDS: ZINC SULFATE 220 MG CAPSULE (FP) PO SCH ×2 (09:55→21:09)
[2020-05-16] MEDS: PANTOPRAZOLE 40 MG TABLET PO SCH (09:55)
[2020-05-16] MEDS: ASCORBIC ACID 500 MG TABLET (FP) PO SCH ×2 (09:56→21:09)
[2020-05-16] MEDS: FOLIC ACID 5 MG/1 ML SQ SCH (09:56)
[2020-05-16] MEDS: ENOXAPARIN NA (PORCINE) 40 MG/0.4 ML DISP.SYRIN SQ SCH (13:09)
[2020-05-16] MEDS ORDERED: LORazepam 0.5 MG TABLET PO PRN (15:57)
[2020-05-17 02:25] VITALS: TEMP 98.1
[2020-05-17] MEDS: INSULIN SLIDING SCALE (NOVOLOG) 1 VIAL SQ SCH ×2 (06:09→12:11)
[2020-05-17] MEDS: LACTATED RINGERS SOLUTION 1,000 ML/1,000 ML INFUS.BAG IV SCH (06:45)
--- NOTE | 2020-05-17 08:54 | PN ---
Progress Note, Physician History of Present Illness: 34 y.o. Georgian-speaking M w/ PMHx. of HTN, GERD, DM2, and Psorias presents for tremors and abdominal pain - Current Medication List Current Medications: Active Medications Ascorbic Acid (Vitamin C -) 500 mg PO BID [facility] Last Admin: 05/16/20 21:09 Dose: 500 mg Documented by: Cholecalciferol (Vitamin D3 -) 1,000 unit PO DAILY [facility] Last Admin: 05/16/20 09:54 Dose: 1,000 unit Documented by: Enoxaparin Sodium (Lovenox -) 40 mg SQ DAILY [facility] Last Admin: 05/16/20 13:09 Dose: 40 mg Documented by: Folic Acid (Folic Acid Injection -) 0.4 mg SQ DAILY [facility] Last Admin: 05/16/20 09:56 Dose: 0.4 mg Documented by: Lactated Ringer's (Lactated Ringers Solution) 1,000 ml in 1,000 mls @ 50 mls/hr IV ASDIR [facility] Last Admin: 05/17/20 06:45 Dose: 50 mls/hr Documented by: Insulin Aspart (Novolog Vial Sliding Scale -) 1 vial SQ ACHS [facility]; Protocol Last Admin: 05/17/20 06:09 Dose: 2 units Documented by: Lisinopril (Prinivil) 10 mg PO DAILY [facility] Last Admin: 05/16/20 09:54 Dose: 10 mg Documented by: Lorazepam (Ativan -) 0.5 mg PO BID PRN PRN Reason: ANXIETY Pantoprazole Sodium (Protonix -) 40 mg PO DAILY [facility] Last Admin: 05/16/20 09:55 Dose: 40 mg Documented by: Thiamine HCl (Vitamin B1 Injection -) 200 mg IVPB DAILY [facility] Last Admin: 05/16/20 09:55 Dose: 200 mg Documented by: Zinc Sulfate (Orazinc -) 220 mg PO BID [facility] Last Admin: 05/16/20 21:09 Dose: 220 mg Documented by: - Objective Vital Signs: Vital Signs Temperature 98.1 F 05/17/20 02:24 Pulse Rate 73 05/17/20 02:24 Respiratory Rate 20 05/17/20 02:24 Blood Pressure 119/67 05/17/20 02:24 O2 Sat by Pulse Oximetry (%) 97 05/16/20 21:00 Labs: CBC, BMP 05/16/20 08:35 05/16/20 08:35 INR, PTT INR 0.99 (0.83-1.09) 05/13/20 05:35 Problem List - Problems (1) Prophylactic measure Code(s): Z29.9 - ENCOUNTER FOR PROPHYLACTIC MEASURES, UNSPECIFIED (2) Alcohol withdrawal delirium, acute, hyperactive Code(s): F10.231 - ALCOHOL DEPENDENCE WITH WITHDRAWAL DELIRIUM (3) Elevated LFTs Code(s): R94.5 - ABNORMAL RESULTS OF LIVER FUNCTION STUDIES (4) Thrombocytopenia Code(s): D69.6 - THROMBOCYTOPENIA, UNSPECIFIED (5) DM type 2 (diabetes mellitus, type 2) Code(s): E11.9 - TYPE 2 DIABETES MELLITUS WITHOUT COMPLICATIONS Qualifiers: Diabetes mellitus long term care administrator insulin use: unspecified long term care administrator insulin use status Diabetes mellitus complication status: without complication Qualified Code(s): E11.9 - Type 2 diabetes mellitus without complications (6) GERD (gastroesophageal reflux disease) Code(s): K21.9 - GASTRO-ESOPHAGEAL REFLUX DISEASE WITHOUT ESOPHAGITIS (7) HTN (hypertension) Code(s): I10 - ESSENTIAL (PRIMARY) HYPERTENSION Qualifiers: Hypertension type: essential hypertension Qualified Code(s): I10 - Essential (primary) hypertension (8) Alcoholic pancreatitis Code(s): K85.20 - ALCOHOL INDUCED ACUTE PANCREATITIS WITHOUT NECROSIS OR INFCT (9) COVID-19 ruled out Code(s): Z03.818 - ENCNTR FOR OBS FOR SUSP EXPSR TO OT BIOLG AGENTS RULED OUT
--- NOTE | 2020-05-17 09:38 | PN ---
Problem List - Problems (1) Alcoholic pancreatitis Code(s): K85.20 - ALCOHOL INDUCED ACUTE PANCREATITIS WITHOUT NECROSIS OR INFCT
--- NOTE | 2020-05-17 09:43 | PN ---
Progress Note (short form) - Note Progress Note: Gastroenterology note: Pt without any complaints of abd pain this am. Tolerating a solid food diet and had a non-bloody BM. Vital Signs Period Temp Pulse Resp BP Sys/Acevedo Pulse Ox Last 24 Hr 97.4 F-98.6 F 72-86 18-20 102-124/67-75 97 ABD: soft, non-distended, non-tender CBC, BMP 05/16/20 08:35 05/16/20 08:35 <Ijeoma Chew - Last Filed: 05/17/20 15:32> - Note Progress Note: PT SEEN AND EXAMINED AGREE WITH ASSESSMENT AND PLAN OUTLINED ABOVE. -LOW FAT DIET - ETOH WITHDRAWAL PROTOCOL / ABSTINENCE <Beatrice Mckenzie - Last Filed: 05/17/20 17:36> Problem List - Problems (1) Alcoholic pancreatitis Assessment/Plan: Pt tolerating a diet this am and having bowel function. No complaints of abdom inal pain. LFTs to be drawn today(ordered) D/w the medical team, making arrangements for discharge planning to possible [facility] Referral made to GI for outpt CT scan with pancreatic protocol for 4 weeks D/w Dr. Mckenzie Code(s): K85.20 - ALCOHOL INDUCED ACUTE PANCREATITIS WITHOUT NECROSIS OR INFCT <Ijeoma Chew - Last Filed: 05/17/20 15:32> - Problems (1) Alcoholic pancreatitis Code(s): K85.20 - ALCOHOL INDUCED ACUTE PANCREATITIS WITHOUT NECROSIS OR INFCT (2) Alcohol withdrawal delirium, acute, hyperactive Code(s): F10.231 - ALCOHOL DEPENDENCE WITH WITHDRAWAL DELIRIUM (3) Elevated LFTs Code(s): R94.5 - ABNORMAL RESULTS OF LIVER FUNCTION STUDIES <Beatrice Mckenzie - Last Filed: 05/17/20 17:36>
[2020-05-17] MEDS: ASCORBIC ACID 500 MG TABLET (FP) PO SCH (10:17)
[2020-05-17] MEDS: THIAMINE HCL 200 MG/2 ML VIAL IVPB SCH (10:17)
[2020-05-17] MEDS: LISINOPRIL 10 MG TABLET (FP) PO SCH (10:18)
[2020-05-17] MEDS: FOLIC ACID 5 MG/1 ML SQ SCH (10:18)
[2020-05-17] MEDS: PANTOPRAZOLE 40 MG TABLET PO SCH (10:18)
[2020-05-17] MEDS: CHOLECALCIFEROL (VIT D3) 1,000 UNIT (25 MCG) TABLET PO SCH (10:18)
[2020-05-17] MEDS: ZINC SULFATE 220 MG CAPSULE (FP) PO SCH (10:20)
[2020-05-17] MEDS: ENOXAPARIN NA (PORCINE) 40 MG/0.4 ML DISP.SYRIN SQ SCH (10:20)
[2020-05-17 10:27] LABS: BASO % 0.5 % (0-2.0); EOS % 1.2 % (0-4.5); HEMATOCRIT 34.9 % (35.4-49); HEMOGLOBIN 11.9 GM/dL (11.7-16.9); LYMPH % 37.7 % (8-40); MCH 32.9 pg (25.7-33.7); MCHC 34.1 g/dl (32.0-35.9); MEAN CELL VOLUME 96.7 fl (80-96); MEAN PLT VOLUME 8.1 fl (7.5-11.1); MONO % 14.2 % (3.8-10.2); NEUT % 46.4 % (42.8-82.8); PLATELET COUNT 142 K/MM3 (134-434); RBC 3.61 M/mm3 (4.00-5.60); RDW 15.5 % (11.9-15.9); WHITE BLOOD COUNT 3.7 K/mm3 (4.0-10.0)
[2020-05-17 11:03] LABS: BILIRUBIN,TOTAL 0.7 mg/dL (0.2-1); BLOOD UREA NITROGEN 7.6 mg/dL (7-18); CALCIUM 8.5 mg/dL (8.5-10.1); CREATININE 0.6 mg/dL (0.55-1.3); MAGNESIUM 1.8 mg/dL (1.8-2.4); POTASSIUM 3.5 mmol/L (3.5-5.1)
[2020-05-17 11:04] LABS: TOT PROT 6.7 g/dl (6.4-8.2)
[2020-05-17 12:35] VITALS: BP 122/72; PULSE 63
--- NOTE | 2020-05-17 14:42 | DS ---
Physical Exam: SUBJECTIVE: Patient seen and examined. Medically stable for DC OBJECTIVE: Vital Signs Period Temp Pulse Resp BP Sys/Acevedo Pulse Ox Last 24 Hr 98.1 F-98.4 F 63-73 18-20 102-122/67-72 96-97 PHYSICAL EXAM Constitutional: Yes: Well Nourished, No Distress, Calm, Anxious, Mild Distress Eyes: Yes: WNL, Conjunctiva Clear, EOM Intact HENT: Yes: WNL, Atraumatic, Normocephalic Neck: Yes: WNL, Supple, Trachea Midline Cardiovascular: Yes: WNL, Regular Rate and Rhythm Respiratory: Yes: WNL, Regular, CTA Bilaterally Gastrointestinal: Yes: Normal Bowel Sounds, Soft, Tenderness-lower quads ...Rectal Exam: Yes: Deferred Renal/: Yes: WNL Breast(s): Yes: WNL Musculoskeletal: Yes: WNL Extremities: Yes: WNL Edema: Yes Peripheral Pulses WNL: Yes Peripheral Pulses: Left Radial: 2+, Right Radial: 2+, Left Doralis Pedis: 2+, Right Dorsalis Pedis: 2+, Left Femoral: 2+, Right Femoral: 2+ Integumentary: Yes: WNL Neurological: Yes: awake and alert ...Motor Strength: WNL Psychiatric: Yes: WNL, Alert LABS Laboratory Results - last 24 hr 05/16/20 05/16/20 05/17/20 17:10 20:54 06:05 WBC RBC Hgb Hct MCV MCH MCHC RDW Plt Count MPV Absolute Neuts (auto) Neutrophils % Lymphocytes % Monocytes % Eosinophils % Basophils % Nucleated RBC % Sodium Potassium Chloride Carbon Dioxide Anion Gap BUN Creatinine Est GFR (CKD-EPI)AfAm Est GFR (CKD-EPI)NonAf POC Glucometer 125 144 152 Random Glucose Calcium Magnesium Total Bilirubin AST ALT Alkaline Phosphatase Total Protein Albumin 05/17/20 05/17/20 05/17/20 09:15 09:15 11:19 WBC 3.7 L RBC 3.61 L Hgb 11.9 Hct 34.9 L MCV 96.7 H MCH 32.9 MCHC 34.1 RDW 15.5 Plt Count 142 D MPV 8.1 Absolute Neuts (auto) 1.7 Neutrophils % 46.4 Lymphocytes % 37.7 Monocytes % 14.2 H Eosinophils % 1.2 D Basophils % 0.5 Nucleated RBC % 0 Sodium 137 Potassium 3.5 Chloride 102 Carbon Dioxide 26 Anion Gap 10 BUN 7.6 Creatinine 0.6 Est GFR (CKD-EPI)AfAm 153.11 Est GFR (CKD-EPI)NonAf 132.10 POC Glucometer 136 Random Glucose 169 H Calcium 8.5 Magnesium 1.8 Total Bilirubin 0.7 AST 142 H ALT 148 H Alkaline Phosphatase 174 H Total Protein 6.7 Albumin 3.0 L HOSPITAL COURSE: Date of Admission:05/12/20 Date of Discharge: 05/17/20 Problem List - Problems (1) Prophylactic measure Assessment/Plan: FEN Nutrition:low fat diet Dispo discharge to home with f/u with GI in 1 month Code(s): Z29.9 - ENCOUNTER FOR PROPHYLACTIC MEASURES, UNSPECIFIED (2) Alcohol withdrawal delirium, acute, hyperactive Assessment/Plan: [facility] refusing rehab at [facility]-offered alternatives [facility] 1 counseled on compete ETOH cessation Code(s): F10.231 - ALCOHOL DEPENDENCE WITH WITHDRAWAL DELIRIUM (3) Elevated LFTs Assessment/Plan: trending down c/t monitor avoid hepatotoxic agents ETOH cessation Code(s): R94.5 - ABNORMAL RESULTS OF LIVER FUNCTION STUDIES (4) Thrombocytopenia Assessment/Plan: improving 115 most likely d/t longstading ETOH abuse Code(s): D69.6 - THROMBOCYTOPENIA, UNSPECIFIED (5) DM type 2 (diabetes mellitus, type 2) Assessment/Plan: cane resume oral hypoglycemics Code(s): E11.9 - TYPE 2 DIABETES MELLITUS WITHOUT COMPLICATIONS Qualifiers: Diabetes mellitus intermediate school teacher insulin use: unspecified fpc insulin use status Diabetes mellitus complication status: without complication Qualified Code(s): E11.9 - Type 2 diabetes mellitus without complications (6) GERD (gastroesophageal reflux disease) Assessment/Plan: c/w protonix Code(s): K21.9 - GASTRO-ESOPHAGEAL REFLUX DISEASE WITHOUT ESOPHAGITIS (7) HTN (hypertension) Assessment/Plan: normotensive c/w lisinipril Code(s): I10 - ESSENTIAL (PRIMARY) HYPERTENSION Qualifiers: Hypertension type: essential hypertension Qualified Code(s): I10 - Essential (primary) hypertension (8) Alcoholic pancreatitis Assessment/Plan: most likely d/t alcoholic hepatitis MRCP not suggestive of biliary tract obstruction tolerating diet c/w gentle IV hydration-plan to stop tonmorrow Hepatitis serologies -HCV negative, HB negative-can vaccinate as out pt ETOH cessation GI f/u 1 [facility] Code(s): K85.20 - ALCOHOL INDUCED ACUTE PANCREATITIS WITHOUT NECROSIS OR INFCT (9) COVID-19 ruled out Assessment/Plan: COVID PCR neg Code(s): Z03.818 - ENCNTR FOR OBS FOR SUSP EXPSR TO [facility] AGENTS RULED OUT Minutes to complete discharge: 40 Discharge Summary Problems reviewed: Yes Reason For Visit: ALCOHOL DEPENDENCE WITH UNCOMPLICATED WITHDRAWAL Current Active Problems Alcohol dependence with uncomplicated withdrawal (Acute) Alcoholic pancreatitis (Acute) COVID-19 (Acute) COVID-19 ruled out (Acute) Person under investigation for COVID-19 (Acute) Prophylactic measure (Acute) Condition: Improved - Instructions Diet, Activity, Other Instructions: DISCHARGE YOUR VISIT You came to the hospital because were sent her from [facility] because your liver enzymes were elevated and your pancreas was inflammed. You complete detox from alcohol and you should follow with [facility] for rehab. It is very important that you do not ANY ALCOHOL. It was cause youe liver to fail and you could You will need follow with the gastroenterology department in 4 weeks to have a repeat abdominal CAT scan completed to evaluate your pancrease. Please refer to your discharge papers for their office number. MEDICATIONS Please continue to take your home medications as prescribed. There was no changes DIET Continue your home diet ADDITIONAL CARE Please make an appointment to see your primary care provider, 1 week from today. ADDITIONAL INFORMATION Please call 911 or come directly to the emergency department if you experience unusual headache, vision change, shortness of breath, chest pain, numbness, ti ngling, loss of alertness/awareness, loss of function, unusual bleeding or any alarming symptoms. Thank you for allowing me to care for you. Phil Hoyos, BRYNN, [facility] [phone] Continue low fat/residual diet Referrals: Syed Costa MD [Staff Physician] - Julian Cutler DO [Staff Physician] - (follow up for reapeat CT in 4 weeks) Beatrice Mckenzie DO [Staff Physician] - 1 Month Disposition: HOME - Home Medications Comprehensive Discharge Medication List: Ambulatory Orders Lisinopril 10 mg PO BID 07/10/19 Pantoprazole Sodium [Protonix] 40 mg PO DAILY 07/10/19 Thiamine HCl [B-1] 100 mg PO DAILY 07/10/19 metFORMIN HCL [Metformin HCl] 500 mg PO DAILY 07/10/19 Folic Acid 1 mg PO DAILY 09/09/19 Pantoprazole Sodium [Protonix -] 40 mg PO DAILY #0 tablet.ec 05/17/20 Problem List - Problems (1) Prophylactic measure Code(s): Z29.9 - ENCOUNTER FOR PROPHYLACTIC MEASURES, UNSPECIFIED (2) Alcohol withdrawal delirium, acute, hyperactive Code(s): F10.231 - ALCOHOL DEPENDENCE WITH WITHDRAWAL DELIRIUM (3) Elevated LFTs Code(s): R94.5 - ABNORMAL RESULTS OF LIVER FUNCTION STUDIES (4) Thrombocytopenia Code(s): D69.6 - THROMBOCYTOPENIA, UNSPECIFIED (5) DM type 2 (diabetes mellitus, type 2) Code(s): E11.9 - TYPE 2 DIABETES MELLITUS WITHOUT COMPLICATIONS Qualifiers: Diabetes mellitus intermediate school teacher insulin use: unspecified intermediate school teacher insulin use status Diabetes mellitus complication status: without complication Qualified Code(s): E11.9 - Type 2 diabetes mellitus without complications (6) GERD (gastroesophageal reflux disease) Code(s): K21.9 - GASTRO-ESOPHAGEAL REFLUX DISEASE WITHOUT ESOPHAGITIS (7) HTN (hypertension) Code(s): I10 - ESSENTIAL (PRIMARY) HYPERTENSION Qualifiers: Hypertension type: essential hypertension Qualified Code(s): I10 - Essential (primary) hypertension (8) Alcoholic pancreatitis Code(s): K85.20 - ALCOHOL INDUCED ACUTE PANCREATITIS WITHOUT NECROSIS OR INFCT (9) COVID-19 ruled out Code(s): Z03.818 - ENCNTR FOR OBS FOR SUSP EXPSR TO [facility] AGENTS RULED OUT This patient is new to me today: No Emergency Visit: Yes ED Registration Date: 05/12/20 Care time: The patient presented to the Emergency Department on the above date and was hospitalized for further evaluation of their emergent condition. Critical Care patient: No - Discharge Referral Referred to [facility] No
== END 2020-05-17 16:05 | disposition home or self-care (01) | DRG 282 ==
LOC: JER 03:55 → JERBED 04:39 → J7W 21:31 → J6S 05-14 10:26
PROVIDERS: ADMIT Internal Medicine; ATTEND Nurse Practitioner Acute Care
PROC: HZ2ZZZZ Detoxification Services for Substance Abuse Treatment (ICD-10-PCS; principal; 2020-05-12)
DX: K85.20 Alcohol induced acute pancreatitis without necrosis or infection (principal); F10.230 Alcohol dependence with withdrawal, uncomplicated; R94.5 Abnormal results of liver function studies; K70.10 Alcoholic hepatitis without ascites; R10.9 Unspecified abdominal pain; E11.9 Type 2 diabetes mellitus without complications; K21.9 Gastro-esophageal reflux disease without esophagitis; I10 Essential (primary) hypertension; D69.6 Thrombocytopenia, unspecified; M54.5 Low back pain; L40.9 Psoriasis, unspecified; E87.6 Hypokalemia
CPT/HCPCS: 36415; 70450-TC; 71045-TC-FY; 72125-TC; 74181-TC; 76705-TC; 80053; 80061; 80307; 81003; 82607; 82728; 82962; 83036; 83615; 83690; 83721; 83735; 84100; 84484; 85025; 85379; 85610; 85730; 86140; 86704; 86706; 86707; 86708; 86709; 86803; 87086; 87186; 87340; 93005; 93010; 99285-25; U0003

== ENCOUNTER 2020-06-28 11:05 | Inpatient (IN) | payer OTHER ==
--- NOTE | 2020-06-28 11:18 | PDOC ---
Rapid Medical Evaluation Time Seen by Provider: 06/28/20 11:14 Medical Evaluation: Allergies Allergy/AdvReac Type Severity Reaction Status Date / Time No Known Allergies Allergy Verified 05/12/20 03:58 06/28/20 11:14 I have performed a brief in-person evaluation of this patient. The patient presents with a chief complaint of:nausea w/ abd pain and "shaking" x 3 days. H/o ETOH abuse w/ last intake ~3 days ago. H/o pancreatitis, GERD, HTN, DM on meds Pertinent physical exam findings:jacques mildly uncomfortable w/ +b/l UE tremors but stable I have ordered the following:labs The patient will proceed to the ED for further evaluation. 06/28/20 11:17 Discharge Disposition - Diagnosis Nausea, Tremor Abdominal pain Qualifiers: Abdominal location: upper abdomen, unspecified Qualified Code(s): R10.10 - Upper abdominal pain, unspecified - Referrals - Patient Instructions - Post Discharge Activity
[2020-06-28] MEDS ORDERED: SODIUM CHLORIDE 0.9% 500 ML INFUS.BAG IV ONE (14:17)
[2020-06-28] MEDS ORDERED: diazePAM CARPU-JECT 10 MG/2 ML DISP.SYRIN IVPUSH ONE (14:17)
[2020-06-28] MEDS ORDERED: LORazepam 2 MG/ML SDV VIAL ONE (14:51)
--- NOTE | 2020-06-28 15:04 | PDOC ---
History of Present Illness - General History Source: Patient Exam Limitations: No Limitations - History of Present Illness Initial Comments: 06/28/20 15:00 Patient is a 34-year-old male who presents to the ED with complaint of nausea, vomiting and diarrhea for the last 2 to 3 days. He states he drinks alcohol daily and drinks roughly 15 beers a day. He has not had a drink since yesterday. He is feeling very tremulous and shaky. He also admits to abdominal pain that feels similar to when he had pancreatitis. He denies any fevers or chills. He denies any recent travel. He denies any colored contacts. He has a history of diabetes for which he takes metformin. He denies any allergies. <Alcira Kaplan - Last Filed: 06/28/20 17:53> <Sandi Katz - Last Filed: 06/28/20 18:17> - General Chief Complaint: Tremors Stated Complaint: Alcohol withdrawals Time Seen by Provider: 06/28/20 11:14 Past History - Medical History Anemia: No Asthma: No Cancer: No Cardiac Disorders: No CVA: No COPD: No CHF: No Dementia: No Diabetes: Yes (METFORMIN) GI Disorders: Yes (GERD - PANTOPRAZOLE) Disorders: No HTN: Yes (LISINOPRIL) Hypercholesterolemia: No Kidney Stones: No Liver Disease: No Seizures: No Thyroid Disease: No - Surgical History Abdominal Surgery: No Appendectomy: No Cardiac Surgery: No Cholecystectomy: No Lung Surgery: No Neurologic Surgery: No Orthopedic Surgery: No - Reproductive History Testicular Surgery: No - Immunization History Immunization Up to Date: Yes - Psycho-Social/Smoking History Smoking History: Never smoked Have you smoked in the past 12 months: No Number of Cigarettes Smoked Daily: 3 'Breaking Loose' booklet given: 05/12/20 - Substance Abuse Hx (Audit-C & DAST Scrn) How often the patient has a drink containing alcohol: 4 0r more times/wk Number of drinks the patient has on a typical day: 5 or 6 Score: In Men: 4 or > Positive; In Women: 3 or > Positive: 6 Screen Result (Pos requires Nsg. Audit-10AR): Positive In the last yr the pt used illegal drug/Rx for NonMed reason: No Score: Yes response is considered Positive: 0 Screen Result (Positive result requires Nsg. DAST-10): Negative <Alcira Kaplan - Last Filed: 06/28/20 17:53> <GiannaSandi Noam - Last Filed: 06/28/20 18:17> - Medical History Allergies/Adverse Reactions: Allergies Allergy/AdvReac Type Severity Reaction Status Date / Time No Known Allergies Allergy Verified 06/28/20 11:14 Home Medications: Ambulatory Orders metFORMIN HCL [Glucophage -] 500 mg PO BID 06/28/20 Review of Systems - Review of Systems Comments:: 06/28/20 15:01 - Review of Systems Able to Perform ROS?: Yes Constitutional: No: Fever, Chills, Loss of Appetite, Night Sweats, Weakness HEENTM: No: Eye Pain, Vision changes, Ear Pain, Throat Pain, Throat Swelling, Mouth Pain, Difficulty Swallowing Respiratory: No: Cough, Shortness of Breath, Wheezing, Sputum Production Cardiac (ROS): No: Chest Pain, Chest Tightness, Palpitations, Irregular Heart Beat, Edema ABD/GI: Positive nausea, vomiting, diarrhea and abdominal pain : No Dysuria, No Hematuria, No Frequency, No Urgency Musculoskeletal: No: Muscle Pain, Back Pain, Joint Pain, Muscle Weakness, Neck Pain Integumentary: No: Lesions, Rash Neurological: No: Headache, Numbness, Tingling, Weakness, Speech Difficulties; positive: Tremors <Alcira Kaplan - Last Filed: 06/28/20 17:53> *Physical Exam - Vital Signs Last Vital Signs Temp Pulse Resp BP Pulse Ox 96 H 20 128/80 100 06/28/20 11:15 06/28/20 11:15 06/28/20 11:15 06/28/20 14:45 - Physical Exam 06/28/20 15:01 - Physical Exam General Appearance: Nourished, Appropriately Dressed, No Distress HEENT: EOMI, Normal Voice, Hearing Grossly Normal, anicteric, mild tongue fasciculations Neck: Supple, No Lymphadenopathy (R), No Lymphadenopathy (L), No Rigidity, No Decreased range of motion Respiratory/Chest: Lungs Clear, Normal Breath Sounds. No Respiratory Distress, No Accessory Muscle Use Cardiovascular: Regular Rhythm, Regular Rate, S1, S2 Gastrointestinal/Abdominal: Normal Bowel Sounds, Soft. Diffuse upper abdominal tenderness to palpation. Negative Asencio sign. No tenderness over the right lower quadrant. Negative McBurney's point tenderness. Negative Rovsing sign. No CVA tenderness bilaterally. Musculoskeletal: Normal Inspection. No Decreased Range of Motion Extremity: Normal Capillary Refill, Normal Inspection Integumentary: Normal Color, Dry. No Rash Neurologic: consumer attorney II-XII NML intact, Fully Oriented, Alert, Normal Mood/Affect, Normal Response; moderate hand tremors appreciated. No asterixis <Alcira Kaplan - Last Filed: 06/28/20 17:53> - Vital Signs Last Vital Signs Temp Pulse Resp BP Pulse Ox 96 H 20 128/80 100 06/28/20 11:15 06/28/20 11:15 06/28/20 11:15 06/28/20 14:45 <Sandi Katz - Last Filed: 06/28/20 18:17> ED Treatment Course - LABORATORY CBC & Chemistry Diagram: 06/28/20 14:50 06/28/20 14:50 <Alcira Kaplan - Last Filed: 06/28/20 17:53> - LABORATORY CBC & Chemistry Diagram: 06/28/20 14:50 06/28/20 14:50 - ADDITIONAL ORDERS Additional order review: Laboratory Results 06/28/20 14:50 Sodium 137 Potassium 2.9 L* Chloride 96 L Carbon Dioxide 31 Anion Gap 10 BUN 10.4 Creatinine 0.8 Est GFR (CKD-EPI)AfAm 136.03 Est GFR (CKD-EPI)NonAf 117.37 Random Glucose 85 Calcium 9.4 Total Bilirubin 0.5 AST 145 H ALT 148 H Alkaline Phosphatase 105 Total Protein 8.0 Albumin 4.0 Lipase 400 H 06/28/20 14:50 RBC 3.84 L MCV 97.5 H MCHC 34.8 RDW 14.5 MPV 8.7 Neutrophils % 52.1 Lymphocytes % 36.6 Monocytes % 9.8 Eosinophils % 1.2 Basophils % 0.3 - Medications Given in the ED: ED Medications Discontinued Medications Generic Name Dose Route Start Last Admin Trade Name Freq PRN Reason Stop Dose Admin Diazepam 10 mg 06/28/20 14:17 06/28/20 16:54 Valium Injection - IVPUSH 06/28/20 14:18 Not Given ONCE ONE Lorazepam 2 mg 06/28/20 14:39 06/28/20 15:25 Ativan Injection - IVPUSH 06/28/20 14:40 2 mg ONCE ONE Administration Potassium Chloride 40 meq 06/28/20 15:50 06/28/20 16:55 Potassium Chloride Oral Liquid PO 06/28/20 15:51 Not Given ONCE ONE Potassium Chloride 40 meq 06/28/20 16:09 06/28/20 17:44 Potassium Chloride Oral Liquid PO 06/28/20 16:10 40 meq ONCE ONE Administration Sodium Chloride 1,000 ml 06/28/20 14:17 06/28/20 15:25 Normal Saline - IV 06/28/20 14:18 1,000 ml ONCE ONE Administration <Sandi Katz - Last Filed: 06/28/20 18:17> Medical Decision Making - Medical Decision Making 06/28/20 15:03 Assessment: Patient is a 34-year-old male with upper abdominal pain, nausea, vomiting, diarrhea, EtOH abuse. Plan: -Labs ordered -Patient with mild tongue fasciculations and moderate hand tremors consistent with early alcohol withdrawal, will order Ativan at this time -1 L of NS ordered -Will reassess 06/28/20 17:29 Patient to be admitted for pancreatitis with a lipase of 400 and a potassium of 2.9. He will be admitted for further evaluation and treatment. He states his pain is a little bit better but he still has it. Admitting team blogged. 06/28/20 17:53 Pt endorsed to the resident for admission to Dr. Qiu's service. Pt stable for admission and he understands and agrees with treatment and plan. <Alcira Kaplan - Last Filed: 06/28/20 17:53> - Medical Decision Making The patient was seen and evaluated in conjunction with midlevel provider under my direct supervision, ancillary studies were reviewed. I agree with the plan as outlined withGOLDY Kaplan. HPI, workup/dispo as outlined. VS reviewed, wnl. Vital Signs Temp Pulse Resp BP Pulse Ox 96 H 20 128/80 100 06/28/20 11:15 06/28/20 11:15 06/28/20 11:15 06/28/20 14:45 mild pancreatitis. hypoK likely from dehydration, n/v/d. mild ETOH w/d admit 06/28/20 18:16 <Sandi Katz - Last Filed: 06/28/20 18:17> Discharge - Discharge Information Problems reviewed: Yes - Admission Yes <Alcira Kaplan - Last Filed: 06/28/20 17:53> <Sandi Katz - Last Filed: 06/28/20 18:17> - Discharge Information Clinical Impression/Diagnosis: Nausea, Hypokalemia Abdominal pain Qualifiers: Abdominal location: upper abdomen, unspecified Qualified Code(s): R10.10 - Upper abdominal pain, unspecified Pancreatitis Qualifiers: Chronicity: acute Pancreatitis type: alcohol induced Acute pancreatitis complication: unspecified Qualified Code(s): K85.20 - Alcohol induced acute pancreatitis without necrosis or infection
[2020-06-28 15:09] LABS: BASO % 0.3 % (0-2.0); EOS % 1.2 % (0-4.5); HEMATOCRIT 37.4 % (35.4-49); LYMPH % 36.6 % (8-40); MCH 33.9 pg (25.7-33.7); MCHC 34.8 g/dl (32.0-35.9); MEAN CELL VOLUME 97.5 fl (80-96); MEAN PLT VOLUME 8.7 fl (7.5-11.1); MONO % 9.8 % (3.8-10.2); NEUT % 52.1 % (42.8-82.8); PLATELET COUNT 115 K/MM3 (134-434); RBC 3.84 M/mm3 (4.00-5.60); RDW 14.5 % (11.9-15.9); WHITE BLOOD COUNT 6.1 K/mm3 (4.0-10.0)
[2020-06-28 15:45] LABS: BILIRUBIN,TOTAL 0.5 mg/dL (0.2-1); BLOOD UREA NITROGEN 10.4 mg/dL (7-18); CALCIUM 9.4 mg/dL (8.5-10.1); CREATININE 0.8 mg/dL (0.55-1.3)
[2020-06-28 15:47] LABS: POTASSIUM 2.9 mmol/L (3.5-5.1)
[2020-06-28] MEDS ORDERED: POTASSIUM CHLORIDE ORAL LIQUID 20 MEQ/15 ML PO ONE ×2 (15:50→16:09)
[2020-06-28] MEDS ORDERED: KCL 10 MEQ IVPB 10 MEQ/100 ML INFUS.BAG IVPB ONE (17:36)
[2020-06-28] MEDS ORDERED: POTASSIUM CHLORIDE ORAL LIQUID 20 MEQ/15 ML ONE (17:36)
[2020-06-28] MEDS: KCL 10 MEQ IVPB 10 MEQ/100 ML INFUS.BAG IVPB SCH ×2 (17:44→21:32)
--- NOTE | 2020-06-28 17:44 | HP ---
CHIEF COMPLAINT: PCP: HISTORY OF PRESENT ILLNESS: 34M w/ pmh of pancreatitis, GERD, HTN, DM, chronic EtOH usage disorder(15beers daily) Presenting with complaint of NVD, ER course was notable for: (1) HR 96; BP 128/80 (2) WBC 6.1, H/H 13.0/37.4, MCV 97.5 K 2.9 AST/ALT 145/148 Lipase 400 (3) Ativan 2mg, KCl 10Meq, NS 1L US RUQ(05/12/20): neg cholelithiasis, small amount bile sludge w/in gallbladder; negative acute cholecystitis MRCP(05/12/20): pancreas is mildly edematous w/ mild peripancreatic edema. CBD is normal in caliber w/ no evidence of filling defects, no intrahepatic biliary ductal dilatation. Recent Travel: PAST MEDICAL HISTORY: PAST SURGICAL HISTORY: Social History: Smoking: Alcohol: Drugs: Allergies No Known Allergies Allergy (Verified 06/28/20 11:14) HOME MEDICATIONS: Home Medications Medication Instructions Recorded metFORMIN HCL [Glucophage -] 500 mg PO BID 06/28/20 REVIEW OF SYSTEMS CONSTITUTIONAL: Absent: fever, chills, diaphoresis, generalized weakness, malaise, loss of appetite, weight change HEENT: Absent: rhinorrhea, nasal congestion, throat pain, throat swelling, difficulty swallowing, mouth swelling, ear pain, eye pain, visual changes CARDIOVASCULAR: Absent: chest pain, syncope, palpitations, irregular heart rate, lightheadedness, peripheral edema RESPIRATORY: Absent: cough, shortness of breath, dyspnea with exertion, orthopnea, wheezing, stridor, hemoptysis GASTROINTESTINAL: Absent: abdominal pain, abdominal distension, nausea, vomiting, diarrhea, constipation, melena, hematochezia GENITOURINARY: Absent: dysuria, frequency, urgency, hesitancy, hematuria, flank pain, genital pain MUSCULOSKELETAL: Absent: myalgia, arthralgia, joint swelling, back pain, neck pain SKIN: Absent: rash, itching, pallor HEMATOLOGIC/IMMUNOLOGIC: Absent: easy bleeding, easy bruising, lymphadenopathy, frequent infections ENDOCRINE: Absent: unexplained weight gain, unexplained weight loss, heat intolerance, cold intolerance NEUROLOGIC: Absent: headache, focal weakness or paresthesias, dizziness, unsteady gait, seizure, mental status changes, bladder or bowel incontinence PSYCHIATRIC: Absent: anxiety, depression, suicidal or homicidal ideation, hallucinations. PHYSICAL EXAMINATION Vital Signs - 24 hr 06/28/20 06/28/20 11:15 14:45 Pulse Rate 96 H Respiratory 20 Rate Blood Pressure 128/80 O2 Sat by Pulse 99 100 Oximetry (%) GENERAL: Awake, alert, and fully oriented, in no acute distress. HEAD: Normal with no signs of trauma. EYES: Pupils equal, round and reactive to light, extraocular movements intact, sclera anicteric, conjunctiva clear. No lid lag. EARS, NOSE, THROAT: Ears normal, nares patent, oropharynx clear without exudates. Moist mucous membranes. NECK: Normal range of motion, supple without lymphadenopathy, JVD, or masses. LUNGS: Breath sounds equal, clear to auscultation bilaterally. No wheezes, and no crackles. No accessory muscle use. HEART: Regular rate and rhythm, normal S1 and S2 without murmur, rub or gallop. ABDOMEN: Soft, nontender, not distended, normoactive bowel sounds, no guarding, no rebound, no masses. No hepatomegaly or splenomegaly. MUSCULOSKELETAL: Normal range of motion at all joints. No bony deformities or tenderness. No CVA tenderness. UPPER EXTREMITIES: 2+ pulses, warm, well-perfused. No cyanosis. No clubbing. No peripheral edema. LOWER EXTREMITIES: 2+ pulses, warm, well-perfused. No calf tenderness. No peripheral edema. NEUROLOGICAL: Cranial nerves II-XII intact. Normal speech. Normal gait. PSYCHIATRIC: Cooperative. Good eye contact. Appropriate mood and affect. SKIN: Warm, dry, normal turgor, no rashes or lesions noted, normal capillary refill. Laboratory Results - last 24 hr 06/28/20 06/28/20 14:50 14:50 WBC 6.1 RBC 3.84 L Hgb 13.0 Hct 37.4 MCV 97.5 H MCH 33.9 H MCHC 34.8 RDW 14.5 Plt Count 115 L MPV 8.7 Absolute Neuts (auto) 3.2 Neutrophils % 52.1 Lymphocytes % 36.6 Monocytes % 9.8 Eosinophils % 1.2 Basophils % 0.3 Nucleated RBC % 0 Sodium 137 Potassium 2.9 L* Chloride 96 L Carbon Dioxide 31 Anion Gap 10 BUN 10.4 Creatinine 0.8 Est GFR (CKD-EPI)AfAm 136.03 Est GFR (CKD-EPI)NonAf 117.37 Random Glucose 85 Calcium 9.4 Total Bilirubin 0.5 AST 145 H ALT 148 H Alkaline Phosphatase 105 Total Protein 8.0 Albumin 4.0 Lipase 400 H ASSESSMENT/PLAN: Visit type - Emergency Visit Emergency Visit: Yes Care time: The patient presented to the Emergency Department on the above date and was hospitalized for further evaluation of their emergent condition. - New Patient This patient is new to me today: Yes Date on this admission: 06/28/20 - Critical Care Critical Care patient: No ATTENDING PHYSICIAN STATEMENT I saw and evaluated the patient. I reviewed the resident's note and discussed the case with the resident. I agree with the resident's findings and plan as documented. SUBJECTIVE: OBJECTIVE: ASSESSMENT AND PLAN:
--- NOTE | 2020-06-28 20:01 | HP ---
CHIEF COMPLAINT: ABDOMINAL PAIN X 3DAYS PCP: None HISTORY OF PRESENT ILLNESS: Patient is a 34yo male with a past medical history of DM, Kidny disease and Psoriasis now c/o abdominal pain of 3days duration. Pain was of gradual onset, sharp in nature, radiates to the throat, worse at nigh, worsened by movement with a severity of 10/10 at presentation but now 6/10. There is associated nausea and vomiting of non bloody, non bilous content as well as a single episode of diarrhea while at home, non voluminous, -ve blood content. Admits to tremors and insomnia. ED reports tongue fasciculation at presentation. Patient admits to hx of acid reflux and alcohol abuse of 15bottles/day for 15days. Previously drank 8bottles/day for 8 days. There is a hx of seizures when not drinkng and patient says he is drinking to relieve stress as he has no family member in [place] and has been working hard to send money to his family in [place] ER course was notable for: (1)Diazepam (2)KCl (3)N/S 1000IV Recent Travel: none PAST MEDICAL HISTORY: 06/28/20 15:00 Patient is a 34-year-old male who presents to the ED with complaint of nausea, vomiting and diarrhea for the last 2 to 3 days. He states he drinks alcohol daily and drinks roughly 15 beers a day. He has not had a drink since yesterday. He is feeling very tremulous and shaky. He also admits to abdominal pain that feels similar to when he had pancreatitis. He denies any fevers or chills. He denies any recent travel. He denies any colored contacts. He has a history of diabetes for which he takes metformin. He denies any allergies. PAST SURGICAL HISTORY: Social History: No insurance Smoking:none Alcohol:Yes, 15bottles per day for 15days continuously Drugs:none Allergies: None HOME MEDICATIONS: Home Medications Medication Instructions Recorded metFORMIN HCL [Glucophage -] 500 mg PO BID 06/28/20 REVIEW OF SYSTEMS Negative except as in history Vital Signs - 24 hr 06/28/20 06/28/20 06/28/20 11:15 14:45 18:42 Pulse Rate 96 H Pulse Rate [ 77 Apical] Respiratory 20 20 Rate Blood Pressure 128/80 Blood Pressure 110/80 [Right Arm] O2 Sat by Pulse 99 100 99 Oximetry (%) PHYSICAL EXAMINATION GENERAL: Awake, alert, and fully oriented, in no obvious distress. HEAD: Normal with no signs of trauma. EYES:Sclera anicteric, conjunctiva clear. No lid lag. NECK: Normal range of motion, supple without lymphadenopathy, JVD, or masses. LUNGS: Breath sounds equal, clear to auscultation bilaterally. No wheezes, and no crackles. HEART: Regular rate and rhythm, normal S1 and S2 without murmur, rub or gallop. ABDOMEN: Soft, tender, non distended, no masses. No hepatomegaly or splenomegaly. MUSCULOSKELETAL: No CVA tenderness. UPPER EXTREMITIES: 2+ pulses, warm, well-perfused. No cyanosis. No clubbing. No peripheral edema. LOWER EXTREMITIES: 2+ pulses, warm, well-perfused. No calf tenderness. No peripheral edema. Psoriatic lesion on b/l leg medial to both knees NEUROLOGICAL: Cranial nerves II-XII intact. Normal speech. PSYCHIATRIC: Cooperative. Good eye contact. Appropriate mood and affect. SKIN: Warm, dry, normal turgor, no rashes or lesions noted, normal capillary refill. Laboratory Results - last 24 hr 06/28/20 06/28/20 14:50 14:50 WBC 6.1 RBC 3.84 L Hgb 13.0 Hct 37.4 MCV 97.5 H MCH 33.9 H MCHC 34.8 RDW 14.5 Plt Count 115 L MPV 8.7 Absolute Neuts (auto) 3.2 Neutrophils % 52.1 Lymphocytes % 36.6 Monocytes % 9.8 Eosinophils % 1.2 Basophils % 0.3 Nucleated RBC % 0 Sodium 137 Potassium 2.9 L* Chloride 96 L Carbon Dioxide 31 Anion Gap 10 BUN 10.4 Creatinine 0.8 Est GFR (CKD-EPI)AfAm 136.03 Est GFR (CKD-EPI)NonAf 117.37 Random Glucose 85 Calcium 9.4 Total Bilirubin 0.5 AST 145 H ALT 148 H Alkaline Phosphatase 105 Total Protein 8.0 Albumin 4.0 Lipase 400 H ASSESSMENT/PLAN: Patient is a 34yo male with a past medical history of DM, Kidny disease and Psoriasis now c/o abdominal pain of 3days duration. Pain was of gradual onset, sharp in nature, radiates to the throat, worse at nigh, worsened by movement with a severity of 10/10 at presentation but now 6/10. #ALCOHOL INDUCED GASTRITIS TO R/O PANCREATITIS AND POSSIBLE ALCOHOL WITHDRAWAL: -Hx of alcohol abuse -CT ABD/PELVIS with IV contrast showed no evidence of acute pancreatitis, but showed mild diffuse gall bladder wall thickening and diffuse hepatic steatosis. -RUQ sonogram to evaluate gall bladder and biliary tree -Keep him NPO -IV Ringers lactate at 200ml/minute -Protonix 40 mg IV, use IV morphine for pain control -Trend LFTs. -Low platelets likely alcohol induced, monitor daily. -Urinalysis. -Repeat BMP -Hypokalemia in alcoholism likely due to urinary wasting -Give IV KCL. -Obtain serum magnesium and replete prn #ALCOHOL USE DISORDER: -Implement NDYF-Coiwaxk-tftkxtu-withdrawal protocol -Do neurochecks Q4H -Implement seizure, fall and aspiration precautions. -Treat with IV Banana bag to replete MgSO4, thiamine and folic acid and other vitamins -Monitor and replete electrolytes (Ca,Mg,K,P) -Patient counseled about considering alcohol and available resources in including [facility]. -Will consult heart specialist and refer to alcohol detox upon discharge. -EKG shows NSR at 77/minute and QTc with no ischemic ST-T wave changes. Not significantly changed compared to prior EKG. No old EKG available for comparison. -Initial troponin is negative. -Avoid QTc prolonging meds # DIABETES MELLITUS: -Implement ISS ACHS and hold Oral hypoglycemic agents -Educate on importance of med adherence and it's effect on optimal blood glucose control -Encourage to do annual eye care and foot care. -Viral testing for COVID-19 ordered and patient placed on airborne, droplet and contact isolation. #Hypertension: Patient not on any antihypertensive meds -monitor BP closely. -Educate on importance of med adherence and compliance to nonpharmacologic measures of BP control like weight loss, salt restriction and exercise and it's effect on optimal blood pressure control #DSPOSITION: -Admit telemetry -DVT prophylaxis - Lovenox 40 mg SQ q 24 hours. -Advance directives - Full code Family Medical History Family History: As Documented Visit type - Emergency Visit Emergency Visit: Yes ED Registration Date: 06/28/20 Care time: The patient presented to the Emergency Department on the above date and was hospitalized for further evaluation of their emergent condition. - New Patient This patient is new to me today: Yes Date on this admission: 06/28/20 - Critical Care Critical Care patient: No ATTENDING PHYSICIAN STATEMENT I saw and evaluated the patient. I reviewed the resident's note and discussed the case with the resident. I agree with the resident's findings and plan as documented. SUBJECTIVE: OBJECTIVE: ASSESSMENT AND PLAN:
[2020-06-28] MEDS ORDERED: LORazepam 2 MG/ML SDV VIAL IVPUSH PRN (20:13)
[2020-06-28] MEDS ORDERED: MAGNESIUM SULF 50% (8.12 MEQ/2 ML-1 GM VIAL) IVPB ONE (20:15)
[2020-06-28] MEDS ORDERED: LACTATED RINGERS SOLUTION 1,000 ML IV SCH (20:15)
--- NOTE | 2020-06-28 20:26 | PN ---
Teaching Attending Note Name of Resident: Debbie Abbott ATTENDING PHYSICIAN STATEMENT I saw and evaluated the patient. I reviewed the resident's note and discussed the case with the resident. I agree with the resident's findings and plan as documented. SUBJECTIVE: Patient is a 34 year old man with a PMH of Alcohol abuse, Cocaine use, Thr ombocytopenia, Alcohol withdrawal seizures, Pancreatitis, GERD, Psoriasis, NIDDM and HTN who presents to the ER with complaint of nausea, vomiting and diarrhea for the last 2 to 3 days. He states he drinks alcohol daily and drinks roughly 15 beers a day. He has not had a drink since yesterday. He is feeling very tremulous and shaky. He also admits to abdominal pain that feels similar to when he had pancreatitis. Patient denies chest pain, shortness of breath, dizziness, fever, chills, constipation, dysuria, frequency, urgency, melena, hematochezia or hematuria. 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 Denies tobacco use. No sick contacts or recent travels. Family history - five of his uncles have DM; father of MD at age 50 years. Noted to have hand tremors and tongue fasciculations in the ER and got multiple doses of Ativan. OBJECTIVE: Alert Vital Signs Period Temp Pulse Resp BP Sys/Acevedo Pulse Ox Last 24 Hr 77-96 20-20 110-128/80-80 99-100 HEENT: No Jaundice, eye redness or discharge, PERRLA, EOMI. Normocephalic, atraumatic. External ears are normal and hearing is grossly intact. No nasal discharge. Neck: Supple, nontender. No palpable adenopathy or thyromegaly. No JVD Chest: Good effort. Clear to auscultation and percussion. Heart: Regular. No S3, rub or murmur Abdomen: Not distended, soft, epigastric tenderness and no HSM. No rebound or guarding. Normal bowel sounds. Ext: Peripheral pulses intact. No leg edema. Skin: Warm and dry. No petechiae, rash or ecchymosis. Neuro: Alert. Oriented x3. CN 2-12 grossly intact. Sensation grossly intact in all four extremities and DTR are symmetric. Psych: Appropriate mood and affect. Good insight. Current Medications Generic Name Dose Route Start Last Admin Trade Name Freq PRN Reason Stop Dose Admin Enoxaparin Sodium 40 mg 06/28/20 20:15 Lovenox - SQ DAILY [facility] Folic Acid 1 mg 06/28/20 20:30 Folic Acid - PO DAILY [facility] Lactated Ringer's 1,000 mls @ 75 mls/hr 06/28/20 20:15 Lactated Ringers Solution IV ASDIR DAHLIA Lorazepam 1 mg 06/29/20 05:00 Ativan Injection - IVPUSH 06/29/20 23:01 0500,1100,1700,2300 DAHLIA Lorazepam 1 mg 06/28/20 20:13 Ativan Injection - IVPUSH 06/30/20 00:00 Q4H PRN Symptoms of Withdrawal Lorazepam 2 mg 06/28/20 05:00 Ativan Injection - IVPUSH 06/28/20 23:01 0500,1100,1700,2300 DAHLIA Lorazepam 0.5 mg 06/30/20 05:00 Ativan Injection - IVPUSH 06/30/20 23:01 Q6H DAHLIA Lorazepam 0.5 mg 06/30/20 00:00 Ativan Injection - IVPUSH 07/01/20 00:00 Q4H PRN Symptoms of Withdrawal Lorazepam 0.5 mg 07/01/20 05:00 Ativan Injection - IVPUSH 07/01/20 05:01 ONCE ONE Thiamine HCl 100 mg 06/28/20 20:30 Vitamin B1 - PO DAILY [facility] Home Medications Medication Instructions Recorded metFORMIN HCL [Glucophage -] 500 mg PO BID 06/28/20 Abnormal Lab Results 06/28/20 06/28/20 14:50 14:50 RBC 3.84 L MCV 97.5 H MCH 33.9 H Plt Count 115 L Potassium 2.9 L* Chloride 96 L AST 145 H ALT 148 H Lipase 400 H ASSESSMENT AND PLAN: 1. Alcoholic gastritis/Pancreatitis/Alcohol withdrawal syndrome - CT abdomen/pelvis with IV contrast didnot show evidence of acute pancreatitis, but showed mild diffuse gall bladder wall thickening and diffuse hepatic steatosis. Will get RUQ sonogram to evaluate gall bladder and biliary tree, keep him NPO, give IV Ringers lactate at 200ml/minute, Protonix 40 mg IV, use IV morphine for pain control and trend LFTs. Low platelets likely due to alcoholism - will monitor daily. Get urinalysis. Hypokalemia likely partly due to urinary wasting associated with alcoholism. Will check serum magnesium and give IV KCL. Will admit to telemetry, implement [facility] Librium alcohol withdrawal protocol and do neurochecks. Implement seizure, fall and aspiration precautions. Treat with IV Banana bag, thiamine and folic acid. Monitor and replete electrolytes (Ca,Mg,K,P). Counseled patient about abstaining from alcohol. Will consult satellite specialist and refer to alcohol detox upon discharge. EKG shows NSR at 70/minute and QTc [address]-T wave changes. Initial troponin is negative. Viral testing for COVID-19 ordered and patient placed on airborne, droplet and contact isolation. 2. DM For now, we will hold the home diabetes drugs and implement sliding scale insulin regimen. Provide comprehensive diabetes care with patient teaching and counseling about the importance of adherence to prescribed diabetes regimen, euglycemia, eye care and foot care. 3. Hypertension Not on any outpatient antihypertensive drugs. Will monitor BP closely. Patient counseled on the injurious effects of uncontrolled hypertension. Nonpharmacologic measures to control hypertension like weight loss, salt restriction and exercise stressed. Importance of adherence to treatment regimen and attainment of normotension emphasized. 4. DVT prophylaxis - Lovenox 40 mg SQ q 24 hours. 5. Advance directives - Full code
[2020-06-28] MEDS: ENOXAPARIN NA (PORCINE) 40 MG/0.4 ML DISP.SYRIN SQ SCH (21:32)
[2020-06-28] MEDS: THIAMINE HCL 100 MG TABLET (FP) PO SCH (21:44)
[2020-06-28] MEDS: PANTOPRAZOLE 40 MG TABLET PO SCH (21:44)
[2020-06-28] MEDS: FOLIC ACID 1 MG TABLET (FP) PO SCH (21:44)
[2020-06-28 21:50] LABS: BLOOD UREA NITROGEN 8.2 mg/dL (7-18); CALCIUM 8.8 mg/dL (8.5-10.1); CREATININE 0.8 mg/dL (0.55-1.3); POTASSIUM 3.7 mmol/L (3.5-5.1)
[2020-06-28 23:20] VITALS: BMI 26.2
[2020-06-28] MEDS: LORazepam 2 MG/ML SDV VIAL IVPUSH SCH (23:45)
[2020-06-29] MEDS ORDERED: LACTATED RINGERS SOLUTION 1,000 ML/1,000 ML INFUS.BAG IV SCH (00:15)
[2020-06-29 00:23] LABS: MAGNESIUM 1.9 mg/dL (1.8-2.4)
[2020-06-29] MEDS: KCL 10 MEQ IVPB 10 MEQ/100 ML INFUS.BAG IVPB SCH (00:50)
[2020-06-29] MEDS ORDERED: LORazepam 2 MG/ML SDV VIAL IVPUSH SCH (05:00)
[2020-06-29 05:08] LABS: COCAINE, UR NEGATIVE ng/ml (CUTOFF=300); PHENCYCLIDINE,URINE NEGATIVE ng/ml (CUTOFF=25); URINE BARBITURATES NEGATIVE ng/ml (CUTOFF=200)
[2020-06-29 05:20] LABS: METHADONE, UR NEGATIVE ng/ml (CUTOFF=300); OPIATES, URI NEGATIVE ng/ml (CUTOFF=300); URINE AMPHETAMINES NEGATIVE ng/ml (CUTOFF=500); URINE BENZODIAZEPINES NEGATIVE ng/ml (CUTOFF=200)
[2020-06-29 05:23] LABS: PH,URINE 6.5 (5.0-8.0); URINE APPEARANCE Clear; URINE BILIRUBIN Negative (NEGATIVE); URINE COLOR Yellow; URINE GLUCOSE (UA) Negative (NEGATIVE); URINE KETONE Trace (NEGATIVE); URINE LEUK ESTERASE Negative (NEGATIVE); URINE NITRITE Negative (NEGATIVE); URINE PROTEIN Negative (NEGATIVE); URINE UROBILINOGEN 0.2 mg/dL (0.2-1.0)
[2020-06-29] MEDS: LORazepam 2 MG/ML SDV VIAL IVPUSH SCH (07:18)
[2020-06-29 07:31] LABS: BASO % 0.6 % (0-2.0); EOS % 1.5 % (0-4.5); HEMATOCRIT 35.2 % (35.4-49); LYMPH % 36.9 % (8-40); MCH 33.1 pg (25.7-33.7); MEAN CELL VOLUME 97.4 fl (80-96); MEAN PLT VOLUME 8.3 fl (7.5-11.1); MONO % 13.9 % (3.8-10.2); NEUT % 47.1 % (42.8-82.8); PLATELET COUNT 123 K/MM3 (134-434); RBC 3.62 M/mm3 (4.00-5.60); RDW 15.2 % (11.9-15.9)
[2020-06-29 07:49] LABS: ALBUMIN 3.6 g/dl (3.4-5.0); BILIRUBIN,TOTAL 0.5 mg/dL (0.2-1); BLOOD UREA NITROGEN 6.2 mg/dL (7-18); CALCIUM 8.9 mg/dL (8.5-10.1); CREATININE 0.7 mg/dL (0.55-1.3); MAGNESIUM 2.2 mg/dL (1.8-2.4); PHOSPHOROUS 3.8 mg/dL (2.5-4.9); POTASSIUM 3.9 mmol/L (3.5-5.1); TOT PROT 6.9 g/dl (6.4-8.2)
[2020-06-29] MEDS ORDERED: LORazepam 1 MG TABLET PO PRN (08:30)
--- NOTE | 2020-06-29 09:08 | EKG ---
Test Reason : Blood Pressure : / mmHG Vent. Rate : 070 BPM Atrial Rate : 070 BPM P-R Int : 126 ms QRS Dur : 074 ms QT Int : 404 ms P-R-T Axes : 028 038 027 degrees QTc Int : 436 ms POOR DATA QUALITY, INTERPRETATION MAY BE ADVERSELY AFFECTED NORMAL SINUS RHYTHM NORMAL ECG WHEN COMPARED WITH ECG OF 12-MAY-2020 04:34, NO SIGNIFICANT CHANGE WAS FOUND Confirmed by Aguilar Yap MD ([id number]) on 06/29/2020 9:08:15 AM Referred By: Confirmed By:Aguilar Yap MD
[2020-06-29] MEDS: PANTOPRAZOLE 40 MG TABLET PO SCH (09:21)
[2020-06-29] MEDS: THIAMINE HCL 100 MG TABLET (FP) PO SCH (09:22)
[2020-06-29] MEDS: ENOXAPARIN NA (PORCINE) 40 MG/0.4 ML DISP.SYRIN SQ SCH (09:22)
[2020-06-29] MEDS: FOLIC ACID 1 MG TABLET (FP) PO SCH (09:22)
[2020-06-29] MEDS ORDERED: LORazepam 2 MG TABLET PO SCH (11:00)
[2020-06-29] MEDS ORDERED: LORazepam 1 MG TABLET PO SCH (11:11)
[2020-06-29] MEDS: LORazepam 1 MG TABLET PO SCH ×3 (11:31→22:56)
[2020-06-29] MEDS: HYDROCORTISONE 2.5% TOPICAL CREAM 30 GM TUBE TP SCH (11:32)
--- NOTE | 2020-06-29 11:42 | CONSULT ---
Consult Detox [facility] Reason for Current Admission/Consult: Alcohol Dependence Referred by:: Edson Paula - History History of Present Illness: Patient is a 34yo male with a past medical history of DM, HTN, GERD Kidney disease and Psoriasis now c/o abdominal pain of 3days duration, H/O Pancreatitis in the past. Pain was of gradual onset, sharp in nature, radiates to the throat, worse at night, worsened by movement with a severity of 10/10 at presentation but now 6/10. There is associated nausea and vomiting of non bloody, non bilous content as well as a single episode of diarrhea while at home, non voluminous, non-bloody. Admits to tremors and insomnia. ED reports tongue fasciculation at presentation. Patient admits to hx of acid reflux and alcohol abuse of 15 beer bottles/day for 15days. Previously drank 8bottles/day for 8 days. There is a hx of seizures when not drinkng and patient says he is drinking to relieve stress as he has no family member in [place] and has been working hard to send money to his family in [place]. He is well known to [facility] and last detox was in 09/11-09/14/2019 where he completed detox and refused referral to rehab and was told to follow up with his PMD. PSH:none Social hx: lives with friends in an apartment. does not feel he has a good support system. 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 All: none Meds: (noncompliant x 3 months): metformin No legal issues - History Source History Provided By: Medical Record Limitations to Obtaining History: No Limitations - Alcohol/Substance Use Hx Alcohol Use: Yes (Etoh use for past 5 years weekends with incease past two weeks) Hx Substance Use: No Hx Substance Use Treatment: No - Current Drug/Alcohol Use Alcohol Route: Oral Frequency: Daily Amount used: 15 beers Age of first use: 22 Date of Last Use: 06/28/20 - Past Medical History Cardio/Vascular: Yes: HTN Gastrointestinal: Yes: Gastritis, GERD, GI Bleed (blood noted with wiping x1 with constipation), Other (never had EGD/colonscopy) Musculoskeletal: Yes: Chronic low back pain Endocrine: Yes: Diabetes Mellitus Dermatology: Yes: Psoriasis - Past Surgical History Past Surgical History: Yes: None - Significant Medical Findings: P/E: as per resident and attending: HEENT: No Jaundice, eye redness or discharge, PERRLA, EOMI. Normocephalic, atraumatic. External ears are normal and hearing is grossly intact. No nasal discharge. Neck: Supple, nontender. No palpable adenopathy or thyromegaly. No JVD Chest: Good effort. Clear to auscultation and percussion. Heart: Regular. No S3, rub or murmur Abdomen: Not distended, soft, epigastric tenderness and no HSM. No rebound or guarding. Normal bowel sounds. Ext: Peripheral pulses intact. No leg edema. Skin: Warm and dry. No petechiae, rash or ecchymosis. Neuro: Alert. Oriented x3. CN 2-12 grossly intact. Sensation grossly intact in all four extremities and DTR are symmetric. Psych: Appropriate mood and affect. Good insight. CIWA Score - CIWA Score Nausea/Vomitin Muscle Tremors: 4-Moderate,w/Arms Extend Anxiety: 3 Agitation: 4-Moderately Restless Paroxysmal Sweats: 2 Orientation: 0-Oriented Tacttile Disturbances: 0-None Auditory Disturbances: 0-None Visual Disturbances: 0-None Headache: 0-None Present CIWA-Ar Total Score: 16 Assessment Plan - Plan Plan: 1. Alcohol Dependence: Agree with Ativan Detox protocol as patient's liver status is undefined and risk of librium due to liver dysfunction is high. Continue Detox and when medically stable, patient may be transferred to complete detox once GI causes are cleared. If he completes detox at [facility], he may be referred to rehab directly as last stay he did not follow up with rehab though it was recommended and he has again relapsed. 2. Alcoholic gastritis/Pancreatitis/Alcohol withdrawal syndrome Agree with attending's plans and assessments. When GI cleared, he can be transferred to [facility] for detox. 3. DM For now, we will hold the home diabetes drugs and implement sliding scale insulin regimen. Provide comprehensive diabetes care with patient teaching and counseling about the importance of adherence to prescribed diabetes regimen, euglycemia, eye care and foot care. 4. Hypertension Not on any outpatient antihypertensive drugs. Will monitor BP closely. Patient counseled on the injurious effects of uncontrolled hypertension. Nonpharmacologic measures to control hypertension like weight loss, salt restriction and exercise stressed. Importance of adherence to treatment regimen and attainment of normotension emphasized. 5. DVT prophylaxis - Lillianax 40 mg SQ q 24 hours. - Medication Detox Regimen/Protocol: Ativan
[2020-06-29] MEDS ORDERED: THIAMINE HCL 200 MG/2 ML VIAL IVPB ONE (13:57)
[2020-06-29] MEDS ORDERED: CALCIUM CARBONATE 650 MG TABLET PO ONE (14:06)
--- NOTE | 2020-06-29 15:25 | PN ---
Teaching Attending Note Name of Resident: Matt Ott ATTENDING PHYSICIAN STATEMENT I saw and evaluated the patient. I reviewed the resident's note and discussed the case with the resident. I agree with the resident's findings and plan as documented. SUBJECTIVE: no abd pain but has burning in epigastric area with radiation to chest , similar to his GERD. no SOB , no dysuria, no diarrhea this am . No melena . no SOB or palpitations OBJECTIVE: NAD, awake, alert, sweaty, cooperative . No nystagmus , oriented x 3 CV: RRR, no MRG lungs: CTAB Abd: soft, NT, ND, no hepatomegaly , liver is not percussed Ext : No edema or erytehma. tremor in hands skin : dry whitich scaly lesions on knees, elbows, and L marquez . ASSESSMENT AND PLAN: 34 y/o man with h/o Alcohol abuse, Cocaine use, Thrombocytopenia, Alcohol withdrawal seizures, Pancreatitis, GERD, Psoriasis, NIDDM and HTN, who presented with abd pain and N/V/D 1- N/V/d: likely due to withdrawal . possibel gastritis /GERD due to alcohol . no evidence of acute pancreatitis or cholecystitis on imaging or exam - if diarrhea recur, can get stool studies - PPI - anti acids - start a diet 2- ETOH WD: cont ativan as needed - B1 and folate - no signs of Wernicke's . did not received b1 IV in ER , lona prescribe 3- severe hypokalemia : resolved 4- transaminitis : mild elevation due to alcohol use . trending down . CT/US reviewed. no dilationor obstruction 5- h/o DM : hold metfrmine and give SSI 6- Thrombocytopenia :chronic , likely due to alcohol use. need heme eval as out pt DVT PX: lovenox SQ
--- NOTE | 2020-06-29 18:04 | PN ---
Physical Exam: SUBJECTIVE: Patient seen and examined at bedside. The patient reports no fever/chills, headache, nausea/vomiting, abdominal pain, tremor, anxiety, sweating, or shortness of breath. He reports having some acid reflux. Tums (Calcium Carbonate) ordered for his acid reflux. OBJECTIVE: Vital Signs Period Temp Pulse Resp BP Sys/Acevedo Pulse Ox Last 24 Hr 97.6 F-99.1 F 70-81 18-20 110-137/74-88 96-99 GENERAL: The patient is awake, alert, and fully oriented, in no acute distress. HEAD: Normal with no signs of trauma. EYES: PERRL, extraocular movements intact. No ptosis. ENT: Ears normal, nares patent, oropharynx clear without exudates, moist mucous membranes. NECK: Trachea midline, full range of motion, supple. LUNGS: Breath sounds equal, clear to auscultation bilaterally, no wheezes, no crackles, no accessory muscle use. HEART: Regular rate and rhythm, S1, S2 without murmur, rub or gallop. ABDOMEN: Soft, nontender, nondistended, normoactive bowel sounds, no guarding, no rebound, no masses. EXTREMITIES: 2+ pulses, warm, well-perfused, no edema. NEUROLOGICAL: Cranial nerves II through XII grossly intact. Normal speech, gait not observed. No tremor. PSYCH: Normal mood, normal affect. SKIN: Warm, dry, normal turgor, no rashes or lesions noted Laboratory Results - last 24 hr 06/28/20 06/28/20 06/29/20 14:52 20:40 04:30 WBC RBC Hgb Hct MCV MCH MCHC RDW Plt Count MPV Absolute Neuts (auto) Neutrophils % Lymphocytes % Monocytes % Eosinophils % Basophils % Nucleated RBC % Sodium 141 Potassium 3.7 Chloride 105 Carbon Dioxide 26 Anion Gap 9 BUN 8.2 Creatinine 0.8 Est GFR (CKD-EPI)AfAm 136.03 Est GFR (CKD-EPI)NonAf 117.37 Random Glucose 99 Calcium 8.8 Phosphorus 4.0 Magnesium 1.9 Total Bilirubin AST ALT Alkaline Phosphatase Total Protein Albumin Urine Color Yellow Urine Appearance Clear Urine pH 6.5 Ur Specific [place] 1.010 Urine Protein Negative Urine Glucose (UA) Negative Urine Ketones Trace Urine Blood Negative Urine Nitrite Negative Urine Bilirubin Negative Urine Urobilinogen 0.2 Ur Leukocyte Esterase Negative Opiates Screen Methadone Screen Barbiturate Screen Phencyclidine Screen Ur Amphetamines Screen MDMA (Ecstasy) Screen Benzodiazepines Screen Cocaine Screen U Marijuana (THC) Screen COVID-19 (ESE) Not detected 06/29/20 06/29/20 06/29/20 04:30 06:45 06:45 WBC 4.0 RBC 3.62 L Hgb 12.0 Hct 35.2 L MCV 97.4 H MCH 33.1 MCHC 34.0 RDW 15.2 Plt Count 123 L MPV 8.3 Absolute Neuts (auto) 1.9 Neutrophils % 47.1 Lymphocytes % 36.9 Monocytes % 13.9 H Eosinophils % 1.5 Basophils % 0.6 Nucleated RBC % 0 Sodium 142 Potassium 3.9 Chloride 106 Carbon Dioxide 27 Anion Gap 9 BUN 6.2 L Creatinine 0.7 Est GFR (CKD-EPI)AfAm 143.71 Est GFR (CKD-EPI)NonAf 123.99 Random Glucose 87 Calcium 8.9 Phosphorus 3.8 Magnesium 2.2 Total Bilirubin 0.5 AST 136 H ALT 154 H Alkaline Phosphatase 80 Total Protein 6.9 Albumin 3.6 Urine Color Urine Appearance Urine pH Ur Specific [place] Urine Protein Urine Glucose (UA) Urine Ketones Urine Blood Urine Nitrite Urine Bilirubin Urine Urobilinogen Ur Leukocyte Esterase Opiates Screen Negative Methadone Screen Negative Barbiturate Screen Negative Phencyclidine Screen Negative Ur Amphetamines Screen Negative MDMA (Ecstasy) Screen Negative Benzodiazepines Screen Negative Cocaine Screen Negative U Marijuana (THC) Screen Negative COVID-19 (ESE) Active Medications Generic Name Dose Route Start Last Admin Trade Name Freq PRN Reason Stop Dose Admin Enoxaparin Sodium 40 mg 06/28/20 20:15 06/29/20 09:22 Lovenox - SQ 40 mg DAILY DAHLIA Administration Folic Acid 1 mg 06/28/20 20:30 06/29/20 09:22 Folic Acid - PO 1 mg DAILY DAHLIA Administration Hydrocortisone 1 applic 06/29/20 10:00 06/29/20 11:32 Anusol 2.5% Hc Cream - TP 1 applic DAILY DAHLIA Administration Lactated Ringer's 1,000 ml in 1,000 mls @ 200 mls/hr 06/29/20 00:15 06/29/20 00:50 Lactated Ringers Solution IV 200 mls/hr ASDIR DAHLIA Administration Lorazepam 1 mg 06/28/20 20:13 Ativan Injection - IVPUSH 06/30/20 00:00 Q4H PRN Symptoms of Withdrawal Lorazepam 0.5 mg 06/30/20 00:00 Ativan Injection - IVPUSH 07/01/20 00:00 Q4H PRN Symptoms of Withdrawal Lorazepam 1 mg 07/01/20 05:00 Ativan - PO 07/01/20 23:01 0500,1100,1700,2300 DAHLIA Lorazepam 1 mg 06/29/20 08:30 Ativan - PO 07/01/20 23:59 Q4H PRN Symptoms of Withdrawal Lorazepam 0.5 mg 07/02/20 05:00 Ativan - PO 07/02/20 23:01 Q6H DAHLIA Lorazepam 0.5 mg 07/02/20 00:00 Ativan - PO 07/03/20 00:00 Q4H PRN Symptoms of Withdrawal Lorazepam 0.5 mg 07/03/20 05:00 Ativan - PO 07/03/20 05:01 ONCE ONE Lorazepam 2 mg 06/29/20 11:30 06/29/20 17:00 Ativan - PO 06/30/20 23:01 2 mg 0500,1100,1700,2300 DAHLIA Administration Nystatin 1 applic 06/29/20 22:00 Mycostatin Ointment - TP BID DAHLIA Pantoprazole Sodium 40 mg 06/28/20 21:30 06/29/20 09:21 Protonix - PO 40 mg DAILY DAHLIA Administration Thiamine HCl 100 mg 06/28/20 20:30 06/29/20 09:22 Vitamin B1 - PO 100 mg DAILY DAHLIA Administration ASSESSMENT/PLAN: 34 year old male patient with past medical history that includes alcohol abuse, cocaine use, thrombocytopenia, Alcohol withdrawal seizures, chronic pancreatitis, GERD, psoriasis, DM, and HTN, who presented to the emergency room with nausea, vomiting, and diarrhea for 3 days with abdominal pain. 1. Alcohol withdrawal - Ativan protocol - No tremors on exam 2. Abdominal pain possibly secondary to alcoholic gastritis vs. chronic pancreatitis - No pain today - Lipase 400, but not 3x Upper Limit of Normal - Medical history of chronic pancreatitis - Ultrasound showed no definite biliary tract dilatation, but did show diffuse hepatic steatosis. 3. GERD - Patient reported acid reflux - Ordered Tums (Calcium Carbonate) # FEN - Monitoring Electrolytes, Diabetic/Sodium Diet DVT PPx - Lovenox SQ Visit type - Emergency Visit Emergency Visit: Yes ED Registration Date: 06/28/20 Care time: The patient presented to the Emergency Department on the above date and was hospitalized for further evaluation of their emergent condition. - New Patient This patient is new to me today: Yes Date on this admission: 06/29/20 - Critical Care Critical Care patient: No - Discharge Referral Referred to [facility] Med [facility].C[facility] No ATTENDING PHYSICIAN STATEMENT I saw and evaluated the patient. I reviewed the resident's note and discussed the case with the resident. I agree with the resident's findings and plan as documented. SUBJECTIVE: OBJECTIVE: ASSESSMENT AND PLAN:
[2020-06-29] MEDS: NYSTATIN 100000 UNIT/GM TOPICAL OINTMENT 15 GM TUBE TP SCH (23:30)
[2020-06-30] MEDS ORDERED: LORazepam 2 MG/ML SDV VIAL IVPUSH PRN
[2020-06-30] MEDS ORDERED: LORazepam 2 MG/ML SDV VIAL IVPUSH SCH (05:00)
[2020-06-30] MEDS: LORazepam 1 MG TABLET PO SCH ×3 (05:40→16:59)
[2020-06-30 07:02] LABS: BASO % 0.6 % (0-2.0); EOS % 2.1 % (0-4.5); HEMATOCRIT 37.2 % (35.4-49); HEMOGLOBIN 12.7 GM/dL (11.7-16.9); LYMPH % 45.9 % (8-40); MCH 33.4 pg (25.7-33.7); MCHC 34.2 g/dl (32.0-35.9); MEAN CELL VOLUME 97.6 fl (80-96); MEAN PLT VOLUME 7.7 fl (7.5-11.1); MONO % 14.1 % (3.8-10.2); NEUT % 37.3 % (42.8-82.8); PLATELET COUNT 149 K/MM3 (134-434); RBC 3.81 M/mm3 (4.00-5.60); RDW 14.9 % (11.9-15.9); WHITE BLOOD COUNT 4.2 K/mm3 (4.0-10.0)
[2020-06-30 07:46] LABS: ALBUMIN 3.9 g/dl (3.4-5.0); BILIRUBIN,TOTAL 0.4 mg/dL (0.2-1); BLOOD UREA NITROGEN 6.7 mg/dL (7-18); CALCIUM 9.2 mg/dL (8.5-10.1); CREATININE 0.8 mg/dL (0.55-1.3); MAGNESIUM 1.9 mg/dL (1.8-2.4); PHOSPHOROUS 3.6 mg/dL (2.5-4.9); POTASSIUM 3.7 mmol/L (3.5-5.1); TOT PROT 7.2 g/dl (6.4-8.2)
[2020-06-30] MEDS ORDERED: PT OWN MED DRAWER 7, Y5N ONE (09:28)
[2020-06-30] MEDS: PANTOPRAZOLE 40 MG TABLET PO SCH (09:31)
[2020-06-30] MEDS: ENOXAPARIN NA (PORCINE) 40 MG/0.4 ML DISP.SYRIN SQ SCH (09:31)
[2020-06-30] MEDS: NYSTATIN 100000 UNIT/GM TOPICAL OINTMENT 15 GM TUBE TP SCH (09:31)
[2020-06-30] MEDS: THIAMINE HCL 100 MG TABLET (FP) PO SCH (09:31)
[2020-06-30] MEDS: FOLIC ACID 1 MG TABLET (FP) PO SCH (09:31)
[2020-06-30] MEDS: HYDROCORTISONE 2.5% TOPICAL CREAM 30 GM TUBE TP SCH (09:32)
[2020-06-30 14:42] VITALS: BP 133/86; PULSE 69; TEMP 98.5
--- NOTE | 2020-06-30 14:47 | PN ---
Teaching Attending Note Name of Resident: Matt Ott ATTENDING PHYSICIAN STATEMENT I saw and evaluated the patient. I reviewed the resident's note and discussed the case with the resident. I agree with the resident's findings and plan as documented. SUBJECTIVE: No fever or chills. No abd pain . No N/V . feels much better OBJECTIVE: NAD, awake, alert, sweaty, cooperative . CV: RRR, no MRG lungs: CTAB Abd: soft, NT, ND,Nl BS Ext : No edema or erythema. skin : dry whitish scaly lesions on knees, elbows, and L marquez . ASSESSMENT AND PLAN: 34 y/o man with h/o Alcohol abuse, Cocaine use, Thrombocytopenia, Alcohol withdrawal seizures, Pancreatitis, GERD, Psoriasis, NIDDM and HTN, who presented with abd pain and N/V/D 1- N/V/d: likely due to withdrawal . possibel gastritis /GERD due to alcohol . - cont PPI 2- ETOH WD: cont detox with ativan protocol at [facility] . cont thiamine and folate 3- severe hypokalemia : resolved 4- transaminitis :reepat in 1 week 5- H/o DM : last A1c 05/31 6.6 . give metformin at dc 6- Thrombocytopenia :chronic , refer to heme [place] . level is normal today dc to [facility]
--- NOTE | 2020-06-30 15:14 | DS ---
Physical Exam: SUBJECTIVE: Patient seen and examined at bedside. The patient reports no fever/chills, headache, nausea/vomiting, abdominal pain, tremor, anxiety, sweating, or shortness of breath. He reports still having some acid reflux, but that the calcium carbonate had helped improve his symptoms. OBJECTIVE: Vital Signs Period Temp Pulse Resp BP Sys/Acevedo Pulse Ox Last 24 Hr 98.4 F-99.2 F 67-80 18-20 122-141/75-87 98-100 PHYSICAL EXAM GENERAL: The patient is awake, alert, and fully oriented, in no acute distress. HEAD: Normal with no signs of trauma. EYES: PERRL, extraocular movements intact. No ptosis. ENT: Ears normal, nares patent, oropharynx clear without exudates, moist mucous membranes. NECK: Trachea midline, full range of motion, supple. LUNGS: Breath sounds equal, clear to auscultation bilaterally, no wheezes, no crackles, no accessory muscle use. HEART: Regular rate and rhythm, S1, S2 without murmur, rub or gallop. ABDOMEN: Soft, nontender, nondistended, normoactive bowel sounds, no guarding, no rebound, no masses. EXTREMITIES: 2+ pulses, warm, well-perfused, no edema. NEUROLOGICAL: Cranial nerves II through XII grossly intact. Normal speech, gait not observed. No tremor. PSYCH: Normal mood, normal affect. SKIN: Warm, dry, normal turgor, no rashes or lesions noted LABS Laboratory Results - last 24 hr 06/30/20 06/30/20 06:23 06:23 WBC 4.2 RBC 3.81 L Hgb 12.7 Hct 37.2 MCV 97.6 H MCH 33.4 MCHC 34.2 RDW 14.9 Plt Count 149 D MPV 7.7 Absolute Neuts (auto) 1.6 Neutrophils % 37.3 L D Lymphocytes % 45.9 H D Monocytes % 14.1 H Eosinophils % 2.1 Basophils % 0.6 Nucleated RBC % 0 Sodium 140 Potassium 3.7 Chloride 103 Carbon Dioxide 28 Anion Gap 9 BUN 6.7 L Creatinine 0.8 Est GFR (CKD-EPI)AfAm 136.03 Est GFR (CKD-EPI)NonAf 117.37 Random Glucose 113 H Calcium 9.2 Phosphorus 3.6 Magnesium 1.9 Total Bilirubin 0.4 AST 113 H ALT 171 H Alkaline Phosphatase 81 Total Protein 7.2 Albumin 3.9 HOSPITAL COURSE: Date of Admission:06/28/20 34 year old male patient with past medical history that includes alcohol abuse, cocaine use, thrombocytopenia, Alcohol withdrawal seizures, chronic pancreatitis, GERD, psoriasis, DM, and HTN, who presented to the emergency room with nausea, vomiting, and diarrhea for 3 days with abdominal pain. The patient was placed on Ativan protocol for alcohol withdrawal. Ultrasound showed no definite biliary tract dilatation, but did show diffuse hepatic steatosis. CAT scan of his abdomen and pelvis showed minimal diffuse gallbladder wall thickening and diffuse hepatic steatosis. Lipase was 400, but not 3x Upper Limit of Normal. Potassium on admission was 2.9 and repleted. The patient's pain resolved and he was discharged to [facility] to complete his detox. He was discharged with Protonix for his acid reflux symptoms. He was referred to heme follow up fo his thrombocytopenia (platelets 149 at discharge but low at 115 on admission). Date of Discharge: 06/30/20 Minutes to complete discharge: 38 Discharge Summary Problems reviewed: Yes Reason For Visit: PANCREATITIS,HYPOKALEMIA Current Active Problems Alcohol dependence with uncomplicated withdrawal (Acute) Condition: Improved - Instructions Diet, Activity, Other Instructions: You were admitted to the hospital because of abdominal pain, nausea, vomiting, and diarrhea. We evaluated you with lab work, blood work, and imaging including a CAT scan of you abdomen and pelvis. We treated you with medication, including medication for alcohol withdrawal, and your symptoms resolved. You are being discharged to [facility] to complete your detox. Recommendation Please eat a healthy diet, stay well hydrated, and avoid drinking any alcohol. Imaging Findings The follow imaging findings were found during your hospital stay: The CAT scan of your abdomen and pelvis found that you have a fatty liver. Medications Please continue your Ativan protocol as follows: 06/30: Ativan 2mg by mouth twice at 5PM and at 11PM 07/01: Ativan 1mg by mouth every 6 hours at 5AM, 11AM, 5PM, 11PM 07/02: Ativan 0.5mg by mouth every 6 hours at 5AM, 11AM, 5PM, 11PM 07/03: Ativan 0.5mg by mouth once at 5AM Please take Protonix 40mg by mouth every day for your acid reflux Please continue all of your medications as prescribed. Follow ups Please follow up with your Primary Care physician, or the Primary Care physician we have provided for you Dr. Syed Costa, within 2 weeks. follow up with [facility] for low platelets If you experience worsening symptoms, chest pain, shortness of breath, abdominal pain, or worsening of your condition, please come to the emergency room or call 911. You need repeat liver enzymes in a week . if you are still at [facility] , this can be done there Referrals: Syed Costa MD [Staff Physician] - 2 Weeks Jo-Ann Holley MD [Staff Physician] - 3 Weeks Disposition: I.P. ALCOHOL/SUBS ABUSE REHAB - Home Medications Comprehensive Discharge Medication List: Ambulatory Orders Folic Acid - 1 mg PO DAILY tablet 06/30/20 Hydrocortisone 2.5% Topical Cr [Anusol-Hc -] 1 applic TP DAILY tube 06/30/20 LORazepam [Ativan] 0.5 mg PO Q4H PRN tablet 06/30/20 LORazepam [Ativan] 0.5 mg PO Q6H tablet 06/30/20 LORazepam [Ativan] 1 mg PO 0500,1100,1700,2300 tablet 06/30/20 LORazepam [Ativan] 1 mg PO Q4H PRN tablet 06/30/20 LORazepam [Ativan] 2 mg PO Q6H #2 tablet MDD 2 06/30/20 Pantoprazole Sodium [Protonix -] 40 mg PO DAILY 30 Days #30 tablet.ec 06/30/20 Thiamine HCl [Vitamin B1 -] 100 mg PO DAILY tablet 06/30/20 metFORMIN HCL [Metformin HCl ER] 500 mg PO DAILY #30 tab.er.24h 06/30/20 This patient is new to me today: No Emergency Visit: Yes ED Registration Date: 06/28/20 Care time: The patient presented to the Emergency Department on the above date and was hospitalized for further evaluation of their emergent condition. Critical Care patient: No - Discharge Referral Referred to [facility] No ATTENDING PHYSICIAN STATEMENT I saw and evaluated the patient. I reviewed the resident's note and discussed the case with the resident. I agree with the resident's findings and plan as documented. SUBJECTIVE: OBJECTIVE: ASSESSMENT AND PLAN:
[2020-07-01] MEDS ORDERED: LORazepam 1 MG TABLET PO SCH (05:00)
[2020-07-01] MEDS ORDERED: LORazepam 2 MG/ML SDV VIAL IVPUSH ONE (05:00)
[2020-07-02] MEDS ORDERED: LORazepam 0.5 MG TABLET PO SCH (05:00)
== END 2020-06-30 18:23 | disposition other institution (70) | DRG 241 ==
LOC: JER 11:05 → JERBED 17:32 → J7W 20:29
PROVIDERS: ADMIT Internal Medicine; ATTEND Internal Medicine
DX: K29.20 Alcoholic gastritis without bleeding (principal); E11.9 Type 2 diabetes mellitus without complications; F10.239 Alcohol dependence with withdrawal, unspecified; K21.9 Gastro-esophageal reflux disease without esophagitis; I10 Essential (primary) hypertension; E87.6 Hypokalemia; D69.6 Thrombocytopenia, unspecified; F14.90 Cocaine use, unspecified, uncomplicated; K86.0 Alcohol-induced chronic pancreatitis; R74.0 Nonspecific elevation of levels of transaminase and lactic acid dehydrogenase [LDH]; R11.2 Nausea with vomiting, unspecified; G40.909 Epilepsy, unspecified, not intractable, without status epilepticus; M54.5 Low back pain
CPT/HCPCS: 36415; 74177-TC; 76705-TC; 80048; 80053; 80307; 81003; 83690; 83735; 84100; 85025; 93005; 93010; 99285-25; Q9967; U0003

== ENCOUNTER 2020-06-30 19:08 | Inpatient (IN) | payer OTHER ==
[2020-06-30 19:29] VITALS: BMI 25.6
--- NOTE | 2020-06-30 20:10 | HP ---
CIWA Score Nausea/Vomitin-No Nausea/No Vomiting Muscle Tremors: None Anxiety: 0-No Anxiety, at Ease Agitation: 0-Normal Activity Paroxysmal Sweats: No Perspiration Orientation: 0-Oriented Tacttile Disturbances: 0-None Auditory Disturbances: 0-None Visual Disturbances: 0-None Headache: 0-None Present CIWA-Ar Total Score: 0 - Admission Criteria OASAS Guidelines: Admission for Medically Managed Detox: Requires at least one of the followin. CIWA greater than 12 2. Seizures within the past 24 hours 3. Delirium tremens within the past 24 hours 4. Hallucinations within the past 24 hours 5. Acute intervention needed for co occurring medical disorder 6. Acute intervention needed for co occurring psychiatric disorder 7. Severe withdrawal that cannot be handled at a lower level of care (continued vomiting, continued diarrhea, abnormal vital signs) requiring intravenous medication and/or fluids 8. Admitting History and Physical - Past Medical History Cardiovascular: Yes: HTN Gastrointestinal: Yes: Gastritis, GERD, GI Bleed (blood noted with wiping x1 with constipation), Other (never had EGD/colonscopy) Musculoskeletal: Yes: Chronic low back pain Endocrine: Yes: Diabetes Mellitus Dermatology: Yes: Psoriasis - Past Surgical History Past Surgical History: Yes: None - Smoking History Smoking history: Never smoked Have you smoked in the past 12 months: No Aproximately how many cigarettes per day: 3 - Alcohol/Substance Use Hx Alcohol Use: Yes (Etoh use for past 5 years weekends with incease past two weeks) History of Substance Use: reports: Cocaine (states last smoked 20 days ago) - Social History ADL: Independent History of Recent Travel: No Admission [facility] Allergies/Adverse Reactions: Allergies Allergy/AdvReac Type Severity Reaction Status Date / Time No Known Allergies Allergy Verified 06/30/20 19:35 History of Present Illness: 34 y.o. PMH gastritis, DM, HTN , psoriasis presenting for ETOH detox , s/p hospitalization for pancreatitis , started on Ativan taper. Denies seizures or blackouts , admits to tremors . EtOH: last drink on night 15 beers x 12 oz/day since age 26 , started having abdominal pain Sunday , went to the hospital 06/28 . Exam Limitations: No Limitations - Review of Systems Constitutional: No Symptoms Reported EENT: reports: No Symptoms Reported Respiratory: reports: No Symptoms reported Cardiac: reports: No Symptoms Reported GI: reports: Other (acid reflux) : reports: No Symptoms Reported Musculoskeletal: reports: No Symptoms Reported Integumentary: reports: No Symptoms Reported Neuro: reports: No Symptoms reported Endocrine: reports: No Symptoms Reported Hematology: reports: No Symptoms Reported Psychiatric: reports: Orientated x3 Patient History - Patient Medical History Hx Anemia: No Hx Asthma: No Hx Chronic Obstructive Pulmonary Disease (COPD): No Hx Cancer: No Hx Cardiac Disorders: No Hx Congestive Heart Failure: No Hx Hypertension: Yes (LISINOPRIL) Hx Hypercholesterolemia: No Hx Pacemaker: No HX Cerebrovascular Accident: No Hx Seizures: Yes (alcohol withdrawl seizures) Hx Dementia: No Hx Diabetes: Yes (METFORMIN) Hx Gastrointestinal Disorders: Yes (GERD - PANTOPRAZOLE, Pancreatitis) Hx Liver Disease: No Hx Genitourinary Disorders: No Hx Sexually Transmitted Disorders: No Hx Renal Disease (ESRD): No Hx Thyroid Disease: No Hx Human Immunodeficiency Virus (HIV): No Hx Hepatitis C: No Hx Depression: No Hx Suicide Attempt: No (DENIES SUICIDAL IDEATION AT THIS TIME) Hx Bipolar Disorder: No Hx Schizophrenia: No - Patient Surgical History Past Surgical History: No Hx Neurologic Surgery: No Hx Cataract Extraction: No Hx Cardiac Surgery: No Hx Lung Surgery: No Hx Breast Surgery: No Hx Breast Biopsy: No Hx Abdominal Surgery: No Hx Appendectomy: No Hx Cholecystectomy: No Hx Genitourinary Surgery: No Hx Section: No Hx Orthopedic Surgery: No Anesthesia Reaction: No - PPD History Date: 05/25/19 - Smoking Cessation Smoking history: Never smoked Have you smoked in the past 12 months: No Aproximately how many cigarettes per day: 3 Hx Chewing Tobacco Use: No Admission Physical Exam BHS - Vital Signs Vital Signs: Vital Signs - 24 hr 06/30/20 06/30/20 19:27 19:39 Temperature 97.6 F 97.6 F Pulse Rate 78 78 Respiratory 18 18 Rate Blood Pressure 116/84 116/84 - Physical General Appearance: Yes: No Apparent Distress HEENTM: Yes: EOMI, Hearing grossly Normal, Normocephalic, Normal Voice Respiratory: Yes: Chest Non-Tender, Lungs Clear, Normal Breath Sounds, No Respiratory Distress, No Accessory Muscle Use Neck: Yes: No masses,lesions,Nodules, Trachea in good position Cardiology: Yes: Regular Rhythm, Regular Rate, S1, S2 Abdominal: Yes: Non Tender, Soft Back: Yes: Normal Inspection Musculoskeletal: Yes: Gait Steady Extremities: Yes: Normal Range of Motion, Non-Tender Integumentary: Yes: Normal Color, Warm - Diagnostic (1) Alcohol dependence with uncomplicated withdrawal Current Visit: Yes Status: Chronic Breathalyzer - Breathalyzer Breathalyzer: 0 Urine Drug Screen - Test Device Lot number: [id number] Expiration date: 02/17/22 - Control Is test valid?: Yes - Results Drug screen NEGATIVE: No Urine drug screen results: BZO-Benzodiazepines Inpatient Rehab Admission - Rehab Decision to Admit Inpatient rehab admission?: No
[2020-06-30] MEDS ORDERED: LORazepam 1 MG TABLET PO PRN (20:12)
[2020-06-30] MEDS ORDERED: MAGNESIUM CITRATE 300 ML BOTTLE PO PRN (20:13)
[2020-06-30] MEDS ORDERED: MAGNESIUM HYDROX 2400MG/30ML ORAL SUSPENSION 30 ML CUP PO PRN (20:13)
[2020-06-30] MEDS ORDERED: MAG HYDROX/AL HYDROX/SIMETH 30 ML UNIT-DOSE CUP PO PRN (20:13)
[2020-06-30] MEDS ORDERED: MENTHOL/PHENOL 1 EACH UD MM PRN (20:13)
[2020-06-30] MEDS ORDERED: METHOCARBAMOL 500 MG TABLET PO PRN (20:13)
[2020-06-30] MEDS ORDERED: BISMUTH SUBSALICYLATE 524 MG/30 ML UD PO PRN (20:13)
[2020-06-30] MEDS ORDERED: ACETAMINOPHEN 325 MG TABLET (FP) PO PRN ×2 (20:13)
[2020-06-30] MEDS: MELATONIN 5 MG TABLETS PO SCH (22:22)
[2020-07-01] MEDS: LORazepam 1 MG TABLET PO SCH ×4 (06:11→22:21)
[2020-07-01] MEDS: FOLIC ACID 1 MG TABLET (FP) PO SCH (10:18)
[2020-07-01] MEDS: PANTOPRAZOLE 40 MG TABLET PO SCH (10:18)
[2020-07-01] MEDS: HYDROCORTISONE 2.5% TOPICAL CREAM 30 GM TUBE TP SCH (10:19)
[2020-07-01] MEDS: THIAMINE HCL 100 MG TABLET (FP) PO SCH (10:20)
--- NOTE | 2020-07-01 16:33 | PN ---
S CIWA - CIWA Score Nausea/Vomitin-Mild Nausea/No Vomiting Muscle Tremors: 2 Anxiety: 2 Agitation: 1-Slight > Activity Paroxysmal Sweats: No Perspiration Orientation: 0-Oriented Tacttile Disturbances: 0-None Auditory Disturbances: 0-None Visual Disturbances: 0-None Headache: 1-Very Mild CIWA-Ar Total Score: 7 BHS Progress Note (SOAP) Subjective: alert,irritable,anxious,interrupted sleep,aching pain in the body and extre mities patient was admitted at [facility] form 06/28/20 to 06/30/20 ,has Covid 19 test done on 06/28/20 not detected Objective: 07/01/20 16:32 Vital Signs Temperature 97.1 F L 07/01/20 12:46 Pulse Rate 20 L 07/01/20 12:46 Respiratory Rate 70 H 07/01/20 12:46 Blood Pressure 132/81 07/01/20 12:46 O2 Sat by Pulse Oximetry (%) 98 07/01/20 12:46 Assessment: 07/01/20 16:33 withdrawal symptom Plan: continue detox ativan regimen,bgm monitoring
[2020-07-01] MEDS: MELATONIN 5 MG TABLETS PO SCH (22:21)
[2020-07-02] MEDS ORDERED: LORazepam 0.5 MG TABLET PO PRN
[2020-07-02] MEDS: LORazepam 0.5 MG TABLET PO SCH ×4 (05:27→22:36)
[2020-07-02] MEDS: PANTOPRAZOLE 40 MG TABLET PO SCH (10:19)
[2020-07-02] MEDS: FOLIC ACID 1 MG TABLET (FP) PO SCH (10:19)
[2020-07-02] MEDS: THIAMINE HCL 100 MG TABLET (FP) PO SCH (10:19)
[2020-07-02] MEDS: HYDROCORTISONE 2.5% TOPICAL CREAM 30 GM TUBE TP SCH (10:20)
--- NOTE | 2020-07-02 14:02 | PN ---
[facility] CIWA - CIWA Score Nausea/Vomitin-No Nausea/No Vomiting Muscle Tremors: 1-None Visible, but [place] Anxiety: 1-Mildly Anxious Agitation: 1-Slight > Activity Paroxysmal Sweats: No Perspiration Orientation: 0-Oriented Tacttile Disturbances: 0-None Auditory Disturbances: 1-Very Mild Visual Disturbances: 0-None Headache: 1-Very Mild CIWA-Ar Total Score: 5 BHS Progress Note (SOAP) Subjective: alert,irritable,anxious,interrupted sleep,aching pain Objective: 07/02/20 15:47 Vital Signs Temperature 97.3 F L 07/02/20 12:31 Pulse Rate 77 07/02/20 12:31 Respiratory Rate 18 07/02/20 12:31 Blood Pressure 120/78 07/02/20 12:31 O2 Sat by Pulse Oximetry (%) 98 07/02/20 12:31 Assessment: 07/02/20 15:47 withdrawal symptom Plan: continue detox ativan regimen,discharge in am
[2020-07-02] MEDS: MELATONIN 5 MG TABLETS PO SCH (22:36)
[2020-07-03] MEDS ORDERED: LORazepam 0.5 MG TABLET PO ONE (05:00)
[2020-07-03 06:34] VITALS: BP 124/72; PULSE 71; TEMP 97.3
--- NOTE | 2020-07-03 09:35 | DS ---
[facility] Detox Discharge Summary Admission Date: 06/30/20 Discharge Date: 07/03/20 - History Present History: Alcohol Dependence Additional Comments: Pt is medically cleared and discharged today. Pt completed the detox protocol. Pt is encouraged to follow-up with an outpatient CD program and also to follow- up with his pmd which he verbalized understanding. Pt is AOX3, in no acute respiratory distress, Full ROM, and ambulatory. Pertinent Past History: h/o DM, HTN, and alcohol use disorder. - Physical Exam Results Vital Signs: Vital Signs Temperature 97.3 F L 07/03/20 06:34 Pulse Rate 71 07/03/20 06:34 Respiratory Rate 18 07/03/20 06:34 Blood Pressure 124/72 07/03/20 06:34 O2 Sat by Pulse Oximetry (%) 99 07/03/20 06:34 Vital Signs 07/03/20 06:34 Temperature 97.3 F L Pulse Rate 71 Respiratory 18 Rate Blood Pressure 124/72 O2 Sat by Pulse 99 Oximetry (%) Laboratory Last Values POC Glucometer 193 UNITS (80-120) 07/03/20 05:24 Pertinent Admission Physical Exam Findings: withdrawal symptoms. - Treatment Hospital Course: Detox Protocol Followed, Detoxed Safely, Responded well, Discharged Condition Good - Medication Discharge Medications: Ambulatory Orders Folic Acid - 1 mg PO DAILY tablet 06/30/20 Hydrocortisone 2.5% Topical Cr [Anusol-Hc -] 1 applic TP DAILY tube 06/30/20 LORazepam [Ativan] 0.5 mg PO Q4H PRN tablet 06/30/20 LORazepam [Ativan] 0.5 mg PO Q6H tablet 06/30/20 LORazepam [Ativan] 1 mg PO 0500,1100,1700,2300 tablet 06/30/20 LORazepam [Ativan] 1 mg PO Q4H PRN tablet 06/30/20 LORazepam [Ativan] 2 mg PO Q6H #2 tablet MDD 2 06/30/20 Pantoprazole Sodium [Protonix -] 40 mg PO DAILY 30 Days #30 tablet.ec 06/30/20 Thiamine HCl [Vitamin B1 -] 100 mg PO DAILY tablet 06/30/20 metFORMIN HCL [Metformin HCl ER] 500 mg PO DAILY #30 tab.er.24h 06/30/20 - Diagnosis (1) Alcohol use disorder Status: Chronic (2) Alcohol dependence with uncomplicated withdrawal Status: Acute (3) DM type 2 (diabetes mellitus, type 2) Status: Chronic Qualifiers: 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
== END 2020-07-03 09:08 | disposition home or self-care (01) | DRG 775 ==
LOC: YASAS 19:08 → Y3N 20:27
PROVIDERS: ADMIT Allergy & Immunology; ATTEND Allergy & Immunology
PROC: HZ2ZZZZ Detoxification Services for Substance Abuse Treatment (ICD-10-PCS; principal; 2020-06-30)
DX: F10.230 Alcohol dependence with withdrawal, uncomplicated (principal); I10 Essential (primary) hypertension; E11.9 Type 2 diabetes mellitus without complications; Z79.84 Long term (current) use of oral hypoglycemic drugs; K21.9 Gastro-esophageal reflux disease without esophagitis; L40.9 Psoriasis, unspecified; M54.5 Low back pain; G89.29 Other chronic pain; Z87.19 Personal history of other diseases of the digestive system
CPT/HCPCS: 82962